=== PATIENT | female | born 1935 | race Caucasian/White ===

== ENCOUNTER 2024-05-08 12:10 | Inpatient (IN) | payer MEDICAID, OTHER, SELFPAY ==
[2024-05-08] VITALS (14 sets, daily range): BP systolic 128–196; BP diastolic 59–93; PULSE 65–90; RESP 13–21; TEMP 36.6–36.9; O2SAT 93–97; BMI 31.3
--- NOTE | ~2024-05-08 | CT_ITS ---
CLINICAL HISTORY: left leg weakness, numbness CT angiography head and neck with contrast. 3D Postprocessing. Comparison: None Findings: CTA head: No large vessel intracranial occlusion. No dissection or aneurysm. 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 Intradural vertebral arteries are patent. Anterior and posterior circulation appears widely patent. No abnormal postcontrast enhancement. CTA neck: There is a normal branching pattern of the aortic arch. The right common, internal and external carotid arteries are widely patent, with mild atherosclerotic disease of the bifurcation. The left common, internal and external carotid arteries are patent, with mild atherosclerotic disease of the bifurcation. The vertebral arteries are patent. Lung apices demonstrate mild chronic change. Calcified granuloma noted in the right. Moderate diffuse degenerative change within the cervical spine. No thyroid lesion. Impression: There is no intracranial large vessel occlusion detected. No significant stenosis of the neck vasculature. Incidental findings as detailed. This document has been electronically signed by: Bud Murray MD on 05/08/2024 12:54:31
--- NOTE | ~2024-05-08 | MR_ITS ---
CLINICAL HISTORY: stroke with left hemiparesis extremities post TPa MR Brain with and without gadolinium Comparison: CT/SR - CT HEAD FOR STROKE - 05/08/24 12:15 EST Findings: No restricted diffusion. No intracranial mass or hemorrhage. No midline shift. No hydrocephalus. Vascular flow voids are intact. There is involutional change, compatible with age. There are moderate white matter changes.. The orbits are normal. The sinuses and mastoid air cells are clear. No focal bone lesion. IMPRESSION: No acute abnormality of the brain. This document has been electronically signed by: Cathryn Freeman MD on 05/09/2024 13:04:17
--- NOTE | ~2024-05-08 | CT_ITS ---
CLINICAL HISTORY: left leg weakness CT head without contrast Comparison: None Findings: No intra-axial mass, midline shift, hydrocephalus, or acute hemorrhage. Mild volume loss and scattered low-density in the periventricular regions. The visualized paranasal sinuses and mastoid air cells are normal. The orbits are unremarkable. No skull fracture. IMPRESSION: 1. No acute intracranial findings. This document has been electronically signed by: Bud Murray MD on 05/08/2024 12:30:51
--- NOTE | 2024-05-08 12:12 | ECG_ITS ---
Test Reason : STROKE ALERT Blood Pressure : */* mmHG Vent. Rate : 80 BPM Atrial Rate : 80 BPM P-R Int : 188 ms QRS Dur : 82 ms QT Int : 368 ms P-R-T Axes : -2 -22 12 degrees QTcB Int : 424 ms Normal sinus rhythm Anterolateral infarct , age undetermined Abnormal ECG No previous ECGs available Referred By: Erica Valenzuela Electronically Signed By: ADRI THOMSON
--- NOTE | 2024-05-08 12:19 | ED_ITS ---
HPI - Neuro Symptoms/Deficit General Chief Complaint: Stroke Stated Complaint: leg weakness Time Seen by Provider: 05/08/24 12:11 Source: patient and family Mode of arrival: ambulatory Limitations: no limitations History of Present Illness ED Provider: MAYUR HPI Narrative: 88 yo female with PMH of HTN, DM, not on blood thinners 3 weeks ago had a TIA like event where she couldn't speak and it resolved. She has not had any head trauma etc or falls. Today just after 10am she noted significant numbness in left leg and it wouldn't move. She also had weakness in L arm. She has never had anything like this before. She has no headache. BP up on arrival. She has no hx of stroke or bleeding. Sent right to CT scan on arrival Onset (ago): hour(s) (just after 10am today) Last Observed Normal: 10:00 Timing confirmed by: family member Location: left arm and left leg History of same: No Severity: moderate Quality: weak and numb Relieving factors: rest Exacerbating factors: other (she cannot move leg) Context: sudden onset On Anticoagulants: No Associated symptoms: denies other symptoms Treatments Prior to Arrival: none Related Data Allergies Allergy/AdvReac Type Severity Reaction Status Date / Time No Known Allergies Allergy Verified 05/08/24 12:45 Review of Systems 2 Review of Systems: Constitutional : No Fever, No Chills, No Fatigue ENT/Mouth : No sore throat, No Rhinorrhea Eyes: No Eye Pain, No Swelling, No Redness Cardiovascular : No Chest Pain, No SOB, No Dyspnea on Exertion Respiratory : No Cough, No Sputum Gastrointestinal : No Nausea, No Vomiting, No Diarrhea, No abdominal Pain Genitourinary : No Dysuria, No Urinary Frequency, No Hematuria, Musculoskeletal : No joint pain, No Myalgias, No Joint Swelling Skin : No Skin Lesions, No rash Neuro : pos Weakness, pos Numbness, No Dizziness, no Headache Psych : No Anxiety/Panic, No Depression Heme/Lymph: No Bruising, No Bleeding,No Lymphadenopathy All other systems reviewed and are negative [facility] Past Medical History Medical History (Updated 05/08/24 @ 12:59 by Erica Valenzuela DO) Diabetes HTN (hypertension) Social History Social History (Updated 05/08/24 @ 12:28 by Erica Valenzuela DO) Patient Tobacco Use Status: Never used Tobacco Advance Directives: Yes Advance Directives Information Provided: Yes Advance Directives on File: No Do you have a plan to hurt others: No Plan Physical Exam 2 Vital Signs: Vital Signs: Last Vital Signs Temp 97.8 F 05/08/24 12:25 Pulse 78 05/08/24 12:45 Resp 14 05/08/24 12:45 BP 150/68 H 05/08/24 12:45 Pulse Ox 97 05/08/24 12:45 O2 Del Method Room Air 05/08/24 12:45 BMI result Body Mass Index 31.3 Appearance: Alert. Oriented X3. No acute distress. Eyes: Pupils equal, round and reactive to light. Normal visual kumar ENT: Pharynx normal. Neck: Normal inspection. Neck supple. CVS: Normal heart rate and rhythm. Pulses normal. Respiratory: No respiratory distress. Breath sounds normal. Abdomen: Soft and nontender. Skin: Skin warm and dry. Normal skin color. Extremities: No lower extremity edema. Neuro: Oriented X 3. CN2-12 intact, L arm slight drift, L leg some effort against gravity, numbness in lower leg as well Course Course Course Narrative: initial BP 196 systolic repeat 189 systolic IV labetalol ordered call to neurology 1223pm - pending call back from [facility] Reevaluation(s) Reevaluation #1: okay to give TNK at this time BP down on two checks 170s then 160s still with symptoms on weakness/numbness left leg cannot raise it off bed INR normal no CT ICH TNK without contraindications after talking to daughter repeat frequent checks of BP Reevaluation #2: L arm improved, she is able to now lift leg off bed which is improvement Medications Administered Discontinued Medications Generic Name Dose Route Start Last Admin Trade Name Freq PRN Reason Stop Dose Admin Labetalol HCl 10 mg 05/08/24 12:24 05/08/24 12:30 Labetalol Hcl 100 Mg/20 Ml Vial IVPUSH 05/08/24 12:25 10 mg ONCE ONE Administration Tenecteplase 19 mg 05/08/24 12:27 05/08/24 12:39 Tenecteplase 50 Mg/10 Ml Kit IVPUSH 05/08/24 12:28 19 mg ONCE ONE Administration Medical Decision Making Medical Decision Making MDM Narrative: 88 yo female with PMH of HTN, DM not on thinners here with c/o noticing significant numbness, weakness of the left leg and arm that started a little after 10am. She has noticeable LLE weakness, numbness, and left arm weakness at this time put into STROKE protocol - CT head/CTA, she is a candidate for TNK at this time. Will call neurology - repeat BP ordered it is elevated may need labetalol. Differential Diagnosis Differential Diagnoses: The differential diagnosis associated with the presentation includes stroke protocol workup Admission/Observation Consideration of admission/observation: Escalation of care including admission/observation considered admit for stroke work up neuro checks post TNK Consult Healthcare Provider Management of the patient was discussed with: Safety Equipment Testing Specialist (neurology) ICU aware - Dr. Dillon to admit Lab Data MDM Lab Attestation statement: I reviewed the patient's lab results. 05/08/24 12:23 05/08/24 12:23 Labs: Lab Results 05/08/24 05/08/24 05/08/24 Range/Units 12:17 12:19 12:23 WBC 7.1 (4.8-10.8) X10*3/uL RBC 5.12 (4.20-5.50) X10*6/uL Hgb 14.0 (12.0-16.0) g/dl Hct 43.6 (37.0-47.0) % MCV 85.2 (80.0-98.0) fL MCH 27.3 (27.0-33.0) pg MCHC 32.1 (31.0-35.0) g/dl RDW 14.4 (11.0-16.0) % Plt Count 161 (160-400) X10*3/uL MPV 9.7 (9.4-12.3) fL Immature Gran % (Auto) 0.4 (0.0-0.4) % Neut % (Auto) 67.1 (45-73) % Lymph % (Auto) 23.9 (20-40) % [place] % (Auto) 7.2 (2-11) % Eos % (Auto) 1.0 (0-4) % Baso % (Auto) 0.4 (0-2) % Lymph # (Auto) 1.7 (1.2-4.9) X10*3/uL [place] # (Auto) 0.5 (0.1-1.2) X10*3/uL Eos # (Auto) 0.1 (0.0-0.4) X10*3/uL Baso # (Auto) 0.0 (0.0-0.2) X10*3/uL Abs Immat Gran (auto) 0.03 (0.00-0.03) X10*3/uL Absolute Neuts (auto) 4.8 (2.0-8.3) x10*3/uL Absolute Nucleated RBC 0.000 (0.0-0.012) X10*3/uL Nucleated RBC % (auto) 0.0 (0.0-0.2) /100WBC PT 11.1 (10.9-12.4) SEC Whole Blood PT 12.2 (11.1-13.5) sec INR 1.0 (0.9-1.1) Whole Blood INR 1.0 (0.9-1.1) POC Glucose 217 H (60-115) mg/dL Estimat Average Glucose 160 mg/dL Hemoglobin A1c % 7.2 H (<6.0) % Hold Green Top See Note Independent Interpretation I performed an independent interpretation of an: EKG and CT Scan (no LVO, no ICH) Interpretation: Rate: 80 Rhythm: NSR [place]: left Normal P waves. Normal INES. Normal QRS complex. ST T wave : inverted t wave III, no ISSA qTC: 424 prior studies: no prior has poor R wave progression, nothing acute The study has been interpreted contemporaneously by me. . Radiology Impression Discussion of test interpretation with radiology: I have reviewed the radiologist's reading. Independent Historian Clinical information obtained from an independent historian. History obtained from or confirmed by: Other (daughter) NIH Stroke Scale Internal: Initial- Upon Arrival Level of Consciousness: Alert Level of Consciousness Questions: Answers both questions correctly Level of Consciousness Commands: Performs both tasks correctly Best Gaze: Normal Visual: No visual loss Facial Palsy: Normal Motor Arm (Right): No drift Motor Arm (Left): Drift Motor Leg (Right): No drift Motor Leg (Left): Some effort against gravity Limb Ataxia: Absent Sensory: Normal Best Language: No aphasia Dysarthia: Normal Extinction and Inattention: No abnormality Score: 3 Critical Care Time Critical Care Time Critical Care Time: Yes Total Critical Care Time: 45 Attestation: stroke protocol, IV labetalol, TNK for stroke, repeat assessments I attest to this time spent taking care of the patient Discharge Plan Discharge Clinical Impression: Cerebrovascular accident Patient Disposition: Admitted As Inpatient Print Language: Polish
[2024-05-08 12:27] LABS: Prothrombin Time Whole Bld POC 12.2 sec (11.1-13.5)
[2024-05-08 12:28] LABS: Glucose, Whole Blood 217 mg/dL (60-115)
[2024-05-08 12:29] LABS: MANUAL DIFF FLAG NO
[2024-05-08] MEDS: Labetalol HCL 100 MG/20 ML VIAL 10 MG IVPUSH (12:30)
--- NOTE | 2024-05-08 12:34 | PC.NURSE ---
pt returned from CT at this time. pt remains hypertensive. medication administered per provider order. effectiveness pending. otherwise vss and up to date. nsr on the cafeteria monitor. MD bedside.
[2024-05-08 12:39] LABS: Basophils Percent Auto 0.4 % (0-2); Eosinophils Absolute Auto 0.1 X10*3/uL (0.0-0.4); Hematocrit 43.6 % (37.0-47.0); Imm Gran Abs Auto 0.03 X10*3/uL (0.00-0.03); Imm Gran Pct Auto 0.4 % (0.0-0.4); Lymphocytes Absolute Auto 1.7 X10*3/uL (1.2-4.9); Lymphocytes Percent Auto 23.9 % (20-40); Mean Corpuscular HGB Conc 32.1 g/dl (31.0-35.0); Mean Corpuscular Hemoglobin 27.3 pg (27.0-33.0); Mean Corpuscular Volume 85.2 fL (80.0-98.0); Mean Platelet Volume 9.7 fL (9.4-12.3); Monocytes Absolute Auto 0.5 X10*3/uL (0.1-1.2); Monocytes Percent Auto 7.2 % (2-11); Neutrophils Absolute Auto 4.8 x10*3/uL (2.0-8.3); Neutrophils Percent Auto 67.1 % (45-73); Platelet Count 161 X10*3/uL (160-400); Red Blood Count 5.12 X10*6/uL (4.20-5.50); Red Cell Distribution Width 14.4 % (11.0-16.0); White Blood Count 7.1 X10*3/uL (4.8-10.8)
[2024-05-08] MEDS: Tenecteplase 50 MG/10 ML KIT 19 MG IVPUSH (12:39)
--- NOTE | 2024-05-08 12:39 | PC.NURSE ---
TNK administered per provider order.
[2024-05-08 12:49] LABS: Estimated Average Glucose 160 mg/dL; Hemoglobin A1c % 7.2 % (<6.0); Total Hemoglobin (HGBA1C) 3629.8159 umol/L
[2024-05-08 12:50] LABS: Prothrombin Time 11.1 SEC (10.9-12.4)
[2024-05-08 12:57] LABS: Troponin-I High Sensitivity 2.7 ng/L (<3.5-17.0)
[2024-05-08 12:59] LABS: Alanine Aminotransferase 64 U/L (0-31); Albumin Level 4.1 g/dL (3.5-5.0); Alkaline Phosphatase 79 U/L (39-117); Anion Gap 15 (12-20); Aspartate Amino Transferase 53 U/L (5-31); Bilirubin Direct 0.2 mg/dL (0.0-0.5); Bilirubin Total 0.8 mg/dL (0.0-1.0); Blood Urea Nitrogen 16 mg/dL (9-16); Calcium 9.6 mg/dL (8.4-10.2); Carbon Dioxide 25 mmol/L (22-29); Chloride 103 mmol/L (96-108); Cholesterol 161 mg/dL (<200); Creatinine Clr Calc Pharmacy 58.1; Estimated Glomerular Filt Rate > 60; Glucose Random 223 mg/dL (60-115); HDL Cholesterol 41 mg/dL (>40); LDL Cholesterol Calculated 81 mg/dL (<100); Lipase 18 U/L (8-78); Magnesium 1.8 mg/dL (1.6-2.6); Sodium 139 mmol/L (135-145); Total Protein 7.6 g/dL (6.5-8.0); Triglycerides 195 mg/dL (<150)
--- NOTE | 2024-05-08 12:59 | PC.NURSE ---
pt passed nursing swallow evaluation without difficulty. vss and up to date. nsr on the real estate loan officer. sx improving s/p medication administration. LLE weakness improved at this time. no facial droop noted. pt speaking in full/clear sentences w/o difficulty. no slur in speech noted. no difficulty w/ word finding. no pronator drift noted. pt remains on RA w/o difficulty. no sob/wob noted. respirations remain even/unlabored. family remains bedside. plan of care ongoing. call taylor placed within reach.
[2024-05-08 13:05] LABS: B Type Natriuretic Peptide 44 pg/mL (<100)
[2024-05-08 13:13] LABS: TSH reflex Free T4 1.48 uIU/mL (0.32-4.0)
[2024-05-08 13:35] LABS: Influenza A PCR NEGATIVE (Negative); Influenza B PCR NEGATIVE (Negative); Resp Syncy Virus RNA Qual PCR NEGATIVE (Negative); SARS COV2 PCR INHOUSE NEGATIVE (Negative)
--- NOTE | 2024-05-08 15:33 | PM.CCHP ---
History of Present Illness Date of Service: 05/08/24 Chief Complaint: Weakness in the left lower extremity Pretty 8-year-old lady with past medical history of hypertension, diabetes mellitus, peripheral neuropathy was brought into the emergency room as she developed sudden onset weakness in the left upper and lower extremity, more so in the left lower extremity. It was sudden, nonprogressive, associated with numbness started around 10:00. In the ED she underwent CTA of head and neck which did not show any acute bleeding, so she was treated on a stroke protocol and TNK was given. Apparently 3 weeks ago she developed sudden onset off aphasia that improved over few minutes or an hour. Patient is not on antiplatelet at baseline. Review of Systems Constitutional: Constitutional: Denies body ache(s), Denies chills and Denies daytime sleepiness Eyes: Eyes: Denies blurry vision, Denies exophthalmos and Denies change in vision ENT: Denies Normal hearing present, Denies bleeding gums, Denies dysphagia, Denies vertigo and Denies dizziness Cardiovascular: Cardiovascular: Denies Abdominal Distension, Denies chest pain with activity, Denies Epigastric Pain and Denies syncope Respiratory: Respiratory: Denies change in phlegm color, Denies chest congestion and Denies cough Gastrointestinal: Gastrointestinal: Denies abdominal pain, Denies melena, Denies change in bowel habits and Denies dysphagia Genitourinary: Genitourinary: Denies abnormal menses, Denies abnormal vaginal bleeding and Denies difficulty conceiving Musculoskeletal: Musculoskeletal: Denies abnormal gait, Denies back pain, Denies myalgias and Denies atrophy Neurologic: Denies Normal hearing present, Denies Neuro-related abnormal movements, Denies Abnormal speech present, Denies abnormal gait, Denies behavioral changes, Denies vertigo, Denies dizziness, Denies syncope, Reports focal weakness and Denies memory loss Psychiatric: Psychiatric: Denies abnormal sleep pattern, Denies anxiety, Denies behavioral changes and Denies memory loss [facility] Past Medical History Medical History (Updated 05/08/24 @ 15:43 by Raz Dillon MD) Diabetes HTN (hypertension) Social History Social History (Updated 05/08/24 @ 12:28 by Erica Valenzuela DO) Patient Tobacco Use Status: Never used Tobacco Advance Directives: Yes Advance Directives Information Provided: Yes Advance Directives on File: No Do you have a plan to hurt others: No Plan Meds Allergies Allergy/AdvReac Type Severity Reaction Status Date / Time No Known Allergies Allergy Verified 05/08/24 12:45 Active Medications: Current Medications Lactated Ringer's (Lr) 1,000 mls @ 100 mls/hr IVCONT .Q10H CRISTAL Pantoprazole Sodium 40 mg/ (Sodium Chloride) 110 mls @ 400 mls/hr IV DAILY@0630 CRISTAL Physical Exam Vital Signs: Vital Signs: Last Vital Signs Temp 98.2 F 05/08/24 12:59 Pulse 77 05/08/24 13:23 Resp 18 05/08/24 13:23 BP 137/74 05/08/24 13:23 Pulse Ox 94 05/08/24 13:23 O2 Del Method Room Air 05/08/24 13:23 BMI result Body Mass Index 31.3 General: Very pleasant, elderly lady, comfortable and lying in the bed Nutritional Appearance: well nourished and overweight Eyes: appearance normal, both eyes and all related structures; Alignment and Position: alignment normal and position normal Neck: No lymphadenopathy, no thyromegaly Resp: bilateral air entry equal, no added sounds present Cardio: Regular rate, regular rhythm; Heart sounds: S1 normal heart sound present and S2 normal heart sound present GI: soft, nontender, no guarding, no hepatosplenomegaly : bladder normal to inspection, bladder normal to palpation, no renal angle tenderness Skin: no rashes or lesions noted and elasticity normal Neuro: The weakness in the left upper and lower extremities has completely improved, patient has some altered sensations in the left lower extremity. Neuro: Cranial nerves: No Normal hearing present Speech: No Abnormal speech present Results Labs 05/08/24 12:23 05/08/24 12:23 Labs: Laboratory Results - last 24 hr 05/08/24 05/08/24 05/08/24 12:17 12:19 12:23 MCV 85.2 MCH 27.3 MCHC 32.1 RDW 14.4 Plt Count 161 MPV 9.7 Immature Gran % (Auto) 0.4 Neut % (Auto) 67.1 Lymph % (Auto) 23.9 [place] % (Auto) 7.2 Eos % (Auto) 1.0 Baso % (Auto) 0.4 Lymph # (Auto) 1.7 [place] # (Auto) 0.5 Eos # (Auto) 0.1 Baso # (Auto) 0.0 Abs Immat Gran (auto) 0.03 Absolute Neuts (auto) 4.8 Absolute Nucleated RBC 0.000 Nucleated RBC % (auto) 0.0 PT 11.1 Whole Blood PT 12.2 INR 1.0 Whole Blood INR 1.0 Anion Gap 15 Estim Creat Clear Calc 58.1 Estimated GFR > 60 POC Glucose 217 H Random Glucose 223 H Estimat Average Glucose 160 Hemoglobin A1c % 7.2 H Calcium 9.6 Magnesium 1.8 Total Bilirubin 0.8 Direct Bilirubin 0.2 AST 53 H ALT 64 H Alkaline Phosphatase 79 B-Natriuretic Peptide 44 Total Protein 7.6 Albumin 4.1 Triglycerides 195 H Cholesterol 161 LDL Cholesterol, Calc 81 HDL Cholesterol 41 Lipase 18 TSH 1.48 Hold Green Top See Note Influenza Type A (PCR) Influenza Type B (PCR) RSV RNA Qual (PCR) SARS-CoV-2 RNA (RT-PCR) 05/08/24 12:52 MCV MCH MCHC RDW Plt Count MPV Immature Gran % (Auto) Neut % (Auto) Lymph % (Auto) [place] % (Auto) Eos % (Auto) Baso % (Auto) Lymph # (Auto) [place] # (Auto) Eos # (Auto) Baso # (Auto) Abs Immat Gran (auto) Absolute Neuts (auto) Absolute Nucleated RBC Nucleated RBC % (auto) PT Whole Blood PT INR Whole Blood INR Anion Gap Estim Creat Clear Calc Estimated GFR POC Glucose Random Glucose Estimat Average Glucose Hemoglobin A1c % Calcium Magnesium Total Bilirubin Direct Bilirubin AST ALT Alkaline Phosphatase B-Natriuretic Peptide Total Protein Albumin Triglycerides Cholesterol LDL Cholesterol, Calc HDL Cholesterol Lipase TSH Hold Green Top Influenza Type A (PCR) NEGATIVE Influenza Type B (PCR) NEGATIVE RSV RNA Qual (PCR) NEGATIVE SARS-CoV-2 RNA (RT-PCR) NEGATIVE Assessment and Plan (1) Cerebrovascular accident: Qualifiers: CVA mechanism: unspecified Qualified Code(s): I63.9 - Cerebral infarction, unspecified Status: Acute Plan Acute ischemic stroke/TIA: Patient had an episode of TIA versus acute ischemic stroke at 10:00 this morning. CTA negative for any intracranial bleed or thrombosis of neck vessels.TNK was given this morning. Close neurological status monitoring Q 1 hours in the ICU We will start her on statin, received TNK so we will hold off on antiplatelet therapy for now LDL 82, will get A1c 24 hour imaging tomorrow in the morning. Hypertension: Target blood pressures less than 180 systolics We will do as needed IV labetalol pushes Diabetes mellitus: We will start the patient on sliding scale insulin Prophylaxis: SCD, pantoprazole
[2024-05-08 16:12] LABS: Phosphorus 3.3 mg/dL (2.7-4.5)
[2024-05-08] MEDS: Lactated Ringers 1,000 ML 100 ML IVCONT ×2 (16:46→19:12)
--- NOTE | 2024-05-08 17:30 | PC.NURSE ---
report given to JANETH Manuel in the ICU.
--- NOTE | 2024-05-08 18:14 | PHA.MEDREC ---
Addendum entered by Ange Jama RPh 05/08/24 18:33: reviewed by [facility]. Original Note: Pharmacy Consult ? Medication Reconciliation Pharmacy has completed the medication reconciliation. Spoke with patients daughter at bedside. Patient recently moved here. They are also taking Gliclazide 80 mg bidac last taken this morning, this is not available in the [place]. Metformin and simvastatin were taken last night. Patient was taking nifedipine but ran out ~1 month ago. She recently found a new PCP that send new prescriptions to the pharmacy but meds have not been started or picked up yet (per [facility]): Gabapentin 300 mg @ bedtime Amlodipine 5 mg daily Atorvastatin 10 mg daily Metformin 500 mg ER bid.
[2024-05-08 20:28] LABS: Glucose, Whole Blood 88 mg/dL (60-115)
[2024-05-08] MEDS: Atorvastatin Calcium 80 MG TABLET PO (21:29)
[2024-05-08] MEDS: Melatonin 3 MG TABLET 6 MG PO (23:55)
[2024-05-09] VITALS (18 sets, daily range): BP systolic 118–159; BP diastolic 52–75; PULSE 58–97; RESP 10–21; TEMP 36.4–37.1; O2SAT 90–97; BMI 31.0
[2024-05-09 04:36] LABS: MANUAL DIFF FLAG NO
[2024-05-09 04:38] LABS: Basophils Percent Auto 0.1 % (0-2); Eosinophils Absolute Auto 0.1 X10*3/uL (0.0-0.4); Hematocrit 40.2 % (37.0-47.0); Imm Gran Abs Auto 0.03 X10*3/uL (0.00-0.03); Imm Gran Pct Auto 0.4 % (0.0-0.4); Lymphocytes Absolute Auto 2.4 X10*3/uL (1.2-4.9); Lymphocytes Percent Auto 30.1 % (20-40); Mean Corpuscular HGB Conc 32.3 g/dl (31.0-35.0); Mean Corpuscular Hemoglobin 27.3 pg (27.0-33.0); Mean Corpuscular Volume 84.3 fL (80.0-98.0); Monocytes Absolute Auto 0.7 X10*3/uL (0.1-1.2); Monocytes Percent Auto 8.8 % (2-11); Neutrophils Absolute Auto 4.7 x10*3/uL (2.0-8.3); Neutrophils Percent Auto 59.6 % (45-73); Platelet Count 148 X10*3/uL (160-400); Red Blood Count 4.77 X10*6/uL (4.20-5.50); Red Cell Distribution Width 14.6 % (11.0-16.0)
[2024-05-09 04:58] LABS: Alanine Aminotransferase 46 U/L (0-31); Albumin Level 3.5 g/dL (3.5-5.0); Alkaline Phosphatase 70 U/L (39-117); Anion Gap 12 (12-20); Aspartate Amino Transferase 37 U/L (5-31); Blood Urea Nitrogen 12 mg/dL (9-16); Calcium 9.4 mg/dL (8.4-10.2); Carbon Dioxide 28 mmol/L (22-29); Chloride 106 mmol/L (96-108); Creatinine Clr Calc Pharmacy 60.9; Estimated Glomerular Filt Rate > 60; Glucose Random 110 mg/dL (60-115); Magnesium 1.9 mg/dL (1.6-2.6); Potassium 4.2 mmol/L (3.3-5.1); Sodium 142 mmol/L (135-145); Total Protein 6.6 g/dL (6.5-8.0)
[2024-05-09] MEDS: Lactated Ringers 1,000 ML 100 ML IVCONT (05:08)
[2024-05-09] MEDS: Pantoprazole Sodium 40 MG in 0.9 % Sodium Chloride 100 ML 400 MG IV (05:08)
[2024-05-09 08:02] LABS: Glucose, Whole Blood 111 mg/dL (60-115)
--- NOTE | 2024-05-09 09:28 | PM.CCPN ---
Subjective Subjective Date of Service: 05/09/24 Critical Care Time (minutes): 0 Physical Exam Vital Signs: Vital Signs: Last Vital Signs Temp 97.6 F 05/09/24 08:00 Pulse 61 05/09/24 08:00 Resp 21 H 05/09/24 08:00 BP 133/58 L 05/09/24 08:00 Pulse Ox 92 05/09/24 08:00 O2 Del Method Room Air 05/09/24 08:00 BMI result Body Mass Index 31.0 Const: General: cooperative, healthy appearing, comfortable, no acute distress, well developed, alert, awake and Physically active Orientation/consciousness: patient oriented x3 HEENT: Head: Yes normal to inspection, Yes normocephalic and Yes atraumatic Eyes: General: appearance normal, both eyes and all related structures Neck: Neck: Yes normal visual inspection, Yes full ROM, Yes no meningeal signs, Yes trachea midline and Yes supple Chest: Chest palpation & inspection: normal inspection of the chest Resp: Other: no appreciable rales, rhonchi, wheezing Effort & Inspection: normal respiratory effort Cardio: Rate: regular rate Rhythm: regular rhythm GI: Inspection: Yes normal to inspection, No Abdominal wall edema and No distended Palpation (GI): Soft to palpation, not firm, nontender, no guarding and not rigid Skin: General skin exam: no rashes or lesions noted Neuro: Other: appreciable 5/5 strength bilateral upper and lower extremities; though subjective weakness and numbness L LE compared to R LE, though improved from presentation General: patient oriented x3, tone normal, moves all extremities and no meningeal signs Extrem: General: Yes normal to inspection, Yes full ROM, Yes capillary refill normal and Yes no clubbing, cyanosis or edema Psych: Appearance: grossly normal Objective Data Labs 05/09/24 04:06 05/09/24 04:06 Labs: Laboratory Results - last 24 hr 05/08/24 05/08/24 05/08/24 12:17 12:19 12:23 WBC 7.1 RBC 5.12 Hgb 14.0 Hct 43.6 MCV 85.2 MCH 27.3 MCHC 32.1 RDW 14.4 Plt Count 161 MPV 9.7 Immature Gran % (Auto) 0.4 Neut % (Auto) 67.1 Lymph % (Auto) 23.9 Grayson % (Auto) 7.2 Eos % (Auto) 1.0 Baso % (Auto) 0.4 Lymph # (Auto) 1.7 Grayson # (Auto) 0.5 Eos # (Auto) 0.1 Baso # (Auto) 0.0 Abs Immat Gran (auto) 0.03 Absolute Neuts (auto) 4.8 Absolute Nucleated RBC 0.000 Nucleated RBC % (auto) 0.0 PT 11.1 Whole Blood PT 12.2 INR 1.0 Whole Blood INR 1.0 Sodium 139 Potassium 4.0 Chloride 103 Carbon Dioxide 25 Anion Gap 15 BUN 16 Creatinine 0.67 Estim Creat Clear Calc 58.1 Estimated GFR > 60 POC Glucose 217 H Random Glucose 223 H Estimat Average Glucose 160 Hemoglobin A1c % 7.2 H Calcium 9.6 Phosphorus 3.3 Magnesium 1.8 Total Bilirubin 0.8 Direct Bilirubin 0.2 AST 53 H ALT 64 H Alkaline Phosphatase 79 Troponin I High Sens 2.7 B-Natriuretic Peptide 44 Total Protein 7.6 Albumin 4.1 Triglycerides 195 H Cholesterol 161 LDL Cholesterol, Calc 81 HDL Cholesterol 41 Lipase 18 TSH 1.48 Hold Green Top See Note Influenza Type A (PCR) Influenza Type B (PCR) RSV RNA Qual (PCR) SARS-CoV-2 RNA (RT-PCR) 05/08/24 05/08/24 05/09/24 12:52 20:22 04:06 WBC 8.0 RBC 4.77 Hgb 13.0 Hct 40.2 MCV 84.3 MCH 27.3 MCHC 32.3 RDW 14.6 Plt Count 148 L MPV 10.0 Immature Gran % (Auto) 0.4 Neut % (Auto) 59.6 Lymph % (Auto) 30.1 Grayson % (Auto) 8.8 Eos % (Auto) 1.0 Baso % (Auto) 0.1 Lymph # (Auto) 2.4 Grayson # (Auto) 0.7 Eos # (Auto) 0.1 Baso # (Auto) 0.0 Abs Immat Gran (auto) 0.03 Absolute Neuts (auto) 4.7 Absolute Nucleated RBC 0.000 Nucleated RBC % (auto) 0.0 PT Whole Blood PT INR Whole Blood INR Sodium 142 Potassium 4.2 Chloride 106 Carbon Dioxide 28 Anion Gap 12 BUN 12 Creatinine 0.64 Estim Creat Clear Calc 60.9 Estimated GFR > 60 POC Glucose 88 Random Glucose 110 Estimat Average Glucose Hemoglobin A1c % Calcium 9.4 Phosphorus Magnesium 1.9 Total Bilirubin 1.0 Direct Bilirubin AST 37 H ALT 46 H Alkaline Phosphatase 70 Troponin I High Sens B-Natriuretic Peptide Total Protein 6.6 Albumin 3.5 Triglycerides Cholesterol LDL Cholesterol, Calc HDL Cholesterol Lipase TSH Hold Green Top Influenza Type A (PCR) NEGATIVE Influenza Type B (PCR) NEGATIVE RSV RNA Qual (PCR) NEGATIVE SARS-CoV-2 RNA (RT-PCR) NEGATIVE 05/09/24 07:32 WBC RBC Hgb Hct MCV MCH MCHC RDW Plt Count MPV Immature Gran % (Auto) Neut % (Auto) Lymph % (Auto) Grayson % (Auto) Eos % (Auto) Baso % (Auto) Lymph # (Auto) Grayson # (Auto) Eos # (Auto) Baso # (Auto) Abs Immat Gran (auto) Absolute Neuts (auto) Absolute Nucleated RBC Nucleated RBC % (auto) PT Whole Blood PT INR Whole Blood INR Sodium Potassium Chloride Carbon Dioxide Anion Gap BUN Creatinine Estim Creat Clear Calc Estimated GFR POC Glucose 111 Random Glucose Estimat Average Glucose Hemoglobin A1c % Calcium Phosphorus Magnesium Total Bilirubin Direct Bilirubin AST ALT Alkaline Phosphatase Troponin I High Sens B-Natriuretic Peptide Total Protein Albumin Triglycerides Cholesterol LDL Cholesterol, Calc HDL Cholesterol Lipase TSH Hold Green Top Influenza Type A (PCR) Influenza Type B (PCR) RSV RNA Qual (PCR) SARS-CoV-2 RNA (RT-PCR) Progress Note: A&P Assessment and plan (1) Cerebrovascular accident: Status: Acute (2) HTN (hypertension): Status: Acute (3) Diabetes: Status: Acute Plan Patient is a 88-year-old F w/ hypertension, diabetes mellitus, c/b peripheral neuropathy developed L UE and LE weakness, numbness 10:00 on 05/08, presented to emergency department as stroke code, given TNK, admitted ICU for post-TNK care N: likely TIA, s/p TNK protocol CV: no acute issues; hypertension R: no acute issues GI: diabetic diet : no acute issues H: no acute issues; to avoid chemical DVT prophylaxis in setting of TNK ID: no acute issues; to monitor for stigmata of infection E: diabetes mellitus, insulin sliding scale P: no acute issues Quality Stroke Does the patient have a stroke diagnosis?: No VTE Prior VTE?: No VTE Risk Level:: Medical - moderate - high VTE Device Contraindication: N/A - Device Ordered VTE Drug Contraindication: Treatment Not Tolerated
--- NOTE | 2024-05-09 10:01 | P.CNNE_ITS ---
History of Present Illness Data of Consult Service Date: 05/09/24 Primary Care Provider: Monse Medina MD HPI Reason for consult: Stroke 88 years old woman with history of diabetes and hypertension was brought to hospital with new onset of left-sided weakness. It happened suddenly and she came with in time and was evaluated for acute stroke. She was given TNK for tentative diagnosis of ischemic infarct. She was admitted in ICU for blood pressure management. She did well and now she was back to baseline. No complications occurred. There was no recent cardiac symptom. No seizure-like episode. Review of Systems 2 Review of Systems: No recent chest pain shortness of breath or cold or flu-like illness PMFSH Past Medical History Medical History Diabetes HTN (hypertension) Social History Social History (Updated 05/08/24 @ 12:28 by Erica Valenzuela DO) Household Members: Spouse and Significant Other Housing: House Do you presently have visiting nurse or other home services: No Patient Tobacco Use Status: Never used Tobacco Use of substances other than those prescribed or required for medical reasons: No Currently Displaying Signs/Symptoms of Drug Intoxication Withdrawal: No Any prior treatment program specific to substance use: No Have you been hit, kicked, punched, or otherwise hurt by someone within the past year? If so, by whom?: No Do you feel safe in your current relationship?: Yes Is there a partner from a previous relationship who is making you feel unsafe now?: No Are you made to feel afraid or neglected: No Advance Directives: Yes Advance Directives Information Provided: Yes Advance Directives on File: No Advance Directives Date on File: 05/08/24 Do you have a plan to hurt others: No Plan Recently lost weight without trying: Unsure How much weight loss: Not applicable Eating poorly because of decreased appetite: Yes Nutrition screen score: 3 Nutrition Risks: No Nutritional Risk Patient : No : No Poor oral hygiene: No Meds Allergies Allergy/AdvReac Type Severity Reaction Status Date / Time No Known Allergies Allergy Verified 05/08/24 12:45 Active Medications: Current Medications Atorvastatin Calcium (Atorvastatin Calcium 80 Mg Tablet) 80 mg PO BEDTIME CRISTAL Last Admin: 05/08/24 21:29 Dose: 80 mg Dextrose (Dextrose 50 % 25 Gm/50 Ml Syringe) 25 gm IVPUSH Q15M PRN; Protocol PRN Reason: per Hypoglycemia Standing Ord. Glucose (Glucose Gel 15 Gm Gel..Gram.) 15 gm PO Q15M PRN; Protocol PRN Reason: per Hypoglycemia Standing Ord. Pantoprazole Sodium 40 mg/ (Sodium Chloride) 110 mls @ 400 mls/hr IV DAILY@0630 [facility] Last Infusion: 05/09/24 05:30 Dose: Infused Insulin Human Lispro (Insulin Lispro 100 Unit/Ml 3 Ml Vial) 0 unit SUBCUT QIDACHS [facility]; Protocol Stop: 05/09/24 15:33 Last Admin: 05/09/24 07:42 Dose: Not Given Niacin (Niacin Er 250 Mg Tablet.Er) 250 mg PO BEDTIME [facility] Last Admin: 05/08/24 21:29 Dose: 250 mg Home Medications ?Medication ?Instructions ?Recorded ?Confirmed ?Last Taken ?Type gabapentin 300 mg capsule 300 mg PO BID 05/08/24 05/08/24 Unknown History metformin 500 mg tablet 500 mg PO BID 05/08/24 05/08/24 05/07/24 History simvastatin 20 mg tablet 20 mg PO BEDTIME 05/08/24 05/08/24 05/07/24 History Physical Exam 2 Vital Signs: Vital Signs: Last Vital Signs Temp 97.6 F 05/09/24 08:00 Pulse 61 05/09/24 08:00 Resp 21 H 05/09/24 08:00 BP 133/58 L 05/09/24 08:00 Pulse Ox 92 05/09/24 08:00 O2 Del Method Room Air 05/09/24 08:00 BMI result Body Mass Index 31.0 Neuro: Other: She is alert and awake with normal spontaneity of speech fluency comprehension and affect. Face is symmetrical. Visual kumar are full. There is no pronator drift. Wckqwe-it-dfsk testing is normal. Deep tendon reflexes are absent with flexor plantars. Speech is normal. Results Labs 05/09/24 04:06 05/09/24 04:06 Labs: Short CBC 05/08/24 05/09/24 Range/Units 12:23 04:06 WBC 7.1 8.0 (4.8-10.8) X10*3/uL Hgb 14.0 13.0 (12.0-16.0) g/dl Hct 43.6 40.2 (37.0-47.0) % Plt Count 161 148 L (160-400) X10*3/uL BMP 05/08/24 05/09/24 12:23 04:06 Sodium 139 142 Potassium 4.0 4.2 Chloride 103 106 Carbon Dioxide 25 28 BUN 16 12 Creatinine 0.67 0.64 Calcium 9.6 9.4 Liver Function 05/08/24 05/09/24 Range/Units 12:23 04:06 Total Bilirubin 0.8 1.0 (0.0-1.0) mg/dL Direct Bilirubin 0.2 (0.0-0.5) mg/dL AST 53 H 37 H (5-31) U/L ALT 64 H 46 H (0-31) U/L Alkaline Phosphatase 79 70 (39-117) U/L Albumin 4.1 3.5 (3.5-5.0) g/dL noncontrast head CT revealed [id number] diffuse cerebral atrophy. CTA did not reveal any acute lesion. EKG revealed sinus rhythm. Assessment and Plan (1) Cerebrovascular accident: Qualifiers: CVA mechanism: unspecified Qualified Code(s): I63.9 - Cerebral infarction, unspecified Status: Acute Acute left hemiparesis treated with TNK for suspected ischemic infarction. Now she was doing well. My recommendation is to obtain MRI without contrast to make a definitive diagnosis. Otherwise continue blood pressure management, diabetes control, statin and anti-platelet agent for now Procedures Date of Service Date of Service: 05/09/24
[2024-05-09 12:04] LABS: Glucose, Whole Blood 149 mg/dL (60-115)
[2024-05-09] MEDS: gadobutroL 7.5 ML VIAL IVPUSH (12:41)
[2024-05-09 16:51] LABS: Glucose, Whole Blood 174 mg/dL (60-115)
[2024-05-09] MEDS: Gabapentin 300 MG CAPSULE PO (20:13)
[2024-05-09] MEDS: Atorvastatin Calcium 80 MG TABLET PO (20:14)
[2024-05-09] MEDS: Aspirin Enteric Coated 81 MG TABLET.DR PO (20:14)
[2024-05-09 20:50] LABS: Glucose, Whole Blood 145 mg/dL (60-115)
[2024-05-10] VITALS: BP 133/63; PULSE 64; RESP 16; TEMP 36.6; O2SAT 94
[2024-05-10 04:00] VITALS: BP 110/55; PULSE 65; RESP 16; TEMP 36.5; O2SAT 94
[2024-05-10 05:39] VITALS: BMI 32.1
--- NOTE | 2024-05-10 07:00 | CA_ITS ---
Transthoracic Echocardiogram Patient (Last, First, Middle): Maryellen Acosta, Gender: Female Date of : 1935 Age: 88 Procedure Date: 05/10/2024 Procedure Type: Transthoracic Echocardiogram Location: [facility] [place] Height: 157.48 cm Weight: 76.66 kg BSA: 1.78 m2 Heart Rate: bpm BP: 142 / 57 mmHg Front Desk Manager: TO Referring MD: Loc MARINO Symptoms: stroke post TPA Study Quality: Fair/contrast ECG Rhythm: Sinus Conclusions: - The left ventricular systolic function is normal. The calculated ejection fraction is 61% by biplane method. - No obvious valvular pathology seen on this study. Findings Procedure Information Contrast agent, definity, is being given per protocol without apparent complications. Left Ventricle Normal left ventricular cavity size. There is normal left ventricular wall thickness. The left ventricular systolic function is normal. The calculated ejection fraction is 61% by biplane method. There is no evidence of regional wall motion abnormalities. Evidence suggests grade I (mild) diastolic dysfunction. There is mild septal and mild basal asymmetric hypertrophy. Right Ventricle Normal right ventricular cavity size and systolic function. Atria Both atria are normal in size. Aortic Valve There is a normal trileaflet aortic valve. There is no aortic valve stenosis. There is no aortic valve regurgitation. Mitral Valve There is mild mitral annular calcification. There is no mitral valve regurgitation. There is no mitral valve stenosis. Pulmonic Valve The pulmonic valve is likely normal. Tricuspid Valve There is trace tricuspid valve regurgitation. There is no evidence of pulmonary hypertension. Great Vessels The asc aorta is normal in size. Venous The inferior vena cava is mildly dilated and collapses greater than 50% with inspiration. Pericardium/Pleural There is no evidence of pericardial effusion. Prior Study Comparison No prior study available for comparison. Recommendations, Care & Conclusions No obvious valvular pathology seen on this study. Measurements 2D Linear Measurements IVSd: 1.02 0.6-0.9/0.6-1.0 cm LVIDd: 4.37 3.9-5.3/4.2-5.9 cm LVIDd Index: 2.46 2.4-3.2/2.2-3.1 cm/m2 LVIDs: 3.15 2.0-3.6 cm LVPWd: 0.89 0.7-1.1 cm LA Diam: 3.70 2.7-3.8/3.0-4.0 cm LAIDs Index: 2.08 1.5-2.3 cm/m2 LV Mass: 171.03 67-162/88-224 g LV Mass Index: 96.09 43-95/49-115 g/m2 LVOT Diam: 2.00 3.0+(-)1.3 cm 2D Systolic Function EF 4C: 64.60 >55% EF 2C: 54.50 >55% EF BiP: 60.90 >55% Mitral Valve MV VTI: 0.33 MV Pk Eugene: 1.06 MV Mn Eugene: 0.64 MV Pk Grad: 4.00 MV Mn Grad: 2.00 MV Pk E: 0.67 MV PK A: 0.91 MV Decel Time: 254.00 E/A: 0.70 E'Lateral: 5.44 E'Medial: 3.92 E/E' Med: 17.00 E/E' Lat: 12.30 PHT: 74.00 MVA PHT: 2.97 MVA Continuity: 2.45 Decel Schoolcraft: 2.63 Aortic Valve AoV Pk Eugene: 1.45 AoV Mn Eugene: 0.93 AoV VTI: 0.33 AoV Pk Grad: 8.00 Aov Mn Grad: 4.00 PERNELL Cont.VTI: 2.49 LVOT LVOT Pk Eugene: 0.99 LVOT Mn Eugene: 0.67 LVOT VTI: 0.26 LVOT Pk Grad: 4.00 LVOT Mn Grad: 2.00 LVOT Diam: 2.00 LVOT Area: 3.14 Diastolic Function MV Pk E: 0.67 MV Pk A: 0.91 E/A: 0.70 E'Medial: 3.92 E/E' Med: 17.00 E' Laterial: 5.44 E/E' Lat: 12.30 Right Ventricle TAPSE (mm): 23.00 TVS' Eugene: 10.90 Tricuspid Valve TR Pk Eugene: 1.90 TR Pk Grad: 14.00 RA Press: 8.00 RVSP: 22.00 Great Vessels Aorta Sinus of Valsalva: 4.09 2.0-3.[address] [place]: 2.91 1.7-3.4 cm Ao Asc: 3.40 2.1-3.4 cm Updated in Other Vendor System with Status of Final Tk De La Rosa MD electronically signed on 05/10/2024 2:10:43 PM with status of Final
[2024-05-10 07:28] LABS: Glucose, Whole Blood 138 mg/dL (60-115)
--- NOTE | 2024-05-10 07:42 | PM.DS ---
DS: Providers Provider Date of Service: 05/10/24 Date of admission: 05/08/24 15:30 Date of discharge: 05/10/24 Primary care physician: Monse Medina MD DS: Diagnosis Discharge Diagnosis (1) Cerebrovascular accident: Status: Acute DS: Summary Hospital Course Hospital Course: History of presenting illness. Date of Service: 05/08/24 Chief Complaint: Weakness in the left lower extremity Pretty 8-year-old lady with past medical history of hypertension, diabetes mellitus, peripheral neuropathy was brought into the emergency room as she developed sudden onset weakness in the left upper and lower extremity, more so in the left lower extremity. It was sudden, nonprogressive, associated with numbness started around 10:00. In the ED she underwent CTA of head and neck which did not show any acute bleeding, so she was treated on a stroke protocol and TNK was given. Apparently 3 weeks ago she developed sudden onset off aphasia that improved over few minutes or an hour. Patient is not on antiplatelet at baseline. Hospital course: 88-year-old female patient with past medical history of hypertension, diabetes mellitus, hyperlipidemia, peripheral neuropathy admitted to ICU after receiving TNK for sudden onset of left-sided weakness for possible ischemic infarction, post TNK patient was monitored closely, noted to have no new neurological deficit, subsequently transitioned to intermediate care unit. Acute left-sided hemiparesis status post treatment with TNK for possible acute ischemic infarction, imaging studies including head CT showed no acute intracranial findings, head and neck CTA showed no intracranial large vessel occlusion, no significant stenosis of neck vasculature, MRI brain unremarkable, LDL 81, total cholesterol 161 and triglyceride 195, patient started on aspirin, placed on Lipitor 40 mg at bedtime and niacin 250 mg at bedtime, blood pressure is stable, recommend to resume home dose of metformin, patient neurological examination showed facial symmetry, normal fluency of speech and normal strength both upper and lower extremity, no pronator drift ,patient seen by Physical therapy they recommended home services, that will be arranged by family, since patient is hemodynamically stable she is being discharged home. Echo showed EF 61%, no evidence of regional wall motion abnormality, grade 1 mild diastolic dysfunction, normal trileaflet aortic valve. Diabetes mellitus continue metformin Hyperlipidemia discontinue Zocor started on Lipitor 40 mg daily check lipid profile in 3-4 months. Hypertension previously was on antihypertensive medications currently blood pressure is stable recommend close outpatient blood pressure monitoring. Neuropathy continue gabapentin. Time Attestation Discharge Coordination Time (in mins): 40 Quality: Safe Use of Opioids Does Pt have an Active Cancer Diagnosis on the Problem List?: No Quality: Stroke Does the patient have a stroke diagnosis?: No Physical Exam Vital Signs: Vital Signs: Last Vital Signs Temp 97.7 F 05/10/24 04:00 Pulse 65 05/10/24 04:00 Resp 16 05/10/24 04:00 BP 110/55 L 05/10/24 04:00 Pulse Ox 94 05/10/24 04:00 O2 Del Method Room Air 05/10/24 04:00 BMI result Body Mass Index 32.1 Const: Other: General resting comfortably in no acute distress. Anicteric sclera Neck supple no JVD. CVS regular rate rhythm, Respiratory lungs clear to auscultation, no respiratory distress, no wheeze, no rhonchi. Gastrointestinal abdomen soft, non tender, bowel sounds audible Extremities no edema.left leg bigger than rt (chronic as per patient) Neuro non focal, moving all 4 extremity, face symmetrical, speech clear. Skin no rash Psych appropriate affect DS: Data Data Completed and Pending Labs on day of discharge: Laboratory Results - last 24 hr 05/09/24 05/09/24 05/09/24 07:32 11:55 16:45 POC Glucose 111 149 H 174 H 05/09/24 05/10/24 20:19 07:19 POC Glucose 145 H 138 H Discharge Plan Discharge Anticipated Discharge Date/Time: 05/10/24 10:28 Patient Disposition: Home, Self-Care Discharge Diagnosis: Acute left hemiparesis Referrals: Monse Medina MD [Primary Care Provider] - 1 Week Discharge Medications: New aspirin 81 mg Tablet,Delayed Release (Dr/Ec) 81 mg PO DAILY Qty: 90 0RF niacin 250 mg Tablet Extended Release 250 mg PO BEDTIME Qty: 90 0RF atorvastatin 40 mg Tablet 40 mg PO BEDTIME Qty: 90 0RF Continued metformin 500 mg Tablet 500 mg PO BID gabapentin 300 mg Capsule 300 mg PO BID Discontinued simvastatin 20 mg Tablet 20 mg PO BEDTIME Discharge Orders: Discharge Order (Routine); Ordered 05/10/24 Ordered By: Cindy Sesay Diet: Diabetic diet Activity on Discharge: As tolerated Stand Alone Forms: Patient Portal Discharge page Print Language: Swedish Care Plan Goals: Acute left hemiparesis Take aspirin 1 tablet daily Lipitor 40 mg once daily Niacin 250 mg at bedtime DC if unable to tolerate due to side effects Continue all home medications Repeat lipid profile in 3-4 months Health Concerns: Diabetes mellitus Hyperlipidemia Hypertension monitor BP as outpatient Plan of Treatment: Follow-up with primary care physician call for appointment in 2-4 weeks Assessment: As above
[2024-05-10 08:00] VITALS: BP 132/62; PULSE 65; RESP 17; TEMP 36.9; O2SAT 93
[2024-05-10 08:25] LABS: Cholesterol 129 mg/dL (<200); HDL Cholesterol 39 mg/dL (>40); LDL Cholesterol Calculated 68 mg/dL (<100); Triglycerides 114 mg/dL (<150)
[2024-05-10] MEDS: Aspirin Enteric Coated 81 MG TABLET.DR PO (08:42)
[2024-05-10] MEDS: Gabapentin 300 MG CAPSULE PO (08:42)
--- NOTE | 2024-05-10 10:27 | MHC.CM.PN ---
Pt has been self-care, lives at home with her daughter. Education provided on HCP, a new one has been completed, now on file. PT evaluated pt, and recommend STR, this was discussed with the pt and her daughter, they would prefer the pt return home with home PT services. Pts daughter in agreement with a referral to be placed to [facility]. Per NA, pts home is out of their service area, and also state that pts insurance does not cover any home care services. Pts insurance will not cover STR either. PT will have to return home self-care with family support. PCP: Dr. Monse Medina
--- NOTE | 2024-05-10 10:42 | MHC.STROKE ---
Met with patient in room 467. Pt awake, alert and oriented x 4. Pt was getting ready to ambulate in the hallway so I walked with her. Pt using walker, gait steady. Moving all extremities, speech clear, conversing appropriately. Stroke Education reviewed, pamphlet provided. We discussed TNK administration. We also discussed risk factors including medical history, medications, diet, exercise, social habits (denies smoking/alcohol use). Pt engaged in conversation. All questions answered. Will continue to assist as needed.
[2024-05-10 11:52] LABS: Glucose, Whole Blood 192 mg/dL (60-115)
[2024-05-10] MEDS: Insulin Lispro 100 UNIT/ML 3 ML VIAL SUBCUT (11:57)
[2024-05-10 11:58] VITALS: BP 117/64; PULSE 75; RESP 18; TEMP 37.2; O2SAT 96
[2024-05-10 12:14] VITALS: BP 117/64; PULSE 75; O2SAT 96
--- NOTE | 2024-05-10 14:29 | MHC.CM.PN ---
Pt is medically cleared for discharge home self-care, with family support, pts daughter will transport her home today.
== END 2024-05-10 15:56 | disposition home or self-care (01) | DRG 45 ==
LOC: HO.ED 13:56 → HO.EDOVER 15:44 → HO.ICU 16:48 → HO.IMC 05-09 14:52
PROVIDERS: Admitting Provider Internal Medicine Critical Care Medicine; Emergency Provider Emergency Medicine; PCP Family Medicine; Visit Provider Hospitalist
DX: I63.9 Cerebral infarction, unspecified (principal); E11.42 Type 2 diabetes mellitus with diabetic polyneuropathy; E11.9 Type 2 diabetes mellitus without complications; G83.34 Monoplegia, unspecified affecting left nondominant side; R29.703 NIHSS score 3; Z20.822 Contact with and (suspected) exposure to COVID-19; Z79.84 Long term (current) use of oral hypoglycemic drugs; Z79.899 Other long term (current) drug therapy
CPT/HCPCS: 0241U; 36415; 70450; 70496; 70498; 70553; 80048; 80053; 80061; 80076; 82947; 83036; 83690; 83735; 83880; 84100; 84443; 84484; 85025; 85610; 93005; 93306; 97161; 97166; 97530; 97535; 99285; A9585; J1920; J2470; J3101; J7120; Q9957

== ENCOUNTER → 2024-05-08 12:12 | Outpatient (BNV) | payer MEDICAID, SELFPAY | PROVIDERS: Emergency Provider Emergency Medicine; PCP Family Medicine; Visit Provider Radiology Vascular & Interventional Radiology | DX: R53.1 Weakness (principal); R20.0 Anesthesia of skin | CPT/HCPCS: 70450; 70496; 70498 ==

== ENCOUNTER → 2024-05-08 12:12 | Outpatient (BNV) | payer SELFPAY | PROVIDERS: Admitting Provider Internal Medicine Critical Care Medicine; Emergency Provider Emergency Medicine; PCP Family Medicine; Visit Provider Internal Medicine | DX: R94.31 Abnormal electrocardiogram [ECG] [EKG] (principal); I63.9 Cerebral infarction, unspecified | CPT/HCPCS: 93010 ==

== ENCOUNTER → 2024-05-08 12:51 | Outpatient (BNV) | payer MEDICAID, SELFPAY | PROVIDERS: Emergency Provider Emergency Medicine; PCP Family Medicine; Visit Provider Internal Medicine Critical Care Medicine | DX: I63.9 Cerebral infarction, unspecified (principal); E11.9 Type 2 diabetes mellitus without complications; I10 Essential (primary) hypertension | CPT/HCPCS: 99232 ==

== ENCOUNTER 2024-05-08 15:30 | Outpatient (BNV) | payer SELFPAY | END 2024-05-10 07:00 | PROVIDERS: Admitting Provider Internal Medicine Critical Care Medicine; Emergency Provider Emergency Medicine; PCP Family Medicine; Visit Provider Internal Medicine | DX: I63.9 Cerebral infarction, unspecified (principal) | CPT/HCPCS: 93306 ==

== ENCOUNTER 2024-05-08 15:30 | Outpatient (BNV) | payer MEDICAID, SELFPAY | END 2024-05-09 13:00 | PROVIDERS: Admitting Provider Internal Medicine Critical Care Medicine; Emergency Provider Emergency Medicine; PCP Family Medicine; Visit Provider Radiology Diagnostic Radiology | DX: I69.354 Hemiplegia and hemiparesis following cerebral infarction affecting left non-dominant side (principal) | CPT/HCPCS: 70553 ==

== ENCOUNTER → 2024-05-08 15:30 | Outpatient (BNV) | payer SELFPAY | PROVIDERS: Admitting Provider Internal Medicine Critical Care Medicine; Emergency Provider Emergency Medicine; PCP Family Medicine; Visit Provider Psychiatry & Neurology Neurology | DX: I63.9 Cerebral infarction, unspecified (principal) | CPT/HCPCS: 99222 ==

== ENCOUNTER → 2024-05-08 15:30 | Outpatient (BNV) | payer MEDICAID, SELFPAY | PROVIDERS: Admitting Provider Internal Medicine Critical Care Medicine; Emergency Provider Emergency Medicine; PCP Family Medicine; Visit Provider Hospitalist | DX: I63.9 Cerebral infarction, unspecified (principal) | CPT/HCPCS: 99239 ==

== ENCOUNTER 2024-06-06 11:35 | Outpatient (REF) | payer SELFPAY ==
[2024-06-06 13:11] LABS: MANUAL DIFF FLAG NO
[2024-06-06 13:15] LABS: Basophils Percent Auto 0.2 % (0-2); Eosinophils Absolute Auto 0.1 X10*3/uL (0.0-0.4); Hematocrit 43.1 % (37.0-47.0); Hemoglobin 13.4 g/dl (12.0-16.0); Imm Gran Abs Auto 0.03 X10*3/uL (0.00-0.03); Imm Gran Pct Auto 0.4 % (0.0-0.4); Lymphocytes Absolute Auto 2.3 X10*3/uL (1.2-4.9); Lymphocytes Percent Auto 28.5 % (20-40); Mean Corpuscular HGB Conc 31.1 g/dl (31.0-35.0); Mean Corpuscular Hemoglobin 26.8 pg (27.0-33.0); Mean Corpuscular Volume 86.2 fL (80.0-98.0); Mean Platelet Volume 11.4 fL (9.4-12.3); Monocytes Absolute Auto 0.6 X10*3/uL (0.1-1.2); Monocytes Percent Auto 7.9 % (2-11); Platelet Count 149 X10*3/uL (160-400); Red Cell Distribution Width 14.4 % (11.0-16.0); White Blood Count 8.1 X10*3/uL (4.8-10.8)
--- OUTSIDE RECORDS SUMMARY | 2024-06-06 13:45 | XMS_ITS | Encounter Summary ---
Author Organization [employer] Address [address] [place] [address] Care Team Providers Care Hat Trimmer Name Role Phone Monse Medina MD Primary Care Provider [phone] Encounter Details Date Type Department Care Team (Latest Contact Info) Description 06/06/2024 Travel Social History Tobacco Use Types Packs/Day Years Used Date Smoking Tobacco: Never Passive Smoke Exposure: Never Smokeless Tobacco: Never Alcohol Use Standard Drinks/Week Comments Never 0 (1 standard drink = 0.6 oz pur e alcohol) Depression Answer Date Recorded Patient Health Questionnaire-9 Score 1 04/28/2024 Patient Health Questionnaire-9 Score 1 04/28/2024 Last PHQ-9: Questionnaire Data Not on file 0 04/28/2024 Housing Stability Answer Date Recorded What is your housing situation today? I have rosa valente 04/28/[address] you li ve. Do you have problems with any of the following? None of the above 04/28/2024 Food Insecurity Answer Date Recorded Within the past 12 months, y ou worried that your food would run out before you got money to buy more: Never True 04/28/2024 Within the past 12 months,th e food you bought just didn't last and you didn't have enough money to get more: Never True 08/2024 Transportation Answer Date Recorded In the past 12 months, has l ack of transportation kept you from medical appts, meetings, work or from getting things needed for daily living? No 04/28/2024 Utilities Answer Date Recorded In the past 12 months, has t he electric, gas, oil or water company threatened to shut off services in your home? No 04/28/2024 Depression Answer Date Recorded Patient Health Questionnaire-2 Score 1 04/28/2024 Internet Access Answer Date Recorded Internet Access Q1 Yes 04/28/2024 Internet Access Q2 Not on file 04/28/2024 Comments Unknown Sex and Gender Information Value Date Recorded Sex Assigned at Female 04/27/2024 8:33 AM EST Legal Sex Female 10:40 AM EST Gender Identity Female 04/27/2024 8:33 AM EST Sexual Orientation Don't know 04/27/2024 8: 33 AM EST documented as of this encounter Plan of Treatment Not on file documented as of this encounter Visit Diagnoses Not on filedocumented in this encounter Additional Health Concerns Assessment Noted Time PHQ-9 Depression Total Score: 1 04/28/19 9:28 AM EST documented as of this encounter Care Teams Hat Trimmer Relationship Specialty Start Date End Date Monse Medina MD [address] [place] [id number] PCP - General Family Medicine 04/28/24 documented as of this encounter
--- OUTSIDE RECORDS SUMMARY | 2024-06-06 13:45 | XMS_ITS | Encounter Summary ---
Author Organization [employer] Address [address] [facility] [address] [place] [address] Care Team Providers Care Ripsaw Matcher Name Role Phone Monse Medina MD Primary Care Provider [phone] Encounter Details Date Type Department Care Team (Late st Contact Info) Description 05/02/2024 Orders Only [facility] [address] [place] [address] Monse Medina MD [address] [place] [address] Social History Tobacco Use Types Packs/Day Years [...] on file documented as of this encounter Procedures Procedure Name Priority Date/Time Associated Diagnosis Comments MR BRAIN W AND WO CONTRAST Routine 05/09/2024 1:04 PM EST CTA HEAD STROKE W AND WO CONTRAST Routine 05/08/2024 12:54 PM EST SARS COV2/INFLUENZA A/B AND RSV RNA QL NAAT Routine 05/08/2024 12:[address] HEAD STROKE WO CONTRAST Routine 05/08/2024 12:30 PM EST HOLD GREEN GEL Routine 05/08/2024 12:23 PM EST HOLD GREEN GEL Routine 05/08/2024 12:23 PM EST HIGH SENSITIVITY TROPONIN I Routine 05/08/2024 12:23 PM EST TSH W/REFLEX TO FT4 Routine 05/08/2024 1 2:23 PM EST CBC WITH AUTO DIFFERENTIAL Routine 05/08/2024 12:23 PM EST PROTHROMBIN TIME-INR Routine 05/08/2024 12:23 PM EST B TYPE NATRIURETIC PEPTIDE (BNP) Routine 05/08/2024 12:23 PM EST MAGNESIUM Routine 05/08/2024 12:23 PM EST LIPASE Routine 05/08/2024 12:23 PM EST HEMOGLOBIN A1C Routine 05/08/2024 12:23 PM EST HEPATIC FUNCTION PANEL Routine 05/08/2024 12:23 PM EST LIPID PANEL, STANDARD Routine 05/08/2024 12:23 PM EST BASIC METABOLIC PANEL Routine 05/08/2024 12:23 PM EST PROTHROMBIN TIME WHOLE BLD POC Routine 05/08/2024 12:19 PM EST ~PT, ~INR - ANTI COAG CLINIC Routine 05/08/2024 12:19 PM EST GLUCOSE, WHOLE BLOOD Routine 05/08/2024 12:17 PM EST documented in this encounter Results * Mr Brain w/ and w/o Contrast (05/09/2024 1:04 PM EST) Anatomical Region Laterality Modality Brain Magnetic Resonan ce 05/09/2024 1:04 PM EST Narrative 05/09/2024 1:05 PM EST ? [facility] ?[address] ?[place] [address] ? Magnetic Resonance Report ? Signed ? Patient: Rambissoon,Maryellen ?MR#: [id number] ?? 1351 ? : 1935 ?Acct:[id number] ? Age/Sex: 88 / F ?ADM Date: 02/16/25 ? Loc: HO.ICU ?254-1 ? Attending Joel Sesay MD ? Ordering Physician: Loc Elder ?? Date of Service: 05/09/24 ?? Procedure(s): MR head/brain wo/w con ?? Accession Number(s): [id number] ? cc: Loc Edler; Monse Medina MD ? 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 MR Brain with and without gadolinium ? Comparison: CT/SR - CT HEAD FOR STROKE - 05/08/24 12:15 EST ? Findings: ?? No restricted diffusion. ?? No intracranial mass or hemorrhage. ?? No midline shift. No hydrocephalus. ?? Vascular flow voids are intact. ?? There is involutional change, compatible with age. There are moderate ?? white matter changes.. ? The orbits are normal. ?? The sinuses and mastoid air cells are clear. ?? No focal bone lesion. ? IMPRESSION: ?? No acute abnormality of the brain. ? This document has been electronically signed by: Cathryn Freeman MD on ?? 05/09/2024 13:04:17 ? Dictated By: ?Cathryn Freeman MD ? Signed By: ?<Electronically signed by Cathryn Freeman MD in OV> ? 05/09/24 1305 ? DD/ 1304 ? TD/TT: 05/09/24 1304 ? Cloud Developer: ? 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 No intracranial mass or hemorrhage. No midline shift. No hydrocephalus. Vascular flow voids are intact. There is involutional change, compatible with age. There are moderate white matter changes.. The orbits are normal. The sinuses and mastoid air cells are clear. No focal bone lesion. IMPRESSION: No acute abnormality of the brain. This document has been electronically signed by: Cathryn Freeman MD on 05/09/2024 13:04:17 Dictated By: Cathryn Freeman MD Signed By: <Electronically signed by Cathryn Freeman MD in OV> 05/09/24 1305 DD/ 1304 TD/TT: 05/09/24 1304 Cloud Developer: us [facility] External Provider IMG MRI PROCEDURES Final Result * CTA Head Stroke w/ and w/o Contrast (05/08/2024 12:54 PM EST) Anatomical Region Laterality Modality Computed Tomogra phy 05/08/2024 12:5 4 PM EST Narrative 05/08/2024 12:55 PM EST ? [facility] ?[address] ?[place] [address] ? CT Scan Report ? Signed ? Patient: Maryellen Acosta ?MR#: [id number] ?? 1351 ? : 1935 ?Acct:[id number] ? Age/Sex: 88 / F ?ADM Date: 05/08/24 ? Loc: HO.ED ? Attending Dr: ? Ordering Physician: Erica Valenzuela DO ?? Date of Service: 05/08/24 ?? Procedure(s): CT angio head neck STROKE ?? Accession Number(s): [id number] ? cc: Erica Valenzuela DO; Monse Medina MD ? Report Number: ?? [id number]: Total DLP = ??647.00 mGy-cm ? CLINICAL HISTORY: left leg weakness, numbness ? CT angiography head and neck with contrast. 3D Postprocessing. ? Comparison: None ? Findings: ? CTA head: ? No large vessel intracranial occlusion. ?? No dissection or aneurysm. ?? 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 internal carotid arteries. ?? Intradural vertebral arteries are patent. ?? Anterior and posterior circulation appears widely patent. ?? No abnormal postcontrast enhancement. ? CTA neck: ? There is a normal branching pattern of the aortic arch. ?? The right common, internal and external carotid arteries are widely ?? patent, with mild atherosclerotic disease of the bifurcation. ?? The left common, internal and external carotid arteries are patent, with ?? mild atherosclerotic disease of the bifurcation. ?? The vertebral arteries are patent. ?? Lung apices demonstrate mild chronic change. Calcified granuloma noted in ?? the right. ?? Moderate diffuse degenerative change within the cervical spine. ?? No thyroid lesion. ? Impression: ? There is no intracranial large vessel occlusion detected. ?? No significant stenosis of the neck vasculature. ?? Incidental findings as detailed. ? This document has been electronically signed by: Bud Murray MD on ?? 05/08/2024 12:54:31 ? Dictated By: ?Bud Murray MD ? Signed By: ?<Electronically signed by Bud Murray MD in OV> ? 05/08/24 1255 ? DD/ 1254 ? TD/TT: 05/08/24 1254 ? Cloud Developer: ? Procedure Note Donotuseinterpreter, Image - 05/08/[address] [place] [address] [address] Scan Report Signed Patient: Carlin Acosta#: [id number] 1351 : 8Acct:[id number] Age/Sex: 88 / FADM Date: 05/08/24 Loc: HO.ED Attending Dr: Ordering Physician: Erica Valenzuela DO Date of Service: 05/08/24 Procedure(s): CT angio head neck STROKE Accession Number(s): [id number] cc: Erica Valenzuela DO; Monse Medina MD Report Number: [id number]: Total DLP = 647.00 mGy-cm CLINICAL HISTORY: left leg weakness, numbness CT angiography head and neck with contrast. 3D Postprocessing. Comparison: None Findings: CTA head: No large vessel intracranial occlusion. No dissection or aneurysm. 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 Intradural vertebral arteries are patent. Anterior and posterior circulation appears widely patent. No abnormal postcontrast enhancement. CTA neck: There is a normal branching pattern of the aortic arch. The right common, internal and external carotid arteries are widely patent, with mild atherosclerotic disease of the bifurcation. The left common, internal and external carotid arteries are patent, with mild atherosclerotic disease of the bifurcation. The vertebral arteries are patent. Lung apices demonstrate mild chronic change. Calcified granuloma noted in the right. Moderate diffuse degenerative change within the cervical spine. No thyroid lesion. Impression: There is no intracranial large vessel occlusion detected. No significant stenosis of the neck vasculature. Incidental findings as detailed. This document has been electronically signed by: Bud Murray MD on 05/08/2024 12:54:31 Dictated By: Bud Murray MD Signed By: <Electronically signed by Bud Murray MD in OV> 05/08/24 1255 DD/ 1254 TD/TT: 05/08/24 1254 Cloud Developer: [facility] External Provider IMG CT PROCEDURES Final Result * SARS-CoV-2 RNA, Influenza A/B, and RSV RNA, Ql NAAT (05/08/2024 12:52 PM EST) Influenza A PCR NEGATIVE Negative [facility] Influenza B PCR NEGATIVE Negative [facility] Resp Syncy Virus RNA Qual PCR NEGATIVE Negative [facility] SARS COV2 PCR NEGATIVE Negative [facility] Comment:All test results mus t be correlated with clinical findings.Negative results do not preclude SARS-CoV2, influenza Avirus, influenza B virus and/or RSV infectionand should not be used as the sole basis for treatment orother patient management decisions. Negative results must becombined with clinical observations, patient history, andepidemiological information.This test has not been evaluated for monitoring treatment ofinfection.This test has been authorized by the FDA under an EmergencyUse Authorization (EUA) for use by authorized laboratories.Testing performed on the [employer] GeneXpert utilizingreal-time RT-PCR.All SARS CoV2 and positive influenza A/B results arereported to [facility]. 05/08/2024 12:5 2 PM EST 05/08/2024 12:56 PM EST Generic External Data Provider LAB MICROBIOLOGY - GENERAL ORDERABLES Final Result [facility] [address] [place] [phone] * CT Head Stroke w/o Contrast (05/08/2024 12:30 PM EST) Anatomical Region Laterality Modality Computed Tomogra phy 05/08/2024 12:3 0 PM EST Narrative 05/08/2024 12:34 PM EST ? [facility] ?[address] ?[place] [address] ? CT Scan Report ? Signed with Addenda ? Patient: Rambissoon,Maryellen ?MR#: [id number] ?? 1351 ? : 1935 ?Acct:[id number] ? Age/Sex: 88 / F ?ADM Date: 05/08/24 ? Loc: HO.ED ? Attending Dr: ? Ordering Physician: Erica Valenzuela DO ?? Date of Service: 05/08/24 ?? Procedure(s): CT head for STROKE ?? Accession Number(s): [id number] ? cc: Erica Valenzuela DO; Monse Medina MD ? Report Number: ?? [id number]: Total DLP = ??667.00 mGy-cm ?ADDENDUM ?? This document has been electronically signed by: Bud Murray MD on ?? 05/08/2024 12:30:51 ? ADDENDUM: ?? This report was discussed with Bianca Maldonado MD on May 08, 2024 12:35:00 EST. ? This document has been electronically signed by: Candice Martinez on 05/08/2024 ?? 12:36:06 ? Addendum Dictated By: ?Bud Murray MD ? Addendum Signed By: ? <Electronically signed by Bud Murray MD in OV> ? 05/08/24 1236 ?? Addendum Cosigned By: ? DD/ ? TD/TT: 05/08/24 ? CLINICAL HISTORY: left leg weakness ? CT head without contrast ? Comparison: None ? Findings: ?? No intra-axial mass, midline shift, hydrocephalus, or acute hemorrhage. ?? Mild volume loss and scattered low-density in the periventricular regions. ?? The visualized paranasal sinuses and mastoid air cells are normal. ?? The orbits are unremarkable. ?? No skull fracture. ? IMPRESSION: ?? 1. No acute intracranial findings. ? This document has been electronically signed by: Bud Murray MD on ?? 05/08/2024 12:30:51 ? Dictated By: ?Bud Murray MD ? Signed By: ?<Electronically signed by Bud Murray MD in OV> ? 05/08/24 1233 ? DD/ 1230 ? TD/TT: 05/08/24 1230 ? Cloud Developer: ? Procedure Note Donotuseinterpreter, Image - 05/08/[address] [address] [address] Scan Report Signed with Addgabe Patient: Carlin Acosta#: [id number] 1351 : 8Acct:[id number] Age/Sex: 88 / FADM Date: 05/08/24 Loc: HO.ED Attending Dr: Ordering Physician: Erica Valenzuela DO Date of Service: 05/08/24 Procedure(s): CT head for STROKE Accession Number(s): [id number] cc: Erica Valenzuela DO; Monse Medina MD Report Number: [id number]: Total DLP = 667.00 mGy-cm ADDENDUM This document has been electronically signed by: Bud Murray MD on 05/08/2024 12:30:51 ADDENDUM: This report was discussed with Bianca Maldonado MD on May 08, 2024 12:35:00 EST. This document has been electronically signed by: Candice Martinez on 05/08/2024 12:36:06 Addendum Dictated By: Bud Murray MD Addendum Signed By: <Electronically signed by MD Melyssa in OV> 05/08/241235 Addendum Cosigned By: DD/ TD/TT: 05/08/24 CLINICAL HISTORY: left leg weakness CT head without contrast Comparison: None Findings: No intra-axial mass, midline shift, hydrocephalus, or acute hemorrhage. Mild volume loss and scattered low-density in the periventricular regions. The visualized paranasal sinuses and mastoid air cells are normal. The orbits are unremarkable. No skull fracture. IMPRESSION: 1. No acute intracranial findings. This document has been electronically signed by: Bud Murray MD on 05/08/2024 12:30:51 Dictated By: Bud Murray MD Signed By: <Electronically signed by Bud Murray MD in OV> 05/08/243 DD/ 29 TD/TT: 05/08/241229 Cloud Developer: us [facility] External Provider IMG CT PROCEDURES Edited Result - Final * Hold Green Gel (05/08/2024 12:23 PM EST) Hold Green Gel See Note [facility] Comment:Specimen held untest ed for 24 hours; Call to requestChemistry testing. 05/08/2024 12:2 3 PM EST 05/08/2024 12:28 PM EST Generic External Data Provider HISTORICAL/NON OR DERABLE LABS Final Result Performing Organization Address [facility]/ZIP Co de Phone Number [facility] [address] [place] [phone] * TSH with Reflex to Free T4 (05/08/2024 12:23 PM EST) TSH reflex Free T4 1.48 0.32 - 4.0 uIU/mL [facility] 05/08/2024 12:2 3 PM EST 05/08/2024 12:28 PM EST Generic External Data Provider LAB BLOOD ORDERAB LES Final Result Performing Organization Address [facility] Co de Phone Number [facility] [address] [place] [phone] * B Type Natriuretic Peptide (BNP) (05/08/2024 12:23 PM EST) B Type Natriuretic Peptide 44 <100 pg/mL [facility] Comment:For those patients w ho are being treated with Natrecor(nesiritide, recombinant BNP), BNP testing should beperformed at least two hours post treatment in order toensure that only endogenous levels of BNP are detected. 05/08/2024 12:2 3 PM EST 05/08/2024 12:28 PM EST Generic External Data Provider LAB BLOOD ORDERAB LES Final Result Performing Organization Address City/[facility]/ZIP Co de Phone Number [facility] [address] [place] [phone] * Lipase (05/08/2024 12:23 PM EST) Lipase 18 8 - 78 U/L [facility] 05/08/2024 12:2 3 PM EST 05/08/2024 12:28 PM EST us Generic External Data Provider LAB BLOOD ORDERAB LES Final Result Performing Organization Address [facility] de Phone Number [facility] [address] [place] [phone] [phone] * (ABNORMAL) Lipid Panel, Standard (05/08/2024 12:23 PM EST) Triglycerides 195(H) <150 mg/dL [facility] Comment:Desirable Triglyceri de: less than 150 mg/dLBorderline High Triglyceride 150-199 mg/dLHigh Triglyceride: 200-499 mg/dLVery High Triglyceride: greater than or equal to 5OO mg/dL Cholesterol 161 <200 mg/dL [facility] Comment:Desirable Cholestero l: less than 200 mg/dLBorderline High Cholesterol: 200-239 mg/dLHigh Cholesterol: greater than 239 mg/dL LDL Cholesterol Calculated 81 <100 mg/dL [facility] Comment:Desirable LDL: less than 100 mg/dLNear Optimal/Above Optimal LDL: 110- 129 mg/dLBorderline High LDL: 130-159 mg/dLHigh LDL: 160-189 mg/dLVery High LDL: greater than or equal to 190 mg/dL HDL Cholesterol 41 >40 mg/dL [facility] Comment:Desirable HDL: great er than 40 mg/dL Note: This HDL assay may give artificially low results in patients with liver disease. 05/08/2024 12:2 3 PM EST 05/08/2024 12:28 PM EST us Generic External Data Provider LAB BLOOD ORDERAB LES Final Result Performing Organization Address City/[facility]/ZIP Co de Phone Number [facility] [address] [place] [phone] * Magnesium (05/08/2024 12:23 PM EST) Magnesium 1.8 1.6 - 2.6 mg/dL [facility] 05/08/2024 12:2 3 PM EST 05/08/2024 12:28 PM EST us Generic External Data Provider LAB BLOOD ORDERAB LES Final Result [facility] [address] [place] [phone] * (ABNORMAL) Basic Metabolic Panel (05/08/2024 12:23 PM EST) Sodium 139 135 - 145 mmol/L [facility] Potassium 4.0 3.3 - 5.1 mmol/L [facility] Chloride 103 96 - 108 mmol/L [facility] Carbon Dioxide 25 22 - 29 mmol/L [facility] Anion Gap 15 12 - 20 [facility] Urea Nitrogen (BUN) 16 9 - 16 mg/dL [facility] Creatinine, Serum 0.67 0.5 - 1.4 mg/dL [facility] Creatinine Clr Calc Pharmacy 58.1 [facility] Comment:Provided height and weight: 157.48 cm,77.6 kg.eGFR (calculated from the MDRD study equation) and eCrCl(calculated from the Cockcroft-Gault equation) are based ondifferent parameters and may not yield comparable results.If eCrCl result is absurd, please check patient'sheight/weight. Estimated Glomerular Filt Rate >60 [facility] Comment:Chronic Kidney Disea se: Estimated GFR < 60 mL/min/[id number] Kidney Disease: Estimated GFR < 15 mL/min/1.73m2 Glucose 223(H) 60 - 115 mg/dL [facility] Calcium 9.6 8.4 - 10.2 mg/dL [facility] 05/08/2024 12:2 3 PM EST 05/08/2024 12:28 PM EST Generic External Data Provider LAB BLOOD ORDERAB LES Final Result Performing Organization Address [facility] Co de Phone Number [facility] [address] [place] [phone] * (ABNORMAL) Hepatic Function Panel (05/08/2024 12:23 PM EST) Bilirubin, Total 0.8 0.0 - 1.0 mg/dL [facility] Bilirubin, Direct 0.2 0.0 - 0.5 mg/dL [facility] Aspartate Amino Transferase 53(H) 5 - 31 U/L [facility] Alanine Aminotransferase 64(H) 0 - 31 U/L [facility] Total Protein 7.6 6.5 - 8.0 g/dL [facility] Albumin Level 4.1 3.5 - 5.0 g/dL [facility] Alkaline Phosphatase 79 39 - 117 U/L [facility] 05/08/2024 12:2 3 PM EST 05/08/2024 12:28 PM EST Generic External Data Provider LAB BLOOD ORDERAB LES Final Result Performing Organization Address [facility] Co de Phone Number [facility] [address] [place] [phone] * High Sensitivity Troponin I (05/08/2024 12:23 PM EST) TROPONIN I HIGH SENSITIVITY 2.7 <3.5 - 17.0 ng/L [facility] Comment:The Magdaleno high sens itivity Troponin-I results should beused in conjunction with other diagnostic information suchas ECG, clinical observations and information, and patientsymptoms to aid in the diagnosis of DC. 05/08/2024 12:2 3 PM EST 05/08/2024 12:28 PM EST Generic External Data Provider LAB BLOOD ORDERAB LES Final Result Performing Organization Address [facility] Co de Phone Number [facility] [address] [place] [phone] * Prothrombin Time-INR (05/08/2024 12:23 PM EST) Prothrombin Time 11.1 10.9 - 12.4 SEC [facility] INTERNATIONAL NORM RATIO 1.0 0.9 - 1.1 [facility] Comment:INTERNATIONAL NORMAL IZED RATIO (INR) REFERENCE RANGES Reference RangeFor patients not on anticoagulant therapy: 0.9 - 1.1INR ranges for oral anticoagulanttherapy:For prevention and treatment of venous thrombosis and pulmonary embolism: 2.0 - 3.0For acute myocardial infarction with aspirin therapy: 2.0 - 3.0For acute myocardial infarction without aspirin therapy: 3.0 - 4.0For patients with mechanical prosthetic heart valves: 2.5 - 3.5 05/08/2024 12:2 3 PM EST 05/08/2024 12:28 PM EST Zhou Heiya External Data Provider LAB BLOOD ORDERAB LES Final Result Performing Organization Address [facility] de Phone Number [facility] [address] [place] [phone] * (ABNORMAL) Hemoglobin A1c (05/08/2024 12:23 PM EST) Hemoglobin A1c 7.2(H) <6.0 % [facility] Comment:Hemoglobin A1C Refer ence Range Adults: 4.8 - 6.0 % Non diabetic: < 6.0 % Goal: < 7.0 %Additional Action Suggested: > 8.0 %Note: Hemoglobin A1c results are invalid for patients with abnormal amounts of HbF. Blood transfusions may impact the HbA1c concentration in the patient sample. Estimated Average Glucose 160 mg/dL [facility] Comment:eAG = Estimated ave rage glucose which is %A1C expressed asaverage glucose, using the formula of the [id number] Glucose study (ADAG), Diabetes Care, Vol.31,#8,2007 05/08/2024 12:2 3 PM EST 05/08/2024 12:28 PM EST us Generic External Data Provider LAB BLOOD ORDERAB LES Final Result [facility] [address] [place] [phone] * CBC auto differential (05/08/2024 12:23 PM EST) White Blood Count 7.1 4.8 - 10.8 X10*3/uL [facility] Red Blood Count 5.12 4.20 - 5.50 X10*6/uL [facility] Hemoglobin 14.0 12.0 - 16.0 g/dl [facility] Hematocrit 43.6 37.0 - 47.0 % [facility] Mean Corpuscular Volume 85.2 80.0 - 98.0 fL [facility] Mean Corpuscular Hemoglobin 27.3 27.0 - 33.0 pg [facility] Mean Corpuscular HGB Conc 32.1 31.0 - 35.0 g/dl [facility] Red Cell Distribution Width 14.4 11.0 - 16.0 % [facility] Platelet Count 161 160 - 400 X10*3/uL [facility] Mean Platelet Volume 9.7 9.4 - 12.3 fL [facility] Neutrophils Percent Auto 67.1 45 - 73 % [facility] Imm Gran Pct Auto 0.4 0.0 - 0.4 % [facility] Lymphocytes Percent Auto 23.9 20 - 40 % [facility] Monocytes Percent Auto 7.2 2 - 11 % [facility] Eosinophils Percent Auto 1.0 0 - 4 % [facility] Basophils Percent Auto 0.4 0 - 2 % [facility] NRBC Pct Auto 0.0 0.0 - 0.2 /100WBC [facility] Neutrophils Absolute Auto 4.8 2.0 - 8.3 x10*3/uL [facility] Imm Gran Abs Auto 0.03 0.00 - 0.03 X10*3/uL [facility] Lymphocytes Absolute Auto 1.7 1.2 - 4.9 X10*3/uL [facility] Monocytes Absolute Auto 0.5 0.1 - 1.2 X10*3/uL [facility] Eosinophils Absolute Auto 0.1 0.0 - 0.4 X10*3/uL [facility] Basophils Absolute Auto 0.0 0.0 - 0.2 X10*3/uL [facility] NRBC Abs Auto 0.000 0.0 - 0.012 X10*3/uL [facility] 05/08/2024 12:2 3 PM EST 05/08/2024 12:28 PM EST Generic External Data Provider LAB BLOOD ORDERAB LES Final Result Performing Organization Address City/[facility]/ZIP Co de Phone Number [facility] [address] [place] [phone] * Hold Green Gel (05/08/2024 12:23 PM EST) Hold Green Gel See Note [facility] Comment:Specimen held untest ed for 24 hours; Call to requestChemistry testing. 05/08/2024 12:2 3 PM EST 05/08/2024 12:28 PM EST us Generic External Data Provider HISTORICAL/NON OR DERABLE LABS Final Result Performing Organization Address City/[facility]/ZIP Co de Phone Number [facility] [address] [place] [phone] * PROTHROMBIN TIME WHOLE BLD POC (05/08/2024 12:19 PM EST) Protime 12.2 11.1 - 13.5 sec [facility] 05/08/2024 12:1 9 PM EST 05/08/2024 12:27 PM EST us Generic External Data Provider LAB BLOOD ORDERAB LES Final Result Performing Organization Address [facility]/ZIP Co de Phone Number [facility] [address] [place] [phone] * ~PT, ~INR - ANTI COAG CLINIC (05/08/2024 12:19 PM EST) Prothrombin Time INR 1.0 0.9 - 1.1 [facility] Comment:METER #: [id number] TERNATIONAL NORMALIZED RATIO (INR) REFERENCE RANGES Reference RangeFor patients not on anticoagulant therapy: 0.9 - 1.1INR ranges for oral anticoagulanttherapy:For prevention and treatment of venous thrombosis and pulmonary embolism: 2.0 - 3.0For acute myocardial infarction with aspirin therapy: 2.0 - 3.0For acute myocardial infarction without aspirin therapy: 3.0 - 4.0For patients with mechanical prosthetic heart valves: 2.5 - 3.5 05/08/2024 12:1 9 PM EST 05/08/2024 12:27 PM EST us Generic External Data Provider LAB BLOOD ORDERAB LES Final Result Performing Organization Address [facility] Co de Phone Number [facility] [address] [place] [phone] * (ABNORMAL) Glucose, Whole Blood (05/08/2024 12:17 PM EST) Glucose, Whole Blood 217(H) 60 - 115 mg/dL [facility] Comment:METER #: [id number] 05/08/2024 12:1 7 PM EST 05/08/2024 12:28 PM EST Generic External Data Provider LAB BLOOD ORDERAB LES Final Result Performing Organization Address [facility] Co de Phone Number [facility] [address] [place] [phone] documented in this encounter Visit Diagnoses Not on filedocumented in this encounter Additional Health Concerns Assessment Noted Time PHQ-9 Depression Total Score: 1 04/28/19 25 9:28 AM EST documented as of this encounter Care Teams Ripsaw Matcher Relationship Specialty Start Date End Date Monse Medina MD [address] [place] [address] PCP - General Family Medicine 04/28/24 documented as of this encounter
--- OUTSIDE RECORDS SUMMARY | 2024-06-06 13:45 | XMS_ITS | Encounter Summary ---
Author Organization [employer] Address [address] [facility] [address] [place] [address] Care Team Providers Care Medical Staff Services Manager Name Role Phone Monse Medina MD Primary Care Provider [phone] Encounter Details Date Type Department Care Team (Latest Contact Info) Description 06/06/2024 10:00 AM EDT Office Visit [facility] [address] [place], [place] [phone] Monse Medina MD [address] [place], [place] [phone] Dizziness (Primary Dx); Hypertension, unspecified type; Dyslipidemia; History of DVT (deep vein thrombosis); Transaminitis; Diabetic polyneuropathy associated with type 2 diabetes mellitus ([facility]/HCC); Type 2 diabetes mellitus without complication, 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 ([facility]); Chest discomfort Social History Tobacco Use Types Packs/Day Years [...] AM EST documented as of this encounter Last Filed Vital Signs Vital Sign Reading Time Taken Comments Blood Pressure 172/71 06/06/2024 12:01 PM EDT Pulse 77 06/06/2024 10:24 AM EDT Temperature 36.2 ??C (97.1 ??F) 06/06/2024 10:24 AM E DT Respiratory Rate 17 06/06/2024 10:24 AM EDT Oxygen Saturation 95% 06/06/2024 10:24 AM EDT Inhaled Oxygen Concentration - - Weight 80.3 kg (177 lb) 06/06/2024 10:24 AM EDT Height - - Body Mass Index 32.37 04/28/2024 9:26 AM EST documented in this encounter Miscellaneous Notes * Assessment & Plan Note - Duran Orantes - 06/06/2024 12:08 PM EDTAssociated Problem(s): Transaminitis -Pt is currently taking atorvastatin and niacin -Will check lab today * Assessment & Plan Note - Duran Orantes - 06/06/2024 12:06 PM EDTAssociated Problem(s): Diabetes mellitus, type 2 (CMS/HCC) - Dx 2018 - A1C 7.2% on 05/08/24 - Questionable medication adherence - Current medications: metformin ER 500 mg twice daily - Previously on glipizide, which was discontinued due to risk of hypoglycemia - Continue working on lifestyle modifications - Continue monitoring BG - Eye care: Will refer - Foot exam: 04/28/24. Diminished sensation of her feet - Lipid profile: 05/08/2024 - Microalbumin test: * Assessment & Plan Note - Duran Orantes - 06/06/2024 11:58 AM EDTAssociated Problem(s): Diabetic neuropathy associated with type 2 diabetes mellitus ([facility]) - continue gabapentin; discussed about judicious use * Assessment & Plan Note - Duran Orantes - 06/06/2024 10:30 AM EDTAssociated Problem(s): History of DVT (deep vein thrombosis) - suggestive of unprovoked DVT - patient states she took a medication for few months - no hypercoagulable work-up - will consult with resource agent if patient needs hypercoagulable work-up (likely unnecessary sincepatient has not had recurrence) * Assessment & Plan Note - Duran Orantes - 06/06/2024 10:30 AM EDTAssociated Problem(s): Dyslipidemia - Last lipid profile 05/08/24 - Currently on atorvastatin 40 mg at bedtime - Prescribed niacin from the hospital - Will consider discontinuing niacin since her sugar is elevated and her triglycerides was only mildly elevated * Assessment & Plan Note - Duran Orantes - 06/06/2024 10:30 AM EDTAssociated Problem(s): Hypertension -Goal BP < 150/90 per JNC-8 and < 130/80 per ACC/AHA guideline (Treatment threshold >=140/90) -BP not at goal, white-coat hypertension and/or questionable medication adherence -Continue working on lifestyle modifications -Continue amlodipine 2.5 mg daily -Recommended self-monitoring BP. -Pt was advised to increase amlodipine to 5 mg daily if home BP is above 130 persistently * Assessment & Plan Note - Duran Orantes - 06/06/2024 10:30 AM EDTAssociated Problem(s): Dizziness - hospitalized in 04/2024 for dizziness, most likely TIA - normal carotid ultrasound - no CVA on MRI documented in this encounter Plan of Treatment Scheduled Orders Name Type Priority Associated Diagnoses Orde r Schedule Lipid Panel with Reflex to Direct LDL Lab Routine Dyslipidemia Expected: 06/06/2024 (Approximate), Expires: 06/06/2025 Hepatic Function Panel Lab Routine Transaminitis Expected: 06/06/2024 (Approximate), Expires: 06/06/2025 Basic Metabolic Panel Lab Routine Transaminitis Expected: 06/06/2024 (Approximate), Expires: 06/06/2025 documented as of this encounter Procedures Procedure Name Priority Date/Time Associated Diagnosis Comments ECG 12-LEAD Routine 06/06/2024 12:27 PM EDT Chest discomfort documented in this encounter Results * ECG 12 lead (06/06/2024 12:27 PM EDT) Narrative Monse Medina MD - 06/06/2024 12:27 PM EDT Rate 88; sinus; CT slightly prolonged, 208 ms; QRS narrow, QTc 428 ms, horizontal axis, no acute ischemic ST-T changes, no hypertrophy, IACD. ?? 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
--- OUTSIDE RECORDS SUMMARY | 2024-06-06 13:45 | XMS_ITS | Clinical Summary ---
Author Organization [employer] Address [address] [place] [address] Care Team Providers [employer] Name Role Phone Monse Medina MD Primary Care Provider [phone] Allergies No known active allergies Medications metFORMIN XR (Glucophage-XR ) 500 MG 24 hr tablet Take 2 tablets (1,000 mg) by mouth with breakfast and with evening meal. Do not crush, chew, or split. 360 tablet 3 05/10/19 25 Active amLODIPine (Norvasc) 2.5 MG tablet Take 1 tablet (2.5 mg) by mouth Once per day. 90 tablet 3 05/10/19 25 026 Active FREESTYLE LITE test strip Check blood glucose once daily and as needed 100 each 05/10/19 25 Active Alcohol Swabs (Alcohol Prep) pads Check blood sugar once daily and as needed 100 each 05/10/19 25 Active Blood Glucose Monitoring Suppl (FreeStyle Lite) w/Device kit 1 Device Once per day. 1 kit 3 05/10/19 25 Active FreeStyle lancets 1 each by Other route Once per day. Check blood glucose 100 each 05/10/19 25 Active gabapentin (Neurontin) 300 MG capsule Take 1 capsule (300 mg) by mouth 2 times daily. 60 capsule 05/10/19 25 026 Active aspirin 81 MG EC tablet Take 81 mg by mouth Once per day. Active niacin 250 MG ER capsule Take 250 mg by mouth at bedtime. Do not crush, chew, or split. Active atorvastatin (Lipitor) 40 MG tablet Take 40 mg by mouth Once per day. Active gabapentin (Neurontin) 300 MG capsule Take 1 capsule (300 mg) by mouth at bedtime. 30 capsule 1 04/28/19 025 Discontinued(Re order (will not trigger notification to Pharmacy)) amLODIPine (Norvasc) 5 MG tablet Take 1 tablet (5 mg) by mouth Once per day. 30 tablet 05/02/19 025 Discontinued(Re order (will not trigger notification to Pharmacy)) atorvastatin (Lipitor) 10 MG tablet Take 1 tablet (10 mg) by mouth Once per day. 30 tablet 05/02/19 025 Discontinued(Me d list cleanup (will not trigger notification to Pharmacy)) metFORMIN XR (Glucophage-XR ) 500 MG 24 hr tablet Take 2 tablets (1,000 mg) by mouth with breakfast and with evening meal. Do not crush, chew, or split. 360 tablet 3 05/02/19 025 Discontinued(Re order (will not trigger notification to Pharmacy)) Alcohol Swabs (Alcohol Prep) pads Check blood sugar once daily and as needed 100 each 05/02/19 025 Discontinued(Re order (will not trigger notification to Pharmacy)) FreeStyle lancets 1 each by Other route Once per day. Check blood glucose 100 each 05/02/19 025 Discontinued(Re order (will not trigger notification to Pharmacy)) Blood Glucose Monitoring Suppl (FreeStyle Lite) w/Device kit 1 Device Once per day. 1 kit 3 05/02/19 025 Discontinued(Re order (will not trigger notification to Pharmacy)) FREESTYLE LITE test strip Check blood glucose once daily and as needed 100 each 05/02/19 025 Discontinued(Re order (will not trigger notification to Pharmacy)) Active Problems Problem Noted Date Diagnosed Date Transaminitis 06/06/2024 Assessment & Plan (06/06/2024 12:08 PM EDT): -Pt is currently taking atorvastatin and niacin -Will check lab today History of DVT (deep vein thrombosis) 04/29/2024 Assessment & Plan (06/06/2024 10:30 AM EDT): - suggestive of unprovoked DVT - patient states she took a medication for few months - no hypercoagulable work-up - will consult with regulatory lead if patient needs hypercoagulable work-up (likely unnecessary since patient has not had recurrence) Assessment & Plan (04/29/2024 5:08 PM EST): - suggestive of unprovoked DVT - patient states she took a medication for few months - no hypercoagulable work-up - will consult with regulatory lead if patient needs hypercoagulable work-up (likely unnecessary since patient has not had recurrence) Dizziness 04/29/2024 Assessment & Plan (06/06/2024 12:01 PM EDT): - hospitalized in 04/2024 for dizziness, most likely TIA - normal carotid ultrasound - no CVA on MRI Assessment & Plan (04/29/2024 5:33 PM EST): - concerning episode, question of TIA - evaluate with carotid US - evaluate with MRI 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 04/29/2024 Assessment & Plan (06/06/2024 11:59 AM EDT): - continue gabapentin; discussed about judicious use Assessment & Plan (04/29/2024 5:46 PM EST): - trial of gabapentin; discussed about judicious use Diabetes mellitus, type 2 04/28/2024 Assessment & Plan (06/06/2024 12:06 PM EDT): - Dx 2018 - A1C 7.2% on [...] - Lipid profile: 05/08/2024 - Microalbumin test: Assessment & Plan (04/29/2024 5:25 PM EST): - Dx 2018 - A1C 7.6% on 04/28/24 - Questionable medication adherence - Current medications: metformin (dosage unknown) - Continue working on lifestyle modifications - Continue monitoring BG - Eye care: Will refer - Foot exam: 04/28/24. Diminished sensation of her feet - Lipid profile: - Microalbumin test: Hypertension 04/28/2024 Assessment & Plan (06/06/2024 12:03 PM EDT): -Goal BP < 150/90 per JNC-8 and < 130/80 per ACC/AHA guideline (Treatment threshold >=140/90) -BP not at goal, white-coat hypertension and/or questionable medication adherence -Continue working on lifestyle modifications -Continue amlodipine 2.5 mg daily -Recommended self-monitoring BP. -Pt was advised to increase amlodipine to 5 mg daily if home BP is above 130 persistently Assessment & Plan (04/29/2024 5:22 PM EST): -Goal BP < 150/90 per JNC-8 and < 130/80 per ACC/AHA guideline (Treatment threshold >=140/90) -BP not at goal, white-coat hypertension and/or questionable medication adherence -Continue working on lifestyle modifications -Recommended self-monitoring BP. -Asked her to inform us of her currently prescribed medication. If she is not on MARK inhibitor, then we can start with ARB. Will review her lab before making an antihypertensive choice. Or we can start with amlodipine or nifedipine. Dyslipidemia 04/28/2024 Assessment & Plan (06/06/2024 12:08 PM EDT): - Last lipid profile 05/08/24 - Currently on atorvastatin 40 mg at bedtime - Prescribed niacin from the hospital - Will consider discontinuing niacin since her sugar is elevated and her triglycerides was only mildly elevated Assessment & Plan (04/29/2024 5:27 PM EST): - uncertain whether she is taking a medication for cholesterol - she will call us to inform what medications she is currently taking - consider statin therapy History of bladder stone Encounters Date Type Department Care Team Description 06/06/2024 10:00 AM EDT Office Visit [facility] [address] [place] [phone] Monse Medina MD Dizziness (Primary Dx); Hypertension, unspecified type; Dyslipidemia; History of DVT (deep vein thrombosis); Transaminitis; Diabetic polyneuropathy associated with type 2 diabetes mellitus ([facility]); Type 2 diabetes mellitus without complication, unspecified whether skilled nursing insulin use ([facility]); Chest discomfort 06/06/2024 Travel 05/31/[address] [place] [address] Monse Medina MD CHART PREP 05/10/2024 Orders Only [address] [place] [address] Monse Medina MD 05/02/[address] [place] [address] Monse Medina MD 05/02/2024 Orders Only [address] [place] [address] Monse Medina MD 04/28/2024 9:00 AM EST Office Visit [address] [address] Monse Medina MD Routine general medical examination at a health care facility (Primary Dx); Type 2 diabetes mellitus without complication, unspecified whether filler leaf cutter long insulin use ([facility]); Hypertension, unspecified type; Dyslipidemia; Dizziness; Dietary counseling; Exercise counseling; Class 1 obesity due to excess calories with serious comorbidity and body mass index (BMI) of 32.0 to 32.9 in adult; History of bladder stone; History of DVT (deep vein thrombosis); Diabetic polyneuropathy associated with type 2 diabetes mellitus ([facility]) 04/28/2024 Travel 04/26/[address] [address] Haily Cain MA chart prep 04/14/2024 Patient Outreach [address] [address] Monse Medina MD Pre-visit Planning (Pre-visit planning - LVM ) 03/21/[address] [address] Nilson Martinez MD New patient appt. from Last 3 Months Immunizations Name Administration Dates Next Due Influenza, High Dose Seasonal, Preservative Free 12/24/2023 Pneumococcal Conjugate PCV 20 02/01/2024 Tdap 02/01/2024 Varicella 02/11/2024 Family History Medical History Relation Name Comments Endometrial cancer Daughter 1 Sivtri Down syndrome Daughter 2 Breana Relation Name Status Comments Daughter 1 Sivtri Alive Daughter 2 Breana Alive Social History Tobacco Use Types Packs/Day Years Used Date Smoking Tobacco: Never Passive Smoke Exposure: Never Smokeless Tobacco: Never Tobacco Cessation:Counseling Given: Not Answered Alcohol Use Standard Drinks/Week Comments Never 0 [...] Don't know 04/27/2024 8: 33 AM EST Last Filed Vital Signs Vital Sign Reading Time Taken Comments Blood Pressure 172/71 06/06/2024 12:01 PM EDT Pulse 77 06/06/2024 10:24 AM EDT Temperature 36.2 ??C (97.1 ??F) 06/06/2024 10:24 AM E DT Respiratory Rate 17 06/06/2024 10:24 AM EDT Oxygen Saturation 95% 06/06/2024 10:24 AM EDT Inhaled Oxygen Concentration - - Weight 80.3 kg (177 lb) 06/06/2024 10:24 AM EDT Height 157.5 cm (5' 2 ) 04/28/2024 9:26 AM EST Body Mass Index 32.37 04/28/2024 9:26 AM EST Plan of Treatment Health Maintenance Due Date Last Done Comments Eye Exam 07/13/1945 Diabetes: Urine Protein Screening 1956 RSV Patients and Patients Aged 60 years or older (1 - 1-dose 75+ series) 2012 Zoster Vaccines (1 of 2) 04/07/2024 Diabetes: Hemoglobin A1C 08/05/2024 05/08/2024, 02/0 08/2024 Alcohol/Substance Use Screening 04/28/2025 04/28/2024 Depression Screening 04/28/2025 04/28/2024, 04/28/19 25 Diabetes: Foot Exam 04/28/2025 04/28/2024, 04/28/2024, 04/28/2024, Additional history exists SDOH Screening 04/28/2025 04/28/2024 Lipid Panel 05/08/2025 05/08/2024 Tobacco Screening 06/06/2025 06/06/2024 DTaP/Tdap/Td Vaccines (2 - Td or Tdap) 01/31/2034 02/01/2024 Influenza Vaccine Completed 12/24/2023 COVID-19 Vaccine Completed 02/01/2024 Pneumococcal Vaccine: 50+ Years Completed 02/01/2024 HIB Vaccines Aged Out No longer eligi ble based on patient's age to complete this topic HPV Vaccines Aged Out No longer eligi ble based on patient's age to complete this topic Hepatitis A Vaccines Aged Out No long er eligible based on patient's age to complete this topic Hepatitis B Vaccines Aged Out No long er eligible based on patient's age to complete this topic IPV Vaccines Aged Out No longer eligi ble based on patient's age to complete this topic Meningococcal Vaccine Aged Out No juan diego jazmín eligible based on patient's age to complete this topic RSV under 20 months Aged Out No longe r eligible based on patient's age to complete this topic Rotavirus Vaccines Aged Out No longer eligible based on patient's age to complete this topic Procedures Procedure Name Priority Date/Time Associated Diagnosis Comments ECG 12-LEAD Routine 06/06/2024 12:27 PM EDT Chest discomfort CBC WITH AUTO DIFFERENTIAL Routine 06/06/2024 11:36 AM EDT Type 2 diabetes mellitus without complication, unspecified whether filler leaf cutter long insulin use ([facility]) MR BRAIN W AND WO CONTRAST Routine 05/09/2024 1:04 PM EST CTA HEAD STROKE W AND WO CONTRAST Routine 05/08/2024 12:54 PM EST SARS COV2/INFLUENZA A/B AND RSV RNA QL NAAT Routine 05/08/2024 12:[address] HEAD STROKE WO CONTRAST Routine 05/08/2024 12:30 PM EST HOLD GREEN GEL Routine 05/08/2024 12:23 PM EST HOLD GREEN GEL Routine 05/08/2024 12:23 PM EST TSH W/REFLEX TO FT4 Routine 05/08/2024 1 2:23 PM EST B TYPE NATRIURETIC PEPTIDE (BNP) Routine 05/08/2024 12:23 PM EST LIPASE Routine 05/08/2024 12:23 PM EST LIPID PANEL, STANDARD Routine 05/08/2024 12:23 PM EST MAGNESIUM Routine 05/08/2024 12:23 PM EST BASIC METABOLIC PANEL Routine 05/08/2024 12:23 PM EST HEPATIC FUNCTION PANEL Routine 05/08/2024 12:23 PM EST HIGH SENSITIVITY TROPONIN I Routine 05/08/2024 12:23 PM EST PROTHROMBIN TIME-INR Routine 05/08/2024 12:23 PM EST HEMOGLOBIN A1C Routine 05/08/2024 12:23 PM EST CBC WITH AUTO DIFFERENTIAL Routine 05/08/2024 12:23 PM EST PROTHROMBIN TIME WHOLE BLD POC Routine 05/08/2024 12:19 PM EST ~PT, ~INR - ANTI COAG CLINIC Routine 05/08/2024 12:19 PM EST GLUCOSE, WHOLE BLOOD Routine 05/08/2024 12:17 PM EST POCT GLYCATED HEMOGLOBIN, TOTAL Routine 04/28/2024 9:32 AM EST Type 2 diabetes mellitus without complication, unspecified whether filler leaf cutter long insulin use (CMS/HCC) POCT GLUCOSE Routine 04/28/2024 9:31 AM EST Type 2 diabetes mellitus without complication, unspecified whether skilled nursing insulin use (CMS/HCC) from Last 3 Months Results * ECG 12 lead (06/06/2024 12:27 PM EDT) Monse Hernandez MD - 06/06/2024 12:27 PM EDT Rate 88; sinus; ID slightly prolonged, 208 ms; QRS narrow, QTc 428 ms, horizontal axis, no acute ischemic ST-T changes, no hypertrophy, IACD. ?? Monse Medina MD ECG ORDERABLES Final Result * (ABNORMAL) CBC auto differential (06/06/2024 11:36 AM EDT) Only the most recent of2 resultswithin the time period is included. White Blood Count 8.1 4.8 - 10.8 X10*3/uL [facility] Red Blood Count 5.00 4.20 - 5.50 X10*6/uL [facility] Hemoglobin 13.4 12.0 - 16.0 g/dl [facility] Hematocrit 43.1 37.0 - 47.0 % [facility] Mean Corpuscular Volume 86.2 80.0 - 98.0 fL [facility] Mean Corpuscular Hemoglobin 26.8(L) 27.0 - 33.0 pg [facility] Mean Corpuscular HGB Conc 31.1 31.0 - 35.0 g/dl [facility] Red Cell Distribution Width 14.4 11.0 - 16.0 % [facility] Platelet Count 149(L) 160 - 400 X10*3/uL [facility] Mean Platelet Volume 11.4 9.4 - 12.3 fL [facility] Neutrophils Percent Auto 62.0 45 - 73 % [facility] Imm Gran Pct Auto 0.4 0.0 - 0.4 % [facility] Lymphocytes Percent Auto 28.5 20 - 40 % [facility] Monocytes Percent Auto 7.9 2 - 11 % [facility] Eosinophils Percent Auto 1.0 0 - 4 % [facility] Basophils Percent Auto 0.2 0 - 2 % [facility] NRBC Pct Auto 0.0 0.0 - 0.2 /100WBC [facility] Neutrophils Absolute Auto 5.0 2.0 - 8.3 x10*3/uL [facility] Imm Gran Abs Auto 0.03 0.00 - 0.03 X10*3/uL [facility] Lymphocytes Absolute Auto 2.3 1.2 - 4.9 X10*3/uL [facility] Monocytes Absolute Auto 0.6 0.1 - 1.2 X10*3/uL [facility] Eosinophils Absolute Auto 0.1 0.0 - 0.4 X10*3/uL [facility] Basophils Absolute Auto 0.0 0.0 - 0.2 X10*3/uL [facility] NRBC Abs Auto 0.000 0.0 - 0.012 X10*3/uL [facility] Blood Venous blood specimen / Unknown 06/06/2024 11:36 AM EDT 06/06/2024 1:07 PM EDT us Monse Medina MD LAB BLOOD ORDERABLES Final Resul t [facility] [address] [place] [address] [phone] * Mr Brain w/ and w/o Contrast (05/09/2024 1:04 PM EST) Anatomical Region Laterality Modality Brain Magnetic Resonan ce 05/09/2024 1:04 PM EST Narrative 05/09/2024 1:05 PM EST ? [facility] ?[address] ?[place] [address] ? Magnetic Resonance Report ? Signed ? Patient: Maryellen Acosta ?MR#: [id number] ?? 1351 ? : 1935 ?Acct:[id number] ? Age/Sex: 88 / F ?ADM Date: 05/08/24 ? Loc: HO.ICU ?254-1 ? Attending Dr: Cindy Sesay MD ? Ordering Physician: Loc Elder ?? Date of Service: 05/09/24 ?? Procedure(s): MR head/brain wo/w con ?? Accession Number(s): [id number] ? cc: Loc Elder; Monse Medina MD ? CLINICAL HISTORY: stroke [...] DD/ 1304 ? TD/TT: 05/09/24 1304 ? Lathe Winder: ? Procedure Note Donotuseinterpreter, Image - 05/09/2024 [place] [address] Magnetic Resonance Report Signed Patient: Carlin Acosta#: [id number] 1351 : 8Acct:[id number] Age/Sex: 88 / FADM Date: 05/08/24 Loc: .ICU 254-[address]: Cindy Sseay MD Ordering Physician: Loc Elder Date of Service: 05/09/24 Procedure(s): MR head/brain wo/w con Accession Number(s): [id number] cc: Loc Elder; Monse Medina MD CLINICAL [...] 05/09/24 1305 DD/ 1304 TD/TT: 05/09/24 1304 Lathe Winder: [facility] External Provider IMG MRI PROCEDURES Final Result * CTA Head Stroke w/ and w/o Contrast (05/08/2024 12:54 PM EST) Anatomical Region Laterality Modality Computed Tomogra phy 05/08/2024 12:5 4 PM EST Narrative 05/08/2024 12:55 PM EST ? [facility] ?[address] ?[place], [place] [address] ? CT Scan Report ? Signed ? Patient: Dave,Maryellen ?MR#: [id number] ?? 1351 ? : 1935 ?Acct:[id number] ? Age/Sex: 88 / F ?ADM Date: 05/08/24 ? Loc: HO.ED ? Attending Dr: ? Ordering Physician: Erica Valenzuela DO ?? Date of Service: 05/08/24 ?? Procedure(s): CT angio head neck STROKE ?? Accession Number(s): [id number] ? cc: Erica Valenzuela DO; Monse Medina MD ? Report Number: ?? [id number]: Total DLP = ??647.00 mGy-cm ? CLINICAL [...] MD ? Signed By: ?<Electronically signed by uBd Murray MD in OV> ? 05/08/245 ? DD/ ? TD/TT: 05/08/244 ? Lathe Winder: ? Procedure Note Donoterrolter, Image - 05/08/[address] [address] [address] Scan Report Signed Patient: Maryellen AcostaMR#: [id number] 1351 : 8Acct:[id number] Age/Sex: 88 / FADM Date: 05/08/24 Loc: HO.ED Attending Dr: Ordering Physician: Erica Valenzuela DO Date of Service: 05/08/24 Procedure(s): CT angio head neck STROKE Accession Number(s): [id number] cc: Erica Valenzuela DO; Monse Medina MD Report Number: [id number]: Total DLP = 647.00 mGy-cm CLINICAL HISTORY: [...] 05/08/24 1255 DD/ 1254 TD/TT: 05/08/24 1254 Lathe Winder: us [facility] External Provider IMG CT PROCEDURES Final Result * SARS-CoV-2 RNA, Influenza A/B, and RSV RNA, Ql NAAT (05/08/2024 12:52 PM EST) Influenza A PCR NEGATIVE Negative [facility] Influenza B PCR NEGATIVE Negative [facility] Resp Syncy Virus RNA Qual PCR NEGATIVE Negative [facility] SARS COV2 PCR NEGATIVE Negative [facility] Comment:All test results mus t [...] use by authorized laboratories.Testing performed on the [employer] GeneXpert utilizingreal-time RT-PCR.All SARS CoV2 and positive influenza A/B results arereported to [facility]. 05/08/2024 12:5 2 PM EST 05/08/2024 12:56 PM EST Generic External Data Provider LAB MICROBIOLOGY - GENERAL ORDERABLES Final Result [facility] [address] [place] [phone] * CT Head Stroke w/o Contrast (05/08/2024 12:30 PM EST) Anatomical Region Laterality Modality Computed Tomogra phy 05/08/2024 12:3 0 PM EST Narrative 05/08/2024 12:34 PM EST ? [facility] ?[address] ?[place] [address] ? CT Scan Report ? Signed with Addenda ? Patient: Rambissoon,Maryellen ?MR#: [id number] ?? 1351 ? : 1935 ?Acct:[id number] ? Age/Sex: 88 / F ?ADM Date: /16/25 ? Loc: HO.ED ? Attending Dr: ? Ordering Physician: Erica Valenzuela DO ?? Date of Service: 05/08/24 ?? Procedure(s): CT head for STROKE ?? Accession Number(s): [id number] ? cc: Erica Valenzuela DO; Monse Medina MD ? Report Number: ?? [id number]: Total DLP = ??667.00 mGy-cm ?ADDENDUM ?? [...] by Bud Murray MD in OV> ? 05/08/246 ?? Addendum Cosigned By: ? DD/ ? [...] DD/ 1230 ? TD/TT: 05/08/24 1230 ? Lathe Winder: ? Procedure Note Jaguar Márquez - 05/08/[address] [address] [address] Scan Report Signed with Karel Patient: Maryellen AcostaMR#: [id number] 1351 : 8Acct:[id number] Age/Sex: 88 / FADM Date: 05/08/24 Loc: HO.ED Attending Dr: Ordering Physician: Erica Valenzuela DO Date of Service: 05/08/24 Procedure(s): CT head for STROKE Accession Number(s): [id number] cc: Erica Valenzuela DO; Monse Medina MD Report Number: [id number]: Total DLP = 667.00 mGy-cm ADDENDUM This document has been electronically signed by: Bud Murray MD on 05/08/2024 12:30:51 ADDENDUM: This report was discussed with Bianca Maldonado MD on May 08, 2024 12:35:00 EST. This document has been electronically signed by: Candice Martinez on 05/08/2024 12:36:06 Addendum Dictated By: Bud Murray MD Addendum Signed By: <Electronically signed by MD Melyssa in OV> 05/08/24 1236 Addendum Cosigned By: DD/ TD/TT: 05/08/24 CLINICAL [...] by Bud Murray MD in OV> 05/08/24 1233 DD/ TD/TT: 05/08/240 Lathe Winder: us [facility] External Provider IMG CT PROCEDURES Edited Result - Final * Hold Green Gel (05/08/2024 12:23 PM EST) Only the most recent of2 resultswithin the time period is included. Hold Green Gel See Note [facility] Comment:Specimen held untest ed for 24 hours; Call to requestChemistry testing. 05/08/2024 12:2 3 PM EST 05/08/2024 12:28 PM EST Generic External Data Provider HISTORICAL/NON OR DERABLE LABS Final Result Performing Organization Address [facility] de Phone Number [facility] [address] [place] [phone] * High Sensitivity Troponin I (05/08/2024 12:23 PM EST) Pathologist [facility] TROPONIN I HIGH SENSITIVITY 2.7 <3.5 - 17.0 ng/L [facility] Comment:The Magdaleno high sens itivity Troponin-I results should beused in conjunction with other diagnostic information suchas ECG, clinical observations and information, and patientsymptoms to aid in the diagnosis of AL. 05/08/2024 12:2 3 PM EST 05/08/2024 12:28 PM EST Generic External Data Provider LAB BLOOD ORDERAB LES Final Result Performing Organization Address [facility] de Phone Number [facility] [address] [place] [phone] * TSH with Reflex to Free T4 (05/08/2024 12:23 PM EST) [facility] TSH reflex Free T4 1.48 0.32 - 4.0 uIU/mL [facility] 05/08/2024 12:2 3 PM EST 05/08/2024 12:28 PM EST Generic External Data Provider LAB BLOOD ORDERAB LES Final Result Performing Organization Address [facility] Co de Phone Number [facility] [address] [place] [phone] * Prothrombin Time-INR (05/08/2024 12:23 PM EST) [facility] Prothrombin Time 11.1 10.9 - 12.4 SEC [facility] INTERNATIONAL NORM RATIO 1.0 0.9 - 1.1 [facility] Comment:INTERNATIONAL NORMAL IZED RATIO (INR) REFERENCE [...] ORDERAB LES Final Result Performing Organization Address [facility] de Phone Number [facility] [address] [place] [phone] * B Type Natriuretic Peptide (BNP) (05/08/2024 12:23 PM EST) B Type Natriuretic Peptide 44 <100 pg/mL [facility] Comment:For those patients w ho are being treated with Natrecor(nesiritide, recombinant BNP), BNP testing should beperformed at least two hours post treatment in order toensure that only endogenous levels of BNP are detected. 05/08/2024 12:2 3 PM EST 05/08/2024 12:28 PM EST Generic External Data Provider LAB BLOOD ORDERAB LES Final Result Performing Organization Address [facility] Co de Phone Number [facility] [address] [place] [phone] * Magnesium (05/08/2024 12:23 PM EST) Magnesium 1.8 1.6 - 2.6 mg/dL [facility] 05/08/2024 12:2 3 PM EST 05/08/2024 12:28 PM EST Generic External Data Provider LAB BLOOD ORDERAB LES Final Result Performing Organization Address [facility] Co de Phone Number [facility] [address] [place] [phone] * Lipase (05/08/2024 12:23 PM EST) Lipase 18 8 - 78 U/L [facility] 05/08/2024 12:2 3 PM EST 05/08/2024 12:28 PM EST Generic External Data Provider LAB BLOOD ORDERAB LES Final Result [facility] [address] [place] [phone] * (ABNORMAL) Hemoglobin A1c (05/08/2024 12:23 PM EST) Hemoglobin A1c 7.2(H) <6.0 % [facility] Comment:Hemoglobin A1C Refer ence Range Adults: 4.8 - 6.0 % Non diabetic: < 6.0 % Goal: < 7.0 %Additional Action Suggested: > 8.0 %Note: Hemoglobin A1c results are invalid for patients with abnormal amounts of HbF. Blood transfusions may impact the HbA1c concentration in the patient sample. Estimated Average Glucose 160 mg/dL [facility] Comment:eAG = Estimated ave rage glucose which is %A1C expressed asaverage glucose, using the formula of the N7O-BurvwanWxfvsgz Glucose study (ADAG), Diabetes Care, Vol.31,#8,2007 05/08/2024 12:2 3 PM EST 05/08/2024 12:28 PM EST [employer] External Data Provider LAB BLOOD ORDERAB LES Final Result Performing Organization Address City/[facility]/ZIP Co de Phone Number [facility] [address] [place] [phone] * (ABNORMAL) Hepatic Function Panel (05/08/2024 12:23 PM EST) Bilirubin, Total 0.8 0.0 - 1.0 mg/dL [facility] Bilirubin, Direct 0.2 0.0 - 0.5 mg/dL [facility] Aspartate Amino Transferase 53(H) 5 - 31 U/L [facility] Alanine Aminotransferase 64(H) 0 - 31 U/L [facility] Total Protein 7.6 6.5 - 8.0 g/dL [facility] Albumin Level 4.1 3.5 - 5.0 g/dL [facility] Alkaline Phosphatase 79 39 - 117 U/L [facility] 05/08/2024 12:2 3 PM EST 05/08/2024 12:28 PM EST us Generic External Data Provider LAB BLOOD ORDERAB LES Final Result [facility] [address] [place] [phone] * (ABNORMAL) Lipid Panel, Standard (05/08/2024 12:23 PM EST) Triglycerides 195(H) <150 mg/dL [facility] Comment:Desirable Triglyceri de: less than 150 mg/dLBorderline High Triglyceride 150-199 mg/dLHigh Triglyceride: 200-499 mg/dLVery High Triglyceride: greater than or equal to 5OO mg/dL Cholesterol 161 <200 mg/dL [facility] Comment:Desirable Cholestero l: less than 200 mg/dLBorderline High Cholesterol: 200-239 mg/dLHigh Cholesterol: greater than 239 mg/dL LDL Cholesterol Calculated 81 <100 mg/dL [facility] Comment:Desirable LDL: less than 100 mg/dLNear Optimal/Above Optimal LDL: 110- 129 mg/dLBorderline High LDL: 130-159 mg/dLHigh LDL: 160-189 mg/dLVery High LDL: greater than or equal to 190 mg/dL HDL Cholesterol 41 >40 mg/dL [facility] Comment:Desirable HDL: great er than 40 mg/dL Note: This HDL assay may give artificially low results in patients with liver disease. 05/08/2024 12:2 3 PM EST 05/08/2024 12:28 PM EST us Generic External Data Provider LAB BLOOD ORDERAB LES Final Result Performing Organization Address City/[facility]/ZIP Co de Phone Number [facility] [address] [place] [address] [phone] * (ABNORMAL) Basic Metabolic Panel (05/08/2024 12:23 PM EST) Sodium 139 135 - 145 mmol/L [facility] Potassium 4.0 3.3 - 5.1 mmol/L [facility] Chloride 103 96 - 108 mmol/L [facility] Carbon Dioxide 25 22 - 29 mmol/L [facility] Anion Gap 15 12 - 20 [facility] Urea Nitrogen (BUN) 16 9 - 16 mg/dL [facility] Creatinine, Serum 0.67 0.5 - 1.4 mg/dL [facility] Creatinine Clr Calc Pharmacy 58.1 [facility] Comment:Provided height and weight: 157.48 cm,77.6 kg.eGFR (calculated from the MDRD study equation) and eCrCl(calculated from the Cockcroft-Gault equation) are based ondifferent parameters and may not yield comparable results.If eCrCl result is absurd, please check patient'sheight/weight. Estimated Glomerular Filt Rate >60 [facility] Comment:Chronic Kidney Disea se: Estimated GFR < 60 mL/min/[id number] Kidney Disease: Estimated GFR < 15 mL/min/1.73m2 Glucose 223(H) 60 - 115 mg/dL [facility] Calcium 9.6 8.4 - 10.2 mg/dL [facility] 05/08/2024 12:2 3 PM EST 05/08/2024 12:28 PM EST us Generic External Data Provider LAB BLOOD ORDERAB LES Final Result Performing Organization Address [facility]/ZIP Co de Phone Number [facility] [address] [place] [phone] PROTHROMBIN TIME WHOLE BLD POC (05/08/2024 12:19 PM EST) Pathologist [facility] Protime 12.2 11.1 - 13.5 sec [facility] 05/08/2024 12:1 9 PM EST 05/08/2024 12:27 PM EST Generic External Data Provider LAB BLOOD ORDERAB LES Final Result Performing Organization Address [facility] de Phone Number [facility] [address] [place] [phone] * ~PT, ~INR - ANTI COAG CLINIC (05/08/2024 12:19 PM EST) [facility] Prothrombin Time INR 1.0 0.9 - 1.1 [facility] Comment:METER #: [id number] TERNATIONAL NORMALIZED RATIO (INR) REFERENCE RANGES Reference [...] 9 PM EST 05/08/2024 12:27 PM EST Generic External Data Provider LAB BLOOD ORDERAB LES Final Result Performing Organization Address [facility] Co de Phone Number [facility] [address] [place] [phone] * (ABNORMAL) Glucose, Whole Blood (05/08/2024 12:17 PM EST) Pathologist [facility] Glucose, Whole Blood 217(H) 60 - 115 mg/dL [facility] Comment:METER #: [id number] 05/08/2024 12:1 7 PM EST 05/08/2024 12:28 PM EST Generic External Data Provider LAB BLOOD ORDERAB LES Final Result [facility] [address] [place] [phone] * (ABNORMAL) POCT HGB A1C (04/28/2024 9:32 AM EST) Hemoglobin A1C 7.6(A) 4.0 - 6.0 % QC Media Lot # [id number] Lot# Expiration Date Blood 04/28/2024 9:32 AM EST Monse Medina MD POINT OF CARE TEST ENTER/EDIT OR DERABLES Final Result * POCT Glucose (04/28/2024 9:31 AM EST) Glucose Blood, POC 171 60 - 200 mg/dL Comment:Fasting QC Media Lot # [id number] Lot# Expiration Date Blood Capillary blood specimen / Unknown 04/28/2024 9:31 AM EST Monse Medina MD POINT OF CARE TEST ENTER/EDIT OR DERABLES Final Result from Last 3 Months Insurance [employer] HS FULL Care Teams Recyclable Materials Distributor Relationship Specialty Start Date End Date Monse Medina MD [address] [place] [phone] PCP - General Family Medicine 04/28/24
--- OUTSIDE RECORDS SUMMARY | 2024-06-06 13:45 | XMS_ITS | Encounter Summary ---
Author Organization [employer] Address [address] [facility] [address] [place] [address] Care Team Providers Care Inspector Outside [employer] Distribution Name Role Phone Monse Medina MD Primary Care Provider Reason for Visit * Reason Onset Date Comments CHART PREP 05/31/2024 Encounter Details Date Type Department Care Team (Late st Contact Info) Description 05/31/2024 Telephone [facility] [address] [place] [phone] Monse Medina MD [address] [place], [place] [phone] CHART PREP Social History Tobacco Use Types Packs/Day Years [...] AM EST documented as of this encounter Miscellaneous Notes * Telephone Encounter - Naida Hernández [place] - 05/31/2024 10:25 AM EDT Chart Prep Labs: not done from 04/28/24 Images: done pt cancelled carotid US. Vaccines due: yes rsv,covid, zoster. Referrals: none Screenings: eye exam Overdue care gaps: Glucose, disability. Echo and Neuro consult printed from [facility]. documented in this encounter Plan of Treatment Not on file documented as of this encounter Visit Diagnoses Not on filedocumented in this encounter Additional Health Concerns Assessment Noted Time PHQ-9 Depression Total Score: 1 04/28/19 25 9:28 AM EST documented as of this encounter Care Teams Inspector Outside [employer] Distribution Relationship Specialty Start Date End Date Monse Medina MD [address] [place] [address] PCP - General Family Medicine 04/28/24 documented as of this encounter
--- OUTSIDE RECORDS SUMMARY | 2024-06-06 13:45 | XMS_ITS | Encounter Summary ---
Author Organization [employer] Address [address] [facility] [address] [place] [address] Care Team Providers Care Electronics Research Engineer Name Role Phone Monse Medina MD Primary Care Provider [phone] Encounter Details Date Type Department Care Team (Late st Contact Info) Description 05/10/2024 Orders Only [facility] [address] [place] [address] Monse Medina MD [address] [place] [address] Social History Tobacco Use Types [...] documented as of this encounter Care Teams Electronics Research Engineer Relationship Specialty Start Date End Date Monse Medina MD [address] [place] [phone] PCP - General Family Medicine 04/28/24 documented as of this encounter
[2024-06-06 14:05] LABS: Alanine Aminotransferase 20 U/L (0-31); Albumin Level 4.1 g/dL (3.5-5.0); Alkaline Phosphatase 75 U/L (39-117); Anion Gap 13 (12-20); Aspartate Amino Transferase 31 U/L (5-31); Bilirubin Direct 0.2 mg/dL (0.0-0.5); Bilirubin Total 0.5 mg/dL (0.0-1.0); Blood Urea Nitrogen 18 mg/dL (9-16); Calcium 9.4 mg/dL (8.4-10.2); Carbon Dioxide 26 mmol/L (22-29); Chloride 108 mmol/L (96-108); Cholesterol 110 mg/dL (<200); Estimated Glomerular Filt Rate > 60; Glucose Random 149 mg/dL (60-115); HDL Cholesterol 45 mg/dL (>40); LDL Cholesterol Calculated 47 mg/dL (<100); Potassium 4.6 mmol/L (3.3-5.1); Sodium 142 mmol/L (135-145); Total Protein 7.7 g/dL (6.5-8.0); Triglycerides 90 mg/dL (<150)
[2024-06-06 14:07] LABS: TSH reflex Free T4 1.48 uIU/mL (0.32-4.0)
[2024-06-06 14:20] LABS: Folate 10.8 ng/mL (> or = 4.0); Vitamin B12 679 pg/mL (200-900)
[2024-06-06 14:25] LABS: Creatinine Urine 63.85 mg/dL; Microalbum/Creatinine Ratio Ur 18.7 ug/mg cr (<30)
[2024-06-06 15:11] LABS: Reflex LDLD? No
== END 2024-06-06 11:36 | disposition home or self-care (01) ==
LOC: HO.HHCL 11:35
PROVIDERS: Visit Provider Family Medicine
DX: E11.9 Type 2 diabetes mellitus without complications (principal); R74.01 Elevation of levels of liver transaminase levels; I10 Essential (primary) hypertension; E78.5 Hyperlipidemia, unspecified
CPT/HCPCS: 36415; 80053; 80061; 82043; 82248; 82570; 82607; 82746; 84443; 85025

== ENCOUNTER 2024-12-20 10:15 | Inpatient (IN) | payer MEDICAID, OTHER, SELFPAY ==
[2024-12-20] VITALS (10 sets, daily range): BP systolic 104–129; BP diastolic 53–70; PULSE 77–109; RESP 16–20; TEMP 36.8–37.7; O2SAT 86–97; BMI 31.8; BMI 33.3; BMI 32.3
--- NOTE | ~2024-12-20 | CT_ITS ---
EXAMINATION: CT ABDOMEN AND PELVIS WITHOUT CONTRAST CLINICAL INFORMATION: Diffuse abdominal pain, nausea and bilious vomiting. COMPARISON: No prior. Abdomen ultrasound dated earlier same day. TECHNIQUE: Multidetector volumetric imaging was performed from the superior aspect of the liver through the pubic symphysis. Sagittal and coronal reformatted images were obtained on the technologist's workstation. This CT examination was performed using dose optimization techniques as appropriate, variously including the following: *Automated exposure control *Adjustment of mA and/or kV according to patient size (this includes techniques or standardized protocols for targeted exams where dose is matched to indication/reason for exam; i.e. extremities or head) *Use of iterative reconstruction technique FINDINGS: LUNG BASES: Lung bases are clear. There is minimal dependent atelectasis and mild subpleural scarring present. There is mild bronchiectasis of the lower lobe airways. No effusions. Heart size is top normal. Trace pericardial effusion. Moderate coronary calcifications present. There is a small to moderate-sized type I hiatus hernia. LIVER, GALLBLADDER, AND BILIARY TREE: The unenhanced liver is normal in size, shape, and attenuation. No focal hepatic lesion or biliary ductal dilatation is present. The gallbladder is unremarkable with no evidence of radiopaque gallstones, gallbladder wall thickening, or obvious pericholecystic inflammatory changes. PANCREAS: Normal. SPLEEN: Normal. ADRENAL GLANDS: Normal. KIDNEYS AND URETERS: The RIGHT kidney demonstrates right upper pole scarring with dystrophic calcifications . There is a 3 mm nonobstructing calculus in the upper pole. There are tiny subcentimeter cysts. There is no suspicious lesion. There is no hydronephrosis or hydroureter. The LEFT kidney demonstrates several small parapelvic cysts. There is no hydronephrosis, calculus, or mass. There is no hydroureter. BLADDER: Decompressed but normal in appearance. GASTROINTESTINAL TRACT: There is abnormal dilatation of several loops of proximal to mid small bowel, with associated mild mesenteric congestion and trace interloop ascites. Findings are consistent with small bowel obstruction. Transition point appears to be in the left anterior pelvis (series 3, images 55-60). No definite kinking of the small bowel is noted to suggest adhesions although this is not excluded. Evaluation further is limited without the benefit of IV contrast. The mid and distal small bowel are completely decompressed. The colon demonstrates scattered diverticula, but is normal in course and caliber without wall thickening or inflammation. The rectum is normal in appearance. A normal appendix is visualized. PERITONEUM: There is trace ascites in the pelvis and small bowel mesentery. There is no free intraperitoneal air. ABDOMINAL WALL: No significant hernia is appreciated. LYMPH NODES: There is no abnormal lymphadenopathy. VASCULAR: Moderate atheromatous calcification of the aorta and iliac arteries, without aneurysm present. PELVIC VISCERA: Senescent uterus. No adnexal masses. OSSEOUS STRUCTURES: No suspicious lytic or blastic bone lesions. Moderate degenerative changes throughout the spine. Mild to moderate degenerative changes of both hip joints and both SI joints. Minimal compression deformities of T11 and T12. CT/CT abdomen pelvis wo IV con IMPRESSION: 1. High-grade mechanical proximal small bowel obstruction, with transition point in the left anterior pelvis has discussed above. Etiology is not entirely clear on this noncontrast examination. Trace interloop and pelvic ascites. 2. Numerous additional ancillary findings as discussed in the body of the report. Electronically signed by: Sunny Lopes MD 12/20/2024 01:01 PM EDT
--- NOTE | ~2024-12-20 | XR_ITS ---
EXAMINATION: XR CHEST CLINICAL INFORMATION: NG placement COMPARISON: December 20, 2024 at 10:54 AM. TECHNIQUE: Frontal view of the chest was obtained. FINDINGS: NG tube ends below the left hemidiaphragm in the left upper quadrant abdomen. Pulmonary reticular pattern and patchy linear opacities both lungs. Cardiomediastinal silhouette size is prominent, unchanged. No gross pneumothorax. Multilevel spondylosis no fully evaluated due to patient's body habitus. XR/XR chest 1V IMPRESSION: NG tube in the stomach region. Worsening pulmonary edema versus acute pneumonitis among other etiologies. Electronically signed by: Mervin Varma MD 12/20/2024 03:42 PM EDT
--- NOTE | ~2024-12-20 | US_ITS ---
EXAMINATION: US ABDOMEN LIMITED CLINICAL INFORMATION: Right upper quadrant abdominal pain, nausea and vomiting. COMPARISON: None available. TECHNIQUE: Real-time imaging of the right upper quadrant abdominal viscera. FINDINGS: As per technologist note, limited exam due to gas and patient body habitus. PANCREAS: Visualized portions are unremarkable. LIVER: The liver is normal in size. The liver contour is normal. Parenchymal echogenicity is normal. No focal hepatic lesion. There is no intrahepatic biliary duct dilatation seen. GALLBLADDER: The gallbladder is physiologically distended without evidence of stones, sludge, polyps, wall thickening or pericholecystic fluid. There was a positive sonographic King's sign. COMMON BILE DUCT: Normal in caliber measuring 0.6 cm in diameter. RIGHT KIDNEY: No hydronephrosis. No renal calculi or focal suspicious parenchymal lesions. The kidney measures 11.7 cm in maximum dimension. There are 2 small lower pole cysts, the larger measuring 1.1 x 0.8 x 0.9 cm. FREE FLUID: None. US/US abdomen limited IMPRESSION: 1. Limited exam as detailed. 2. Normal sonographic appearance of the gallbladder without wall thickening, gallstones, or other abnormality, however there was a positive sonographic King's sign. 3. Normal liver and bile ducts. 4. There are 2 small cysts in the right kidney. Right kidney otherwise normal. Electronically signed by: Sunny Lopes MD 12/20/2024 12:19 PM EDT
--- NOTE | ~2024-12-20 | XR_ITS ---
EXAMINATION: XR ABDOMEN 1 VIEW (KUB) HISTORY: f/up film COMPARISON: Comparison is made with the prior examination dated 12/21/2024. FINDINGS: Two supine views of the abdomen are submitted. Oral contrast material is seen throughout the colon. There is no bowel dilatation. No abnormal calcifications are identified. There are no abnormal soft tissue masses. The bones are intact. XR/XR KUB IMPRESSION: Oral contrast throughout the colon. Electronically signed by: Juan Daniel Osuna MD 12/21/2024 02:00 PM EDT
--- NOTE | ~2024-12-20 | XR_ITS ---
EXAMINATION: XR CHEST CLINICAL INFORMATION: hypoxia, vomiting, ?aspiration COMPARISON: None available. TECHNIQUE: Frontal view of the chest was obtained. FINDINGS: The cardiac size is borderline enlarged. The aorta is tortuous. There is vascular crowding, otherwise the lungs are clear. There is a 5 mm nodular density in the right lateral apex. Its density is similar to the rib and therefore likely calcified. XR/XR chest 1V IMPRESSION: Borderline cardiac enlargement. There is a probable calcified granuloma in the right lateral apex. Electronically signed by: Tj Rodriguez MD 12/20/2024 11:06 AM EDT RP
--- NOTE | ~2024-12-20 | US_ITS ---
CLINICAL HISTORY: leg pain pos PE - eval for DVT Bilateral lower extremity venous duplex ultrasound. Color and spectral waveform analysis. Comparison: None provided Findings: Deep veins are compressible with flow and augmentation. No popliteal cyst. No significant adenopathy. Impression: No evidence for DVT This document has been electronically signed by: Santana Dodge MD on 12/21/2024 19:29:44
--- NOTE | ~2024-12-20 | CT_ITS ---
EXAMINATION: CT ANGIOGRAM CHEST CLINICAL INFORMATION: Elevated d-dimer, hypoxia COMPARISON: None available. TECHNIQUE: Multiple axial images were obtained through the chest after the administration of 50 mL of Omnipaque 350 intravenous contrast. Extensive vascular post-processing including two-dimensional and three-dimensional reformatted images were created and reviewed on an independent workstation. This CT examination was performed using dose optimization techniques as appropriate, variously including the following: *Automated exposure control *Adjustment of mA and/or kV according to patient size (this includes techniques or standardized protocols for targeted exams where dose is matched to indication/reason for exam; i.e. extremities or head) *Use of iterative reconstruction technique FINDINGS: QUALITY OF STUDY/CONTRAST BOLUS: Adequate PULMONARY ARTERIES: Short linear low density is present in the vessels in the posterior left lower lobe (axial CT #7 image 66/126) that could represent small embolus. No other areas are concerning for filling defects. THORACIC AORTA: Thoracic aorta is tortuous with multifocal atherosclerotic calcifications. LUNGS AND PLEURA: There is a 6 mm calcified granuloma in the right upper lobe There is a 5 mm soft tissue pulmonary nodule in the right lower lobe (axial CT #6 image 76/126). There is mild to moderate cylindrical bronchiectasis in the right Irregular linear opacity in the anterior right upper lobe is consistent with scarring. 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 There is mild bibasilar atelectasis. MEDIASTINUM: Unremarkable CORONARY ARTERY CALCIFICATION: Present CHEST WALL/AXILLA: No axillary or internal mammary lymphadenopathy. UPPER ABDOMEN: There is a 1 cm focal calcification in the cortex the posterior mid right kidney adjacent to a simple renal cyst. There is a second 5 mm collimation that could represent a stone or calcification in the renal papilla. BONES: Extensive anterior osteophytes are present in the thoracic spine. There is disc space narrowing. There are multiple concave vertebral endplates consistent with compression fractures involving both upper and lower thoracic spine. CT/CT angio chest PE protocol IMPRESSION: Short linear low density in the pulmonary arteries leading to the left lower lobe could represent a small pulmonary embolus. There is a 6 mm calcified granuloma in the right upper lobe. Additionally there is a 5 mm solid pulmonary nodule in the right lower lobe. No further follow-up is indicated per Fleischner Society recommendations, unless the patient falls into a high risk category, in which case a 12 month follow-up CT chest without contrast is optional. High risk patients includes those with a history of smoking, first-degree relative with lung cancer, or exposure to uranium, radon, or asbestos. Bronchiectasis is noted in the bilateral lower lobes. Extensive degenerative changes in the thoracic spine and multiple age-indeterminate mild compression fractures. Chronic focal calcification is noted in the posterior right renal cortex. Fleischner guidelines were followed. Electronically signed by: Tj Rodriguez MD 12/20/2024 02:34 PM EDT
--- NOTE | ~2024-12-20 | FL_ITS ---
EXAMINATION: FL SMALL BOWEL SERIES CLINICAL INFORMATION: SBO COMPARISON: None available. TECHNIQUE: Following a black leather trimmer image of the abdomen, 50/50 diluted 400 mL of Gastrografin contrast was administered orally, and interval abdominal radiographs were performed to assess for contrast progression through the small bowel. However patient complained of significant abdominal pain and patient was aspirated by the floor nurse. The exam was then discontinued. FINDINGS: Caterpillar Mechanic image of the abdomen demonstrates scattered stool in the right colon. No organomegaly. No radiopaque calculi.. Images obtained immediately after administration of dilute Gastrografin through the NG tube there is opacification nondistended stomach and proximal jejunal loops. Subsequently patient complained of abdominal pain and the entire contrast was aspirated through the NG tube by the floor nurse. The exam was terminated at this point. FLUOROSCOPY TIME: None DOSE AREA PRODUCT: 1 uGy-m2 (microgray-meter squared) FL/FL small bowel follow through IMPRESSION: Incomplete small bowel series as patient complained of significant bowel pain after administration of 400 mL of dilute Gastrografin. The entire Gastrografin was aspirated through the enteric tube. Hence the exam was discontinued. Electronically signed by: Eliud Metzger MD 12/21/2024 12:45 PM EDT
--- NOTE | 2024-12-20 10:17 | ED.ABDPAIN ---
HPI - Abdominal Pain General Chief Complaint: Abdominal Pain Stated Complaint: Abd pain, vomiting Time Seen by Provider: 12/20/24 10:34 Source: patient and family Mode of arrival: ambulatory Limitations: no limitations History of Present Illness ED Provider: DR. Juarez HPI narrative: 89-year-old female PMH significant for HTN, DM, peripheral neuropathy. Patient presented with her daughter for evaluation of diffuse abdominal pain, diarrhea, and persistent vomiting since yesterday. Last bowel movement was nonbloody watery diarrhea 2 days ago, passing no flatus for 2 days, never had intra-abdominal surgery in the past, pain is associated with persistent vomiting since last night prescribed as yellow bile vomitus. No sick contacts, no recent overseas travel, no recent use of antibiotic. Patient has no cough, no fever, found to be hypoxic 91% on room air patient was placed on nasal cannula from triage and moved to bed 6 for further evaluation and examination Related Data Home Medications ?Medication ?Instructions ?Recorded ?Confirmed gabapentin 300 mg capsule 300 mg PO BID 05/08/24 05/08/24 metformin 500 mg tablet 500 mg PO BID 05/08/24 05/08/24 Previous Rx's ?Medication ?Instructions ?Recorded aspirin 81 mg tablet,delayed 81 mg PO DAILY #90 tabs 05/10/24 release atorvastatin 40 mg tablet 40 mg PO BEDTIME #90 tabs 05/10/24 niacin 250 mg tablet,extended 250 mg PO BEDTIME #90 tabs 05/10/24 release Allergies Allergy/AdvReac Type Severity Reaction Status Date / Time No Known Allergies Allergy Verified 12/20/24 10:22 Review of Systems Review of Systems all other systems are reviewed and are negative Constitutional: Reports as per HPI and Reports no additional constitutional complaints Eyes: Reports as per HPI and Reports no additional eye complaints Reports system reviewed and no additional complaints, except as documented Cardiovascular: Reports as per HPI and Reports no additional cardiovascular complaints Respiratory: Reports as per HPI and Reports no additional respiratory complaints Gastrointestinal: Reports as per HPI and Reports no additional gastrointestinal complaints Genitourinary: Reports no additional female genitourinary complaints Musculoskeletal: Reports no additional musculoskeletal complaints Skin/Breast: Reports system reviewed and no additional complaints, except as docu Psychiatric: Reports no additional psychiatric complaints Endocrine: Reports no additional endocrine complaints Hematologic/Lymphatic: Reports no additional hematologic/lymphatic complaints Allergic/Immunologic: Reports no additional allergic/immunologic complaints Reports system reviewed and no additional complaints, except as documented and Reports Abnormal speech present [facility] Past Medical History Medical History Diabetes HTN (hypertension) Social History Social History Household Members: Spouse and Significant Other Housing: House Do you presently have visiting nurse or other home services: No Patient Tobacco Use Status: Never used Tobacco Smoked in Last 30 Days: No Use of substances other than those prescribed or required for medical reasons: No Advance Directives: Yes Advance Directives on File: Yes Advance Directives Date on File: 05/08/24 service: No Physical Exam ED Vital Signs: Vital Signs - 24 hr 12/20/24 10:17 12/20/24 10:28 12/20/24 11:16 Temperature 99.9 F 98.2 F Pulse Rate 109 H 107 H Respiratory Rate 16 20 Blood Pressure 125/61 127/67 Pulse Oximetry 86 L 92 94 Oxygen Delivery Method Room Air Nasal Cannula Nasal Cannula Oxygen Flow Rate 2 1 12/20/24 11:30 12/20/24 11:31 12/20/24 12:07 Temperature Pulse Rate Respiratory Rate Blood Pressure Pulse Oximetry 89 L 96 93 Oxygen Delivery Method Nasal Cannula Nasal Cannula Oxymask Oxygen Flow Rate 1 2 2 12/20/24 12:50 Temperature Pulse Rate 99 Respiratory Rate 18 Blood Pressure 129/66 Pulse Oximetry 96 Oxygen Delivery Method Oxymask Oxygen Flow Rate 2 BMI result Body Mass Index 31.8 Vital signs have been reviewed and appear to be correct. Blood pressure elevated. Heart rate normal. Respiratory rate normal. Temperature normal. Oxygen saturation normal. Appearance: Alert. Oriented X3. No acute distress. Head: Normal external exam. Normocephalic. Atraumatic. No Escobar signs noted. No raccoon eyes noted Eyes: PERRLA. EOMI. Conjunctiva and sclera normal. Eyelids normal. ENT: TM's Normal. Pharynx normal. Uvula midline. Moist mucous membranes. No trismus noted. No drooling noted. No muffled voice noted. Neck: Normal inspection. Neck supple. FROM. No adenopathy. Thyroid Normal. No meningeal signs. No neck mass noted. CVS: Normal heart rate and rhythm. Heart sound normal. No murmurs noted. Pulses normal throughout. Respiratory: No respiratory distress. Painless inspiration. Breath sounds normal. No wheezes/rales/rhonchi noted. Chest nontender. No accessory muscle usage noted or decreased air movement noted. Abdomen: Soft, mild upper abdominal tenderness, no rebound tenderness, no guarding, + tendon King signs. increase bowel sounds, hyperdynamic, No distention noted. No organomegaly noted. No visible injury noted. Back: No CVA tenderness. Full range of motion noted. Skin: Skin warm and dry. Normal skin color. Normal skin turgor. No rashes/lesions/lacerations noted. Extremities: No lower extremity edema. Extremities exhibit normal range of motion. Extremities nontender. Neuro: Oriented X 3. Cranial nerve exam: II-XII are grossly intact No motor deficit. No sensory deficit. Reflexes normal. Course Course Course Narrative: This is an RME: Additional HPI, ROS, PE not included below will be deferred to primary provider. 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 Reporting diarrhea x 2 weeks. Took Immodium on thursday and thursday. Yesterday, abdominal pain worsened. Pt with rales in the left low base, hypoxic at 86% placed on supplemental O2 Plan: Labs, ekg, UA Reevaluation(s) Reevaluation #1: 89-year-old female came in for evaluation of abdominal pain with nausea and vomiting, absence of bowel movement x2 days. CT abdomen pelvis is consistent with small-bowel obstruction with transition point, no obvious internal hernia on CT, no history of previous intra-abdominal surgery or adhesions, NG tube for gastric decompression. Patient found to be incidentally hypoxic was elevated D-dimer CTA of the chest is equivocal for possible acute pulmonary embolism. after discussion risks and benefits with the family and the patient will start anticoagulation on heparin. Will admit the patient to a surgical service with medical consultation. Time: 14:38 Medical Decision Making Differential Diagnosis Differential Diagnoses: The differential diagnosis associated with the presentation includes ( Gastroenteritis, gastritis, small-bowel obstruction, colitis, diverticulitis, acute appendicitis, pancreatitis, electrolyte derangement, severe anemia, pulmonary embolism, pneumonia.) Admission/Observation Consideration of admission/observation: Escalation of care including admission/observation considered Consult Healthcare Provider Management of the patient was discussed with: Sales Floor Manager ( Dr. Acosta.) Lab Data MDM Lab Attestation statement: I reviewed the patient's lab results. 12/20/24 10:52 12/20/24 10:52 Labs: Lab Results 12/20/24 12/20/24 12/20/24 Range/Units 10:52 10:52 11:22 WBC 10.3 (4.8-10.8) X10*3/uL RBC 5.53 H (4.20-5.50) X10*6/uL Hgb 15.1 (12.0-16.0) g/dl Hct 46.4 (37.0-47.0) % MCV 83.9 (80.0-98.0) fL MCH 27.3 (27.0-33.0) pg MCHC 32.5 (31.0-35.0) g/dl RDW 14.6 (11.0-16.0) % Plt Count 191 D (160-400) X10*3/uL MPV 9.6 (9.4-12.3) fL Immature Gran % (Auto) 0.3 (0.0-0.4) % Neut % (Auto) 85.4 H (45-73) % Lymph % (Auto) 4.4 L (20-40) % Boone % (Auto) 8.3 (2-11) % Eos % (Auto) 1.2 (0-4) % Baso % (Auto) 0.4 (0-2) % Lymph # (Auto) 0.5 L (1.2-4.9) X10*3/uL Boone # (Auto) 0.9 (0.1-1.2) X10*3/uL Eos # (Auto) 0.1 (0.0-0.4) X10*3/uL Baso # (Auto) 0.0 (0.0-0.2) X10*3/uL Abs Immat Gran (auto) 0.03 (0.00-0.03) X10*3/uL Absolute Neuts (auto) 8.8 H (2.0-8.3) x10*3/uL Absolute Nucleated RBC 0.000 (0.0-0.012) X10*3/uL Nucleated RBC % (auto) 0.0 (0.0-0.2) /100WBC D-Dimer High Sensitivty NG/ML VBG pH 7.42 (7.32-7.43) VBG pCO2 48 mmHg VBG pO2 72 mmHg VBG HCO3 32 H (22-26) mmol/L VBG O2 Saturation 95.0 % VBG Base Excess 6.3 mmol/L Sodium 140 (135-145) mmol/L Potassium 4.0 (3.3-5.1) mmol/L Chloride 98 (96-108) mmol/L Carbon Dioxide 32 H (22-29) mmol/L Anion Gap 14 (12-20) BUN 19 H (9-16) mg/dL Creatinine 0.69 (0.5-1.4) mg/dL Estim Creat Clear Calc 55.8 Estimated GFR > 60 Random Glucose 282 H (60-115) mg/dL Lactic Acid 1.9 (0.5-2.0) mmol/L Calcium 10.4 H D (8.4-10.2) mg/dL Magnesium 1.9 (1.6-2.6) mg/dL Total Bilirubin 1.0 (0.0-1.0) mg/dL Direct Bilirubin 0.3 (0.0-0.5) mg/dL AST 26 (5-31) U/L ALT 27 (0-31) U/L Alkaline Phosphatase 68 (39-117) U/L Troponin I High Sens 4.5 D (<3.5-17.0) ng/L NT-Pro-B Natriuret Pep 158.5 Cancelled (<300) pg/mL Total Protein 7.2 (6.5-8.0) g/dL Albumin 4.3 (3.5-5.0) g/dL COVID-19 (JOSE) Negative (Negative) COVID-19 Clin Com See Note Influenza Type A (HAYDEE) Negative (Negative) Influenza Type B (HAYDEE) Negative (Negative) Influenza A & B Note See Note 12/20/24 Range/Units 12:01 WBC (4.8-10.8) X10*3/uL RBC (4.20-5.50) X10*6/uL Hgb (12.0-16.0) g/dl Hct (37.0-47.0) % MCV (80.0-98.0) fL MCH (27.0-33.0) pg MCHC (31.0-35.0) g/dl RDW (11.0-16.0) % Plt Count (160-400) X10*3/uL MPV (9.4-12.3) fL Immature Gran % (Auto) (0.0-0.4) % Neut % (Auto) (45-73) % Lymph % (Auto) (20-40) % Boone % (Auto) (2-11) % Eos % (Auto) (0-4) % Baso % (Auto) (0-2) % Lymph # (Auto) (1.2-4.9) X10*3/uL Boone # (Auto) (0.1-1.2) X10*3/uL Eos # (Auto) (0.0-0.4) X10*3/uL Baso # (Auto) (0.0-0.2) X10*3/uL Abs Immat Gran (auto) (0.00-0.03) X10*3/uL Absolute Neuts (auto) (2.0-8.3) x10*3/uL Absolute Nucleated RBC (0.0-0.012) X10*3/uL Nucleated RBC % (auto) (0.0-0.2) /100WBC D-Dimer High Sensitivty 529 NG/ML VBG pH (7.32-7.43) VBG pCO2 mmHg VBG pO2 mmHg VBG HCO3 (22-26) mmol/L VBG O2 Saturation % VBG Base Excess mmol/L Sodium (135-145) mmol/L Potassium (3.3-5.1) mmol/L Chloride (96-108) mmol/L Carbon Dioxide (22-29) mmol/L Anion Gap (12-20) BUN (9-16) mg/dL Creatinine (0.5-1.4) mg/dL Estim Creat Clear Calc Estimated GFR Random Glucose (60-115) mg/dL Lactic Acid (0.5-2.0) mmol/L Calcium (8.4-10.2) mg/dL Magnesium (1.6-2.6) mg/dL Total Bilirubin (0.0-1.0) mg/dL Direct Bilirubin (0.0-0.5) mg/dL AST (5-31) U/L ALT (0-31) U/L Alkaline Phosphatase (39-117) U/L Troponin I High Sens (<3.5-17.0) ng/L NT-Pro-B Natriuret Pep (<300) pg/mL Total Protein (6.5-8.0) g/dL Albumin (3.5-5.0) g/dL COVID-19 (JOSE) (Negative) COVID-19 Clin Com Influenza Type A (HAYDEE) (Negative) Influenza Type B (HAYDEE) (Negative) Influenza A & B Note Independent Interpretation I performed an independent interpretation of an: Plain X-Ray ( Chest:Borderline cardiac enlargement. There is a probable calcified granuloma in the right lateral apex.), Ultrasound ( Abdominal:1. Limited exam as detailed. 2. Normal sonographic appearance of the gallbladder without wall thickening, gallstones, or other abnormality, however there was a positive sonographic King's sign. 3. Normal liver and bile ducts. 4. There are 2 small cysts in the right kidney. Right kidn) and CT Scan ( abdomen pelvis: Chest:Short linear low density in the pulmonary arteries leading to the left lower lobe could represent a small pulmonary embolus. There is a 6 mm calcified granuloma in the right upper lobe. Additionally there is a 5 mm solid pulmonary nodule in the right lower lobe. No furthe) Radiology Impression Discussion of test interpretation with radiology: I have reviewed the radiologist's reading. Medications Administered Discontinued Medications Generic Name Dose Route Start Last Admin Trade Name Freq PRN Reason Stop Dose Admin Al Hydroxide/Mg Hydroxide 30 ml 12/20/24 12:47 12/20/24 13:02 Magnesium Hydrox/Alum Hydrox 30 Ml Oral.Susp PO 12/20/24 12:48 30 ml ONCE ONE Administration Sodium Chloride 1,000 mls @ 500 mls/hr 12/20/24 12:47 12/20/24 14:02 Ns IV 12/20/24 14:46 Infused .Q2H ONE Infusion Iohexol 100 ml 12/20/24 13:56 12/20/24 14:00 Iohexol 350 Mg/Ml 100 Ml Infus..Btl IV 12/20/24 13:57 65 ml ONCE ONE Administration Ondansetron HCl 4 mg 12/20/24 12:47 12/20/24 13:02 Ondansetron Hcl 4 Mg/2 Ml Vial IVPUSH 12/20/24 12:48 4 mg ONCE ONE Administration Pantoprazole Sodium 40 mg 12/20/24 12:47 12/20/24 13:02 Pantoprazole Sodium 40 Mg/10 Ml Vial IVPUSH 12/20/24 12:48 40 mg ONCE ONE Administration Discharge Plan Discharge Clinical Impression: Small bowel obstruction, Pulmonary embolism Patient Disposition: Admitted As Inpatient Print Language: Unable To Collect
--- NOTE | 2024-12-20 10:19 | ECG_ITS ---
Test Reason : ABD PAIN Blood Pressure : */* mmHG Vent. Rate : 107 BPM Atrial Rate : 107 BPM P-R Int : 202 ms QRS Dur : 72 ms QT Int : 326 ms P-R-T Axes : 14 -7 7 degrees QTcB Int : 435 ms Sinus tachycardia Inferior infarct , age undetermined Anterolateral infarct (cited on or before 08-May-2024) Abnormal ECG When compared with ECG of 08-May-2024 12:32, Inferior infarct is now Present Nonspecific T wave abnormality now evident in Anterior leads Referred By: Laura Lambert Electronically Signed By: ADRI THOMSON
--- NOTE | 2024-12-20 10:58 | PC.NURSE ---
89 F presents to ED with abdominal pain x 3 days, n/v since yesterday. Pt sts pain across entire abdomen. Pt also noted to desat on RA, placed on 2L and now 4L NC, RR even and unlabored, denies feeling SOB, satting around 92 on 4L NC. A+OX4, calm, cooperative. Pt ambulates with a cane at baseline. Pt sts pain is currently a 3/10. Daughter at bedside, sts pt may have aspirated during vomitting. XR at bedside now.
[2024-12-20 11:01] LABS: MANUAL DIFF FLAG NO
[2024-12-20 11:11] LABS: Hematocrit 46.4 % (37.0-47.0); Hemoglobin 15.1 g/dl (12.0-16.0); Imm Gran Abs Auto 0.03 X10*3/uL (0.00-0.03); Imm Gran Pct Auto 0.3 % (0.0-0.4); Lymphocytes Absolute Auto 0.5 X10*3/uL (1.2-4.9); Mean Corpuscular HGB Conc 32.5 g/dl (31.0-35.0); Mean Corpuscular Hemoglobin 27.3 pg (27.0-33.0); Mean Corpuscular Volume 83.9 fL (80.0-98.0); NRBC Abs Auto 0.000 X10*3/uL (0.0-0.012); NRBC Pct Auto 0.0 /100WBC (0.0-0.2); Platelet Count 191 X10*3/uL (160-400); Red Blood Count 5.53 X10*6/uL (4.20-5.50); White Blood Count 10.3 X10*3/uL (4.8-10.8)
[2024-12-20 11:20] LABS: COVID-19 Test Negative (Negative); IDNOW Serial# 152EDE1D; IDNOW Serial# 16C4AD1C; Influenza B2 Negative (Negative)
[2024-12-20 11:25] LABS: VBG HCO3 32 mmol/L (22-26); VBG O2 % Saturation 95.0 %
[2024-12-20 11:25] LABS: Venous Blood Gas Refer to POC result
[2024-12-20 11:26] LABS: Alanine Aminotransferase 27 U/L (0-31); Albumin Level 4.3 g/dL (3.5-5.0); Alkaline Phosphatase 68 U/L (39-117); Anion Gap 14 (12-20); Aspartate Amino Transferase 26 U/L (5-31); Blood Urea Nitrogen 19 mg/dL (9-16); Calcium 10.4 mg/dL (8.4-10.2); Carbon Dioxide 32 mmol/L (22-29); Chloride 98 mmol/L (96-108); Creatinine Clr Calc Pharmacy 55.8; Estimated Glomerular Filt Rate > 60; Magnesium 1.9 mg/dL (1.6-2.6); Potassium 4.0 mmol/L (3.3-5.1); Sodium 140 mmol/L (135-145); Total Protein 7.2 g/dL (6.5-8.0)
[2024-12-20 11:42] LABS: Troponin-I High Sensitivity 4.5 ng/L (<3.5-17.0)
[2024-12-20 12:18] LABS: D Dimer High Sensitivity 529 NG/ML
[2024-12-20 12:34] LABS: NT Pro B Type Natriuretic Pept 158.5 pg/mL (<300)
--- OUTSIDE RECORDS SUMMARY | 2024-12-20 12:43 | XMS_ITS | Encounter Summary ---
Author Organization [employer] Address [address] [facility] [address] [place] [address] Care Team Providers Care Glove Wrapper Name Role Phone Monse Medina MD Primary Care Provider [phone] Encounter Details Date Type Department Care Team ([facility] st Contact Info) Description 05/10/2024 Orders Only [facility] [address] [place], [place] [phone] Monse Medina MD [address] [place], [place] [phone] Social History Tobacco Use Types Packs/Day Years [...] documented as of this encounter Care Teams Glove Wrapper Relationship Specialty Start Date End Date Monse Medina MD [address] [place] [phone] PCP - General Family Medicine 04/28/24 documented as of this encounter
--- OUTSIDE RECORDS SUMMARY | 2024-12-20 12:43 | XMS_ITS | Encounter Summary ---
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 Name Role Phone Monse Medina MD Primary Care Provider Encounter Details Date Type Department Care Team ([facility] st Contact Info) Description 05/02/2024 Orders Only [facility] [address] [place], [place] [phone] Monse Medina MD [address] [place], [place] [phone] Social History Tobacco Use Types Packs/Day Years [...] PM EST Narrative 05/09/2024 1:05 PM EST [place] [address] Magnetic Resonance Report Signed Patient: Maryellen Acosta MR#: [id number] 1351 : 1935 Acct:[id number] Age/Sex: 88 / F ADM Date: 05/08/24 Loc: .ICU 254-[address]: Cindy Sesay MD Ordering Physician: Loc Elder Date of Service: 05/09/24 Procedure(s): MR head/brain wo/w con Accession Number(s): [id number] cc: Loc Elder; Monse Medina MD CLINICAL [...] 05/09/24 1305 DD/ 1304 TD/TT: 05/09/24 1304 Gate Tender: Procedure Note Donotuseinterpreter, Image - 05/09/2024 [place] [address] Magnetic Resonance Report Signed Patient: Carlin Acosta#: [id number] 1351 : 8Acct:[id number] Age/Sex: 88 / FADM Date: 05/08/24 Loc: .ICU 254-[address]: Cindy Sesay MD Ordering Physician: Loc Elder Date of Service: 05/09/24 Procedure(s): MR head/brain wo/w con Accession Number(s): [id number] cc: Loc Elder; Monse Medina MD CLINICAL [...] 05/09/24 1305 DD/ 1304 TD/TT: 05/09/24 1304 Gate Tender: [facility] External Provider IMG MRI PROCEDURES Final Result * CTA Head Stroke w/ and w/o Contrast (05/08/2024 12:54 PM EST) Anatomical Region Laterality Modality Computed Tomogra phy 05/08/2024 12:5 4 PM EST Narrative 05/08/2024 12:55 PM EST [place] [address] CT Scan Report Signed Patient: Maryellen Acosta MR#: [id number] : 1935 Acct:[id number] Age/Sex: 88 / F ADM Date: 05/08/24 Loc: HO.ED Attending Dr: Ordering Physician: Erica Valenzuela DO Date of Service: 05/08/24 Procedure(s): CT angio head neck STROKE Accession Number(s): [id number] cc: Erica Valenzuela DO; Monse Medina MD Report Number: [id number]: Total DLP = 647.00 mGy-cm CLINICAL HISTORY: [...] 05/08/24 1255 DD/ 1254 TD/TT: 05/08/24 1254 Gate Tender: Procedure Note Donotuseinterpreter, Image - 05/08/[address] [place] [address] [address] Scan Report Signed Patient: Carlin Acosta#: [id number] 1351 : 8Acct:[id number] Age/Sex: 88 / FADM Date: 05/08/24 Loc: .ED Attending Dr: Ordering Physician: Erica Valenzuela DO Date of Service: 05/08/24 Procedure(s): CT angio head neck STROKE Accession Number(s): [id number] cc: Erica Valenzuela DO; Monse Medina MD Report Number: [id number]: Total DLP = 647.00 mGy-cm CLINICAL HISTORY: [...] 05/08/24 1255 DD/ 1254 TD/TT: 05/08/24 1254 Gate Tender: [facility] External Provider IMG CT PROCEDURES Final Result * SARS-CoV-2 RNA, Influenza A/B, and RSV RNA, Ql NAAT (05/08/2024 12:52 PM EST) Influenza A PCR NEGATIVE Negative [facility] Influenza B PCR NEGATIVE Negative [facility] Resp Syncy Virus RNA Qual PCR NEGATIVE Negative [facility] SARS COV2 PCR NEGATIVE Negative [facility] Comment:All test results mus t [...] use by authorized laboratories.Testing performed on the Remotium GeneXpert utilizingreal-time RT-PCR.All SARS CoV2 and positive influenza A/B results arereported to [facility]. 05/08/2024 12:5 2 PM EST 05/08/2024 12:56 PM EST Generic External Data Provider LAB MICROBIOLOGY - GENERAL ORDERABLES Final Result [facility] [address] [place] [phone] * CT Head Stroke w/o Contrast (05/08/2024 12:30 PM EST) Anatomical Region Laterality Modality Computed Tomogra phy 05/08/2024 12:3 0 PM EST Narrative 05/08/2024 12:34 PM EST [address] [address] [address] Scan Report Signed with Karel Patient: Maryellen Acosta MR#: [id number] : 1935 Acct:[id number] Age/Sex: 88 / F ADM Date: 05/08/24 Loc: HO.ED Attending Dr: Ordering Physician: Erica Valenzuela DO Date of Service: 05/08/24 Procedure(s): CT head for STROKE Accession Number(s): [id number] cc: Erica Valenzuela DO; Monse Medina MD Report Number: [id number]: Total DLP = 667.00 mGy-cm ADDENDUM This document has been electronically signed by: Bud Murray MD on 05/08/2024 12:30:51 ADDENDUM: This report was discussed with Bianca Maldonado MD on May 08, 2024 12:35:00 EST. This document has been electronically signed by: Candice Martinez on 05/08/2024 12:36:06 Addendum Dictated By: Bud Murray MD Addendum Signed By: <Electronically signed by Bud Murray MD in [place]> 05/08/241235 Addendum Cosigned By: DD/ [...] signed by Bud Murray MD in OV> 05/08/241232 DD/ 29 TD/TT: 05/08/241229 Gate Tender: Procedure Note Donotuseinterpreter, Image - 05/08/[address] [address] [address] Scan Report Signed with Addenda Patient: Maryellen AcostaMR#: [id number] : 8Acct:[id number] Age/Sex: 88 / FADM Date: 05/08/24 Loc: HO.ED Attending Dr: Ordering Physician: Erica Valenzuela DO Date of Service: 05/08/24 Procedure(s): CT head for STROKE Accession Number(s): [id number] cc: Erica Valenzuela DO; Monse Medina MD Report Number: [id number]: Total DLP = 667.00 mGy-cm ADDENDUM This [...] signed by Bud Murray MD in OV> 05/08/241232 DD/ 29 TD/TT: 05/08/241229 Gate Tender: [facility] External Provider IMG CT PROCEDURES Edited Result - Final * Hold Green Gel (05/08/2024 12:23 PM EST) Hold Green Gel See Note [facility] Comment:Specimen held untest ed for 24 hours; Call to requestChemistry testing. 05/08/2024 12:2 3 PM EST 05/08/2024 12:28 PM EST us Generic External Data Provider HISTORICAL/NON OR DERABLE LABS Final Result Performing Organization Address [facility]/ZIP Co de Phone Number [facility] [address] [place] [phone] * TSH with Reflex to Free T4 (05/08/2024 12:23 PM EST) Pathologist [facility] TSH reflex Free T4 1.48 0.32 - 4.0 uIU/mL [facility] 05/08/2024 12:2 3 PM EST 05/08/2024 12:28 PM EST Generic External Data Provider LAB BLOOD ORDERAB LES Final Result Performing Organization Address [facility] Co de Phone Number [facility] [address] [place] [phone] * B Type Natriuretic Peptide (BNP) (05/08/2024 12:23 PM EST) Pathologist [facility] B Type Natriuretic Peptide 44 <100 pg/mL [facility] Comment:For those patients w ho are being treated with Natrecor(nesiritide, recombinant BNP), BNP testing should beperformed at least two hours post treatment in order toensure that only endogenous levels of BNP are detected. 05/08/2024 12:2 3 PM EST 05/08/2024 12:28 PM EST us Generic External Data Provider LAB BLOOD ORDERAB LES Final Result Performing Organization Address [facility] Co de Phone Number [facility] [address] [place] [phone] * Lipase (05/08/2024 12:23 PM EST) Lipase 18 8 - 78 U/L [facility] 05/08/2024 12:2 3 PM EST 05/08/2024 12:28 PM EST Generic External Data Provider LAB BLOOD ORDERAB LES Final Result Performing Organization Address [facility]/ZIP Co de Phone Number [facility] [address] [place] [phone] * (ABNORMAL) Lipid Panel, Standard (05/08/2024 12:23 PM EST) Triglycerides 195(H) <150 mg/dL [facility] Comment:Desirable Triglyceri de: less than 150 mg/dLBorderline High Triglyceride 150-199 mg/dLHigh Triglyceride: 200-499 mg/dLVery High Triglyceride: greater than or equal to 5OO mg/dL Cholesterol 161 <200 mg/dL [facility] Comment:Desirable Cholestero l: less than 200 mg/dLBorderline High Cholesterol: 200-239 mg/dLHigh Cholesterol: greater than 239 mg/dL LDL Cholesterol Calculated 81 <100 mg/dL [facility] Comment:Desirable LDL: less than 100 mg/dLNear Optimal/Above Optimal LDL: 110- 129 mg/dLBorderline High LDL: 130-159 mg/dLHigh LDL: 160-189 mg/dLVery High LDL: greater than or equal to 190 mg/dL HDL Cholesterol 41 >40 mg/dL [facility] Comment:Desirable HDL: great er than 40 mg/dL Note: This HDL assay may give artificially low results in patients with liver disease. 05/08/2024 12:2 3 PM EST 05/08/2024 12:28 PM EST us Generic External Data Provider LAB BLOOD ORDERAB LES Final Result Performing Organization Address [facility]/ZIP Co de Phone Number [facility] [address] [place] [phone] * Magnesium (05/08/2024 12:23 PM EST) Magnesium 1.8 1.6 - 2.6 mg/dL [facility] 05/08/2024 12:2 3 PM EST 05/08/2024 12:28 PM EST us Generic External Data Provider LAB BLOOD ORDERAB LES Final Result [facility] [address] [place] [phone] * (ABNORMAL) Basic Metabolic Panel (05/08/2024 12:23 PM EST) Sodium 139 135 - 145 mmol/L [facility] Potassium 4.0 3.3 - 5.1 mmol/L [facility] Chloride 103 96 - 108 mmol/L [facility] Carbon Dioxide 25 22 - 29 mmol/L [facility] Anion Gap 15 12 - 20 [facility] Urea Nitrogen (BUN) 16 9 - 16 mg/dL [facility] Creatinine, Serum 0.67 0.5 - 1.4 mg/dL [facility] Creatinine Clr Calc Pharmacy 58.1 [facility] Comment:Provided height and weight: 157.48 cm,77.6 kg.eGFR (calculated from the MDRD study equation) and eCrCl(calculated from the Cockcroft-Gault equation) are based ondifferent parameters and may not yield comparable results.If eCrCl result is absurd, please check patient'sheight/weight. Estimated Glomerular Filt Rate >60 [facility] Comment:Chronic Kidney Disea se: Estimated GFR < 60 mL/min/1.46o7Bvynyg Kidney Disease: Estimated GFR < 15 mL/min/1.73m2 Glucose 223(H) 60 - 115 mg/dL [facility] Calcium 9.6 8.4 - 10.2 mg/dL [facility] 05/08/2024 12:2 3 PM EST 05/08/2024 12:28 PM EST us Generic External Data Provider LAB BLOOD ORDERAB LES Final Result Performing Organization Address [facility]/ZIP Co de Phone Number [facility] [address] [place] [phone] * (ABNORMAL) Hepatic Function Panel (05/08/2024 12:23 PM EST) Bilirubin, Total 0.8 0.0 - 1.0 mg/dL [facility] Bilirubin, Direct 0.2 0.0 - 0.5 mg/dL [facility] Aspartate Amino Transferase 53(H) 5 - 31 U/L [facility] Alanine Aminotransferase 64(H) 0 - 31 U/L [facility] Total Protein 7.6 6.5 - 8.0 g/dL [facility] Albumin Level 4.1 3.5 - 5.0 g/dL [facility] Alkaline Phosphatase 79 39 - 117 U/L [facility] 05/08/2024 12:2 3 PM EST 05/08/2024 12:28 PM EST us Generic External Data Provider LAB BLOOD ORDERAB LES Final Result Performing Organization Address [facility] Co de Phone Number [facility] [address] [place] [phone] * High Sensitivity Troponin I (05/08/2024 12:23 PM EST) Pathologist [facility] TROPONIN I HIGH SENSITIVITY 2.7 <3.5 - 17.0 ng/L [facility] Comment:The Magdaleno high sens itivity Troponin-I results should beused in conjunction with other diagnostic information suchas ECG, clinical observations and information, and patientsymptoms to aid in the diagnosis of [place]. 05/08/2024 12:2 3 PM EST 05/08/2024 12:28 PM EST us Generic External Data Provider LAB BLOOD ORDERAB LES Final Result Performing Organization Address City/[facility]/ZIP Co de Phone Number [facility] [address] [place] [phone] * Prothrombin Time-INR (05/08/2024 12:23 PM EST) Prothrombin Time 11.1 10.9 - 12.4 SEC [facility] INTERNATIONAL NORM RATIO 1.0 0.9 - 1.1 [facility] Comment:INTERNATIONAL NORMAL IZED RATIO (INR) [...] Provider LAB BLOOD ORDERAB LES Final Result [facility] [address] [place] [phone] * (ABNORMAL) Hemoglobin A1c (05/08/2024 12:23 PM EST) Hemoglobin A1c 7.2(H) <6.0 % [facility] Comment:Hemoglobin A1C Refer ence Range Adults: 4.8 - 6.0 % Non diabetic: < 6.0 % Goal: < 7.0 %Additional Action Suggested: > 8.0 %Note: Hemoglobin A1c results are invalid for patients with abnormal amounts of HbF. Blood transfusions may impact the HbA1c concentration in the patient sample. Estimated Average Glucose 160 mg/dL [facility] Comment:eAG = Estimated ave rage glucose which is %A1C expressed asaverage glucose, using the formula of the U4A-UxzyslcQhclgfo Glucose study (ADAG), Diabetes Care, Vol.31,#8,2007 05/08/2024 12:2 3 PM EST 05/08/2024 12:28 PM EST us Generic External Data Provider LAB BLOOD ORDERAB LES Final Result [facility] [address] [place] [phone] * CBC auto differential (05/08/2024 12:23 PM EST) White Blood Count 7.1 4.8 - 10.8 X10*3/uL [facility] Red Blood Count 5.12 4.20 - 5.50 X10*6/uL [facility] Hemoglobin 14.0 12.0 - 16.0 g/dl [facility] Hematocrit 43.6 37.0 - 47.0 % [facility] Mean Corpuscular Volume 85.2 80.0 - 98.0 fL [facility] Mean Corpuscular Hemoglobin 27.3 27.0 - 33.0 pg [facility] Mean Corpuscular HGB Conc 32.1 31.0 - 35.0 g/dl [facility] Red Cell Distribution Width 14.4 11.0 - 16.0 % [facility] Platelet Count 161 160 - 400 X10*3/uL [facility] Mean Platelet Volume 9.7 9.4 - 12.3 fL [facility] Neutrophils Percent Auto 67.1 45 - 73 % [facility] Imm Gran Pct Auto 0.4 0.0 - 0.4 % [facility] Lymphocytes Percent Auto 23.9 20 - 40 % [facility] Monocytes Percent Auto 7.2 2 - 11 % [facility] Eosinophils Percent Auto 1.0 0 - 4 % [facility] Basophils Percent Auto 0.4 0 - 2 % [facility] NRBC Pct Auto 0.0 0.0 - 0.2 /100WBC [facility] Neutrophils Absolute Auto 4.8 2.0 - 8.3 x10*3/uL [facility] Imm Gran Abs Auto 0.03 0.00 - 0.03 X10*3/uL [facility] Lymphocytes Absolute Auto 1.7 1.2 - 4.9 X10*3/uL [facility] Monocytes Absolute Auto 0.5 0.1 - 1.2 X10*3/uL [facility] Eosinophils Absolute Auto 0.1 0.0 - 0.4 X10*3/uL [facility] Basophils Absolute Auto 0.0 0.0 - 0.2 X10*3/uL [facility] NRBC Abs Auto 0.000 0.0 - 0.012 X10*3/uL [facility] 05/08/2024 12:2 3 PM EST 05/08/2024 12:28 PM EST Generic External Data Provider LAB BLOOD ORDERAB LES Final Result Performing Organization Address [facility] de Phone Number [facility] [address] [place] [phone] * Hold Green Gel (05/08/2024 12:23 PM EST) Hold Green Gel See Note [facility] Comment:Specimen held untest ed for 24 hours; Call to requestChemistry testing. 05/08/2024 12:2 3 PM EST 05/08/2024 12:28 PM EST Generic External Data Provider HISTORICAL/NON OR DERABLE LABS Final Result Performing Organization Address [facility] Co de Phone Number [facility] [address] [place] [phone] * PROTHROMBIN TIME WHOLE BLD POC (05/08/2024 12:19 PM EST) Protime 12.2 11.1 - 13.5 sec [facility] 05/08/2024 12:1 9 PM EST 05/08/2024 12:27 PM EST Generic External Data Provider LAB BLOOD ORDERAB LES Final Result Performing Organization Address [facility] Co de Phone Number [facility] [address] [place] [phone] * ~PT, ~INR - ANTI COAG CLINIC (05/08/2024 12:19 PM EST) Prothrombin Time INR 1.0 0.9 - 1.1 [facility] Comment:METER #: [id number] TERNATIONAL NORMALIZED RATIO (INR) REFERENCE RANGES Reference [...] ORDERAB LES Final Result Performing Organization Address City/[facility]/ZIP Co de Phone Number [facility] [address] [place] [phone] * (ABNORMAL) Glucose, Whole Blood (05/08/2024 12:17 PM EST) Glucose, Whole Blood 217(H) 60 - 115 mg/dL [facility] Comment:METER #: [id number] 05/08/2024 12:1 7 PM EST 05/08/2024 12:28 PM EST us Generic External Data Provider LAB BLOOD ORDERAB LES Final Result Performing Organization Address City/[facility]/ZIP Co de Phone Number [facility] [address] [place] [phone] documented in this encounter Visit Diagnoses Not on filedocumented in this encounter Additional Health Concerns Assessment Noted Time PHQ-9 Depression Total Score: 1 04/28/19 25 9:28 AM EST documented as of this encounter Care Teams Drive [employer] Post Repairer Relationship Specialty Start Date End Date Monse Medina MD [address] [place] [phone] PCP - General Family Medicine 04/28/24 documented as of this encounter
--- OUTSIDE RECORDS SUMMARY | 2024-12-20 12:43 | XMS_ITS | Clinical Summary ---
Author Organization [employer] Address [address] [place] [address] Care Team Providers Care Synthetic Cloth Binding Cutter Name Role Phone Monse Medina MD Primary Care Provider [phone] Allergies No known active allergies Medications metFORMIN [...] blood glucose 100 each 05/10/19 25 Active aspirin 81 MG EC tablet Take 81 mg by mouth Once per day. Active atorvastatin (Lipitor) 40 MG tablet TAKE ONE TABLET BY MOUTH AT BEDTIME 90 tablet 3 08/06/19 25 Active glipiZIDE (Glucotrol) 5 MG tablet Take 1 tablet with dinner. Do not take if eating a smaller meal. Check blood sugar if you feel weak. 90 tablet 3 08/23/19 25 Active diclofenac (Voltaren) 50 MG EC tablet Take 1 tablet by mouth up to twice a day as needed for pain. Do not crush, chew, or split. 30 tablet 1 10/20 25 Active omeprazole (PriLOSEC) [address] capsule Take 1 tablet by mouth once a day as needed when taking pain medication 90 capsule 09/30/19 25 Active acetaminophen (Tylenol Extra Strength) 500 MG tablet Take one or two tablets by mouth every 8 hours as needed for pain or fever. Maximum 6 tablets per day. 90 tablet 09/30/19 25 Active gabapentin (Neurontin) 300 MG capsule Take 2 capsules by mouth in the morning and 3 capsules at night 150 capsule 12/02/19 25 Active gabapentin (Neurontin) 300 MG capsule Take 1 capsule (300 mg) by mouth 2 times daily. 60 capsule 05/10/19 025 Discontinued(Re order (will not trigger notification to Pharmacy)) Active Problems Problem Noted Date Diagnosed Date Transaminitis 06/06/2024 Assessment & Plan (06/06/2024 12:08 PM EDT): -Pt is currently taking atorvastatin and niacin -Will check lab today History of TIA (transient ischemic attack) 06/06 Assessment & Plan (06/06/2024 4:20 PM EDT): - on 05/08/24, left UE and LE weakness and numbness - received tenecteplase in ED, admitted to [facility] [place] further evaluation and management - Head CT / Head and neck CTA / brain MRI were negative for CVA during the hospitalization - transthoracic echocardiogram on 05/10/24. Normal LV systolic function with EF 61%. No wall motion abnormality. Grade I (mild) diastolic dysfunction. Mild septal and mild basal asymmetric hypertrophy. - continue ASA - continue atorvastatin - optimize BP management Left leg weakness 06/06/2024 Assessment & Plan (06/06/2024 4:19 PM EDT): - patient had left leg weakness and numbness prior to TIA / CVA - currently treating as neuropathy - she received PT after TIA - continue physical activity as tolerated Insomnia 06/06/2024 Assessment & Plan (06/06/2024 4:22 PM EDT): - patient has tried melatonin which was ineffective - continue behavioral modification / sleep hygiene - currently using acetaminophen PM; discussed about judicious use History of DVT (deep vein thrombosis) 04/29/2024 Assessment & Plan (06/06/2024 10:30 AM EDT): - suggestive of unprovoked DVT - patient states she took a medication for few months - no hypercoagulable work-up - will consult with maintenance millwright if patient needs hypercoagulable work-up (likely unnecessary since patient has not had recurrence) Assessment & Plan (04/29/2024 5:08 PM EST): - suggestive of unprovoked DVT - patient states she took a medication for few months - no hypercoagulable work-up - will consult with maintenance millwright if patient needs hypercoagulable work-up (likely unnecessary [...] test: Hypertension 04/28/2024 Assessment & Plan (06/06/2024 4:47 PM EDT): -Goal BP < 150/90 per JNC-8 and < 130/80 per ACC/AHA guideline (Treatment threshold >=140/90) -BP not at goal, ?white-coat hypertension -Continue working on lifestyle modifications -Continue amlodipine 2.5 mg daily -Recommended self-monitoring BP. 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) 09/29/2024 Orders Only [facility] [address] [facility] [place] [address] Monse Medina MD from Last 3 Months Immunizations Immunization Administration Dates Next Due Influenza, High Dose [...] 77 06/06/2024 10:24 AM EDT Temperature 36.2 C (97.1 F) 06/06/2024 10:24 AM EDT Respiratory Rate 17 06/06/2024 10:24 AM EDT Oxygen Saturation 95% 06/06/2024 10:24 AM EDT Inhaled Oxygen Concentration - - Weight 80.3 kg (177 lb) 06/06/2024 10:24 AM EDT Height 157.5 cm (5' 2 ) 04/28/2024 9:26 AM EST Body Mass Index 32.37 04/28/2024 9:26 AM EST Plan of Treatment Health Maintenance Due Date Last Done Comments Eye Exam 07/13/1945 RSV Patients and Patients Aged 60 years or older (1 - 1-dose 75+ series) 2012 Zoster Vaccines (1 of 2) 04/07/2024 Diabetes: Hemoglobin A1C 08/05/2024 05/08/2024, 02/0 08/2024 COVID-19 Vaccine ( season) 2024 02/01/2024 Influenza Vaccine (#1) 2024 12/24/2023 Alcohol/Substance Use Screening 04/28/2025 04/28/2024 Depression Screening 04/28/2025 04/28/2024, 02/06/20 25 Diabetes: Foot Exam 04/28/2025 04/28/2024, 04/28/2024, 04/28/2024, Additional history exists SDOH Screening 04/28/2025 04/28/2024 Diabetes: Urine Protein Screening 06/06/2025 06/06/2024 Lipid Panel 06/06/2025 06/06/2024, 05/08/2024 Tobacco Screening 06/06/2025 06/06/2024 DTaP/Tdap/Td Vaccines (2 - Td or Tdap) 01/31/2034 02/01/2024 Pneumococcal Vaccine: 50+ Years Completed 02/01/2024 [...] patient's age to complete this topic Meningococcal B Vaccine Aged Out No l onger eligible based on patient's age to complete [...] Procedure Name Priority Date/Time Associated Diagnosis Comments D DIMER HIGH SENSITIVITY Routine 12/20/2024 12:01 PM EDT US ABDOMEN LIMITED Routine 12/20/2024 11 :29 AM EDT VENOUS BLOOD GAS Routine 12/20/2024 11:2 2 AM EDT XR CHEST 1 VIEW Routine 12/20/2024 10:54 AM EDT NT-PROBNP Routine 12/20/2024 10:52 AM EDT HIGH SENSITIVITY TROPONIN I Routine 12/20/2024 10:52 AM EDT LACTIC ACID Routine 12/20/2024 10:52 AM EDT MAGNESIUM Routine 12/20/2024 10:52 AM EDT BASIC METABOLIC PANEL Routine 12/20/2024 10:52 AM EDT HEPATIC FUNCTION PANEL Routine 12/20/2024 10:52 AM EDT COVID-19 ID NOW (LEON) Routine 12/20/2024 10:52 AM EDT CBC WITH AUTO DIFFERENTIAL Routine 12/20/2024 10:52 AM EDT INFLUENZA A B2 ID NOW (LEON) Routine 12/20/2024 10:52 AM EDT ALBUMIN, RANDOM URINE W/CREATININE Routine 06/06/2024 11:36 AM EDT Type 2 diabetes mellitus without complication, unspecified whether [facility] use ([facility]) LIPID PANEL WITH REFLEX TO DIRECT LDL Routine 06/06/2024 11:36 AM EDT Dyslipidemia HEMOGLOBIN A1C Routine 05/08/2024 12:23 PM EST from Last 3 Months or Most Recently Relevant to Health Maintenance Results * D Dimer High Sensitivity (12/20/2024 12:01 PM EDT) Pathologist [facility] D Dimer High Sensitivity 529 NG/ML [facility] Comment:D-DIMER HS REFERENCE RANGENote: Our assay reports D-Dimer Units (D- DU).The cut-off value for venous thromboembolic (VTE) disease is230 ng/mL. This value has a very high negative predictivevalue when the patient has a low to moderate clinicalprobability of VTE.The upper limit of normal is 243 ng/mL. 12/20/2024 12:0 1 PM EDT 12/20/2024 12:05 PM EDT us Generic External Data Provider LAB BLOOD ORDERAB LES Final Result [facility] [address] [place] [phone] * US Abdomen Limited (12/20/2024 11:29 AM EDT) Anatomical Region Laterality Modality Abdomen Ultrasound 12/20/2024 11:2 9 AM EDT Narrative 12/20/2024 12:22 PM EDT [address] [address] Ultrasound Report Signed Patient: Maryellen Acosta MR#: [id number] 1351 : 1935 Acct:[id number] Age/Sex: 89 / F ADM Date: 12/20/24 Loc: HO.ED Attending Dr: Ordering Physician: Eusebio Juarez MD Date of Service: 12/20/24 Procedure(s): US abdomen limited Accession Number(s): [id number] cc: Eusebio Juarez MD; Monse Medina MD Reason for Exam: right upper quadrant abdominal pain EXAMINATION: US ABDOMEN LIMITED CLINICAL INFORMATION: Right upper quadrant abdominal pain, nausea and vomiting. COMPARISON: None available. TECHNIQUE: Real-time imaging of the right upper quadrant abdominal viscera. FINDINGS: As per technologist note, limited exam due to gas and patient body habitus. PANCREAS: Visualized portions are unremarkable. LIVER: The liver is normal in size. The liver contour is normal. Parenchymal echogenicity is normal. No focal hepatic lesion. There is no intrahepatic biliary duct dilatation seen. GALLBLADDER: The gallbladder is physiologically distended without evidence of stones, sludge, polyps, wall thickening or pericholecystic fluid. There was a positive sonographic King's sign. COMMON BILE DUCT: Normal in caliber measuring 0.6 cm in diameter. RIGHT KIDNEY: No hydronephrosis. No renal calculi or focal suspicious parenchymal lesions. The kidney measures 11.7 cm in maximum dimension. There are 2 small lower pole cysts, the larger measuring 1.1 x 0.8 x 0.9 cm. FREE FLUID: None. US/US abdomen limited IMPRESSION: 1. Limited exam as detailed. 2. Normal sonographic appearance of the gallbladder without wall thickening, gallstones, or other abnormality, however there was a positive sonographic King's sign. 3. Normal liver and bile ducts. 4. There are 2 small cysts in the right kidney. Right kidney otherwise normal. Electronically signed by: Sunny Lopes MD 12/20/2024 12:19 PM EDT RP Dictated By: Sunny Lopes MD Signed By: <Electronically signed by Sunny Lopes MD in OV> 12/20/24 1219 DD/ 1129 TD/TT: 12/20/24 1153 [address] Cutter: Procedure Note Donotuseinterpreter, Image - 12/20/2024 [place] [address] Ultrasound Report Signed Patient: Carlin Acosta#: [id number] 1351 : 8Acct:[id number] Age/Sex: 89 / FADM Date: 12/20/24 Loc: HO.ED Attending Dr: Ordering Physician: Eusebio Juarez MD Date of Service: 12/20/24 Procedure(s): US abdomen limited Accession Number(s): [id number] cc: Eusebio Juarez MD; Monse Medina MD Reason for Exam: right upper quadrant abdominal pain EXAMINATION: US ABDOMEN LIMITED CLINICAL INFORMATION: Right upper quadrant abdominal pain, nausea and vomiting. COMPARISON: None available. TECHNIQUE: Real-time imaging of the right upper quadrant abdominal viscera. FINDINGS: As per technologist note, limited exam due to gas and patient body habitus. PANCREAS: Visualized portions are unremarkable. LIVER: The liver is normal in size. The liver contour is normal. Parenchymal echogenicity is normal. No focal hepatic lesion. There is no intrahepatic biliary duct dilatation seen. GALLBLADDER: The gallbladder is physiologically distended without evidence of stones, sludge, polyps, wall thickening or pericholecystic fluid. There was a positive sonographic King's sign. COMMON BILE DUCT: Normal in caliber measuring 0.6 cm in diameter. RIGHT KIDNEY: No hydronephrosis. No renal calculi or focal suspicious parenchymal lesions. The kidney measures 11.7 cm in maximum dimension. There are 2 small lower pole cysts, the larger measuring 1.1 x 0.8 x 0.9 cm. FREE FLUID: None. US/US abdomen limited IMPRESSION: 1. Limited exam as detailed. 2. Normal sonographic appearance of the gallbladder without wall thickening, gallstones, or other abnormality, however there was a positive sonographic King's sign. 3. Normal liver and bile ducts. 4. There are 2 small cysts in the right kidney. Right kidney otherwise normal. Electronically signed by: Sunny Lopes MD 12/20/2024 12:19 PM EDT RP Dictated By: Sunny Lopes MD Signed By: <Electronically signed by Sunny Lopes MD in OV> 12/20/24 1219 DD/ 1129 TD/TT: 12/20/24 1153 Cordwood Cutter: us [facility] External Provider IMG US PROCEDURES Edited Result - Final * (ABNORMAL) VENOUS BLOOD GAS (12/20/2024 11:22 AM EDT) VBG pH 7.42 7.32 - 7.43 [facility] Comment:METER #: [id number] additional_comment: CbAlbanom VBG PCO2 48 mmHg [facility] Comment:METER #: [id number] additional_comment: [employer]ban[employer] VBG PO2 72 mmHg [facility] Comment:METER #: [id number] additional_comment: CbAlbanom VBG Base Excess 6.3 mmol/L [facility] Comment:METER #: [id number] additional_comment: Cb[employer]banom VBG HCO3 32(H) 22 - 26 mmol/L [facility] Comment:METER #: [id number] additional_comment: CbAlbanom O2 Sat, Hebert 95.0 % [facility] Comment:METER #: [id number] additional_comment: CbAlbanom 12/20/2024 11:2 2 AM EDT 12/20/2024 11:25 AM EDT us Generic External Data Provider LAB BLOOD ORDERAB LES Final Result [facility] [address] [place] [phone] * XR Chest 1 View (12/20/2024 10:54 AM EDT) Anatomical Region Laterality Modality Chest Radiographic Che ging 12/20/2024 10:5 4 AM EDT Narrative 12/20/2024 11:09 AM EDT [address] [address] XRay Report Signed Patient: Maryellen Acosta MR#: [id number] 1351 : 1935 Acct:[id number] Age/Sex: 89 / F ADM Date: 12/20/24 Loc: .ED Attending Dr: Ordering Physician: Laura Lambert Date of Service: 12/20/24 Procedure(s): XR chest 1V Accession Number(s): [id number] cc: Monse Medina MD; Laura Lambert Reason for Exam: hypoxia, vomiting, ?aspiration EXAMINATION: XR CHEST CLINICAL INFORMATION: hypoxia, vomiting, ?aspiration COMPARISON: None available. TECHNIQUE: Frontal view of the chest was obtained. FINDINGS: The cardiac size is borderline enlarged. The aorta is tortuous. There is vascular crowding, otherwise the lungs are clear. There is a 5 mm nodular density in the right lateral apex. Its density is similar to the rib and therefore likely calcified. XR/XR chest 1V IMPRESSION: Borderline cardiac enlargement. There is a probable calcified granuloma in the right lateral apex. Electronically signed by: Tj Rodriguez MD 12/20/2024 11:06 AM EDT Dictated By: Tj Rodriguez MD Signed By: <Electronically signed by Tj Rodriguez MD in OV> 12/20/24 1106 DD/ 1054 TD/TT: 12/20/24 [address] Cutter: Procedure Note Donotuseinterpreter, Image - 12/20/[address] [address] XRay Report Signed Patient: Maryellen AcostaMR#: [id number] 1351 : 8Acct:[id number] Age/Sex: 89 / FADM Date: 12/20/24 Loc: HO.ED Attending Dr: Ordering Physician: Laura Lambert Date of Service: 12/20/24 Procedure(s): XR chest 1V Accession Number(s): [id number] cc: Monse Medina MD; Laura Lambert Reason for Exam: hypoxia, vomiting, ?aspiration EXAMINATION: XR CHEST CLINICAL INFORMATION: hypoxia, vomiting, ?aspiration COMPARISON: None available. TECHNIQUE: Frontal view of the chest was obtained. FINDINGS: The cardiac size is borderline enlarged. The aorta is tortuous. There is vascular crowding, otherwise the lungs are clear. There is a 5 mm nodular density in the right lateral apex. Its density is similar to the rib and therefore likely calcified. XR/XR chest 1V IMPRESSION: Borderline cardiac enlargement. There is a probable calcified granuloma in the right lateral apex. Electronically signed by: Tj Rodriguez MD 12/20/2024 11:06 AM EDT Dictated By: Tj Rodriguez MD Signed By: <Electronically signed by Tj Rodriguez MD in OV> 12/20/24 1106 DD/ 1054 TD/TT: 12/20/24 [address] Cutter: [facility] External Provider IMG XR PROCEDURES Edited Result - Final * Influenza A B2 ID NOW (Leon) (12/20/2024 10:52 AM EDT) IDNOW SERIAL# [id number] [facility] Influenza A Negative Negative [facility] Influenza B2 Negative Negative [facility] Influenza A B2 Note See Note [facility] Comment:The Leon ID NOW In fluenza A B2 test is used for thequalitative detection of influenza A and B from patientswith signs and symptoms of respiratory infection.Negative results do not preclude influenza virus infectionand should not be used as the sole basis for diagnosis,treatment or other patient management decisions.There is a risk of false negative results due to thepresence of variants in the viral targets of the assay, lowlevels of virus in the specimen and co- infection withRespiratory Syncytial Virus. 12/20/2024 10:5 2 AM EDT 12/20/2024 11:01 AM EDT us Generic External Data Provider LAB MICROBIOLOGY - GENERAL ORDERABLES Final Result [facility] [address] [place] [phone] * COVID-19 ID NOW ([employer]) (12/20/2024 10:52 AM EDT) IDNOW SERIAL# [id number] [facility] COVID-19 TEST Negative Negative [facility] COVID-19 NOTE See Note [facility] Comment: Results are for the identification of SARS-CoV2 RNA. TheSARS-CoV2 RNA is generally detectable in respiratory samplesduring the acute phase of infection. Positive results areindicative of the presence of SARS-CoV-2 RNA; clinicalcorrelation with patient history and other diagnosticinformation is necessary to determine patient infectionstatus. Positive results do not rule out bacterial infectionor co- infection with other viruses.Testing facilities within the [facility] and [facility] are required to report all positive results tothe appropriate public health authorities.Negative results should be treated as presumptive and, ifinconsistent with clinical signs and symptoms or necessaryfor patient management, should be tested with differentauthorized or cleared molecular tests. Negative results donot preclude SARS-CoV2 RNA infection and should not be usedas the sole basis for patient management decisions. Negativeresults should be considered in the context of a patient'srecent exposures, history and the presence of clinical signsand symptoms consistent with COVID-19.This test has been authorized by the FDA under an EmergencyUse Authorization (EUA) for use by authorized laboratories.Testing performed on the scenios ID NOW utilizing NAAT. 12/20/2024 10:5 2 AM EDT 12/20/2024 11:01 AM EDT Generic External Data Provider LAB MOLECULAR CAYETANO GNOSTICS ORDERABLES Final Result Performing Organization Address [facility] Co de Phone Number [facility] [address] [place] [phone] * High Sensitivity Troponin I (12/20/2024 10:52 AM EDT) Pathologist [facility] TROPONIN I HIGH SENSITIVITY 4.5 <3.5 - 17.0 ng/L [facility] Comment:The Leon high sens itivity Troponin-I results should beused in conjunction with other diagnostic information suchas ECG, clinical observations and information, and patientsymptoms to aid in the diagnosis of OK. 12/20/2024 10:5 2 AM EDT 12/20/2024 11:00 AM EDT Generic External Data Provider LAB BLOOD ORDERAB LES Final Result Performing Organization Address [facility] de Phone Number [facility] [address] [place] [phone] * NT-proBNP (12/20/2024 10:52 AM EDT) [facility] NT-proBNP 158.5 <300 pg/mL [facility] Comment:Reference Range:Age Group (years) NT-proBNP (pg/ml) InterpretationAll <300 Negative: HF unlikelyFor patients presenting to the ED with clinical suspicion ofnew onset or worsening HF, see below:18 to <50 >299.9 to <450.0 Grayzone: [id number] to 75 >299.9 to <900.0 other causes of>75 >299.9 to <1800.0 NT-proBNP [id number] to <50 >449.9 Positive: HF [id number] >899.9>75 >1799.9Note: Elevated NT-proBNP levels should be interpreted inthe context of other clinical information. 12/20/2024 10:5 2 AM EDT 12/20/2024 11:00 AM EDT us Generic External Data Provider LAB BLOOD ORDERAB LES Final Result [facility] [address] [place] [phone] * (ABNORMAL) CBC auto differential (12/20/2024 10:52 AM EDT) White Blood Count 10.3 4.8 - 10.8 X10*3/uL [facility] Red Blood Count 5.53(H) 4.20 - 5.50 X10*6/uL [facility] Hemoglobin 15.1 12.0 - 16.0 g/dl [facility] Hematocrit 46.4 37.0 - 47.0 % [facility] Mean Corpuscular Volume 83.9 80.0 - 98.0 fL [facility] Mean Corpuscular Hemoglobin 27.3 27.0 - 33.0 pg [facility] Mean Corpuscular HGB Conc 32.5 31.0 - 35.0 g/dl [facility] Red Cell Distribution Width 14.6 11.0 - 16.0 % [facility] Platelet Count 191 160 - 400 X10*3/uL [facility] Mean Platelet Volume 9.6 9.4 - 12.3 fL [facility] Neutrophils Percent Auto 85.4(H) 45 - 73 % [facility] Imm Gran Pct Auto 0.3 0.0 - 0.4 % [facility] Lymphocytes Percent Auto 4.4(L) 20 - 40 % [facility] Monocytes Percent Auto 8.3 2 - 11 % [facility] Eosinophils Percent Auto 1.2 0 - 4 % [facility] Basophils Percent Auto 0.4 0 - 2 % [facility] NRBC Pct Auto 0.0 0.0 - 0.2 /100WBC [facility] Neutrophils Absolute Auto 8.8(H) 2.0 - 8.3 x10*3/uL [facility] Imm Gran Abs Auto 0.03 0.00 - 0.03 X10*3/uL [facility] Lymphocytes Absolute Auto 0.5(L) 1.2 - 4.9 X10*3/uL [facility] Monocytes Absolute Auto 0.9 0.1 - 1.2 X10*3/uL [facility] Eosinophils Absolute Auto 0.1 0.0 - 0.4 X10*3/uL [facility] Basophils Absolute Auto 0.0 0.0 - 0.2 X10*3/uL [facility] NRBC Abs Auto 0.000 0.0 - 0.012 X10*3/uL [facility] 12/20/2024 10:5 2 AM EDT 12/20/2024 11:00 AM EDT us Generic External Data Provider LAB BLOOD ORDERAB LES Final Result Performing Organization Address [facility]/ZIP Co de Phone Number [facility] [address] [place] [phone] * Magnesium (12/20/2024 10:52 AM EDT) Magnesium 1.9 1.6 - 2.6 mg/dL [facility] 12/20/2024 10:5 2 AM EDT 12/20/2024 11:00 AM EDT us Generic External Data Provider LAB BLOOD ORDERAB LES Final Result Performing Organization Address [facility] Co de Phone Number [facility] [address] [place] [phone] * Lactic Acid (12/20/2024 10:52 AM EDT) Lactic Acid 1.9 0.5 - 2.0 mmol/L [facility] 12/20/2024 10:5 2 AM EDT 12/20/2024 10:59 AM EDT us Generic External Data Provider LAB BLOOD ORDERAB LES Final Result Performing Organization Address [facility] Co de Phone Number [facility] [address] [place] [phone] * Hepatic Function Panel (12/20/2024 10:52 AM EDT) Pathologist [facility] Bilirubin, Total 1.0 0.0 - 1.0 mg/dL [facility] Bilirubin, Direct 0.3 0.0 - 0.5 mg/dL [facility] Aspartate Amino Transferase 26 5 - 31 U/L [facility] Alanine Aminotransferase 27 0 - 31 U/L [facility] Total Protein 7.2 6.5 - 8.0 g/dL [facility] Albumin Level 4.3 3.5 - 5.0 g/dL [facility] Alkaline Phosphatase 68 39 - 117 U/L [facility] 12/20/2024 10:5 2 AM EDT 12/20/2024 11:00 AM EDT Generic External Data Provider LAB BLOOD ORDERAB LES Final Result Performing Organization Address [facility] de Phone Number [facility] [address] [place] [phone] * (ABNORMAL) Basic Metabolic Panel (12/20/2024 10:52 AM EDT) [facility] Sodium 140 135 - 145 mmol/L [facility] Potassium 4.0 3.3 - 5.1 mmol/L [facility] Chloride 98 96 - 108 mmol/L [facility] Carbon Dioxide 32(H) 22 - 29 mmol/L [facility] Anion Gap 14 12 - 20 [facility] Urea Nitrogen (BUN) 19(H) 9 - 16 mg/dL [facility] Creatinine, Serum 0.69 0.5 - 1.4 mg/dL [facility] Creatinine Clr Calc Pharmacy 55.8 [facility] LABS Comment:Provided height and weight: 157.48 cm,78.925 kg.eGFR (calculated from the MDRD study equation) and eCrCl(calculated from the Cockcroft-Gault equation) are based ondifferent parameters and may not yield comparable results.If eCrCl result is absurd, please check patient'sheight/weight. Estimated Glomerular Filt Rate >60 [facility] Comment:Chronic Kidney Disea se: Estimated GFR < 60 mL/min/1.05q5Oeunjh Kidney Disease: Estimated GFR < 15 mL/min/1.73m2 Glucose 282(H) 60 - 115 mg/dL [facility] Calcium 10.4(H) 8.4 - 10.2 mg/dL [facility] 12/20/2024 10:5 2 AM EDT 12/20/2024 11:00 AM EDT us Generic External Data Provider LAB BLOOD ORDERAB LES Final Result [facility] [address] [place] [phone] * Lipid Panel with Reflex to Direct LDL (06/06/2024 11:36 AM EDT) Triglycerides 90 <150 mg/dL [facility] Comment:Desirable Triglyceri de: less than 150 mg/dLBorderline High Triglyceride 150-199 mg/dLHigh Triglyceride: 200-499 mg/dLVery High Triglyceride: greater than or equal to 5OO mg/dL Cholesterol 110 <200 mg/dL [facility] Comment:Desirable Cholestero l: less than 200 mg/dLBorderline High Cholesterol: 200-239 mg/dLHigh Cholesterol: greater than 239 mg/dL LDL Cholesterol Calculated 47 <100 mg/dL [facility] Comment:Desirable LDL: less than 100 mg/dLNear Optimal/Above Optimal LDL: 110- 129 mg/dLBorderline High LDL: 130-159 mg/dLHigh LDL: 160-189 mg/dLVery High LDL: greater than or equal to 190 mg/dL HDL Cholesterol 45 >40 mg/dL [facility] Comment:Desirable HDL: great er than 40 mg/dL Note: This HDL assay may give artificially low results in patients with liver disease. Blood 06/06/2024 11:3 6 AM EDT 06/06/2024 1:07 PM EDT us Monse Medina MD LAB BLOOD ORDERABLES Final Resul t Performing Organization Address [facility] de Phone Number [facility] [address] [place] [phone] * Albumin, Random Urine W/Creatinine (06/06/2024 11:36 AM EDT) Creatinine, Urine 63.85 mg/dL [facility] Microalbumin Urine 12.0 mg/L [facility] Microalbum Creatinine Ratio Ur 18.7 <30 ug/mg cr [facility] Comment:Albumin/Creatinine R atio Reference Ranges: Normal: < 30 ug/mg creatinine Microalbuminuria: 30 - 300 ug/mg creatinineClinical Albuminuria: > 300 ug/mg creatinine Urine 06/06/2024 11:3 6 AM EDT 06/06/2024 1:06 PM EDT us Monse Medina MD LAB URINE ORDERABLES Final Resul t Performing Organization Address [facility] de Phone Number [facility] [address] [place] [phone] * (ABNORMAL) Hemoglobin A1c (05/08/2024 12:23 PM EST) Hemoglobin A1c 7.2(H) <6.0 % [facility] Comment:Hemoglobin A1C Refer ence Range Adults: 4.8 - 6.0 % Non diabetic: < 6.0 % Goal: < 7.0 %Additional Action Suggested: > 8.0 %Note: Hemoglobin A1c results are invalid for patients with abnormal amounts of HbF. Blood transfusions may impact the HbA1c concentration in the patient sample. Estimated Average Glucose 160 mg/dL [facility] Comment:eAG = Estimated ave rage glucose which is %A1C expressed asaverage glucose, using the formula of the G9T-QmyxwngSfbqnuj Glucose study (ADAG), Diabetes Care, Vol.31,#8,Aug. 2007 05/08/2024 12:2 3 PM EST 05/08/2024 12:28 PM EST us Generic External Data Provider LAB BLOOD ORDERAB LES Final Result [facility] [address] [place] [phone] from Last 3 Months or Most Recently Relevant to Health Maintenance Insurance [employer] HSN FULL Care Teams Synthetic Cloth Binding Cutter Relationship Specialty Start Date End Date Monse Medina MD [address] [place] [phone] PCP - General Family Medicine 04/28/24
--- OUTSIDE RECORDS SUMMARY | 2024-12-20 12:43 | XMS_ITS | Encounter Summary ---
Author Organization [employer] Address [address] [facility] [address] [place] [address] Care Team Providers Care Buffer Inflated Pad Name Role Phone Monse Medina MD Primary Care Provider [phone] Reason for Referral * Consultation (Routine) - Closed Specialty Diagnoses / Procedures Referred By Contmadison t Referred To Contact Pain Medicine Diagnoses Spinal stenosis of lumbar region with neurogenic claudication Monse Medina MD [address] [place] [address] Phone: tel: fax: [facility] [address] [facility] [address] [place] [address] Phone: tel: fax: Referral ID Status Reason Start Date Expiration Date V isits Requested Visits Authorized [id number] Closed Specialty Services Required 11/08/2024 11/08/2025 1 1 Encounter Details Date Type Department Care Team (Late st Contact Info) Description 11/08/2024 Orders Only [facility] [address] [place] [address] [phone] Monse Medina MD [address] [place], [place] [phone] Spinal stenosis of lumbar region with neurogenic claudication (Primary Dx) Social History Tobacco Use Types Packs/Day Years [...] as of this encounter Plan of Treatment Scheduled Referrals Name Type Priority Associated Diagnoses Orde r Schedule Referral to Pain Medicine Outpatient Referral Routine Spinal stenosis of lumbar region with neurogenic claudication Expected: 11/08/2024 (Approximate), Expires: 11/08/2025 documented as of this encounter Visit Diagnoses Diagnosis Spinal stenosis of lumbar region with neurogenic claudication- Primary documented in this encounter Additional Health Concerns Assessment Noted Time PHQ-9 Depression Total Score: 1 04/28/19 25 9:28 AM EST documented as of this encounter Care Teams Buffer Inflated Pad Relationship Specialty Start Date End Date Monse Medina MD [address] [place] [phone] PCP - General Family Medicine 04/28/24 documented as of this encounter
--- OUTSIDE RECORDS SUMMARY | 2024-12-20 12:43 | XMS_ITS | Encounter Summary ---
Author Organization [employer] Address [address] [facility] 7[address] [place] [address] Care Team Providers Care Manager Community Development Name Role Phone Monse Medina MD Primary Care Provider [phone] Encounter Details Date Type Department Care Team (Late st Contact Info) Description 12/20/2024 Orders Only [facility] External Provider, [facility] Social History Tobacco Use Types Packs/Day Years [...] 1 VIEW Routine 12/20/2024 10:54 AM EDT INFLUENZA A B2 ID NOW ([facility]) Routine 12/20/2024 10:52 AM EDT COVID-19 ID NOW ([facility]) Routine 12/20/2024 10:52 AM EDT HIGH SENSITIVITY TROPONIN I Routine 12/20/2024 10:52 AM EDT NT-PROBNP Routine 12/20/2024 10:52 AM EDT CBC WITH AUTO DIFFERENTIAL Routine 12/20/2024 10:52 AM EDT MAGNESIUM Routine 12/20/2024 10:52 AM EDT LACTIC ACID Routine 12/20/2024 10:52 AM EDT HEPATIC FUNCTION PANEL Routine 12/20/2024 10:52 AM EDT BASIC METABOLIC PANEL Routine 12/20/2024 10:52 AM EDT documented in this encounter Results * D Dimer High Sensitivity (12/20/2024 12:01 PM EDT) D Dimer High Sensitivity 529 NG/ML [facility] Comment:D-DIMER HS REFERENCE RANGENote: Our [...] ORDERAB LES Final Result Performing Organization Address City/State/[facility] Co de Phone Number [facility] [address] [place] [phone] * US Abdomen Limited (12/20/2024 11:29 AM EDT) Anatomical Region Laterality Modality Abdomen Ultrasound 12/20/2024 11:2 9 AM EDT Narrative 12/20/2024 12:22 PM EDT [address] [address] Ultrasound Report Signed Patient: Maryellen Acosta MR#: [id number] : 1935 Acct:[id number] Age/Sex: 89 / F ADM Date: 12/20/24 Loc: .ED Attending Dr: Ordering Physician: Eusebio Juarez MD Date of Service: 12/20/24 Procedure(s): US abdomen limited Accession Number(s): [id number] cc: Eusebio Juarez MD; Monse Medina MD [...] 12/20/24 1219 DD/ 1129 TD/TT: 12/20/24 1153 Trauma Surgeon: Procedure Note Donotuseinterpreter, Image - 12/20/[address] [address] Ultrasound Report Signed Patient: Carlin Acosta#: [id number] : 8Acct:[id number] Age/Sex: 89 / FADM Date: 12/20/24 Loc: HO.ED Attending Dr: Ordering Physician: Eusebio Juarez MD Date of Service: 12/20/24 Procedure(s): US abdomen limited Accession Number(s): [id number] cc: Eusebio Juarez MD; Monse Medina MD [...] Sunny Lopes MD 12/20/2024 12:19 PM EDT Dictated By: Sunny Lopes MD Signed By: <Electronically signed by Sunny Lopes MD in OV> 12/20/24 1219 DD/ 1129 TD/TT: 12/20/24 1153 Trauma Surgeon: us [facility] External Provider IMG US PROCEDURES Edited Result - Final * (ABNORMAL) VENOUS BLOOD GAS (12/20/2024 11:22 AM EDT) VBG pH 7.42 7.32 - 7.43 [facility] Comment:METER #: [id number] additional_comment: CbAlbanom VBG PCO2 48 mmHg [facility] Comment:METER #: [id number] additional_comment: [employer] VBG PO2 72 mmHg [facility] Comment:METER #: [id number] additional_comment: [employer]ban[employer] VBG Base Excess 6.3 mmol/L [facility] Comment:METER #: [id number] additional_comment: [employer] VBG HCO3 32(H) 22 - 26 mmol/L [facility] Comment:METER #: [id number] additional_comment: [employer]banom O2 Sat, Hebert 95.0 % [facility] Comment:METER #: [id number] additional_comment: CbAlbanom 12/20/2024 11:2 2 AM EDT 12/20/2024 11:25 AM EDT us Generic External Data Provider LAB BLOOD ORDERAB LES Final Result Performing Organization Address City/State/[facility] Co de Phone Number [facility] [address] [place] [phone] * XR Chest 1 View (12/20/2024 10:54 AM EDT) Anatomical Region Laterality Modality Chest Radiographic Che ging 12/20/2024 10:5 4 AM EDT Narrative 12/20/2024 11:09 AM EDT [address] [address] XRay Report Signed Patient: Maryellen Acosta MR#: [id number] : 1935 Acct:[id number] Age/Sex: 89 / F ADM Date: 12/20/24 Loc: .ED Attending Dr: Ordering Physician: Laura Lambert Date of Service: 12/20/24 Procedure(s): XR chest 1V Accession Number(s): [id number] cc: Monse Medina MD; Laura Lambert Reason [...] Tj Rodriguez MD 12/20/2024 11:06 AM EDT RP Dictated By: Tj Rodriguez MD Signed By: <Electronically signed by Tj Rodriguez MD in OV> 12/20/24 1106 DD/ 1054 TD/TT: 12/20/24 1100 Trauma Surgeon: Procedure Note Donotuseinterpreter, Image - 12/20/[address] [address] XRay Report Signed Patient: Carlin Acosta#: [id number] : 8Acct:[id number] Age/Sex: 89 / FADM Date: 12/20/24 Loc: .ED Attending Dr: Ordering Physician: Laura Lambert Date of Service: 12/20/24 Procedure(s): XR chest 1V Accession Number(s): [id number] cc: Monse Medina MD; Laura Lambert Reason [...] Tj Rodriguez MD 12/20/2024 11:06 AM EDT RP Dictated By: Tj Rodriguez MD Signed By: <Electronically signed by Tj Rodriguez MD in OV> 12/20/24 1106 DD/ 1054 TD/TT: 12/20/24 1100 Trauma Surgeon: [facility] External Provider IMG XR PROCEDURES Edited Result - Final * NT-proBNP (12/20/2024 10:52 AM EDT) NT-proBNP 158.5 <300 pg/mL [facility] Comment:Reference Range:Age Group (years) NT-proBNP (pg/ml) InterpretationAll <300 Negative: HF unlikelyFor patients presenting to the ED with clinical suspicion ofnew onset or worsening HF, see below:18 to <50 >299.9 to <450.0 Grayzone: [id number] to 75 >299.9 to <900.0 other causes of>75 >299.9 to <1800.0 NT-proBNP [id number] to <50 >449.9 Positive: HF -61 >899.9>75 >1799.9Note: Elevated NT-proBNP levels should be interpreted inthe context of other clinical information. 12/20/2024 10:5 2 AM EDT 12/20/2024 11:00 AM EDT Generic External Data Provider LAB BLOOD ORDERAB LES Final Result [facility] [address] [place] [phone] * High Sensitivity Troponin I (12/20/2024 10:52 AM EDT) TROPONIN I HIGH SENSITIVITY 4.5 <3.5 - 17.0 ng/L [facility] Comment:The Leon high sens itivity Troponin-I results should beused in conjunction with other diagnostic information suchas ECG, clinical observations and information, and patientsymptoms to aid in the diagnosis of WI. 12/20/2024 10:5 2 AM EDT 12/20/2024 11:00 AM EDT Generic External Data Provider LAB BLOOD ORDERAB LES Final Result Performing Organization Address [facility]/ZIP Co de Phone Number [facility] [address] [place] [phone] * Lactic Acid (12/20/2024 10:52 AM EDT) [facility] Lactic Acid 1.9 0.5 - 2.0 mmol/L [facility] 12/20/2024 10:5 2 AM EDT 12/20/2024 10:59 AM EDT Generic External Data Provider LAB BLOOD ORDERAB LES Final Result Performing Organization Address [facility] Co de Phone Number [facility] [address] [place] [phone] * Magnesium (12/20/2024 10:52 AM EDT) [facility] Magnesium 1.9 1.6 - 2.6 mg/dL [facility] 12/20/2024 10:5 2 AM EDT 12/20/2024 11:00 AM EDT Generic External Data Provider LAB BLOOD ORDERAB LES Final Result Performing Organization Address [facility] Co de Phone Number [facility] [address] [place] [phone] * (ABNORMAL) Basic Metabolic Panel (12/20/2024 10:52 AM EDT) [facility] Sodium 140 135 - 145 mmol/L [facility] Potassium 4.0 3.3 - 5.1 mmol/L [facility] Chloride 98 96 - 108 mmol/L [facility] Carbon Dioxide 32(H) 22 - 29 mmol/L [facility] Anion Gap 14 12 - 20 [facility] Urea Nitrogen (BUN) 19(H) 9 - 16 mg/dL [facility] Creatinine, Serum 0.69 0.5 - 1.4 mg/dL [facility] Creatinine Clr Calc Pharmacy 55.8 [facility] Comment:Provided height and weight: 157.48 cm,78.925 kg.eGFR (calculated from the MDRD study equation) and eCrCl(calculated from the Cockcroft-Gault equation) are based ondifferent parameters and may not yield comparable results.If eCrCl result is absurd, please check patient'sheight/weight. Estimated Glomerular Filt Rate >60 [facility] Comment:Chronic Kidney Disea se: Estimated GFR < 60 mL/min/1.38r6Ffsgvv Kidney Disease: Estimated GFR < 15 mL/min/1.73m2 Glucose 282(H) 60 - 115 mg/dL [facility] Calcium 10.4(H) 8.4 - 10.2 mg/dL [facility] 12/20/2024 10:5 2 AM EDT 12/20/2024 11:00 AM EDT us Generic External Data Provider LAB BLOOD ORDERAB LES Final Result [facility] [address] [place] [phone] * Hepatic Function Panel (12/20/2024 10:52 AM EDT) Bilirubin, Total 1.0 0.0 - 1.0 mg/dL [facility] Bilirubin, Direct 0.3 0.0 - 0.5 mg/dL [facility] Aspartate Amino Transferase 26 5 - 31 U/L [facility] Alanine Aminotransferase 27 0 - 31 U/L [facility] Total Protein 7.2 6.5 - 8.0 g/dL [facility] Albumin Level 4.3 3.5 - 5.0 g/dL [facility] Alkaline Phosphatase 68 39 - 117 U/L [facility] 12/20/2024 10:5 2 AM EDT 12/20/2024 11:00 AM EDT us Generic External Data Provider LAB BLOOD ORDERAB LES Final Result Performing Organization Address City/[facility]/ZIP Co de Phone Number [facility] [address] [place] [phone] * COVID-19 ID NOW ([facility]) (12/20/2024 10:52 AM EDT) IDNOW SERIAL# [id number] [facility] COVID-19 TEST Negative Negative [facility] COVID-19 NOTE See Note [facility] Comment: Results are for the identification of SARS-CoV2 RNA. TheSARS-CoV2 RNA is generally detectable in respiratory samplesduring the acute phase of infection. Positive results areindicative of the presence of SARS-CoV-2 RNA; clinicalcorrelation with patient history and other diagnosticinformation is necessary to determine patient infectionstatus. Positive results do not rule out bacterial infectionor co- infection with other viruses.Testing facilities within the [facility] and itsterritories are required to report all positive results [...] use by authorized laboratories.Testing performed on the Leon ID NOW utilizing NAAT. 12/20/2024 10:5 2 AM EDT 12/20/2024 11:01 AM EDT us Generic External Data Provider LAB MOLECULAR CAYETANO GNOSTICS ORDERABLES Final Result Performing Organization Address City/[facility]/ZIP Co de Phone Number [facility] [address] [place] [address] [phone] * Influenza A B2 ID NOW (Leon) (12/20/2024 10:52 AM EDT) Pathologist [facility] IDNOW SERIAL# [id number] [facility] Influenza A Negative Negative [facility] Influenza B2 Negative Negative [facility] Influenza A B2 Note See Note [facility] Comment:The Leon ID NOW In [...] LAB MICROBIOLOGY - GENERAL ORDERABLES Final Result Performing Organization Address City/State/[facility] Co de Phone Number [facility] [address] [place] [phone] * (ABNORMAL) CBC auto differential (12/20/2024 10:52 AM EDT) Pathologist [facility] White Blood Count 10.3 4.8 - 10.8 X10*3/uL [facility] Red Blood Count 5.53(H) 4.20 - 5.50 X10*6/uL [facility] Hemoglobin 15.1 12.0 - 16.0 g/dl [facility] Hematocrit 46.4 37.0 - 47.0 % [facility] Mean Corpuscular Volume 83.9 80.0 - 98.0 fL [facility] Mean Corpuscular Hemoglobin 27.3 27.0 - 33.0 pg [facility] Mean Corpuscular HGB Conc 32.5 31.0 - 35.0 g/dl [facility] Red Cell Distribution Width 14.6 11.0 - 16.0 % [facility] Platelet Count 191 160 - 400 X10*3/uL [facility] Mean Platelet Volume 9.6 9.4 - 12.3 fL [facility] Neutrophils Percent Auto 85.4(H) 45 - 73 % [facility] Imm Gran Pct Auto 0.3 0.0 - 0.4 % [facility] Lymphocytes Percent Auto 4.4(L) 20 - 40 % [facility] Monocytes Percent Auto 8.3 2 - 11 % [facility] Eosinophils Percent Auto 1.2 0 - 4 % [facility] Basophils Percent Auto 0.4 0 - 2 % [facility] NRBC Pct Auto 0.0 0.0 - 0.2 /100WBC [facility] Neutrophils Absolute Auto 8.8(H) 2.0 - 8.3 x10*3/uL [facility] Imm Gran Abs Auto 0.03 0.00 - 0.03 X10*3/uL [facility] Lymphocytes Absolute Auto 0.5(L) 1.2 - 4.9 X10*3/uL [facility] Monocytes Absolute Auto 0.9 0.1 - 1.2 X10*3/uL [facility] Eosinophils Absolute Auto 0.1 0.0 - 0.4 X10*3/uL [facility] Basophils Absolute Auto 0.0 0.0 - 0.2 X10*3/uL [facility] NRBC Abs Auto 0.000 0.0 - 0.012 X10*3/uL [facility] 12/20/2024 10:5 2 AM EDT 12/20/2024 11:00 AM EDT us Generic External Data Provider LAB BLOOD ORDERAB LES Final Result [facility] [address] [place] [phone] documented in this encounter Visit Diagnoses Not on filedocumented in this encounter Additional Health Concerns Assessment Noted Time PHQ-9 Depression Total Score: 1 04/28/19 25 9:28 AM EST documented as of this encounter Care Teams Manager Community Development Relationship Specialty Start Date End Date Monse Medina MD [address] [place] [phone] PCP - General Family Medicine 04/28/24 documented as of this encounter
--- OUTSIDE RECORDS SUMMARY | 2024-12-20 12:43 | XMS_ITS | Encounter Summary ---
Author Organization [employer] Address [address] [facility] [address]t [place] [address] Care Team Providers Care Med Specialist Name Role Phone Monse Medina MD Primary Care Provider [phone] Encounter Details Date Type Department Care Team ([facility] st Contact Info) Description 09/29/2024 Orders Only [facility] [address] [place], [place] [phone] Monse Medina MD [address] [place], [place] [phone] Social History Tobacco Use Types Packs/Day Years [...] documented as of this encounter Care Teams Med Specialist Relationship Specialty Start Date End Date Monse Medina MD [address] [place] [phone] PCP - General Family Medicine 04/28/24 documented as of this encounter
--- OUTSIDE RECORDS SUMMARY | 2024-12-20 12:43 | XMS_ITS | Encounter Summary ---
Author Organization [employer] Address [address] [facility] [address]t [place] [address] Care Team Providers Care Acid Tank Cleaner Name Role Phone Monse Medina MD Primary Care Provider [phone] Encounter Details Date Type Department Care Team ([facility] st Contact Info) Description 12/01/2024 Telephone [facility] [address] [place], [place] [phone] Monse Medina MD [address] [place], [place] [phone] Social History Tobacco Use Types Packs/Day Years [...] documented as of this encounter Care Teams Acid Tank Cleaner Relationship Specialty Start Date End Date Monse Medina MD [address] [place] [phone] PCP - General Family Medicine 04/28/24 documented as of this encounter
[2024-12-20] MEDS: Magnesium Hydrox/Alum Hydrox 30 ML ORAL.SUSP PO (13:02)
[2024-12-20] MEDS: iohexoL 350 MG/ML 100 ML INFUS..BTL IV (14:00)
--- NOTE | 2024-12-20 15:05 | HO.PM.IMCN ---
History of Present Illness Data of Consult Service Date: 12/20/24 Primary Care Provider: Monse Medina MD HPI 89 year old women admitted by general surgery with nausea and vomiting, found to have small bowel obstruction. She also had some diarrhea a few days ago but has not had a bowel movement since Thursday. She was also noted to be hypoxia on admission and CTA showed pulmonary embolus. NGT was placed and patient started on IV heparin drip. She has a history of DM and HTN. Vital signs are stable and labs are within acceptable limits. Review of Systems Review of Systems: Denies any recent fever chills or decrease in appetite respiratory denies any shortness of breath or cough cardiovascular denied chest pain gastrointestinal See HPI genitourinary denies any dysuria frequency or hematuria musculoskeletal denies any joint pain or swelling neuropsych denies any weakness or seizures all other systems reviewed are negative [facility] Medical History Diabetes HTN (hypertension) Social History Household Members: Family Housing: House Do you presently have visiting nurse or other home services: No Patient Tobacco Use Status: Never used Tobacco Advance Directives Date on File: 05/08/24 service: No Meds Allergies Allergy/AdvReac Type Severity Reaction Status Date / Time No Known Allergies Allergy Verified 12/20/24 10:22 Active Medications: Current Medications Heparin Sodium (Porcine) (Heparin Sodium,Porcine 5,000 Unit/Ml Vial) 3,200 unit 40 unit/kg (3200 unit) IVPUSH PROTOCOL BOLUS PRN; Protocol PRN Reason: 40 unit/kg - Heparin Protocol Heparin Sodium (Porcine) (Heparin Sodium,Porcine 5,000 Unit/Ml Vial) 6,300 unit 80 unit/kg (6300 unit) IVPUSH PROTOCOL BOLUS PRN; Protocol PRN Reason: 80 unit/kg - Heparin Protocol Heparin Sodium/Sodium Chloride (Heparin Sodium,Porcine/1/2ns) 25,000 unit in 250 mls @ 0 mls/hr IVCONT .Q0M CRISTAL; Protocol Home Medications ?Medication ?Instructions ?Recorded ?Confirmed ?Last Taken ?Type metformin 500 mg tablet 500 mg PO BID 05/08/24 12/20/24 12/19/24 History amlodipine 2.5 mg tablet 2.5 mg PO DAILY 12/20/24 12/20/24 12/19/24 History atorvastatin 10 mg tablet 10 mg PO BEDTIME 12/20/24 12/20/24 12/19/24 History gabapentin 300 mg capsule 300 mg PO BEDTIME 12/20/24 12/20/24 12/19/24 History gabapentin 300 mg capsule 300 mg PO DAILY PRN Pain 12/20/24 12/20/24 Unknown History glipizide 5 mg tablet 5 mg PO DAILY 12/20/24 12/20/24 12/19/24 History omeprazole 20 mg capsule,delayed 20 mg PO DAILY PRN Acid Reflux 12/20/24 12/20/24 Unknown History release Physical Exam Vital Signs and Narrative: Vital Signs: Last Vital Signs Temp 98.2 F 12/20/24 10:28 Pulse 99 12/20/24 12:50 Resp 18 12/20/24 12:50 BP 129/66 12/20/24 12:50 Pulse Ox 96 12/20/24 12:50 O2 Del Method Oxymask 12/20/24 12:50 O2 Flow Rate 2 12/20/24 12:50 BMI result Body Mass Index 31.8 Appearing in no acute distress head is normocephalic atraumatic eyes pupils are PERRLA sclera is anicteric mouth throat mucous membranes are intact and moist neck is supple no lymphadenopathy, no JVD noted lung sounds dry rales heart regular rate rhythm, clear S1, S2 Hypoactive BS, NGT in place, non distended neuro patient is alert x3, no focal deficits Results Labs 12/21/24 06:39 12/22/24 03:48 Labs: Laboratory Results - last 24 hr 12/20/24 12/20/24 12/20/24 10:52 10:52 11:22 MCV 83.9 MCH 27.3 MCHC 32.5 RDW 14.6 Plt Count 191 D MPV 9.6 Immature Gran % (Auto) 0.3 Neut % (Auto) 85.4 H Lymph % (Auto) 4.4 L [place] % (Auto) 8.3 Eos % (Auto) 1.2 Baso % (Auto) 0.4 Lymph # (Auto) 0.5 L [place] # (Auto) 0.9 Eos # (Auto) 0.1 Baso # (Auto) 0.0 Abs Immat Gran (auto) 0.03 Absolute Neuts (auto) 8.8 H Absolute Nucleated RBC 0.000 Nucleated RBC % (auto) 0.0 D-Dimer High Sensitivty VBG pH 7.42 VBG pCO2 48 VBG pO2 72 VBG HCO3 32 H VBG O2 Saturation 95.0 VBG Base Excess 6.3 Anion Gap 14 Estim Creat Clear Calc 55.8 Estimated GFR > 60 Random Glucose 282 H Lactic Acid 1.9 Calcium 10.4 H D Magnesium 1.9 Total Bilirubin 1.0 Direct Bilirubin 0.3 AST 26 ALT 27 Alkaline Phosphatase 68 Troponin I High Sens 4.5 D NT-Pro-B Natriuret Pep 158.5 Cancelled Total Protein 7.2 Albumin 4.3 COVID-19 (JOSE) Negative COVID-19 Clin Com See Note Influenza Type A (HAYDEE) Negative Influenza Type B (HAYDEE) Negative Influenza A & B Note See Note 12/20/24 12:01 MCV MCH MCHC RDW Plt Count MPV Immature Gran % (Auto) Neut % (Auto) Lymph % (Auto) [place] % (Auto) Eos % (Auto) Baso % (Auto) Lymph # (Auto) [place] # (Auto) Eos # (Auto) Baso # (Auto) Abs Immat Gran (auto) Absolute Neuts (auto) Absolute Nucleated RBC Nucleated RBC % (auto) D-Dimer High Sensitivty 529 VBG pH VBG pCO2 VBG pO2 VBG HCO3 VBG O2 Saturation VBG Base Excess Anion Gap Estim Creat Clear Calc Estimated GFR Random Glucose Lactic Acid Calcium Magnesium Total Bilirubin Direct Bilirubin AST ALT Alkaline Phosphatase Troponin I High Sens NT-Pro-B Natriuret Pep Total Protein Albumin COVID-19 (JOSE) COVID-19 Clin Com Influenza Type A (HAYDEE) Influenza Type B (HAYDEE) Influenza A & B Note Imaging Radiologist's Impressions: Impressions Chest X-Ray 12/20/24 10:54 IMPRESSION: Borderline cardiac enlargement. There is a probable calcified granuloma in the right lateral apex. Electronically signed by: Tj Rodriguez MD 12/20/2024 11:06 AM EDT Abdomen Ultrasound 12/20/24 11:29 IMPRESSION: 1. Limited exam as detailed. 2. Normal sonographic appearance of the gallbladder without wall thickening, gallstones, or other abnormality, however there was a positive sonographic King's sign. 3. Normal liver and bile ducts. 4. There are 2 small cysts in the right kidney. Right kidney otherwise normal. Electronically signed by: Sunny Lopes MD 12/20/2024 12:19 PM EDT RP Abdomen/Pelvis CT 12/20/24 12:25 IMPRESSION: 1. High-grade mechanical proximal small bowel obstruction, with transition point in the left anterior pelvis has discussed above. Etiology is not entirely clear on this noncontrast examination. Trace interloop and pelvic ascites. 2. Numerous additional ancillary findings as discussed in the body of the report. Electronically signed by: Sunny Lopes MD 12/20/2024 01:01 PM EDT RP Chest CTA 12/20/24 13:45 IMPRESSION: Short linear low density in the pulmonary arteries leading to the left lower lobe could represent a small pulmonary embolus. There is a 6 mm calcified granuloma in the right upper lobe. Additionally there is a 5 mm solid pulmonary nodule in the right lower lobe. No further follow-up is indicated per Fleischner Society recommendations, unless the patient falls into a high risk category, in which case a 12 month follow-up CT chest without contrast is optional. High risk patients includes those with a history of smoking, first-degree relative with lung cancer, or exposure to uranium, radon, or asbestos. Bronchiectasis is noted in the bilateral lower lobes. Extensive degenerative changes in the thoracic spine and multiple age-indeterminate mild compression fractures. Chronic focal calcification is noted in the posterior right renal cortex. Fleischner guidelines were followed. Electronically signed by: Tj Rodriguez MD 12/20/2024 02:34 PM EDT RP Assessment and Plan (1) Pulmonary embolism: Status: Acute Plan 89 year old women admitted by general surgery due to small bowel obstruction and Pulmonary embolism Small bowel obstruction NGT Management as per surgical team Acute hypoxic respiratory failure secondary to Pulmonary embolism Discussed with pulmonology to confirm Started on IV heparin drip Also appears to have atelectasis with a history of bronchiectasis but no obvious consolidation Oxygen to keep oxygen saturation greater than 89%, OxyMask on now Diabetes mellitus type 2 Sliding scale, ADA diet Hold metformin Peripheral neuropathy Hold gabapentin for now Hypertension Stable blood pressure DVT prophylaxis with IV heparin drip Full code
[2024-12-20] MEDS: Lidocaine HCl 4 % MPF w/MADgic 5 ML AMPUL 1 APPL TOPICAL (15:18)
--- NOTE | 2024-12-20 15:18 | PC.NURSE ---
ng tube placed, audible via stethoscope, CXR ordered. gastric contents noted in ng tube.
--- NOTE | 2024-12-20 15:31 | PM.HPGS ---
History of Present Illness History of Present Illness Date of Service: 12/22/24 Chief complaint: small bowel obstruction Narrative: Maryellen Acosta is a 89 year old female history of PE, unprovoked, as well stroke, diabetes, here in the ER because of pain and vomiting. She apparently had been unwell for about a week now with some vague abdominal discomfort and diarrhea. She had self-medicated with a Lomotil. She started to have multiple episodes of vomiting overnight and some abdominal pain. She was therefore brought to the emergency room by her daughter She had an unprovoked PE about 6 years ago. She was placed on anticoagulation of the time. She also had a stroke months ago and was admitted here in this hospital. She is currently just on aspirin. According to the daughter, she has been having diarrhea. Review of Systems Constitutional: Constitutional: Denies body ache(s) and Denies fever(s) Cardiovascular: Cardiovascular: Reports dyspnea Comments: Some low O2 sats, no coughing Respiratory: Respiratory: Reports dyspnea Gastrointestinal: Gastrointestinal: Reports abdominal pain and Reports vomiting Genitourinary: Genitourinary: Denies difficulty voiding PMFSH Past Medical History Medical History Diabetes HTN (hypertension) Social History Social History Household Members: Family Housing: House Do you presently have visiting nurse or other home services: No Patient Tobacco Use Status: Never used Tobacco Smoked in Last 30 Days: No Use of substances other than those prescribed or required for medical reasons: No Currently Displaying Signs/Symptoms of Drug Intoxication Withdrawal: No Have you been hit, kicked, punched, or otherwise hurt by someone within the past year? If so, by whom?: No Is there a partner from a previous relationship who is making you feel unsafe now?: No Are you made to feel afraid or neglected: No Advance Directives: Yes Advance Directives on File: Yes Advance Directives Date on File: 05/08/24 Do you have a plan to hurt others: No Plan Recently lost weight without trying: Unsure Patient : No service: No Meds Allergies Allergy/AdvReac Type Severity Reaction Status Date / Time No Known Allergies Allergy Verified 12/20/24 10:22 Active Medications: Current Medications Dextrose (Dextrose 50 % 25 Gm/50 Ml Syringe) 25 gm IVPUSH Q15M PRN; Protocol PRN Reason: per Hypoglycemia Standing Ord. Glucose (Glucose Gel 15 Gm Gel..Gram.) 15 gm PO Q15M PRN; Protocol PRN Reason: per Hypoglycemia Standing Ord. Heparin Sodium (Porcine) (Heparin Sodium,Porcine 5,000 Unit/Ml Vial) 3,200 unit 40 unit/kg (3200 unit) IVPUSH PROTOCOL BOLUS PRN; Protocol PRN Reason: 40 unit/kg - Heparin Protocol Heparin Sodium (Porcine) (Heparin Sodium,Porcine 5,000 Unit/Ml Vial) 6,300 unit 80 unit/kg (6300 unit) IVPUSH PROTOCOL BOLUS PRN; Protocol PRN Reason: 80 unit/kg - Heparin Protocol Heparin Sodium/Sodium Chloride (Heparin Sodium,Porcine/1/2ns) 25,000 unit in 250 mls @ 0 mls/hr IVCONT .Q0M CRISTAL; Protocol Insulin Human Lispro (Insulin Lispro 100 Unit/Ml 3 Ml Vial) 0 unit SUBCUT QIDACHS CRISTAL; Protocol Home Medications ?Medication ?Instructions ?Recorded ?Confirmed ?Last Taken ?Type metformin 500 mg tablet 500 mg PO BID 05/08/24 12/20/24 12/19/24 History amlodipine 2.5 mg tablet 2.5 mg PO DAILY 12/20/24 12/20/24 12/19/24 History atorvastatin 10 mg tablet 10 mg PO BEDTIME 12/20/24 12/20/24 12/19/24 History gabapentin 300 mg capsule 300 mg PO BEDTIME 12/20/24 12/20/24 12/19/24 History gabapentin 300 mg capsule 300 mg PO DAILY PRN Pain 12/20/24 12/20/24 Unknown History glipizide 5 mg tablet 5 mg PO DAILY 12/20/24 12/20/24 12/19/24 History omeprazole 20 mg capsule,delayed 20 mg PO DAILY PRN Acid Reflux 12/20/24 12/20/24 Unknown History release Physical Exam Vital Signs: Vital Signs: Last Vital Signs Temp 98.2 F 12/20/24 10:28 Pulse 99 12/20/24 12:50 Resp 18 12/20/24 12:50 BP 129/66 12/20/24 12:50 Pulse Ox 96 12/20/24 12:50 O2 Del Method Oxymask 12/20/24 12:50 O2 Flow Rate 2 12/20/24 12:50 BMI result Body Mass Index 31.8 Const: Other: Appears mildly short of breath, on O2 by face mask Resp: Other: Some shortness of breath Cardio: Rate: regular rate GI: Palpation (GI): Soft to palpation, not firm, Tenderness to palpation present (GI) (Mild tenderness in the right side) and no guarding Results Results Labs: Short CBC 12/20/24 Range/Units 10:52 WBC 10.3 (4.8-10.8) X10*3/uL Hgb 15.1 (12.0-16.0) g/dl Hct 46.4 (37.0-47.0) % Plt Count 191 D (160-400) X10*3/uL BMP 12/20/24 10:52 Sodium 140 Potassium 4.0 Chloride 98 Carbon Dioxide 32 H BUN 19 H Creatinine 0.69 Calcium 10.4 H D Liver Function 12/20/24 Range/Units 10:52 Total Bilirubin 1.0 (0.0-1.0) mg/dL Direct Bilirubin 0.3 (0.0-0.5) mg/dL AST 26 (5-31) U/L ALT 27 (0-31) U/L Alkaline Phosphatase 68 (39-117) U/L Albumin 4.3 (3.5-5.0) g/dL Abdomen CT scan report/results: report reviewed and image reviewed CT scan - pelvis: report reviewed and image reviewed Additional studies: CT/CT abdomen pelvis wo IV con IMPRESSION: 1. High-grade mechanical proximal small bowel obstruction, with transition point in the left anterior pelvis has discussed above. Etiology is not entirely clear on this noncontrast examination. Trace interloop and pelvic ascites. 2. Numerous additional ancillary findings as discussed in the body of the report. Electronically signed by: Sunny Lopes MD 12/20/2024 01:01 PM EDT Assessment and Plan (1) Small bowel obstruction: Status: Acute Plan 89 year female with a history of CVA and PE in the past, we had diarrhea for a week along with multiple episodes of vomiting overnight. I have reviewed her CAT scan and this does show dilated small bowel loops with decompressed small bowel loops distally. She does have good amounts of air in the colon. There is a loop of small bowel that appears to have fecalization consistent with with no bowel obstruction. She has had no previous abdominal surgeries so etiology we will be unknown. However, she does have a benign exam. We will keep the NG tube in place. Hopefully she opens up. We may consider doing a small bowel follow-through as well with Gastrografin. She does have significant medical issues on top of her advanced age so the daughter is hesitant for her to undergo any surgical intervention at this time We have consulted the hospitalist service in view of her multiple medical issues. Her CT angiogram shows linear density in the vessels towards the left lower lobe so this may represent a PE as well. She has had marginal O2 sats in the ER and is mildly short of breath. Pulmonology is therefore consulted. Quality Stroke Does the patient have a stroke diagnosis?: No VTE Prior VTE?: No VTE Risk Level:: Medical - moderate - high VTE Device Contraindication: N/A - Device Ordered VTE Drug Contraindication: N/A - Med Ordered Procedures Date of Service Date of Service: 12/22/24
[2024-12-20 15:57] LABS: Hematocrit 44.1 % (37.0-47.0); Hemoglobin 14.6 g/dl (12.0-16.0); Mean Corpuscular HGB Conc 33.1 g/dl (31.0-35.0); Mean Corpuscular Hemoglobin 27.7 pg (27.0-33.0); Mean Corpuscular Volume 83.7 fL (80.0-98.0); NRBC Abs Auto 0.000 X10*3/uL (0.0-0.012); NRBC Pct Auto 0.0 /100WBC (0.0-0.2); Platelet Count 171 X10*3/uL (160-400); Red Blood Count 5.27 X10*6/uL (4.20-5.50); White Blood Count 8.6 X10*3/uL (4.8-10.8)
[2024-12-20] MEDS: Lactated Ringers 1,000 ML 100 ML IVCONT (16:04)
[2024-12-20 17:07] LABS: INTERNATIONAL NORM RATIO 1.0 (0.9-1.1); Prothrombin Time 11.2 SEC (10.9-12.4)
--- NOTE | 2024-12-20 17:09 | PC.NURSE ---
Waiting on PTT to be run to start heparin drip
[2024-12-20 17:10] LABS: Partial Thromboplastin Time 25.4 SEC (26.7-34.1)
[2024-12-20] MEDS: Heparin Sodium,Porcine/1/2NS 25,000 UNIT/250 ML IV.SOLN 11.58 UNIT IVCONT (17:31)
--- NOTE | 2024-12-20 17:36 | PC.NURSE ---
Heparin drip started, PTT to be drawn at 2331
--- NOTE | 2024-12-20 18:20 | PHA.MEDREC ---
Addendum entered by Daniel Randle [facility] 12/20/24 18:39: med rec reviewed. Pt takes extra dose of gabapentin if needed for pain Original Note: Pharmacy Consult ? Medication Reconciliation Pharmacy has completed the medication reconciliation. Spoke to patient daughter over the phone to confirm med list. Daughter was able to name all of patient medications. All of patient medications match claims. Patient fill Amlodipine 2.5 mg and Glipazide 5 mg from [facility] in [place]. Called and confirmed all of patient medication with [facility] pharmacy. Patient last had her medications Thursday morning.
[2024-12-20 19:26] LABS: Glucose, Whole Blood 203 mg/dL (60-115)
[2024-12-20 19:53] LABS: Appearance Urine Clear; Glucose Urine UA Negative (Negative); PH 6.0 (5.0-9.0); Specific Gravity - Urine >= 1.030 (1.005-1.025); UMIC TRIGGER UACC YES
[2024-12-20 19:59] LABS: UACC Culture Trigger YES
--- NOTE | 2024-12-20 21:05 | PC.NURSE ---
500cc output of NGT. brownish/green.
[2024-12-20 21:23] LABS: Glucose, Whole Blood 200 mg/dL (60-115)
[2024-12-20] MEDS: 0.9 % Sodium Chloride Flush 3 ML SYRINGE IVFLUSH (21:47)
[2024-12-20 23:56] LABS: PTT Heparin Drip 90.7 SEC (53-77.9)
[2024-12-21] VITALS (7 sets, daily range): BP systolic 117–144; BP diastolic 58–85; PULSE 59–95; RESP 17–18; TEMP 36.4–37.1; O2SAT 93–96
[2024-12-21] MEDS: Lactated Ringers 1,000 ML 100 ML IVCONT ×3 (01:27→21:33)
[2024-12-21 07:09] LABS: MANUAL DIFF FLAG NO
[2024-12-21 07:14] LABS: Hematocrit 42.7 % (37.0-47.0); Hemoglobin 13.4 g/dl (12.0-16.0); Imm Gran Abs Auto 0.02 X10*3/uL (0.00-0.03); Imm Gran Pct Auto 0.3 % (0.0-0.4); Lymphocytes Absolute Auto 0.9 X10*3/uL (1.2-4.9); Mean Corpuscular HGB Conc 31.4 g/dl (31.0-35.0); Mean Corpuscular Hemoglobin 27.1 pg (27.0-33.0); Mean Corpuscular Volume 86.3 fL (80.0-98.0); NRBC Abs Auto 0.020 X10*3/uL (0.0-0.012); NRBC Pct Auto 0.3 /100WBC (0.0-0.2); Platelet Count 161 X10*3/uL (160-400); Red Blood Count 4.95 X10*6/uL (4.20-5.50); White Blood Count 5.7 X10*3/uL (4.8-10.8)
[2024-12-21 07:17] LABS: INTERNATIONAL NORM RATIO 1.1 (0.9-1.1); Prothrombin Time 12.2 SEC (10.9-12.4)
[2024-12-21 07:20] LABS: PTT Heparin Drip 55.1 SEC (53-77.9)
[2024-12-21 07:22] LABS: Glucose, Whole Blood 185 mg/dL (60-115)
[2024-12-21 07:33] LABS: Anion Gap 13 (12-20); Blood Urea Nitrogen 15 mg/dL (9-16); Calcium 9.0 mg/dL (8.4-10.2); Carbon Dioxide 31 mmol/L (22-29); Chloride 100 mmol/L (96-108); Creatinine Clr Calc Pharmacy 62.6; Estimated Glomerular Filt Rate > 60; Potassium 3.7 mmol/L (3.3-5.1); Sodium 140 mmol/L (135-145)
--- NOTE | 2024-12-21 07:55 | PM.PNGS ---
Subjective Subjective Date of Service: 12/21/24 Interval history: Denies abdominal pain Denies flatus States that she feels a little better On heparin drip for PE Requiring O2 supplement by face mask Physical Exam Vital Signs: Vital Signs: Last Vital Signs Temp 97.7 F 12/21/24 07:22 Pulse 84 12/21/24 07:22 Resp 17 12/21/24 07:22 BP 138/72 12/21/24 07:22 Pulse Ox 96 12/21/24 07:22 O2 Del Method Oxymask 12/21/24 07:22 O2 Flow Rate 4 12/21/24 07:22 BMI result Body Mass Index 32.3 Const: Other: Mildly short of breath, more alert compared to yesterday Resp: Effort & Inspection: normal respiratory effort Cardio: Rate: regular rate GI: Inspection: Yes distended Palpation (GI): Soft to palpation, not firm, nontender and no guarding Objective Data Active Medications Acetaminophen (Acetaminophen 325 Mg Tablet) 650 mg PO Q6H PRN PRN Reason: Pain, Mild 1-3,fever,headache Benzocaine (Throat Lozenge, Medicated Lozenge) 1 lozenge MUCOUS MEM Q2H PRN PRN Reason: Sore throat Dextrose (Dextrose 50 % 25 Gm/50 Ml Syringe) 25 gm IVPUSH Q15M PRN; Protocol PRN Reason: per Hypoglycemia Standing Ord. Glucose (Glucose Gel 15 Gm Gel..Gram.) 15 gm PO Q15M PRN; Protocol PRN Reason: per Hypoglycemia Standing Ord. Heparin Sodium (Porcine) (Heparin Sodium,Porcine 5,000 Unit/Ml Vial) 3,300 unit 40 unit/kg (3300 unit) IVPUSH PROTOCOL BOLUS PRN; Protocol PRN Reason: 40 unit/kg - Heparin Protocol Heparin Sodium (Porcine) (Heparin Sodium,Porcine 5,000 Unit/Ml Vial) 6,600 unit 80 unit/kg (6600 unit) IVPUSH PROTOCOL BOLUS PRN; Protocol PRN Reason: 80 unit/kg - Heparin Protocol Lactated Ringer's (Lr) 1,000 mls @ 100 mls/hr IVCONT .Q10H CRISTAL Last Admin: 12/21/24 01:27 Dose: 100 mls/hr Documented By: DENITA Heparin Sodium/Sodium Chloride (Heparin Sodium,Porcine/1/2ns) 25,000 unit in 250 mls @ 0 mls/hr IVCONT .Q0M [facility]; Protocol Last Titration: 12/21/24 00:05 Dose: 12 units/kg/hr, 9.92 mls/hr Documented By: DENITA Co-signed By: ONUR Influenza Virus Vaccine (Flu Vacc [id number](6mo Up)/Pf 0.5 Ml Syringe) 0.5 ml IM .ONCE ONE Stop: 12/22/24 09:01 Insulin Human Lispro (Insulin Lispro 100 Unit/Ml 3 Ml Vial) 0 unit SUBCUT QIDACHS [facility]; Protocol Last Admin: 12/20/24 21:42 Dose: 2 unit Documented By: DENITA Melatonin (Melatonin 3 Mg Tablet) 6 mg PO BEDTIME PRN PRN Reason: Insomnia Morphine Sulfate (Morphine Sulfate 4 Mg/Ml Cartridge) 1 mg IVPUSH Q3H PRN; Protocol PRN Reason: Pain, Severe (Pain Scale 7-10) Last Admin: 12/20/24 23:00 Dose: 1 mg Documented By: DENITA Ondansetron HCl (Ondansetron Hcl 4 Mg/2 Ml Vial) 4 mg IVPUSH Q8H PRN PRN Reason: Nausea and Vomiting Sodium Chloride (0.9 % Sodium Chloride Flush 3 Ml Syringe) 3 [facility] Last Admin: 12/20/24 21:47 Dose: 3 ml Documented By: DENITA Labs 12/21/24 06:39 12/21/24 06:39 Labs: Laboratory Results - last 24 hr 12/20/24 12/20/24 12/20/24 10:52 10:52 11:22 MCV 83.9 MCH 27.3 MCHC 32.5 RDW 14.6 Plt Count 191 D MPV 9.6 Immature Gran % (Auto) 0.3 Neut % (Auto) 85.4 H Lymph % (Auto) 4.4 L [place] % (Auto) 8.3 Eos % (Auto) 1.2 Baso % (Auto) 0.4 Lymph # (Auto) 0.5 L [place] # (Auto) 0.9 Eos # (Auto) 0.1 Baso # (Auto) 0.0 Abs Immat Gran (auto) 0.03 Absolute Neuts (auto) 8.8 H Absolute Nucleated RBC 0.000 Nucleated RBC % (auto) 0.0 PT INR APTT aPTT Heparin Protocol D-Dimer High Sensitivty VBG pH 7.42 VBG pCO2 48 VBG pO2 72 VBG HCO3 32 H VBG O2 Saturation 95.0 VBG Base Excess 6.3 Anion Gap 14 Estim Creat Clear Calc 55.8 Estimated GFR > 60 POC Glucose Random Glucose 282 H Lactic Acid 1.9 Calcium 10.4 H D Magnesium 1.9 Total Bilirubin 1.0 Direct Bilirubin 0.3 AST 26 ALT 27 Alkaline Phosphatase 68 Troponin I High Sens 4.5 D NT-Pro-B Natriuret Pep 158.5 Cancelled Total Protein 7.2 Albumin 4.3 Urine Color Urine Appearance Urine pH Ur Specific [place] Urine Protein Urine Glucose (UA) Urine Ketones Urine Blood Urine Nitrite Ur Leukocyte Esterase Urine RBC Urine WBC Ur Squamous Epith Cells Urine Bacteria Hyaline Casts COVID-19 (JOSE) Negative COVID-19 Clin Com See Note Influenza Type A (HAYDEE) Negative Influenza Type B (HAYDEE) Negative Influenza A & B Note See Note 12/20/24 12/20/24 12/20/24 12:01 15:50 15:51 MCV 83.7 MCH 27.7 MCHC 33.1 RDW 14.6 Plt Count 171 MPV 9.4 Immature Gran % (Auto) Neut % (Auto) Lymph % (Auto) [place] % (Auto) Eos % (Auto) Baso % (Auto) Lymph # (Auto) [place] # (Auto) Eos # (Auto) Baso # (Auto) Abs Immat Gran (auto) Absolute Neuts (auto) Absolute Nucleated RBC 0.000 Nucleated RBC % (auto) 0.0 PT 11.2 Cancelled INR 1.0 Cancelled APTT 25.4 L aPTT Heparin Protocol Cancelled Cancelled D-Dimer High Sensitivty 529 VBG pH VBG pCO2 VBG pO2 VBG HCO3 VBG O2 Saturation VBG Base Excess Anion Gap Estim Creat Clear Calc Estimated GFR POC Glucose Random Glucose Lactic Acid Calcium Magnesium Total Bilirubin Direct Bilirubin AST ALT Alkaline Phosphatase Troponin I High Sens NT-Pro-B Natriuret Pep Total Protein Albumin Urine Color Urine Appearance Urine pH Ur Specific [place] Urine Protein Urine Glucose (UA) Urine Ketones Urine Blood Urine Nitrite Ur Leukocyte Esterase Urine RBC Urine WBC Ur Squamous Epith Cells Urine Bacteria Hyaline Casts COVID-19 (JOSE) COVID-19 Clin Com Influenza Type A (HAYDEE) Influenza Type B (HAYDEE) Influenza A & B Note 12/20/24 12/20/24 12/20/24 19:17 19:46 21:17 MCV MCH MCHC RDW Plt Count MPV Immature Gran % (Auto) Neut % (Auto) Lymph % (Auto) [place] % (Auto) Eos % (Auto) Baso % (Auto) Lymph # (Auto) [place] # (Auto) Eos # (Auto) Baso # (Auto) Abs Immat Gran (auto) Absolute Neuts (auto) Absolute Nucleated RBC Nucleated RBC % (auto) PT INR APTT aPTT Heparin Protocol D-Dimer High Sensitivty VBG pH VBG pCO2 VBG pO2 VBG HCO3 VBG O2 Saturation VBG Base Excess Anion Gap Estim Creat Clear Calc Estimated GFR POC Glucose 203 H 200 H Random Glucose Lactic Acid Calcium Magnesium Total Bilirubin Direct Bilirubin AST ALT Alkaline Phosphatase Troponin I High Sens NT-Pro-B Natriuret Pep Total Protein Albumin Urine Color Yellow Urine Appearance Clear Urine pH 6.0 Ur Specific [place] >= 1.030 H Urine Protein Trace Urine Glucose (UA) Negative Urine Ketones Trace Urine Blood Negative Urine Nitrite Negative Ur Leukocyte Esterase Small (1+) H Urine RBC 0-2 Urine WBC 11-20 H Ur Squamous Epith Cells 6-10 Urine Bacteria Trace Hyaline Casts 0-2 COVID-19 (JOSE) COVID-19 Clin Com Influenza Type A (HAYDEE) Influenza Type B (HAYDEE) Influenza A & B Note 12/20/24 12/21/24 12/21/24 23:34 06:39 07:19 MCV 86.3 MCH 27.1 MCHC 31.4 RDW 15.1 Plt Count 161 MPV 10.1 Immature Gran % (Auto) 0.3 Neut % (Auto) 67.6 Lymph % (Auto) 15.7 L [place] % (Auto) 15.2 H Eos % (Auto) 0.5 Baso % (Auto) 0.7 Lymph # (Auto) 0.9 L [place] # (Auto) 0.9 Eos # (Auto) 0.0 Baso # (Auto) 0.0 Abs Immat Gran (auto) 0.02 Absolute Neuts (auto) 3.9 Absolute Nucleated RBC 0.020 H Nucleated RBC % (auto) 0.3 H PT 12.2 INR 1.1 APTT aPTT Heparin Protocol 90.7 H 55.1 D D-Dimer High Sensitivty VBG pH VBG pCO2 VBG pO2 VBG HCO3 VBG O2 Saturation VBG Base Excess Anion Gap 13 Estim Creat Clear Calc 62.6 Estimated GFR > 60 POC Glucose 185 H Random Glucose 196 H Lactic Acid Calcium 9.0 D Magnesium Total Bilirubin Direct Bilirubin AST ALT Alkaline Phosphatase Troponin I High Sens NT-Pro-B Natriuret Pep Total Protein Albumin Urine Color Urine Appearance Urine pH Ur Specific [place] Urine Protein Urine Glucose (UA) Urine Ketones Urine Blood Urine Nitrite Ur Leukocyte Esterase Urine RBC Urine WBC Ur Squamous Epith Cells Urine Bacteria Hyaline Casts COVID-19 (JOSE) COVID-19 Clin Com Influenza Type A (HAYDEE) Influenza Type B (HAYDEE) Influenza A & B Note Procedures Date of Service Date of Service: 12/21/24 Progress Note: A&P Assessment and plan (1) Small bowel obstruction: Status: Acute Assessment and Plan: No significant NG tube output overnight Abdomen is soft and benign Denies flatus We will check small bowel series with Gastrografin On heparin drip for PE Hospitalist following Hemodynamically stable Still requiring O2 by mask Monitor NG tube output Time Spent With Patient Time: Total time managing care of this patient today ____ minutes. Quality Stroke Does the patient have a stroke diagnosis?: No VTE Prior VTE?: Yes VTE Risk Level:: Medical - moderate - high VTE Device Contraindication: N/A - Device Ordered VTE Drug Contraindication: N/A - Med Ordered
[2024-12-21] MEDS: 0.9 % Sodium Chloride Flush 3 ML SYRINGE IVFLUSH ×2 (08:59→21:36)
--- NOTE | 2024-12-21 09:04 | PM.EVENT ---
Event Note Date of Service: 12/21/24 Event Note: Was first given contrast around 745/8am. Apparently received second dose 30 min ago and vomited multiple times. Patient assessed, looks uncomfortable and c/o bloating and abdominal pain. NGT therefore hooked back up to suction with improvement in symptoms. Nurse at bedside giving zofran. Will cont to monitor. Time Spent With Patient Time: Total time managing care of this patient today ____ minutes.
[2024-12-21 11:30] LABS: Glucose, Whole Blood 170 mg/dL (60-115)
--- NOTE | 2024-12-21 12:00 | CA_ITS ---
Transthoracic Echocardiogram Patient (Last, First, Middle): Maryellen Acosta, Gender: F Date of : 1935 Age: 89 Procedure Date: 12/21/2024 Procedure Type: Transthoracic Echocardiogram Location: [facility] [place] Height: 157.48 cm Weight: 79.83 kg BSA: 1.81 m2 Heart Rate: 85 bpm BP: 130 / 85 mmHg De Icer Installer: Referring MD: Jerrica Oropeza MD Symptoms: [place]rest emboli Study Quality: Adequate ECG Rhythm: Sinus Conclusions: - The left ventricular systolic function is hyperdynamic. The visually estimated ejection fraction is >70%. - No obvious valvular pathology seen on this study. Findings Left Ventricle Normal left ventricular cavity size. There is mildly increased left ventricular wall thickness. The left ventricular systolic function is hyperdynamic. The visually estimated ejection fraction is >70%. There is no evidence of regional wall motion abnormalities. Evidence suggests grade I (mild) diastolic dysfunction. Right Ventricle Normal right ventricular cavity size and systolic function. Atria Both atria are normal in size. Aortic Valve There is a normal trileaflet aortic valve. There is no aortic valve stenosis. There is trace (trivial) aortic valve regurgitation. Mitral Valve The mitral valve appears normal. There is no mitral valve regurgitation. There is no mitral valve stenosis. Pulmonic Valve There is trace pulmonic valve regurgitation. Tricuspid Valve There is trace tricuspid valve regurgitation. There is no evidence of pulmonary hypertension. Great Vessels The asc aorta is normal in size. Small plaque is seen in the sino tubular ridge. Venous The inferior vena cava is normal in size and collapses greater than 50% with inspiration. Pericardium/Pleural There is no evidence of pericardial effusion. Prior Study Comparison No significant change compared to prior study dated: 05/10/2024. Recommendations, Care & Conclusions No obvious valvular pathology seen on this study. Measurements 2D Linear Measurements IVSd: 1.29 0.6-0.9/0.6-1.0 cm LVIDd: 3.96 3.9-5.3/4.2-5.9 cm LVIDd Index: 2.19 2.4-3.2/2.2-3.1 cm/m2 LVIDs: 2.56 2.0-3.6 cm LVPWd: 1.35 0.7-1.1 cm Ao Root: 3.90 2.1-3.5 cm LA Diam: 3.90 2.7-3.8/3.0-4.0 cm LAIDs Index: 2.15 1.5-2.3 cm/m2 LV Mass: 234.41 67-162/88-224 g LV Mass Index: 129.51 43-95/49-115 g/m2 LVOT Diam: 2.00 3.0+(-)1.3 cm 2D Systolic Function EF 4C: 74.40 >55% EF 2C: 73.10 >55% EF BiP: 73.90 >55% Mitral Valve MV Pk E: 0.54 MV PK A: 0.96 MV Decel Time: 172.00 E/A: 0.60 E'Lateral: 7.83 E'Medial: 3.15 E/E' Med: 17.30 E/E' Lat: 6.90 PHT: 50.00 MVA PHT: 4.40 Decel Butts: 3.17 Aortic Valve AoV Pk Eugene: 1.58 AoV Mn Eugene: 1.13 AoV VTI: 0.34 AoV Pk Grad: 10.00 Aov Mn Grad: 6.00 PERNELL Cont.VTI: 2.50 LVOT LVOT Pk Eugene: 1.08 LVOT Mn Eugene: 0.72 LVOT VTI: 0.27 LVOT Pk Grad: 5.00 LVOT Mn Grad: 2.00 LVOT Diam: 2.00 LVOT Area: 3.14 Diastolic Function MV Pk E: 0.54 MV Pk A: 0.96 E/A: 0.60 E'Medial: 3.15 E/E' Med: 17.30 E' Laterial: 7.83 E/E' Lat: 6.90 Right Ventricle TAPSE (mm): 23.50 TVS' Eugene: 10.30 Tricuspid Valve TR Pk Eugene: 1.76 TR Pk Grad: 12.00 RA Press: 3.00 Great Vessels Aorta Ao Root-2D: 3.90 2.0-3.7 cm Ao Asc: 3.30 2.1-3.4 cm Pulmonary Valve PV Pk Eugene: 1.17 Peak PV Grad: 5.00 Updated in Other Vendor System with Status of Final Tk De La Rosa MD electronically signed on 12/21/2024 3:32:08 PM with status of Final
--- NOTE | 2024-12-21 13:18 | P.CDIM_ITS ---
PROVIDER RESPONSE TEXT: To clarify, the appropriate diagnosis supported by the clinical indicators: Partial SBO QUERY TEXT: PHYSICIAN'S DOCUMENTATION REQUEST Date of Query: 12/21/2024 01:07 PM EDT Patient Name: Maryellen Acosta Admit Date: 12/20/2024 Dear Lincoln Cohen MD, A review of the medical record indicates additional documentation may be needed. Please review below and update the documentation accordingly. Clinical Indicators: admit with abdominal pain, vomiting, diarrhea CT abdomen/pelvis: high grade mechanical proximal small bowel obstruction DX: SBO NGT Based on the above, could you clarify the appropriate diagnosis, if significant, that supports the above abnormalities and additional evaluation, monitoring, and/or treatment rendered: Partial SBO Complete SBO Other (explain) Clinically unable to determine (explain) Thank you, Naye Colon RN Use of terms such as suspected, likely, concern for, or probable (associated with a specific diagnosis that is being evaluated, monitored, or treated as if it exists) are acceptable and can be coded in the inpatient setting, when documented at the time of discharge. Please use your independent medical judgment in providing your response. THIS QUERY IS PART OF THE PERMANENT MEDICAL RECORD
[2024-12-21 13:50] LABS: PTT Heparin Drip 39.9 SEC (53-77.9)
--- NOTE | 2024-12-21 15:44 | PM.EVENT ---
Event Note Date of Service: 12/21/24 Event Note: Seen on afternoon rounds She says that she feels better She denies any abdominal pain She has been passing flatus and liquid stools after ingestion of oral contrast Abdomen remained soft and benign I have reviewed her follow up KUB and this shows that the contrast has progressed all the way to the colon. There was no evidence of any small bowel dilatation I will consider removing her NG tube -- I would discuss this with her daughter Appears comfortable overall remains on heparin drip for the PE. Time Spent With Patient Time: Total time managing care of this patient today ____ minutes.
[2024-12-21 16:12] LABS: Glucose, Whole Blood 157 mg/dL (60-115)
--- NOTE | 2024-12-21 16:23 | MHC.CM.PN ---
THIS CM MET WITH PT AND HER DAUGHTER/HCP PRESENT AT BEDSIDE. PT LIVES AT HOME WITH HER DAUGHTER, AND USES A CANE. DCP: RETURN HOME WITH FAMILY SUPPORT, MAY NEED NEW VNA SERVICES IF RECOMMENDED, PTS DAUGHTER TO TRANSPORT HER HOME AT DISCHARGE. HCP ON FILE AND VERIFIED. FINANCIAL COUNSELOR REFERRAL SENT REGARDING INSURANCE COVERAGE FOR HOSPITALIZATION. PCP: DR. EDI MOREIRA
[2024-12-21] MEDS: Heparin Sodium,Porcine/1/2NS 25,000 UNIT/250 ML IV.SOLN 11.58 UNIT IVCONT (17:14)
--- NOTE | 2024-12-21 17:35 | P.PNIM_ITS ---
Subjective Subjective Date of Service: 12/21/24 Interval History: pulm emboli,sbo Review of Systems still draining ngt, vomited also this morning has some abd disconfort sob seems improving Review of Systems: Yes all other systems are reviewed and are negative Physical Exam 2 Exam: Exam: Appearance: Alert.? Oriented X3.? not in distress.? cvs: rrr, [id number]. res: clear to auscultation ,no rhonchii or wheezing abd: mild distended,minimum abd discomfort, bs present. ext pulses present , no cyanosis. neuro: axo3 , nonfocal. Vital Signs: Vital Signs: Last Vital Signs Temp 98.5 F 12/21/24 15:44 Pulse 87 12/21/24 15:44 Resp 18 12/21/24 15:44 BP 144/79 H 12/21/24 15:44 Pulse Ox 96 12/21/24 15:44 O2 Del Method Oxymask 12/21/24 15:44 O2 Flow Rate 3 12/21/24 15:44 BMI result Body Mass Index 32.3 Objective Data Active Medications Acetaminophen (Acetaminophen 325 Mg Tablet) 650 mg PO Q6H PRN PRN Reason: Pain, Mild 1-3,fever,headache Benzocaine (Throat Lozenge, Medicated Lozenge) 1 lozenge MUCOUS MEM Q2H PRN PRN Reason: Sore throat Dextrose (Dextrose 50 % 25 Gm/50 Ml Syringe) 25 gm IVPUSH Q15M PRN; Protocol PRN Reason: per Hypoglycemia Standing Ord. Glucose (Glucose Gel 15 Gm Gel..Gram.) 15 gm PO Q15M PRN; Protocol PRN Reason: per Hypoglycemia Standing Ord. Heparin Sodium (Porcine) (Heparin Sodium,Porcine 5,000 Unit/Ml Vial) 3,300 unit 40 unit/kg (3300 unit) IVPUSH PROTOCOL BOLUS PRN; Protocol PRN Reason: 40 unit/kg - Heparin Protocol Last Admin: 12/21/24 13:56 Dose: 3,300 unit Documented By: ABEL Heparin Sodium (Porcine) (Heparin Sodium,Porcine 5,000 Unit/Ml Vial) 6,600 unit 80 unit/kg (6600 unit) IVPUSH PROTOCOL BOLUS PRN; Protocol PRN Reason: 80 unit/kg - Heparin Protocol Lactated Ringer's (Lr) 1,000 mls @ 100 mls/hr IVCONT .Q10H [facility] Last Admin: 12/21/24 10:48 Dose: 100 mls/hr Documented By: ABEL Heparin Sodium/Sodium Chloride (Heparin Sodium,Porcine/1/2ns) 25,000 unit in 250 mls @ 0 mls/hr IVCONT .Q0M [facility]; Protocol Last Admin: 12/21/24 17:14 Dose: 14 units/kg/hr, 11.58 mls/hr Documented By: ABEL Co-signed By: LUIS Influenza Virus Vaccine (Flu Vacc [id number](6mo Up)/Pf 0.5 Ml Syringe) 0.5 ml IM .ONCE ONE Stop: 12/22/24 09:01 Insulin Human Lispro (Insulin Lispro 100 Unit/Ml 3 Ml Vial) 0 unit SUBCUT QIDACHS [facility]; Protocol Last Admin: 12/21/24 16:26 Dose: Not Given Documented By: ABEL Non-Admin Reason: NPO Melatonin (Melatonin 3 Mg Tablet) 6 mg PO BEDTIME PRN PRN Reason: Insomnia Morphine Sulfate (Morphine Sulfate 4 Mg/Ml Cartridge) 1 mg IVPUSH Q3H PRN; Protocol PRN Reason: Pain, Severe (Pain Scale 7-10) Last Admin: 12/21/24 09:19 Dose: 1 mg Documented By: ABEL Ondansetron HCl (Ondansetron Hcl 4 Mg/2 Ml Vial) 4 mg IVPUSH Q8H PRN PRN Reason: Nausea and Vomiting Last Admin: 12/21/24 08:59 Dose: 4 mg Documented By: ABEL Sodium Chloride (0.9 % Sodium Chloride Flush 3 Ml Syringe) 3 ml IVFLUSH [facility] Last Admin: 12/21/24 16:25 Dose: Not Given Documented By: ABEL Non-Admin Reason: IV Running Labs 12/21/24 06:39 12/21/24 06:39 Labs: Laboratory Results - last 24 hr 12/20/24 12/20/24 12/20/24 19:17 19:46 21:17 MCV MCH MCHC RDW Plt Count MPV Immature Gran % (Auto) Neut % (Auto) Lymph % (Auto) [place] % (Auto) Eos % (Auto) Baso % (Auto) Lymph # (Auto) [place] # (Auto) Eos # (Auto) Baso # (Auto) Abs Immat Gran (auto) Absolute Neuts (auto) Absolute Nucleated RBC Nucleated RBC % (auto) PT INR aPTT Heparin Protocol Anion Gap Estim Creat Clear Calc Estimated GFR POC Glucose 203 H 200 H Random Glucose Calcium Urine Color Yellow Urine Appearance Clear Urine pH 6.0 Ur Specific [place] >= 1.030 H Urine Protein Trace Urine Glucose (UA) Negative Urine Ketones Trace Urine Blood Negative Urine Nitrite Negative Ur Leukocyte Esterase Small (1+) H Urine RBC 0-2 Urine WBC 11-20 H Ur Squamous Epith Cells 6-10 Urine Bacteria Trace Hyaline Casts 0-2 12/20/24 12/21/24 12/21/24 23:34 06:39 07:19 MCV 86.3 MCH 27.1 MCHC 31.4 RDW 15.1 Plt Count 161 MPV 10.1 Immature Gran % (Auto) 0.3 Neut % (Auto) 67.6 Lymph % (Auto) 15.7 L [place] % (Auto) 15.2 H Eos % (Auto) 0.5 Baso % (Auto) 0.7 Lymph # (Auto) 0.9 L [place] # (Auto) 0.9 Eos # (Auto) 0.0 Baso # (Auto) 0.0 Abs Immat Gran (auto) 0.02 Absolute Neuts (auto) 3.9 Absolute Nucleated RBC 0.020 H Nucleated RBC % (auto) 0.3 H PT 12.2 INR 1.1 aPTT Heparin Protocol 90.7 H 55.1 D Anion Gap 13 Estim Creat Clear Calc 62.6 Estimated GFR > 60 POC Glucose 185 H Random Glucose 196 H Calcium 9.0 D Urine Color Urine Appearance Urine pH Ur Specific [place] Urine Protein Urine Glucose (UA) Urine Ketones Urine Blood Urine Nitrite Ur Leukocyte Esterase Urine RBC Urine WBC Ur Squamous Epith Cells Urine Bacteria Hyaline Casts 12/21/24 12/21/24 12/21/24 11:24 13:31 16:09 MCV MCH MCHC RDW Plt Count MPV Immature Gran % (Auto) Neut % (Auto) Lymph % (Auto) [place] % (Auto) Eos % (Auto) Baso % (Auto) Lymph # (Auto) [place] # (Auto) Eos # (Auto) Baso # (Auto) Abs Immat Gran (auto) Absolute Neuts (auto) Absolute Nucleated RBC Nucleated RBC % (auto) PT INR aPTT Heparin Protocol 39.9 L D Anion Gap Estim Creat Clear Calc Estimated GFR POC Glucose 170 H 157 H Random Glucose Calcium Urine Color Urine Appearance Urine pH Ur Specific [place] Urine Protein Urine Glucose (UA) Urine Ketones Urine Blood Urine Nitrite Ur Leukocyte Esterase Urine RBC Urine WBC Ur Squamous Epith Cells Urine Bacteria Hyaline Casts Microbiology Microbiology Results: Microbiology 12/20/24 11:15 Blood Culture - Preliminary Blood - Venous No growth after 24 hours. 12/20/24 10:52 Blood Culture - Preliminary Blood - Venous No growth after 24 hours. 12/20/24 Unknown Urine Culture - Preliminary Urine clean catch - Clean Catch Midstream Culture too young to evaluate. Assessment and Plan (1) Pulmonary embolism: Status: Acute (2) Small bowel obstruction: Status: Acute Plan 89 year old women admitted by general surgery due to small bowel obstruction and Pulmonary embolism Small bowel obstruction NGT output as well as vomiting this morning This afternoon seems somewhat better KUB and this shows that the contrast has progressed all the way to the colon. There was no evidence of any small bowel dilatation Management as per surgical team -NGT removed, okay to use ice chips, hopefully will be unclear liquid by tomorrow Acute hypoxic respiratory failure secondary to Pulmonary embolism Discussed with pulmonology to confirm Started on IV heparin drip Venous duplex lower extremities, echo added. Also appears to have atelectasis with a history of bronchiectasis but no obvious consolidation Oxygen to keep oxygen saturation greater than 89%, OxyMask on now Diabetes mellitus type 2 Sliding scale, ADA diet Hold metformin Peripheral neuropathy Hold gabapentin for now Hypertension Stable blood pressure DVT prophylaxis with IV heparin drip Ongoing need of stay: SBO-need hydration, bowel rest, monitor for any surgical intervention, also acute hypoxemic respiratory failure due to pulmonary embolism need for bowel workup and IV heparin drip, PT PTT monitoring closely. Quality Stroke Does the patient have a stroke diagnosis?: No VTE Prior VTE?: Yes VTE Risk Level:: Medical - moderate - high VTE Device Contraindication: N/A - Device Ordered VTE Drug Contraindication: N/A - Med Ordered
[2024-12-21 19:58] LABS: PTT Heparin Drip 105.2 SEC (53-77.9)
[2024-12-21 20:20] LABS: Glucose, Whole Blood 168 mg/dL (60-115)
[2024-12-22] VITALS (7 sets, daily range): BP systolic 102–145; BP diastolic 56–81; PULSE 58–72; RESP 18; TEMP 36.4–36.7; O2SAT 91–99
[2024-12-22 04:07] LABS: Anion Gap 11 (12-20); Blood Urea Nitrogen 15 mg/dL (9-16); Calcium 8.1 mg/dL (8.4-10.2); Carbon Dioxide 31 mmol/L (22-29); Chloride 104 mmol/L (96-108); Creatinine Clr Calc Pharmacy 64.7; Estimated Glomerular Filt Rate > 60; PTT Heparin Drip 51.3 SEC (53-77.9); Potassium 3.4 mmol/L (3.3-5.1); Sodium 143 mmol/L (135-145)
[2024-12-22 07:30] LABS: Glucose, Whole Blood 111 mg/dL (60-115)
--- NOTE | 2024-12-22 07:52 | P.PNGS_ITS ---
Subjective Subjective Date of Service: 12/22/24 <Antonietta Mata PA-C - Last Filed: 12/22/24 07:56> 12/22/24 <Lincoln Cohen MD - Last Filed: 12/22/24 08:10> Interval history: NGT removed yesterday. Denies further nausea or vomiting. Denies abdominal pain. Overall feels better. Had another BM this morning. Asking for tea. < Antonietta Mata PA-C - Last Filed: 12/22/24 07:56> Physical Exam 2 Vital Signs: Vital Signs: Last Vital Signs Temp 98.1 F 12/22/24 07:24 Pulse 62 12/22/24 07:24 Resp 18 12/22/24 07:24 BP 114/56 L 12/22/24 07:24 Pulse Ox 98 12/22/24 07:24 O2 Del Method Nasal Cannula 12/22/24 07:24 O2 Flow Rate 1 12/22/24 07:24 BMI result Body Mass Index 32.3 <Antonietta Mata PA-C - Last Filed: 12/22/24 07:56> Const: General: comfortable, no acute distress and alert <Antonietta Mata PA-C - Last Filed: 12/22/24 07:56> Orientation/consciousness: patient oriented x3 <ARSALAN Reddy Last Filed: 12/22/24 07:56> Resp: Effort & Inspection: normal respiratory effort, able to speak in complete sentences and not tachypneic <Antonietta Mata PA-C - Last Filed: 12/22/24 07:56> GI: Inspection: Yes distended (mild) <Antonietta Mata PA-C - Last Filed: 12/22/24 07:56> Palpation (GI): Soft to palpation, nontender, no guarding and not rigid < ARSALAN Reddy Last Filed: 12/22/24 07:56> Percussion: Yes normal to percussion <ARSALAN Reddy Last Filed: 12/22/24 07:56> Skin: General skin exam: no rashes or lesions noted <ARSALAN Reddy Last Filed: 12/22/24 07:56> Neuro: General: patient oriented x3 and moves all extremities <Antonietta Mata PA-C - Last Filed: 12/22/24 07:56> Objective Data Active Medications Acetaminophen (Acetaminophen 325 Mg Tablet) 650 mg PO Q6H PRN PRN Reason: Pain, Mild 1-3,fever,headache Benzocaine (Throat Lozenge, Medicated Lozenge) 1 lozenge MUCOUS MEM Q2H PRN PRN Reason: Sore throat Dextrose (Dextrose 50 % 25 Gm/50 Ml Syringe) 25 gm IVPUSH Q15M PRN; Protocol PRN Reason: per Hypoglycemia Standing Ord. Glucose (Glucose Gel 15 Gm Gel..Gram.) 15 gm PO Q15M PRN; Protocol PRN Reason: per Hypoglycemia Standing Ord. Heparin Sodium (Porcine) (Heparin Sodium,Porcine 5,000 Unit/Ml Vial) 3,300 unit 40 unit/kg (3300 unit) IVPUSH PROTOCOL BOLUS PRN; Protocol PRN Reason: 40 unit/kg - Heparin Protocol Last Admin: 12/22/24 04:17 Dose: 3,300 unit Documented By: JUVENTINO Heparin Sodium (Porcine) (Heparin Sodium,Porcine 5,000 Unit/Ml Vial) 6,600 unit 80 unit/kg (6600 unit) IVPUSH PROTOCOL BOLUS PRN; Protocol PRN Reason: 80 unit/kg - Heparin Protocol Lactated Ringer's (Lr) 1,000 mls @ 100 mls/hr IVCONT .Q10H [facility] Last Infusion: 12/22/24 07:34 Dose: Infused Documented By: LUIS Heparin Sodium/Sodium Chloride (Heparin Sodium,Porcine/1/2ns) 25,000 unit in 250 mls @ 0 mls/hr IVCONT .Q0M [facility]; Protocol Last Titration: 12/22/24 04:18 Dose: 13 units/kg/hr, 10.75 mls/hr Documented By: JUVENTINO Co-signed By: HOWARD Influenza Virus Vaccine (Flu Vacc [id number](6mo Up)/Pf 0.5 Ml Syringe) 0.5 ml IM .ONCE ONE Stop: 12/22/24 09:01 Insulin Human Lispro (Insulin Lispro 100 Unit/Ml 3 Ml Vial) 0 unit SUBCUT QIDACHS [facility]; Protocol Last Admin: 12/22/24 07:35 Dose: Not Given Documented By: LUIS Non-Admin Reason: No Insulin Coverage Melatonin (Melatonin 3 Mg Tablet) 6 mg PO BEDTIME PRN PRN Reason: Insomnia Morphine Sulfate (Morphine Sulfate 4 Mg/Ml Cartridge) 1 mg IVPUSH Q3H PRN; Protocol PRN Reason: Pain, Severe (Pain Scale 7-10) Last Admin: 12/21/24 09:19 Dose: 1 mg Documented By: ABEL Ondansetron HCl (Ondansetron Hcl 4 Mg/2 Ml Vial) 4 mg IVPUSH Q8H PRN PRN Reason: Nausea and Vomiting Last Admin: 12/21/24 08:59 Dose: 4 mg Documented By: ABEL Sodium Chloride (0.9 % Sodium Chloride Flush 3 Ml Syringe) 3 ml IVFLUSH [facility] Last Admin: 12/21/24 21:36 Dose: 3 ml Documented By: JUVENTINO <Antonietta Mata PA-C - Last Filed: 12/22/24 07:56> Labs CBC & Chem 7: 12/21/24 06:39 12/22/24 03:48 <Antonietta Mata PA-C - Last Filed: 12/22/24 07:56> Labs: Laboratory Results - last 24 hr 12/21/24 12/21/24 12/21/24 11:24 13:31 16:09 aPTT Heparin Protocol 39.9 L D Anion Gap Estim Creat Clear Calc Estimated GFR POC Glucose 170 H 157 H Random Glucose Calcium 12/21/24 12/21/24 12/22/24 19:37 20:17 03:48 aPTT Heparin Protocol 105.2 H D 51.3 L D Anion Gap 11 L Estim Creat Clear Calc 64.7 Estimated GFR > 60 POC Glucose 168 H Random Glucose 127 H Calcium 8.1 L D 12/22/24 07:25 aPTT Heparin Protocol Anion Gap Estim Creat Clear Calc Estimated GFR POC Glucose 111 Random Glucose Calcium <Antonietta Mata PA-C - Last Filed: 12/22/24 07:56> Microbiology Microbiology Results: Microbiology 12/20/24 11:15 Blood Culture - Preliminary Blood - Venous No growth after 24 hours. 12/20/24 10:52 Blood Culture - Preliminary Blood - Venous No growth after 24 hours. 12/20/24 Unknown Urine Culture - Preliminary Urine clean catch - Clean Catch Midstream Culture too young to evaluate. <Antonietta Mata PA-C - Last Filed: 12/22/24 07:56> Procedures Date of Service Date of Service: 12/22/24 <Antonietta Mata PA-C - Last Filed: 12/22/24 07:56> 12/22/24 <Lincoln Cohen MD - Last Filed: 12/22/24 08:10> Progress Note: A&P Assessment and plan (1) Small bowel obstruction: Status: Acute <Antonietta Mata PA-C - Last Filed: 12/22/24 07:56> Assessment and Plan: Continues to feel well this morning Has BMs and flatus Abdomen is soft and benign No nausea or vomiting after NG tube was removed yesterday Okay to have clear liquids Less O2 requirements now Doing much better overall On heparin drip If she does well with clear liquids, okay to start oral anticoagulation Seen and examined independently <Lincoln Cohen MD - Last Filed: 12/22/24 08:10> (2) Pulmonary embolism: Status: Acute <Antonietta Mata PA-C - Last Filed: 12/22/24 07:56> Assessment and Plan: F/u KUB yesterday shows contrast in colon. She has had multiple BMs and NGT removed yesterday. She continues with good GI function, no further vomiting or abdominal pain. VSS. Decreased supplemental oxygen, no respiratory distress. Abd exam benign and soft, nontender. Will advance to clear liquids today. Once tolerating, can begin oral anticoagulation per hospitalist service. Patient comfortable with plan. <Antonietta Mata PA-C - Last Filed: 12/22/24 07:56> Time Spent With Patient Time: Total time managing care of this patient today ____ minutes. <Antonietta Mata PA-C - Last Filed: 12/22/24 07:56> Quality Stroke Does the patient have a stroke diagnosis?: No <ARSALAN Reddy Last Filed: 12/22/24 07:56> VTE Prior VTE?: Yes <Antonietta Mata PA-C - Last Filed: 12/22/24 07:56> VTE Risk Level:: Medical - moderate - high <ARSALAN Reddy Last Filed: 12/22/24 07:56> VTE Device Contraindication: N/A - Device Ordered <ARSALAN Reddy Last Filed: 12/22/24 07:56> VTE Drug Contraindication: N/A - Med Ordered <ARSALAN Reddy Last Filed: 12/22/24 07:56>
[2024-12-22] MEDS: Lactated Ringers 1,000 ML 100 ML IVCONT (08:29)
[2024-12-22] MEDS: 0.9 % Sodium Chloride Flush 3 ML SYRINGE IVFLUSH ×2 (08:38→20:31)
[2024-12-22 10:39] LABS: PTT Heparin Drip 112.4 SEC (53-77.9)
[2024-12-22 11:38] LABS: Glucose, Whole Blood 181 mg/dL (60-115)
[2024-12-22 12:14] LABS: PTT Heparin Drip 71.2 SEC (53-77.9)
[2024-12-22] MEDS: Flu Vacc TS2025-26(6mo up)/PF 0.5 ML SYRINGE IM (12:58)
[2024-12-22 16:25] LABS: Glucose, Whole Blood 145 mg/dL (60-115)
--- NOTE | 2024-12-22 18:24 | HO.PM.IMPN ---
Subjective Subjective Date of Service: 12/22/24 Interval History: pulmonary emboli, SBO Review of Systems Patient denies any shortness of breath, abdominal pain improving, tolerating clear liquids. Review of Systems: Yes all other systems are reviewed and are negative Physical Exam Exam: Exam: Appearance: Alert.? Oriented X3.? not in distress.? cvs: rrr, [id number]. res: clear to auscultation ,no rhonchii or wheezing abd: mild distended,minimum abd discomfort, bs present. ext pulses present , no cyanosis. neuro: axo3 , nonfocal. Vital Signs: Vital Signs: Last Vital Signs Temp 97.8 F 12/22/24 16:00 Pulse 63 12/22/24 16:00 Resp 18 12/22/24 16:00 BP 109/59 L 12/22/24 16:00 Pulse Ox 91 L 12/22/24 16:00 O2 Del Method Room Air 12/22/24 16:00 O2 Flow Rate 2 12/22/24 11:23 BMI result Body Mass Index 32.3 Objective Data Active Medications Acetaminophen (Acetaminophen 325 Mg Tablet) 650 mg PO Q6H PRN PRN Reason: Pain, Mild 1-3,fever,headache Apixaban (Apixaban 5 Mg Tablet) 10 mg PO BID [facility] Stop: 12/28/24 21:01 Last Admin: 12/22/24 13:59 Dose: 10 mg Documented By: LUIS Benzocaine (Throat Lozenge, Medicated Lozenge) 1 lozenge MUCOUS MEM Q2H PRN PRN Reason: Sore throat Dextrose (Dextrose 50 % 25 Gm/50 Ml Syringe) 25 gm IVPUSH Q15M PRN; Protocol PRN Reason: per Hypoglycemia Standing Ord. Glucose (Glucose Gel 15 Gm Gel..Gram.) 15 gm PO Q15M PRN; Protocol PRN Reason: per Hypoglycemia Standing Ord. Insulin Human Lispro (Insulin Lispro 100 Unit/Ml 3 Ml Vial) 0 unit SUBCUT QIDACHS [facility]; Protocol Last Admin: 12/22/24 16:31 Dose: Not Given Documented By: LUIS Non-Admin Reason: No Insulin Coverage Melatonin (Melatonin 3 Mg Tablet) 6 mg PO BEDTIME PRN PRN Reason: Insomnia Morphine Sulfate (Morphine Sulfate 4 Mg/Ml Cartridge) 1 mg IVPUSH Q3H PRN; Protocol PRN Reason: Pain, Severe (Pain Scale 7-10) Last Admin: 12/21/24 09:19 Dose: 1 mg Documented By: ABEL Ondansetron HCl (Ondansetron Hcl 4 Mg/2 Ml Vial) 4 mg IVPUSH Q8H PRN PRN Reason: Nausea and Vomiting Last Admin: 12/21/24 08:59 Dose: 4 mg Documented By: ABEL Sodium Chloride (0.9 % Sodium Chloride Flush 3 Ml Syringe) [facility] Last Admin: 12/22/24 16:41 Dose: Not Given Documented By: LUIS Non-Admin Reason: Previously Administered Labs 12/21/24 06:39 12/22/24 03:48 Labs: Laboratory Results - last 24 hr 12/21/24 12/21/24 12/22/24 19:37 20:17 03:48 aPTT Heparin Protocol 105.2 H D 51.3 L D Anion Gap 11 L Estim Creat Clear Calc 64.7 Estimated GFR > 60 POC Glucose 168 H Random Glucose 127 H Calcium 8.1 L D 12/22/24 12/22/24 12/22/24 07:25 10:08 11:25 aPTT Heparin Protocol 112.4 H* D Anion Gap Estim Creat Clear Calc Estimated GFR POC Glucose 111 181 H Random Glucose Calcium 12/22/24 12/22/24 11:39 16:21 aPTT Heparin Protocol 71.2 D Anion Gap Estim Creat Clear Calc Estimated GFR POC Glucose 145 H Random Glucose Calcium Microbiology Microbiology Results: Microbiology 12/20/24 11:15 Blood Culture - Preliminary Blood - Venous No growth after 48 hours. 12/20/24 10:52 Blood Culture - Preliminary Blood - Venous No growth after 48 hours. 12/20/24 Unknown Urine Culture - Final Urine clean catch - Clean Catch Midstream Assessment and Plan (1) Pulmonary embolism: Status: Acute (2) Small bowel obstruction: Status: Acute Plan 89 year old women admitted by general surgery due to small bowel obstruction and Pulmonary embolism Small bowel obstruction KUB and this shows that the contrast has progressed all the way to the colon. There was no evidence of any small bowel dilatation Management as per surgical team -NGT removed, seems improving abdominal pain and nausea ureña, added clear liquid diet Acute hypoxic respiratory failure secondary to Pulmonary embolism Discussed with pulmonology to confirm Switched to p.o. Eliquis Venous duplex lower extremities, echo added. Also appears to have atelectasis with a history of bronchiectasis but no obvious consolidation Oxygen to keep oxygen saturation greater than 89%, OxyMask on now Diabetes mellitus type 2 Sliding scale, ADA diet Hold metformin Peripheral neuropathy Hold gabapentin for now Hypertension Stable blood pressure DVT prophylaxis with IV heparin drip Quality Stroke Does the patient have a stroke diagnosis?: No VTE Prior VTE?: No VTE Risk Level:: Medical - moderate - high VTE Device Contraindication: N/A - Device Ordered VTE Drug Contraindication: N/A - Med Ordered
[2024-12-22 19:49] LABS: PTT Heparin Drip 28.8 SEC (53-77.9)
[2024-12-22 20:51] LABS: Glucose, Whole Blood 192 mg/dL (60-115)
[2024-12-23 03:23] VITALS: BP 178/80; PULSE 68; RESP 18; TEMP 36.6; O2SAT 96
[2024-12-23 07:30] VITALS: BP 128/60; PULSE 63; RESP 14; TEMP 36.6; O2SAT 93
[2024-12-23 07:36] LABS: Glucose, Whole Blood 163 mg/dL (60-115)
--- NOTE | 2024-12-23 07:54 | PM.PNGS ---
Subjective Subjective Date of Service: 12/26/24 Interval history: Feels well this morning Has BMs Denies abdominal pain Says she did not sleep well last night - she says that this happens to her periodically even at home Physical Exam Vital Signs: Vital Signs: Last Vital Signs Temp 97.8 F 12/23/24 07:30 Pulse 63 12/23/24 07:30 Resp 14 12/23/24 07:30 BP 128/60 12/23/24 07:30 Pulse Ox 93 12/23/24 07:30 O2 Del Method Room Air 12/23/24 07:30 O2 Flow Rate 2 12/22/24 11:23 BMI result Body Mass Index 32.3 Const: Other: Sitting on recliner General: comfortable and no acute distress Resp: Effort & Inspection: normal respiratory effort Cardio: Rate: regular rate GI: Palpation (GI): Soft to palpation, not firm and nontender Objective Data Active Medications Acetaminophen (Acetaminophen 325 Mg Tablet) 650 mg PO Q6H PRN PRN Reason: Pain, Mild 1-3,fever,headache Last Admin: 12/23/24 05:55 Dose: 650 mg Documented By: JUVENTINO Apixaban (Apixaban 5 Mg Tablet) 10 mg PO BID [facility] Stop: 12/28/24 21:01 Last Admin: 12/22/24 20:30 Dose: 10 mg Documented By: JUVENTINO Benzocaine (Throat Lozenge, Medicated Lozenge) 1 lozenge MUCOUS MEM Q2H PRN PRN Reason: Sore throat Dextrose (Dextrose 50 % 25 Gm/50 Ml Syringe) 25 gm IVPUSH Q15M PRN; Protocol PRN Reason: per Hypoglycemia Standing Ord. Glucose (Glucose Gel 15 Gm Gel..Gram.) 15 gm PO Q15M PRN; Protocol PRN Reason: per Hypoglycemia Standing Ord. Insulin Human Lispro (Insulin Lispro 100 Unit/Ml 3 Ml Vial) 0 unit SUBCUT QIDACHS [facility]; Protocol Last Admin: 12/22/24 21:13 Dose: 2 unit Documented By: JUVENTINO Melatonin (Melatonin 3 Mg Tablet) 6 mg PO BEDTIME PRN PRN Reason: Insomnia Morphine Sulfate (Morphine Sulfate 4 Mg/Ml Cartridge) 1 mg IVPUSH Q3H PRN; Protocol PRN Reason: Pain, Severe (Pain Scale 7-10) Last Admin: 12/21/24 09:19 Dose: 1 mg Documented By: ABEL Ondansetron HCl (Ondansetron Hcl 4 Mg/2 Ml Vial) 4 mg IVPUSH Q8H PRN PRN Reason: Nausea and Vomiting Last Admin: 12/21/24 08:59 Dose: 4 mg Documented By: ABEL Sodium Chloride (0.9 % Sodium Chloride Flush 3 Ml Syringe) [facility] Last Admin: 12/22/24 20:31 Dose: 3 ml Documented By: JUVENTINO Labs 12/21/24 06:39 12/22/24 03:48 Labs: Laboratory Results - last 24 hr 12/22/24 12/22/24 12/22/24 10:08 11:25 11:39 aPTT Heparin Protocol 112.4 H* D 71.2 D POC Glucose 181 H 12/22/24 12/22/24 12/22/24 16:21 18:57 20:33 aPTT Heparin Protocol 28.8 L D POC Glucose 145 H 192 H 12/23/24 07:32 aPTT Heparin Protocol POC Glucose 163 H Microbiology Microbiology Results: Microbiology 12/20/24 11:15 Blood Culture - Preliminary Blood - Venous No growth after 48 hours. 12/20/24 10:52 Blood Culture - Preliminary Blood - Venous No growth after 48 hours. 12/20/24 Unknown Urine Culture - Final Urine clean catch - Clean Catch Midstream Procedures Date of Service Date of Service: 12/26/24 Progress Note: A&P Assessment and plan (1) Small bowel obstruction: Status: Acute Assessment and Plan: Symptoms have resolved Tolerating clear liquids Question enteritis? Abdomen is soft and benign Regular diet Possible DC home today on anticoagulation She looks well overall Time Spent With Patient Time: Total time managing care of this patient today ____ minutes. Quality Stroke Does the patient have a stroke diagnosis?: No VTE Prior VTE?: No VTE Risk Level:: Medical - moderate - high VTE Device Contraindication: N/A - Device Ordered VTE Drug Contraindication: N/A - Med Ordered
[2024-12-23] MEDS: 0.9 % Sodium Chloride Flush 3 ML SYRINGE IVFLUSH (08:01)
--- NOTE | 2024-12-23 08:17 | HO.PM.IMPN ---
Subjective Subjective Date of Service: 12/23/24 Interval History: SBO, pulmonary embolism Review of Systems Denies any abdominal pain, shortness of breath or chest pain or any nausea vomiting. Tolerating diet Review of Systems: Yes all other systems are reviewed and are negative Physical Exam Exam: Exam: Appearance: Alert.? Oriented X3.? not in distress.? No shortness of breath cvs: rrr, [id number]. res: clear to auscultation ,no rhonchii or wheezing abd: soft, nd,nt , bs present. ext pulses present , no cyanosis. neuro: axo3 , nonfocal. Vital Signs: Vital Signs: Last Vital Signs Temp 97.8 F 12/23/24 07:30 Pulse 63 12/23/24 07:30 Resp 14 12/23/24 07:30 BP 128/60 12/23/24 07:30 Pulse Ox 93 12/23/24 07:30 O2 Del Method Room Air 12/23/24 07:30 O2 Flow Rate 2 12/22/24 11:23 BMI result Body Mass Index 32.3 Objective Data Active Medications Acetaminophen (Acetaminophen 325 Mg Tablet) 650 mg PO Q6H PRN PRN Reason: Pain, Mild 1-3,fever,headache Last Admin: 12/23/24 05:55 Dose: 650 mg Documented By: JUVENTINO Apixaban (Apixaban 5 Mg Tablet) 10 mg PO BID [facility] Stop: 12/28/24 21:01 Last Admin: 12/23/24 07:59 Dose: 10 mg Documented By: MARLINE Benzocaine (Throat Lozenge, Medicated Lozenge) 1 lozenge MUCOUS MEM Q2H PRN PRN Reason: Sore throat Dextrose (Dextrose 50 % 25 Gm/50 Ml Syringe) 25 gm IVPUSH Q15M PRN; Protocol PRN Reason: per Hypoglycemia Standing Ord. Glucose (Glucose Gel 15 Gm Gel..Gram.) 15 gm PO Q15M PRN; Protocol PRN Reason: per Hypoglycemia Standing Ord. Insulin Human Lispro (Insulin Lispro 100 Unit/Ml 3 Ml Vial) 0 unit SUBCUT QIDACHS [facility]; Protocol Last Admin: 12/23/24 08:10 Dose: 2 unit Documented By: MARLINE Melatonin (Melatonin 3 Mg Tablet) 6 mg PO BEDTIME PRN PRN Reason: Insomnia Morphine Sulfate (Morphine Sulfate 4 Mg/Ml Cartridge) 1 mg IVPUSH Q3H PRN; Protocol PRN Reason: Pain, Severe (Pain Scale 7-10) Last Admin: 12/21/24 09:19 Dose: 1 mg Documented By: ABEL Ondansetron HCl (Ondansetron Hcl 4 Mg/2 Ml Vial) 4 mg IVPUSH Q8H PRN PRN Reason: Nausea and Vomiting Last Admin: 12/21/24 08:59 Dose: 4 mg Documented By: ABEL Sodium Chloride (0.9 % Sodium Chloride Flush 3 Ml Syringe) 3 ml IVFLUSH QSHIFT [facility] Last Admin: 12/23/24 08:01 Dose: 3 ml Documented By: DOBROB Labs 12/21/24 06:39 12/22/24 03:48 Labs: Laboratory Results - last 24 hr 12/22/24 12/22/24 12/22/24 10:08 11:25 11:39 aPTT Heparin Protocol 112.4 H* D 71.2 D POC Glucose 181 H 12/22/24 12/22/24 12/22/24 16:21 18:57 20:33 aPTT Heparin Protocol 28.8 L D POC Glucose 145 H 192 H 12/23/24 07:32 aPTT Heparin Protocol POC Glucose 163 H Microbiology Microbiology Results: Microbiology 12/20/24 11:15 Blood Culture - Preliminary Blood - Venous No growth after 48 hours. 12/20/24 10:52 Blood Culture - Preliminary Blood - Venous No growth after 48 hours. 12/20/24 Unknown Urine Culture - Final Urine clean catch - Clean Catch Midstream Assessment and Plan (1) Pulmonary embolism: Status: Acute (2) Small bowel obstruction: Status: Acute Plan 89 year old women admitted by general surgery due to small bowel obstruction and Pulmonary embolism Small bowel obstruction KUB and this shows that the contrast has progressed all the way to the colon. There was no evidence of any small bowel dilatation Management as per surgical team -NGT removed, seems improving abdominal pain and nausea ureña, diet advanced and tolerating. Acute hypoxic respiratory failure secondary to Pulmonary embolism Discussed with pulmonology to confirm Switched to p.o. Eliquis Venous duplex lower extremities, echo added. Also appears to have atelectasis with a history of bronchiectasis but no obvious consolidation improved off oxygen, sats in 95% Continue Eliquis 10 mg p.o. b.i.d. for 1 week and then switch to Eliquis 5 mg p.o. b.i.d., consider outpatient coagulation workup and hematology evaluation. Diabetes mellitus type 2 Sliding scale, ADA diet Continue home medication report discharge Peripheral neuropathy gabapentin Above management discussed with the patient and family in detail length as well as surgical team. Quality Stroke Does the patient have a stroke diagnosis?: No VTE Prior VTE?: No VTE Risk Level:: Medical - moderate - high VTE Device Contraindication: N/A - Device Ordered VTE Drug Contraindication: N/A - Med Ordered
[2024-12-23 11:21] VITALS: BP 122/57; PULSE 64; RESP 18; TEMP 36.2; O2SAT 95
[2024-12-23 11:35] LABS: Glucose, Whole Blood 252 mg/dL (60-115)
--- NOTE | 2024-12-23 13:54 | PM.DS ---
DS: Providers Provider Date of Service: 12/23/24 Date of admission: 12/20/24 15:39 Date of discharge: 12/23/24 Primary care physician: Monse Medina MD Attending physician on admission: Lincoln Cohen Consults: 12/20/24 15:42 Consult to Hospitalist Routine Comment: Consulting Provider: [facility] Hospitalists Reason For Exam: HTN, h/o PE/DVT, DM Attending physician on discharge: Lincoln Cohen DS: Diagnosis Discharge Diagnosis (1) Pulmonary embolism: Status: Acute DS: Summary Hospital Course Hospital Course: HPI AT ADMISSION: Maryellen Acosta is a 89 year old female history of PE, unprovoked, as well stroke, diabetes, here in the ER because of pain and vomiting. She apparently had been unwell for about a week now with some vague abdominal discomfort and diarrhea. She had self-medicated with a Lomotil. She started to have multiple episodes of vomiting overnight and some abdominal pain. She was therefore brought to the emergency room by her daughter. She had an unprovoked PE about 6 years ago. She was placed on anticoagulation of the time. She also had a stroke months ago and was admitted here in this hospital. She is currently just on aspirin. According to the daughter, she has been having diarrhea. CT scan shows dilated small bowel loops with decompressed small bowel loops distally with good amounts of air in the colon and a loop of small bowel that appears to have fecalization concerning of SBO. HOSPITAL COURSE: She was admitted to the surgical service for further treatment of the SBO. NGT was placed in the ED and continued for bowel rest, IVF. She became hypoxic and developed dyspnea in the ED. Chest CT angiogram showed linear density in the vessels towards the left lower lobe representing a PE. Hospitalist consult was consulted for medical management. Pulmonology was consulted who recommended anticoagulation and she was started on a heparin drip. Bilateral lower extremity venous duplex ultrasounds were performed which were negative for DVT. SBFT was attempted and she was given contrast via NGT and tube was clamped following however she began vomiting after and her tube was hooked back up. Repeat KUB was obtained later in the day which showed contrast in colon without dilated small bowel loops. She began to have bowel movements. Her NGT was removed. She was advanced to clear liquids and then solids as tolerated. Once she was tolerating oral intake, she was transitioned to oral eliquis for treatment of her PE. She was weaned off supplemental oxygen. She remained hemodynamically stable. Her abdominal symptoms resolved and she was tolerating a solid diet. She had no shortness of breath. She was discharged to home on 12/23/24 in stable condition. She was discharged on eliquis 10mg PO BID for a total of 1 week then eliquis 5mg PO BID. She is to follow up with her PCP upon discharge for further management. Status at Discharge Overall status at discharge: patient is progressing back to baseline Time Attestation Discharge Coordination Time (in mins): 40 Quality: Safe Use of Opioids Does Pt have an Active Cancer Diagnosis on the Problem List?: No Quality: Stroke Does the patient have a stroke diagnosis?: No Physical Exam Vital Signs: Vital Signs: Last Vital Signs Temp 97.2 F 12/23/24 11:21 Pulse 64 12/23/24 11:21 Resp 18 12/23/24 11:21 BP 122/57 L 12/23/24 11:21 Pulse Ox 95 12/23/24 11:21 O2 Del Method Room Air 12/23/24 11:21 O2 Flow Rate 2 12/22/24 11:23 BMI result Body Mass Index 32.3 Const: General: comfortable, no acute distress and alert Orientation/consciousness: patient oriented x3 Resp: Effort & Inspection: normal respiratory effort, able to speak in complete sentences, not labored and not tachypneic GI: Inspection: No distended Palpation (GI): Soft to palpation, nontender and no guarding Skin: General skin exam: no rashes or lesions noted Neuro: General: patient oriented x3 and moves all extremities DS: Data Data Completed and Pending Completed studies during hospitalization [Text1]: Procedures Introduction of Other Thrombolytic into Peripheral Vein, Percutaneous Approach (05/08/24) Discharge Plan Discharge Anticipated Discharge Date/Time: 12/23/24 13:43 Patient Disposition: Home, Self-Care Discharge Diagnosis: SBO, pulmonary embolism Referrals: Monse Medina MD [Primary Care Provider, Internal Medicine] - 1 Week Discharge Medications: New Eliquis 5 mg tablet 10 mg PO BID Qty: 90 0RF Rx Instructions: eliquis 10mg BID PO for 1 week then eliquis 5mg BID PO Continued metformin 500 mg Tablet 500 mg PO BID aspirin 81 mg Tablet,Delayed Release (Dr/Ec) 81 mg PO DAILY Qty: 90 0RF atorvastatin 10 mg tablet 10 mg PO BEDTIME gabapentin 300 mg capsule 300 mg PO BEDTIME omeprazole 20 mg capsule,delayed release(DR/EC) 20 mg PO DAILY PRN (Reason: Acid Reflux) gabapentin 300 mg capsule 300 mg PO DAILY PRN (Reason: Pain) amlodipine 2.5 mg Tablet 2.5 mg PO DAILY glipizide 5 mg Tablet 5 mg PO DAILY Discharge Orders: Discharge Order (Routine); Ordered 12/23/24 Ordered By: Antonietta Mata Diet: Advance to usual diet Activity on Discharge: As tolerated Stand Alone Forms: Patient Portal Discharge page Print Language: Syriac Activity Restrictions/Additional Instructions: Follow up with your primary care provider upon discharge. Eliquis 10mg by mouth twice a day for 1 week; then eliquis 5mg by mouth twice a day Call Your Doctor If: ? ? -Your temperature exceeds 101.5? F? ? ? -You experience excessive pain or swelling ? ? -You have an unexpected reaction to medication ? ? -You experience continued vomiting/nausea -You become short of breath, develop chest pain, difficulty breathing Care Plan Goals: Return to baseline health and resume normal activities. Health Concerns: small bowel obstruction pulmonary embolism hx of diabetes mellitus Plan of Treatment: observation and small bowel follow through, advancement of diet anticoagulation with IV heparin transitioned to oral eliquis BID Follow up with primary care provider Assessment: Improved, stable Discharge Date/Time: 12/23/24 15:00
--- NOTE | 2024-12-23 15:42 | MHC.CM.PN ---
PT IS MEDICALLY CLEARED FOR DISCHARGE HOME WITH FAMILY SUPPORT, PTS DAUGHTER WILL TRANSPORT HER HOME TODAY.
== END 2024-12-23 15:00 | disposition home or self-care (01) | DRG 247 ==
LOC: HO.ED 14:36 → HO.EDOVER 16:08 → HO.IMC 19:47
PROVIDERS: Internal Medicine; Physician Assistant Medical; Admitting Provider Surgery; Emergency Provider Emergency Medicine; PCP Family Medicine; Visit Provider Surgery
DX: K56.600 Partial intestinal obstruction, unspecified as to cause (principal); J96.01 Acute respiratory failure with hypoxia; I26.99 Other pulmonary embolism without acute cor pulmonale; E11.42 Type 2 diabetes mellitus with diabetic polyneuropathy; I10 Essential (primary) hypertension; Z20.822 Contact with and (suspected) exposure to COVID-19; Z79.82 Long term (current) use of aspirin; Z79.84 Long term (current) use of oral hypoglycemic drugs; Z79.899 Other long term (current) drug therapy
CPT/HCPCS: 36415; 71045; 71275; 74018; 74176; 74250; 76705; 80048; 80076; 81001; 82803; 82947; 83605; 83735; 83880; 84484; 85025; 85027; 85379; 85610; 85730; 87040; 87086; 87502; 87635; 90656; 93005; 93306; 93970; 97162; 97535; 99285; J1644; J2270; J2405; J2470; J7120; Q9967

== ENCOUNTER → 2024-12-20 10:19 | Outpatient (BNV) | payer SELFPAY | PROVIDERS: Admitting Provider Surgery; Emergency Provider Emergency Medicine; PCP Family Medicine; Visit Provider Internal Medicine | DX: R00.0 Tachycardia, unspecified (principal); I25.2 Old myocardial infarction | CPT/HCPCS: 93010 ==

== ENCOUNTER → 2024-12-20 10:22 | Outpatient (BNV) | payer MEDICAID, SELFPAY | PROVIDERS: Emergency Provider Emergency Medicine; PCP Family Medicine; Visit Provider Radiology Diagnostic Radiology | DX: J84.10 Pulmonary fibrosis, unspecified (principal); R91.1 Solitary pulmonary nodule; J47.9 Bronchiectasis, uncomplicated; M51.34 Other intervertebral disc degeneration, thoracic region; N28.89 Other specified disorders of kidney and ureter; K56.609 Unspecified intestinal obstruction, unspecified as to partial versus complete obstruction; N28.1 Cyst of kidney, acquired; Z46.59 Encounter for fitting and adjustment of other gastrointestinal appliance and device; R09.02 Hypoxemia | CPT/HCPCS: 71045; 71275; 74176; 76705 ==

== ENCOUNTER 2024-12-20 15:39 | Outpatient (BNV) | payer MEDICAID, SELFPAY | END 2024-12-21 07:56 | PROVIDERS: Admitting Provider Surgery; Emergency Provider Emergency Medicine; PCP Family Medicine; Visit Provider Radiology Diagnostic Radiology | DX: K56.609 Unspecified intestinal obstruction, unspecified as to partial versus complete obstruction (principal); M79.604 Pain in right leg; M79.605 Pain in left leg | CPT/HCPCS: 74018; 74250; 93970 ==

== ENCOUNTER 2024-12-20 15:39 | Outpatient (BNV) | payer MEDICAID, SELFPAY | END 2024-12-21 12:00 | PROVIDERS: Admitting Provider Surgery; Emergency Provider Emergency Medicine; PCP Family Medicine; Visit Provider Internal Medicine | DX: I51.89 Other ill-defined heart diseases (principal) | CPT/HCPCS: 93306 ==

== ENCOUNTER → 2024-12-20 15:39 | Outpatient (BNV) | payer MEDICAID, SELFPAY | PROVIDERS: Admitting Provider Surgery; Emergency Provider Emergency Medicine; PCP Family Medicine; Visit Provider Internal Medicine | DX: I26.99 Other pulmonary embolism without acute cor pulmonale (principal); K56.609 Unspecified intestinal obstruction, unspecified as to partial versus complete obstruction | CPT/HCPCS: 99222; 99231; 99232 ==

== ENCOUNTER → 2024-12-20 15:39 | Outpatient (BNV) | payer MEDICAID, SELFPAY | PROVIDERS: Admitting Provider Surgery; Emergency Provider Emergency Medicine; PCP Family Medicine; Visit Provider Physician Assistant Surgical | DX: K56.609 Unspecified intestinal obstruction, unspecified as to partial versus complete obstruction (principal); I26.99 Other pulmonary embolism without acute cor pulmonale | CPT/HCPCS: 99222; 99232; 99499 ==

== ENCOUNTER 2024-12-29 06:34 | Emergency (ER) | payer MEDICAID, OTHER, SELFPAY ==
[2024-12-29 06:47] VITALS: BP 145/68; PULSE 88; RESP 20; TEMP 36.1; O2SAT 98; BMI 32.2
--- NOTE | 2024-12-29 06:58 | ED.GENADULT ---
HPI - General Adult General Chief complaint: Epistaxis Stated complaint: Epistaxis - pt is on eliquis Time Seen by Provider: 12/29/24 06:58 History of Present Illness ED Provider: Liliam VAZQUEZ narrative: The patient is an 89-year-old woman who was recently hospitalized for a small-bowel obstruction. During that hospitalization she also had an episode of hypoxia and was found to have a possible pulmonary embolism and was anticoagulated. she was hospitalized 10 days ago, presenting to the emergency room on December 20. She had a CT pulmonary angiogram in the emergency department showing what was thought to be a pulmonary embolism. She was also given an NG tube for a small-bowel obstruction. She improved while in the hospital and did not have surgery. She was discharged from the hospital on December 23, 6 days prior to presentation. She has been on apixaban 10 mg b.i.d. since discharge. This morning the patient woke up at home with a bloody nose from her right nostril. the patient's daughter is a general surgeon and had some Gel-Foam at home that she placed in the right nostril to try to control the bleeding. Despite this the bleeding continued and the patient was brought to the emergency department. No trauma. Her last dose of apixaban was yesterday evening. Related Data Home Medications ?Medication ?Instructions ?Recorded ?Confirmed metformin 500 mg tablet 500 mg PO BID 05/08/24 12/20/24 amlodipine 2.5 mg tablet 2.5 mg PO DAILY 12/20/24 12/20/24 atorvastatin 10 mg tablet 10 mg PO BEDTIME 12/20/24 12/20/24 gabapentin 300 mg capsule 300 mg PO BEDTIME 12/20/24 12/20/24 gabapentin 300 mg capsule 300 mg PO DAILY PRN Pain 12/20/24 12/20/24 glipizide 5 mg tablet 5 mg PO DAILY 12/20/24 12/20/24 omeprazole 20 mg capsule,delayed 20 mg PO DAILY PRN Acid Reflux 12/20/24 12/20/24 release Previous Rx's ?Medication ?Instructions ?Recorded aspirin 81 mg tablet,delayed 81 mg PO DAILY #90 tabs 05/10/24 release apixaban 5 mg tablet (Eliquis) 10 mg (2 x 5 mg) PO BID #90 tabs 12/23/24 Allergies Allergy/AdvReac Type Severity Reaction Status Date / Time No Known Allergies Allergy Verified 12/29/24 06:50 Review of Systems Review of Systems: Yes all other systems are reviewed and are negative FOR[facility]LY [facility] Past Medical History Medical History Diabetes HTN (hypertension) Social History Social History Household Members: Family Housing: House Do you presently have visiting nurse or other home services: No Patient Tobacco Use Status: Never used Tobacco Advance Directives: Yes Advance Directives on File: Yes Advance Directives Date on File: 05/08/24 Do you have a plan to hurt others: No Plan service: No Physical Exam ED Vital Signs: Vital Signs - 24 hr 12/29/24 06:47 12/29/24 07:13 12/29/24 09:22 Temperature 97.0 F 0 F L Pulse Rate 88 85 65 Respiratory Rate 20 17 Blood Pressure 145/68 H 156/81 H 180/82 H Pulse Oximetry 98 95 Oxygen Delivery Method Room Air Room Air BMI result Body Mass Index 32.2 Const Other: The patient is an 89-year-old woman who was awake and alert. A nasal clamp had been applied to her nose. She does not seem to have ongoing distress. No respiratory distress. She was pleasant cooperative. Orientation/consciousness: patient oriented x3 HENMT Other: There was a lot of clot in the right nostril. there wa also blood in the mouth. Eyes Other: Pupils are round equal, conjunctivae are clear, extraocular movements intact Neck Neck: Yes normal visual inspection and Yes full ROM Resp Effort & Inspection: normal respiratory effort Auscultation: clear to auscultation bilaterally Cardio Rate: regular rate Rhythm: regular rhythm Heart sounds: S1 normal heart sound present and S2 normal heart sound present Skin Other: The skin is dry and unremarkable Neuro General: patient oriented x3, tone normal, moves all extremities, no focal motor deficits and CN's II-XI intact bilaterally Extrem Other: There is no calf swelling or tenderness. No asymmetry. No peripheral edema. Medications Administered Discontinued Medications Generic Name Dose Route Start Last Admin Trade Name Freq PRN Reason Stop Dose Admin Cocaine HCl 4 ml 12/29/24 07:00 12/29/24 07:07 Cocaine Hcl 4 % 4 Ml Solution TOPICAL 12/29/24 07:01 4 ml ONCE ONE Administration Protocol Oxymetazoline HCl 2 spray 12/29/24 07:00 12/29/24 07:07 Oxymetazoline Hcl 0.05 % Nasal 15 Ml Jayess NOSTRIL-B 12/29/24 07:01 2 spray ONCE ONE Administration Procedures Epistaxis Control Time Out Performed: Yes Nostril: Yes right Nose prepped with: Yes cocaine 4% and Yes oxymetazoline Direct inspection: Yes anterior source identified Direct inspection method: Yes nasal speculum Clots removed by: Yes blowing nose Epistaxis treatment: Yes silver nitrate cautery Results of treatment: Yes bleeding controlled Complications: Yes none Medical Decision Making Medical Decision Making MDM Narrative: The patient is a very pleasant 89-year-old who was recently hospitalized for small bowel obstruction and was also found to have a peripheral pulmonary embolism. She was anticoagulated while in the hospital from December 20 through December 23. She since leaving the hospital on December 23 she has been taking apixaban 10 mg b.i.d., last dose yesterday evening. She has a spontaneous right-sided nosebleed this morning. I had the patient blow her nose and cleared the right nostril of a lot of clot and some Gelfoam. I then administered several scope brace of oxymetazoline and reapplied the nasal clamp. Approximately 10 minutes later I placed a cotton ball soaked in 4% cocaine in the right nostril and reapplied the nasal clamp. approximately 10 minute later I examined the right nostril with a nasal speculum. The bleeding had stopped. There were 2 areas on the nasal septum in the right nostril which I thought were the sites of recent bleeding. I cauterized these sites with silver nitrate sticks. The patient was then observed. She had no recurrence of bleeding. She seemed comfortable. I spoke to the patient and her daughter, a general surgeon, about whether additional intervention was necessary, specifically whether a packing should be placed. At this point since there is no ongoing bleeding and since I felt that I cauterized the sites of bleeding I felt that it would be reasonable to forego any additional intervention at this time. With regard to the patient's anticoagulation I reviewed her recent hospitalization. The CT scan done on December 20 showed small peripheral pulmonary embolism. She had also had bilateral lower extremity ultrasounds of her legs that showed no DVTs in the legs. I explained to the patient and to her daughter that given the absence of any clot seen in the legs that it was still possible that there might be some clot burden in the pelvis but that on the whole, since she has already had over a week of anticoagulation, I felt that the patient probably does not require finishing the full week of the higher dose of apixaban. my ultimate recommendation was that the patient hold this morning's dose of apixaban and this evening's dose of apixaban and then resume apixaban tomorrow morning (provided there is no recurrence nose bleeding) at the maintenance dose of 5 mg b.i.d.. The patient will be discharged with contact information for ENT office is for follow-up. They should return to the emergency room if worse. I spoke to the family about trying to manage any minor recurrence of bleeding at home. If significant bleeding they should return to the emergency room. Lab Data 12/29/24 08:07 12/29/24 08:07 Labs: Lab Results 12/29/24 Range/Units 08:07 WBC 9.9 (4.8-10.8) X10*3/uL RBC 4.62 (4.20-5.50) X10*6/uL Hgb 12.7 (12.0-16.0) g/dl Hct 39.0 (37.0-47.0) % MCV 84.4 (80.0-98.0) fL MCH 27.5 (27.0-33.0) pg MCHC 32.6 (31.0-35.0) g/dl RDW 14.6 (11.0-16.0) % Plt Count 208 D (160-400) X10*3/uL MPV 9.7 (9.4-12.3) fL Immature Gran % (Auto) 2.2 H (0.0-0.4) % Neut % (Auto) 65.6 (45-73) % Lymph % (Auto) 23.5 (20-40) % Surry % (Auto) 7.8 (2-11) % Eos % (Auto) 0.6 (0-4) % Baso % (Auto) 0.3 (0-2) % Lymph # (Auto) 2.3 (1.2-4.9) X10*3/uL Surry # (Auto) 0.8 (0.1-1.2) X10*3/uL Eos # (Auto) 0.1 (0.0-0.4) X10*3/uL Baso # (Auto) 0.0 (0.0-0.2) X10*3/uL Abs Immat Gran (auto) 0.22 H (0.00-0.03) X10*3/uL Absolute Neuts (auto) 6.5 (2.0-8.3) x10*3/uL Absolute Nucleated RBC 0.000 (0.0-0.012) X10*3/uL Nucleated RBC % (auto) 0.0 (0.0-0.2) /100WBC PT 13.2 H (10.9-12.4) SEC INR 1.2 H (0.9-1.1) Sodium 141 (135-145) mmol/L Potassium 4.2 D (3.3-5.1) mmol/L Chloride 106 (96-108) mmol/L Carbon Dioxide 29 (22-29) mmol/L Anion Gap 10 L (12-20) BUN 13 (9-16) mg/dL Creatinine 0.56 (0.5-1.4) mg/dL Estim Creat Clear Calc 69.2 Estimated GFR > 60 Random Glucose 220 H (60-115) mg/dL Calcium 9.2 D (8.4-10.2) mg/dL Total Bilirubin 0.4 (0.0-1.0) mg/dL AST 17 (5-31) U/L ALT 24 (0-31) U/L Alkaline Phosphatase 62 (39-117) U/L Total Protein 6.7 (6.5-8.0) g/dL Albumin 3.9 (3.5-5.0) g/dL Discharge Plan Discharge Clinical Impression: Right-sided epistaxis Patient Disposition: Home, Self-Care Instructions: Nosebleed (ED) Additional Instructions: The site of bleeding has been cauterized. I hope that this is effective. I think skipping the dose of apixaban (Eliquis) this morning and this evening is reasonable because the pulmonary embolism was so small. Furthermore I think it would also be reasonable to resume the apixaban (Eliquis) tomorrow morning at the lower dose of 5 mg two times a day. If there is any bleeding at home you can try to manage this at home by having her blow out the blood clots ( have her blow her nose with tissues to clear the nostril) and then administering several squirts of oxymetazoline ([id number] Afrin). Then reapply the nasal clamp for 20 minutes. If after 20 minutes there is no additional bleeding you may stay home instead of returning to the emergency room. If this does not work at home you should return to the emergency room. Also today please try to contact an ENT office to arrange a follow up appointment for next week. You have the contact information for the [place] [facility]NT doctor also for the larger practice of [facility]. Return to the emergency room if worse. Prescriptions: No Action metformin 500 mg Tablet 500 mg PO BID aspirin 81 mg Tablet,Delayed Release (Dr/Ec) 81 mg PO DAILY Qty: 90 0RF atorvastatin 10 mg tablet 10 mg PO BEDTIME gabapentin 300 mg capsule 300 mg PO BEDTIME omeprazole 20 mg capsule,delayed release(DR/EC) 20 mg PO DAILY PRN (Reason: Acid Reflux) gabapentin 300 mg capsule 300 mg PO DAILY PRN (Reason: Pain) amlodipine 2.5 mg Tablet 2.5 mg PO DAILY glipizide 5 mg Tablet 5 mg PO DAILY Eliquis 5 mg tablet 10 mg PO BID Qty: 90 0RF Rx Instructions: eliquis 10mg BID PO for 1 week then eliquis 5mg BID PO Referrals: [facility] [Outside] Storm Martini [Physician, Ear, Nose, Throat] Interventions: ED Discharge Assessment Last Done: 12/29/24 09:22 Discharge Date/Time: 12/29/24 09:23 Print Language: Estonian
[2024-12-29] MEDS: Cocaine HCl 4 % 4 ML SOLUTION TOPICAL (07:07)
[2024-12-29] MEDS: Oxymetazoline HCl 0.05 % Nasal 15 ML SPRAY 2 SPRAY NOSTRIL-B (07:07)
[2024-12-29 07:13] VITALS: BP 156/81; PULSE 85
[2024-12-29 08:11] LABS: MANUAL DIFF FLAG NO
[2024-12-29 08:14] LABS: Hematocrit 39.0 % (37.0-47.0); Hemoglobin 12.7 g/dl (12.0-16.0); Imm Gran Abs Auto 0.22 X10*3/uL (0.00-0.03); Imm Gran Pct Auto 2.2 % (0.0-0.4); Lymphocytes Absolute Auto 2.3 X10*3/uL (1.2-4.9); Mean Corpuscular HGB Conc 32.6 g/dl (31.0-35.0); Mean Corpuscular Hemoglobin 27.5 pg (27.0-33.0); Mean Corpuscular Volume 84.4 fL (80.0-98.0); NRBC Abs Auto 0.000 X10*3/uL (0.0-0.012); NRBC Pct Auto 0.0 /100WBC (0.0-0.2); Platelet Count 208 X10*3/uL (160-400); Red Blood Count 4.62 X10*6/uL (4.20-5.50); White Blood Count 9.9 X10*3/uL (4.8-10.8)
[2024-12-29 08:20] LABS: INTERNATIONAL NORM RATIO 1.2 (0.9-1.1); Prothrombin Time 13.2 SEC (10.9-12.4)
[2024-12-29 08:27] LABS: Alanine Aminotransferase 24 U/L (0-31); Albumin Level 3.9 g/dL (3.5-5.0); Alkaline Phosphatase 62 U/L (39-117); Anion Gap 10 (12-20); Aspartate Amino Transferase 17 U/L (5-31); Blood Urea Nitrogen 13 mg/dL (9-16); Calcium 9.2 mg/dL (8.4-10.2); Carbon Dioxide 29 mmol/L (22-29); Chloride 106 mmol/L (96-108); Creatinine Clr Calc Pharmacy 69.2; Estimated Glomerular Filt Rate > 60; Potassium 4.2 mmol/L (3.3-5.1); Sodium 141 mmol/L (135-145); Total Protein 6.7 g/dL (6.5-8.0)
[2024-12-29 09:22] VITALS: BP 180/82; PULSE 65; RESP 17; TEMP -17.7; TEMP 0; O2SAT 95
== END 2024-12-29 09:23 | disposition home or self-care (01) ==
PROVIDERS: Emergency Provider Emergency Medicine; PCP Family Medicine
DX: R04.0 Epistaxis (principal); E11.9 Type 2 diabetes mellitus without complications; I10 Essential (primary) hypertension; Z79.899 Other long term (current) drug therapy; Z86.711 Personal history of pulmonary embolism
CPT/HCPCS: 36415; 80053; 85025; 85610; 99283; 99284; C9143

== ENCOUNTER 2025-02-13 14:56 | Outpatient (REF) | payer MEDICAID, OTHER, SELFPAY ==
[2025-02-13 16:23] LABS: Anion Gap 10 (12-20); Blood Urea Nitrogen 15 mg/dL (9-16); Calcium 9.9 mg/dL (8.4-10.2); Carbon Dioxide 29 mmol/L (22-29); Chloride 106 mmol/L (96-108); Cholesterol 228 mg/dL (<200); Estimated Glomerular Filt Rate > 60; HDL Cholesterol 45 mg/dL (>40); Potassium 4.3 mmol/L (3.3-5.1); Sodium 141 mmol/L (135-145); Triglycerides 392 mg/dL (<150)
[2025-02-13 18:19] LABS: Reflex LDLD? No
--- OUTSIDE RECORDS SUMMARY | 2025-02-13 19:44 | XMS_ITS | Encounter Summary ---
Author Organization [employer] Address [address] [place] [address] Care Team Providers Care Refrigeration Unit Repairer Name Role Phone Monse Medina MD Primary Care Provider [phone] Encounter Details Date Type Department Care Team ([facility] st Contact Info) Description 05/10/2024 Orders Only [facility] MEDICINE [address] [place], [place] [phone] Monse Medina MD [address] [place], [place] [phone] Social History Tobacco Use Types Packs/Day Years [...] documented as of this encounter Care Teams Refrigeration Unit Repairer Relationship Specialty Start Date End Date Monse Medina MD [address] [place] [id number] PCP - General Family Medicine 04/28/24 documented as of this encounter
--- OUTSIDE RECORDS SUMMARY | 2025-02-13 19:45 | XMS_ITS | Encounter Summary ---
Author Organization [employer] Address [address] [place] [address] Care Team Providers Care Medical Claims Assistant Name Role Phone Monse Medina MD Primary Care Provider [phone] Encounter Details Date Type Department Care Team ([facility] st Contact Info) Description 02/07/2025 Orders Only [facility] [address] [place], [place] [phone] Monse Medina MD [address] [place], [place] [phone] Single subsegmental pulmonary embolism without acute cor pulmonale (CMS/HCC) (HCC) (Primary Dx); History of DVT (deep vein thrombosis) Social History Tobacco Use Types Packs/Day Years [...] AM EST documented as of this encounter Progress Notes * Kathryn Bay RN - 02/07/2025 11:02 PM EST Placed [facility] [place] form on PCP desk for signature. * Kathryn Bay RN - 02/07/2025 11:02 PM EST Called [facility] and left FYI message regarding referral. Faxed signed referral form to [phone], confirmation received. * Dinora Beach RN - 02/07/2025 11:02 PM EST TC placed to [facility] to inquire if they received the referral for for the pt. Per [facility] the paperwork was received and the pt is scheduled for Tuesday 02/13 for a finger stick INR check. Pt was informed of this appointment documented in this encounter Plan of Treatment Not on file documented as of this encounter Goals Goal Patient Goal Type Associated Problems Recent Progress Patient-Stated? Author Help patients manage their type 2 diabetes Care Plan Help patients manage their type 2 diabetes No Sakurai, Monse, MD Weekly blood pressure task Care Plan Weekly blood pressure task Monse Daigle MD Help patients manage their type 2 diabetes Care Plan Help patients manage their type 2 diabetes Monse Daigle MD Patient has chronic kidney disease Care Plan Patient has chronic kidney disease Monse Daigle MD Help patients manage their type 2 diabetes Care Plan Help patients manage their type 2 diabetes Monse Daigle MD Patient has diabetic neuropathy Care Plan Patient has diabetic neuropathy Monse Daigle MD Weekly blood pressure task Care Plan Weekly blood pressure task Monse Daigle MD Weekly blood pressure task Care Plan Weekly blood pressure task Monse Daigle MD Patient has chronic kidney disease Care Plan Patient has chronic kidney disease Monse Daigle MD Patient has chronic kidney disease Care Plan Patient has chronic kidney disease Monse Daigle MD Patient has diabetic neuropathy Care Plan Patient has diabetic neuropathy Monse Daigle MD Patient has diabetic neuropathy Care Plan Patient has diabetic neuropathy Monse Daigle MD documented as of this encounter Visit Diagnoses Diagnosis Single subsegmental pulmonary embolism without acute cor pulmonale (CMS/HCC) (HCC)- Primary History of DVT (deep vein thrombosis) documented in this encounter Additional Health Concerns Active Problems Noted Date Diagnosed Date Help patients manage their type 2 diabetes 02/07 Weekly blood pressure task 02/07/2025 Help patients manage their type 2 diabetes 02/07 Patient has chronic kidney disease 02/07/2025 Help patients manage their type 2 diabetes 02/07 Patient has diabetic neuropathy 02/07/2025 Weekly blood pressure task 02/07/2025 Weekly blood pressure task 02/07/2025 Patient has chronic kidney disease 02/07/2025 Patient has chronic kidney disease 02/07/2025 Patient has diabetic neuropathy 02/07/2025 Patient has diabetic neuropathy 02/07/2025 Assessment Noted Time PHQ-9 Depression Total Score: 1 04/28/19 25 9:28 AM EST documented as of this encounter Care Teams Medical Claims Assistant Relationship Specialty Start Date End Date Monse Medina MD [address] [place] [id number] PCP - General Family Medicine 04/28/24 documented as of this encounter
--- OUTSIDE RECORDS SUMMARY | 2025-02-13 19:45 | XMS_ITS | Clinical Summary ---
Author Organization [employer] Address [address] [facility] [address] [place] [address] Care Team Providers Care Director Equipment Name Role Phone Monse Medina MD Primary Care Provider [phone] Allergies No known active allergies Medications FREESTYLE LITE test strip Check blood glucose once daily and as needed 100 each 05/10/19 Active Alcohol Swabs (Alcohol Prep) pads Check [...] mg by mouth Once per day. Active diclofenac (Voltaren) 50 MG EC tablet Take 1 tablet by mouth up to twice a day as needed for pain. Do not crush, chew, or split. 30 tablet 1 09/30/19 25 Active acetaminophen (Tylenol Extra Strength) 500 MG tablet Take one or two tablets by mouth every 8 hours as needed for pain or fever. Maximum 6 tablets per day. 90 tablet 1 09/30/19 25 Active apixaban (Eliquis) 5 MG tablet Take 1 tablet (5 mg) by mouth 2 times daily. 180 tablet 3 01/27/20 25 Active gabapentin (Neurontin) 300 MG capsule Take 2 capsules by mouth in the morning and 3 capsules at night 150 capsule 01/27/20 25 Active metFORMIN XR (Glucophage-XR ) 500 MG 24 hr tablet Take 2 tablets (1,000 mg) by mouth with breakfast and with evening meal. Do not crush, chew, or split. 360 tablet 3 11/06/20 25 Active glipiZIDE (Glucotrol) 5 MG tablet Take 1 tablet with dinner. Do not take if eating a smaller meal. Check blood sugar if you feel weak. 90 tablet 3 01/27/20 Active atorvastatin (Lipitor) 40 MG tablet Take 1 tablet (40 mg) by mouth at bedtime. 90 tablet 3 01/27/20 Active amLODIPine (Norvasc) 2.5 MG tablet Take 1 tablet (2.5 mg) by mouth Once per day. 90 tablet 3 01/27/20 25 026 Active omeprazole (PriLOSEC) [address] capsule Take 1 tablet by mouth once a day as needed when taking pain medication 90 capsule 3 01/27/20 Active warfarin (Coumadin) 2 MG tablet Take as directed 30 tablet 2 02/08/20 25 Active Enoxaparin Sodium 80 MG/0.8ML solution prefilled syringe Inject 0.7 mL (70 mg) as directed every 12 (twelve) hours. 7 mL 1 02/08/20 Active metFORMIN XR (Glucophage-XR ) 500 MG 24 hr tablet Take 2 tablets (1,000 mg) by mouth with breakfast and with evening meal. Do not crush, chew, or split. 360 tablet 3 05/10/19 25 025 Discontinued(Re order (will not trigger notification to Pharmacy)) amLODIPine (Norvasc) 2.5 MG tablet Take 1 tablet (2.5 mg) by mouth Once per day. 90 tablet 3 05/10/19 25 025 Discontinued(Re order (will not trigger notification to Pharmacy)) atorvastatin (Lipitor) 40 MG tablet TAKE ONE TABLET BY MOUTH AT BEDTIME 90 tablet 3 08/06/19 25 025 Discontinued(Re order (will not trigger notification to Pharmacy)) glipiZIDE (Glucotrol) 5 MG tablet Take 1 tablet with dinner. Do not take if eating a smaller meal. Check blood sugar if you feel weak. 90 tablet 3 08/23/19 25 025 Discontinued(Re order (will not trigger notification to Pharmacy)) omeprazole (PriLOSEC) [address] capsule Take 1 tablet by mouth once a day as needed when taking pain medication 90 capsule 1 07/10/ 025 Discontinued(Re order (will not trigger notification to Pharmacy)) gabapentin (Neurontin) 300 MG capsule Take 2 capsules by mouth in the morning and 3 capsules at night 150 capsule 12/02/19 025 Discontinued(Re order (will not trigger notification to Pharmacy)) apixaban (Eliquis) 5 MG tablet Take 5 mg by mouth 2 times daily. 12/24/19 025 Discontinued(Re order (will not trigger notification [...] - received tenecteplase in ED, admitted to [facility] for further evaluation and management - Head [...] no hypercoagulable work-up - will consult with automotive manufacturer if patient needs hypercoagulable work-up (likely unnecessary since patient has not had recurrence) Assessment & Plan (04/29/2024 5:08 PM EST): - suggestive of unprovoked DVT - patient states she took a medication for few months - no hypercoagulable work-up - will consult with automotive manufacturer if patient needs hypercoagulable work-up (likely unnecessary [...] Encounters Date Type Department Care Team Description 02/13/[address] [facility] [address] [place] [address] Monse Medina MD 02/07/[address] [facility] [address] [place] [address] Monse Medina MD Single subsegmental pulmonary embolism without acute cor pulmonale (CMS/HCC) (HCC) (Primary Dx); History of DVT (deep vein thrombosis) 01/26/[address] [facility] [address] [place] [address] Monse Medina MD 01/24/2025 Telephone [facility] [address] [place] [address] Monse Medina MD ER Follow-up 12/29/2024 Orders Only GENERIC EXTERNAL DATA DEPARTMENT Provider, Generic External Data 12/26/[address] [facility] [address] [place], [place] [phone] Monse Medina MD Transition Of Care (Tcm) (HDF unscheduled) 12/22/[address] [facility] [address] [place] [address] Monse Medina MD Pulmonary embolism without acute cor pulmonale, unspecified chronicity, unspecified pulmonary embolism type (CMS/HCC) (HCC) (Primary Dx); History of DVT (deep vein thrombosis); History of TIA (transient ischemic attack) 12/20/2024 Orders Only [facility] External Provider, [facility] 12/01/2024 Telephone [facility] [address] [place], [place] [phone] Monse Medina MD from Last 3 Months [...] A1C 08/05/2024 05/08/2024, 02/0 08/2024 COVID-19 Vaccine (2 - season) 2024 02/01/2024 Alcohol/Substance Use Screening 04/28/2025 04/28/2024 Depression Screening 04/28/2025 04/28/2024, 04/28/19 Diabetes: Foot Exam 04/28/2025 04/28/2024, 04/28/2024, 04/28/2024, Additional history exists SDOH Screening 04/28/2025 04/28/2024 Diabetes: Urine Protein Screening 06/06/2025 06/06/2024 Tobacco Screening 06/06/2025 06/06/2024 Lipid Panel 02/13/2026 02/13/2025, 0309/2024, 05/08/2024 DTaP/Tdap/Td Vaccines (2 - Td or Tdap) 01/31/2034 02/01/2024 Pneumococcal Vaccine: 50+ Years Completed 02/01/2024 Influenza Vaccine Completed 12/22/2024, 12/24/2023 HIB Vaccines Aged Out No longer eligi [...] on patient's age to complete this topic Goals Goal Patient Goal Type Associated Problems Recent Progress Patient-Stated? Author Help patients manage their type 2 diabetes Care Plan Help patients manage their type 2 diabetes Monse Daigle MD Weekly blood pressure task [...] Patient has diabetic neuropathy Monse Daigle MD Procedures Procedure Name Priority Date/Time Associated Diagnosis Comments LIPID PANEL WITH REFLEX TO DIRECT LDL Routine 02/13/2025 3:19 PM EST BASIC METABOLIC PANEL Routine 02/13/2025 3:19 PM EST COMPREHENSIVE METABOLIC PANEL Routine 12/29/2024 8:07 AM EDT PROTHROMBIN TIME-INR Routine 12/29/2024 8:07 AM EDT CBC WITH AUTO DIFFERENTIAL Routine 12/29/2024 8:07 AM EDT VASC US LOWER EXTREMITY VENOUS DUPLEX BILATERAL Routine 12/21/2024 7:29 PM EDT XR KUB AND UPRIGHT 2 VIEWS Routine 12/21/2024 1:32 PM EDT FL SMALL BOWEL FOLLOW THROUGH Routine 12/21/2024 7:56 AM EDT CBC Routine 12/20/2024 3:51 PM EDT XR CHEST 1 VIEW Routine 12/20/2024 3:30 PM EDT CTA CHEST PE PROTOCAL Routine 12/20/2024 1:[address] ABDOMEN PELVIS WO CONTRAST Routine 12/20/2024 12:25 PM EDT D DIMER HIGH SENSITIVITY Routine 12/20/2024 12:01 [...] 10:52 AM EDT HEPATIC FUNCTION PANEL Routine 10:52 AM EDT COVID-19 ID NOW (LEON) Routine 12/20/2024 10:52 AM EDT CBC WITH AUTO DIFFERENTIAL Routine 12/20/2024 10:52 AM EDT INFLUENZA A B2 ID NOW (LEON) Routine 12/20/2024 10:52 AM EDT ALBUMIN, RANDOM URINE W/CREATININE Routine 06/06/2024 11:36 AM EDT Type 2 diabetes mellitus without complication, unspecified whether fpc insulin use ([facility]) HEMOGLOBIN A1C Routine 05/08/2024 12:23 PM EST from Last 3 Months or Most Recently Relevant to Health Maintenance Results * (ABNORMAL) Lipid Panel with Reflex to Direct LDL (02/13/2025 3:19 PM EST) Triglycerides 392(H) <150 mg/dL [facility] Comment:Desirable Triglyceri de: less than 150 mg/dLBorderline High Triglyceride 150-199 mg/dLHigh Triglyceride: 200-499 mg/dLVery High Triglyceride: greater than or equal to 5OO mg/dL Cholesterol 228(H) <200 mg/dL [facility] Comment:Desirable Cholestero l: less than 200 mg/dLBorderline High Cholesterol: 200-239 mg/dLHigh Cholesterol: greater than 239 mg/dL LDL Cholesterol Calculated 105(H) <100 mg/dL [facility] Comment:Desirable LDL: less than 100 mg/dLNear Optimal/Above Optimal LDL: 110- 129 mg/dLBorderline High LDL: 130-159 mg/dLHigh LDL: 160-189 mg/dLVery High LDL: greater than or equal to 190 mg/dL HDL Cholesterol 45 >40 mg/dL [facility] Comment:Desirable HDL: great er than 40 mg/dL Note: This HDL assay may give artificially low results in patients with liver disease. 02/13/2025 3:19 PM EST 02/13/2025 3:19 PM EST us Monse Medina MD LAB BLOOD ORDERABLES Final Resul t [facility] [address] [place] [phone] * (ABNORMAL) Basic Metabolic Panel (02/13/2025 3:19 PM EST) Only the most recent of2 resultswithin the time period is included. Pathologist [facility] Sodium 141 135 - 145 mmol/L [facility] Potassium 4.3 3.3 - 5.1 mmol/L [facility] Chloride 106 96 - 108 mmol/L [facility] Carbon Dioxide 29 22 - 29 mmol/L [facility] Anion Gap 10(L) 12 - 20 [facility] Urea Nitrogen (BUN) 15 9 - 16 mg/dL [facility] Creatinine, Serum 0.57 0.5 - 1.4 mg/dL [facility] Estimated Glomerular Filt Rate >60 [facility] Comment:Chronic Kidney Disea se: Estimated GFR < 60 mL/min/1.57c4Gylnsp Kidney Disease: Estimated GFR < 15 mL/min/1.73m2 Glucose 156(H) 60 - 115 mg/dL [facility] Calcium 9.9 8.4 - 10.2 mg/dL [facility] 02/13/2025 3:19 PM EST 02/13/2025 3:19 PM EST us Monse Medina MD LAB BLOOD ORDERABLES Final Resul t [facility] [address] [place] [phone] * (ABNORMAL) CBC auto differential (12/29/2024 8:07 AM EDT) Only the most recent of2 resultswithin the time period is included. Pathologist [facility] White Blood Count 9.9 4.8 - 10.8 X10*3/uL [facility] Red Blood Count 4.62 4.20 - 5.50 X10*6/uL [facility] Hemoglobin 12.7 12.0 - 16.0 g/dl [facility] Hematocrit 39.0 37.0 - 47.0 % [facility] Mean Corpuscular Volume 84.4 80.0 - 98.0 fL [facility] Mean Corpuscular Hemoglobin 27.5 27.0 - 33.0 pg [facility] Mean Corpuscular HGB Conc 32.6 31.0 - 35.0 g/dl [facility] Red Cell Distribution Width 14.6 11.0 - 16.0 % [facility] Platelet Count 208 160 - 400 X10*3/uL [facility] Mean Platelet Volume 9.7 9.4 - 12.3 fL [facility] Neutrophils Percent Auto 65.6 45 - 73 % [facility] Imm Gran Pct Auto 2.2(H) 0.0 - 0.4 % [facility] Lymphocytes Percent Auto 23.5 20 - 40 % [facility] Monocytes Percent Auto 7.8 2 - 11 % [facility] Eosinophils Percent Auto 0.6 0 - 4 % [facility] Basophils Percent Auto 0.3 0 - 2 % [facility] NRBC Pct Auto 0.0 0.0 - 0.2 /100WBC [facility] Neutrophils Absolute Auto 6.5 2.0 - 8.3 x10*3/uL [facility] Imm Gran Abs Auto 0.22(H) 0.00 - 0.03 X10*3/uL [facility] Lymphocytes Absolute Auto 2.3 1.2 - 4.9 X10*3/uL [facility] Monocytes Absolute Auto 0.8 0.1 - 1.2 X10*3/uL [facility] Eosinophils Absolute Auto 0.1 0.0 - 0.4 X10*3/uL [facility] Basophils Absolute Auto 0.0 0.0 - 0.2 X10*3/uL [facility] NRBC Abs Auto 0.000 0.0 - 0.012 X10*3/uL [facility] 12/29/2024 8:07 AM EDT 12/29/2024 8:09 AM EDT us Generic External Data Provider LAB BLOOD ORDERAB LES Final Result [facility] [address] [place] [phone] [phone] * (ABNORMAL) Prothrombin Time-INR (12/29/2024 8:07 AM EDT) Prothrombin Time 13.2(H) 10.9 - 12.4 SEC [facility] INTERNATIONAL NORM RATIO 1.2(H) 0.9 - 1.1 [facility] Comment:INTERNATIONAL NORMAL IZED RATIO (INR) REFERENCE RANGES Reference RangeFor patients not on anticoagulant therapy: 0.9 - 1.1INR ranges for oral anticoagulanttherapy:For prevention and treatment of venous thrombosis and pulmonary embolism: 2.0 - 3.0For acute myocardial infarction with aspirin therapy: 2.0 - 3.0For acute myocardial infarction without aspirin therapy: 3.0 - 4.0For patients with mechanical prosthetic heart valves: 2.5 - 3.5 12/29/2024 8:07 AM EDT 12/29/2024 8:09 AM EDT us Generic External Data Provider LAB BLOOD ORDERAB LES Final Result [facility] [address] [place] [phone] * (ABNORMAL) Comprehensive Metabolic Panel (12/29/2024 8:07 AM EDT) Pathologist [facility] Sodium 141 135 - 145 mmol/L [facility] Potassium 4.2 3.3 - 5.1 mmol/L [facility] Chloride 106 96 - 108 mmol/L [facility] Carbon Dioxide 29 22 - 29 mmol/L [facility] Anion Gap 10(L) 12 - 20 [facility] Urea Nitrogen (BUN) 13 9 - 16 mg/dL [facility] Creatinine, Serum 0.56 0.5 - 1.4 mg/dL [facility] Creatinine Clr Calc Pharmacy 69.2 [facility] Comment:Provided height and weight: 157.48 cm,79.832 kg.eGFR (calculated from the MDRD study equation) and eCrCl(calculated from the Cockcroft-Gault equation) are based ondifferent parameters and may not yield comparable results.If eCrCl result is absurd, please check patient'sheight/weight. Estimated Glomerular Filt Rate >60 [facility] Comment:Chronic Kidney Disea se: Estimated GFR < 60 mL/min/1.22d9Ymvuxr Kidney Disease: Estimated GFR < 15 mL/min/1.73m2 Glucose 220(H) 60 - 115 mg/dL [facility] Calcium 9.2 8.4 - 10.2 mg/dL [facility] Bilirubin, Total 0.4 0.0 - 1.0 mg/dL [facility] Aspartate Amino Transferase 17 5 - 31 U/L [facility] Alanine Aminotransferase 24 0 - 31 U/L [facility] Total Protein 6.7 6.5 - 8.0 g/dL [facility] Albumin Level 3.9 3.5 - 5.0 g/dL [facility] Alkaline Phosphatase 62 39 - 117 U/L [facility] 12/29/2024 8:07 AM EDT 12/29/2024 8:09 AM EDT us Generic External Data Provider LAB BLOOD ORDERAB LES Final Result [facility] [address] [place] [address] [phone] * [facility] US Lower Extremity Venous Duplex Bilateral (12/21/2024 7:29 PM EDT) 12/21/2024 7:29 PM EDT Narrative [facility] - 12/21/2024 7:31 PM EDT [address] [address] Ultrasound Report Signed Patient: Maryellen Acosta MR#: [id number] 1351 : 1935 Acct:[id number] Age/Sex: 89 / F ADM Date: 12/20/24 Loc: [facility] 475-[address]: Lincoln Cohen MD Ordering Physician: Jerrica Oropeza MD Date of Service: 12/21/24 Procedure(s): US venous duplex LE BI Accession Number(s): [id number] cc: Monse Medina MD; Jerrica Oropeza MD Reason for Exam: leg pain/pos PE - eval for DVT CLINICAL HISTORY: leg pain pos PE - eval for DVT Bilateral lower extremity venous duplex ultrasound. Color and spectral waveform analysis. Comparison: None provided Findings: Deep veins are compressible with flow and augmentation. No popliteal cyst. No significant adenopathy. Impression: No evidence for DVT This document has been electronically signed by: Santana Dodge MD on 12/21/2024 19:29:44 Dictated By: Santana Dodge MD Signed By: <Electronically signed by Santana Dodge MD in OV> 12/21/241930 DD/ 28 TD/TT: 12/21/241928 Cocoa Room Operator: Procedure Note Donotuseinterpreter, Image - 12/21/2024 [place] [address] Ultrasound Report Signed Patient: Carlin Acosta#: [id number] 1351 : 8Acct:[id number] Age/Sex: 89 / FADM Date: 12/20/24 Loc: [facility] 475-[address]: Lincoln Cohen MD Ordering Physician: Jerrica Oropeza MD Date of Service: 12/21/24 Procedure(s): US venous duplex LE BI Accession Number(s): [id number] cc: Monse Medina MD; Jerrica Oropeza MD Reason for Exam: leg pain/pos PE - eval for DVT CLINICAL HISTORY: leg pain pos PE - eval for DVT Bilateral lower extremity venous duplex ultrasound. Color and spectral waveform analysis. Comparison: None provided Findings: Deep veins are compressible with flow and augmentation. No popliteal cyst. No significant adenopathy. Impression: No evidence for DVT This document has been electronically signed by: Santana Dodge MD on 12/21/2024 19:29:44 Dictated By: Santana Dodge MD Signed By: <Electronically signed by Santana Dodge MD in OV> 12/21/241930 DD/ 28 TD/TT: 12/21/24 1929 Cocoa Room Operator: us [facility] External Provider CV VASC ULAR PROCEDURES Final Result [facility] [address] [place] [phone] * XR KUB and Upright 2 Views (12/21/2024 1:32 PM EDT) Anatomical Region Laterality Modality Radiographic Che ging 12/21/2024 1:32 PM EDT Narrative 12/21/2024 2:03 PM EDT [address] [address] XRay Report Signed Patient: Maryellen Acosta MR#: [id number] 1351 : 1935 Acct:[id number] Age/Sex: 89 / F ADM Date: 12/20/24 Loc: [facility] 475-[address]: Lincoln Cohen MD Ordering Physician: Lincoln Cohen MD Date of Service: 12/21/24 Procedure(s): XR KUB Accession Number(s): [id number] cc: Lincoln Cohen MD; Monse Medina MD Reason for Exam: ffup film EXAMINATION: XR ABDOMEN 1 VIEW (KUB) HISTORY: f/up film COMPARISON: Comparison is made with the prior examination dated 12/21/2024. FINDINGS: Two supine views of the abdomen are submitted. Oral contrast material is seen throughout the colon. There is no bowel dilatation. No abnormal calcifications are identified. There are no abnormal soft tissue masses. The bones are intact. XR/XR KUB IMPRESSION: Oral contrast throughout the colon. Electronically signed by: Juan Daniel Osuna MD 12/21/2024 02:00 PM EDT Dictated By: Juan Daniel Osuna MD Signed By: <Electronically signed by Juan Daniel Osuna MD in OV> 12/21/24 1400 DD/ 1332 TD/TT: 12/21/24 1356 Cocoa Room Operator: Procedure Note Donotuseinterpreter, Image - 12/21/[address] [address] XRay Report Signed Patient: Maryellen AcostaMR#: [id number] 1351 : 1935cct:[id number] Age/Sex: 89 / FADM Date: 12/20/24 Loc: [facility] 475-[address]: Lincoln Cohen MD Ordering Physician: Lincoln Cohen MD Date of Service: 12/21/24 Procedure(s): XR KUB Accession Number(s): [id number] cc: Lincoln Cohen MD; Monse Medina MD Reason for Exam: ffup film EXAMINATION: XR ABDOMEN 1 VIEW (KUB) HISTORY: f/up film COMPARISON: Comparison is made with the prior examination dated 12/21/2024. FINDINGS: Two supine views of the abdomen are submitted. Oral contrast material is seen throughout the colon. There is no bowel dilatation. No abnormal calcifications are identified. There are no abnormal soft tissue masses. The bones are intact. XR/XR KUB IMPRESSION: Oral contrast throughout the colon. Electronically signed by: Juan Daniel Osuna MD 12/21/2024 02:00 PM EDT Dictated By: Juan Daniel Osuna MD Signed By: <Electronically signed by Juan Daniel Osuna MD in OV> 12/21/24 1400 DD/ 1332 TD/TT: 12/21/24 1356 Cocoa Room Operator: [facility] External Provider IMG XR PROCEDURES Final Result * FL SMALL BOWEL FOLLOW THROUGH (12/21/2024 7:56 AM EDT) Anatomical Region Laterality Modality Radiographic Che ging 12/21/2024 7:56 AM EDT Narrative 12/21/2024 12:48 PM EDT [address] [address] Fluoroscopy Report Signed Patient: Maryellen Acosta MR#: [id number] 1351 : 1935 Acct:[id number] Age/Sex: 89 / F ADM Date: 12/20/24 Loc: [place] [address]- Attending Dr: Lincoln Cohen MD Ordering Physician: Lincoln Cohen MD Date of Service: 12/21/24 Procedure(s): FL small bowel follow through Accession Number(s): [id number] cc: Lincoln Cohen MD; Monse Medina MD Reason for Exam: SBO EXAMINATION: FL SMALL BOWEL SERIES CLINICAL INFORMATION: SBO COMPARISON: None available. TECHNIQUE: Following a greenhouse laborer image of the abdomen, 50/50 diluted 400 mL of Gastrografin contrast was administered orally, and interval abdominal radiographs were performed to assess for contrast progression through the small bowel. However patient complained of significant abdominal pain and patient was aspirated by the floor nurse. The exam was then discontinued. FINDINGS: Clinical Informatics Strategist image of the abdomen demonstrates scattered stool in the right colon. No organomegaly. No radiopaque calculi.. Images obtained immediately after administration of dilute Gastrografin through the NG tube there is opacification nondistended stomach and proximal jejunal loops. Subsequently patient complained of abdominal pain and the entire contrast was aspirated through the NG tube by the floor nurse. The exam was terminated at this point. FLUOROSCOPY TIME: None DOSE AREA PRODUCT: 1 uGy-m2 (microgray-meter squared) FL/FL small bowel follow through IMPRESSION: Incomplete small bowel series as patient complained of significant bowel pain after administration of 400 mL of dilute Gastrografin. The entire Gastrografin was aspirated through the enteric tube. Hence the exam was discontinued. Electronically signed by: Eliud Metzger MD 12/21/2024 12:45 PM EDT Dictated By: Eliud Metzger MD Signed By: <Electronically signed by Eliud Metzger MD in OV> 12/21/24 1245 DD/ 0756 TD/TT: 12/21/24 1106 Cocoa Room Operator: [facility] Procedure Note Donotuseinterpreter, Image - 12/21/[address] [address] Fluoroscopy Report Signed Patient: Carlin Acosta#: [id number] 1351 : 8Acct:[id number] Age/Sex: 89 / FADM Date: 12/20/24 [facility] 475[facility]: Lincoln Cohen MD Ordering Physician: Lincoln Cohen MD Date of Service: 12/21/24 Procedure(s): FL small bowel follow through Accession Number(s): [id number] cc: Lincoln Cohen MD; Monse Medina MD Reason for Exam: SBO EXAMINATION: FL SMALL BOWEL SERIES CLINICAL INFORMATION: SBO COMPARISON: None available. TECHNIQUE: Following a greenhouse laborer image of the abdomen, 50/50 diluted 400 mL of Gastrografin contrast was administered orally, and interval abdominal radiographs were performed to assess for contrast progression through the small bowel. However patient complained of significant abdominal pain and patient was aspirated by the floor nurse. The exam was then discontinued. FINDINGS: Clinical Informatics Strategist image of the abdomen demonstrates scattered stool in the right colon. No organomegaly. No radiopaque calculi.. Images obtained immediately after administration of dilute Gastrografin through the NG tube there is opacification nondistended stomach and proximal jejunal loops. Subsequently patient complained of abdominal pain and the entire contrast was aspirated through the NG tube by the floor nurse. The exam was terminated at this point. FLUOROSCOPY TIME: None DOSE AREA PRODUCT: 1 uGy-m2 (microgray-meter squared) FL/FL small bowel follow through IMPRESSION: Incomplete small bowel series as patient complained of significant bowel pain after administration of 400 mL of dilute Gastrografin. The entire Gastrografin was aspirated through the enteric tube. Hence the exam was discontinued. Electronically signed by: Eliud Metzger MD 12/21/2024 12:45 PM EDT Dictated By: Eliud Metzger MD Signed By: <Electronically signed by Eliud Metzger MD in OV> 12/21/24 1245 DD/ 0756 TD/TT: 12/21/24 1106 Cocoa Room Operator: VARGHESE [facility] External Provider IMG FLU OROSCOPY PROCEDURES Final Result * CBC (12/20/2024 3:51 PM EDT) White Blood Count 8.6 4.8 - 10.8 X10*3/uL [facility] Red Blood Count 5.27 4.20 - 5.50 X10*6/uL [facility] Hemoglobin 14.6 12.0 - 16.0 g/dl [facility] Hematocrit 44.1 37.0 - 47.0 % [facility] Mean Corpuscular Volume 83.7 80.0 - 98.0 fL [facility] Mean Corpuscular Hemoglobin 27.7 27.0 - 33.0 pg [facility] Mean Corpuscular HGB Conc 33.1 31.0 - 35.0 g/dl [facility] Red Cell Distribution Width 14.6 11.0 - 16.0 % [facility] Platelet Count 171 160 - 400 X10*3/uL [facility] Mean Platelet Volume 9.4 9.4 - 12.3 fL [facility] NRBC Pct Auto 0.0 0.0 - 0.2 /100WBC [facility] NRBC Abs Auto 0.000 0.0 - 0.012 X10*3/uL [facility] 12/20/2024 3:51 PM EDT 12/20/2024 3:55 PM EDT us Generic External Data Provider LAB BLOOD ORDERAB LES Final Result Performing Organization Address City/State/[facility] Co de Phone Number [facility] [address] [place] [address] [phone] * XR Chest 1 View (12/20/2024 3:30 PM EDT) Only the most recent of2 resultswithin the time period is included. Anatomical Region Laterality Modality Chest Radiographic Che ging 12/20/2024 3:30 PM EDT Narrative 12/20/2024 3:45 PM EDT [address] [address] XRay Report Signed Patient: Maryellen Acosta MR#: [id number] 1351 : 1935 Acct:[id number] Age/Sex: 89 / F ADM Date: 12/20/24 Loc: HO.ED Attending Dr: Ordering Physician: Eusebio Juarez MD Date of Service: 12/20/24 Procedure(s): XR chest 1V Accession Number(s): [id number] cc: Eusebio Juarez MD; Monse Medina MD Reason for Exam: NG placement EXAMINATION: XR CHEST CLINICAL INFORMATION: NG placement COMPARISON: December 20, 2024 at 10:54 AM. TECHNIQUE: Frontal view of the chest was obtained. FINDINGS: NG tube ends below the left hemidiaphragm in the left upper quadrant abdomen. Pulmonary reticular pattern and patchy linear opacities both lungs. Cardiomediastinal silhouette size is prominent, unchanged. No gross pneumothorax. Multilevel spondylosis no fully evaluated due to patient's body habitus. XR/XR chest 1V IMPRESSION: NG tube in the stomach region. Worsening pulmonary edema versus acute pneumonitis among other etiologies. Electronically signed by: Mervin Varma MD 12/20/2024 03:42 PM EDT RP Dictated By: Mervin Leong MD Signed By: <Electronically signed by Mervin Gay MD in OV> 12/20/24 1542 DD/ 1530 TD/TT: 12/20/24 1538 Cocoa Room Operator: Procedure Note Donotuseinterpreter, Image - 12/20/2024 [place] [address] XRay Report Signed Patient: Maryellen AcostaMR#: [id number] 1351 : 8Acct:[id number] Age/Sex: 89 / FADM Date: 12/20/24 Loc: .ED Attending Dr: Ordering Physician: Eusebio Juarez MD Date of Service: 12/20/24 Procedure(s): XR chest 1V Accession Number(s): [id number] cc: Eusebio Juarez MD; Monse Medina MD Reason for Exam: NG placement EXAMINATION: XR CHEST CLINICAL INFORMATION: NG placement COMPARISON: December 20, 2024 at 10:54 AM. TECHNIQUE: Frontal view of the chest was obtained. FINDINGS: NG tube ends below the left hemidiaphragm in the left upper quadrant abdomen. Pulmonary reticular pattern and patchy linear opacities both lungs. Cardiomediastinal silhouette size is prominent, unchanged. No gross pneumothorax. Multilevel spondylosis no fully evaluated due to patient's body habitus. XR/XR chest 1V IMPRESSION: NG tube in the stomach region. Worsening pulmonary edema versus acute pneumonitis among other etiologies. Electronically signed by: Mervin Varma MD 12/20/2024 03:42 PM EDT RP Dictated By: Mervin Leong MD Signed By: <Electronically signed by Mervin Gay MDin OV> 12/20/24 1542 DD/ 1530 TD/TT: 12/20/24 1538 Cocoa Room Operator: [facility] External Provider IMG XR PROCEDURES Final Result * CTA Chest PE Protocal (12/20/2024 1:45 PM EDT) Anatomical Region Laterality Modality Body, Chest Computed Tomogra phy 12/20/2024 1:45 PM EDT Narrative 12/20/2024 2:37 PM EDT [place] [address] CT Scan Report Signed Patient: Maryellen Acosta MR#: [id number] 1351 : 1935 Acct:[id number] Age/Sex: 89 / F ADM Date: 12/20/24 Loc: .ED Attending Dr: Ordering Physician: Eusebio Juarez MD Date of Service: 12/20/24 Procedure(s): CT angio chest PE protocol Accession Number(s): [id number] cc: Eusebio Juarez MD; Monse Medina MD Report Number: [id number]: Total DLP = 280.00 mGy-cm Reason for Exam: elevated D-dimer, hypoxia EXAMINATION: CT ANGIOGRAM CHEST CLINICAL INFORMATION: Elevated d-dimer, hypoxia COMPARISON: None available. TECHNIQUE: Multiple axial images were obtained through the chest after the administration of 50 mL of Omnipaque 350 intravenous contrast. Extensive vascular post-processing including two-dimensional and three-dimensional reformatted images were created and reviewed on an independent workstation. This CT examination was performed using dose optimization techniques as appropriate, variously including the following: *Automated exposure control *Adjustment of mA and/or kV according to patient size (this includes techniques or standardized protocols for targeted exams where dose is matched to indication/reason for exam; i.e. extremities or head) *Use of iterative reconstruction technique FINDINGS: QUALITY OF STUDY/CONTRAST BOLUS: Adequate PULMONARY ARTERIES: Short linear low density is present in the vessels in the posterior left lower lobe (axial CT #7 image 66/126) that could represent small embolus. No other areas are concerning for filling defects. THORACIC AORTA: Thoracic aorta is tortuous with multifocal atherosclerotic calcifications. LUNGS AND PLEURA: There is a 6 mm calcified granuloma in the right upper lobe There is a 5 mm soft tissue pulmonary nodule in the right lower lobe (axial CT #6 image 76/126). There is mild to moderate cylindrical bronchiectasis in the right Irregular linear opacity in the anterior right upper lobe is consistent with scarring. 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 There is mild bibasilar atelectasis. MEDIASTINUM: Unremarkable CORONARY ARTERY CALCIFICATION: Present CHEST WALL/AXILLA: No axillary or internal mammary lymphadenopathy. UPPER ABDOMEN: There is a 1 cm focal calcification in the cortex the posterior mid right kidney adjacent to a simple renal cyst. There is a second 5 mm collimation that could represent a stone or calcification in the renal papilla. BONES: Extensive anterior osteophytes are present in the thoracic spine. There is disc space narrowing. There are multiple concave vertebral endplates consistent with compression fractures involving both upper and lower thoracic spine. CT/CT angio chest PE protocol IMPRESSION: Short linear low density in the pulmonary arteries leading to the left lower lobe could represent a small pulmonary embolus. There is a 6 mm calcified granuloma in the right upper lobe. Additionally there is a 5 mm solid pulmonary nodule in the right lower lobe. No further follow-up is indicated per Fleischner Society recommendations, unless the patient falls into a high risk category, in which case a 12 month follow-up CT chest without contrast is optional. High risk patients includes those with a history of smoking, first-degree relative with lung cancer, or exposure to uranium, radon, or asbestos. Bronchiectasis is noted in the bilateral lower lobes. Extensive degenerative changes in the thoracic spine and multiple age-indeterminate mild compression fractures. Chronic focal calcification is noted in the posterior right renal cortex. Fleischner guidelines were followed. Electronically signed by: Tj Rodriguez MD 12/20/2024 02:34 PM EDT RP Dictated By: Tj Rodriguez MD Signed By: <Electronically signed by Tj Rodriguez MD in OV> 12/20/24 1434 DD/ 1345 TD/TT: 12/20/24 1410 Cocoa Room Operator: Procedure Note Donotuseinterpreter, Image - 12/20/[address] [place] [address] [address] Scan Report Signed Patient: Carlin Acosta#: [id number] 1351 : 8Acct:[id number] Age/Sex: 89 / FADM Date: 12/20/24 Loc: .ED Attending Dr: Ordering Physician: Eusebio Juarez MD Date of Service: 12/20/24 Procedure(s): CT angio chest PE protocol Accession Number(s): [id number] cc: Eusebio Juarez MD; Monse Medina MD Report Number: [id number]: Total DLP = 280.00 mGy-cm Reason for Exam: elevated D-dimer, hypoxia EXAMINATION: CT ANGIOGRAM CHEST CLINICAL INFORMATION: Elevated d-dimer, hypoxia COMPARISON: None available. TECHNIQUE: Multiple axial images were obtained through the chest after the administration of 50 mL of Omnipaque 350 intravenous contrast. Extensive vascular post-processing including two-dimensional and three-dimensional reformatted images were created and reviewed on an independent workstation. This CT examination was performed using dose optimization techniques as appropriate, variously including the following: *Automated exposure control *Adjustment of mA and/or kV according to patient size (this includes techniques or standardized protocols for targeted exams where dose is matched to indication/reason for exam; i.e. extremities or head) *Use of iterative reconstruction technique FINDINGS: QUALITY OF STUDY/CONTRAST BOLUS: Adequate PULMONARY ARTERIES: Short linear low density is present in the vessels in the posterior left lower lobe (axial CT #7 image 66/126) that could represent small embolus. No other areas are concerning for filling defects. THORACIC AORTA: Thoracic aorta is tortuous with multifocal atherosclerotic calcifications. LUNGS AND PLEURA: There is a 6 mm calcified granuloma in the right upper lobe There is a 5 mm soft tissue pulmonary nodule in the right lower lobe (axial CT #6 image 76/126). There is mild to moderate cylindrical bronchiectasis in the right Irregular linear opacity in the anterior right upper lobe is consistent with scarring. 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 There is mild bibasilar atelectasis. MEDIASTINUM: Unremarkable CORONARY ARTERY CALCIFICATION: Present CHEST WALL/AXILLA: No axillary or internal mammary lymphadenopathy. UPPER ABDOMEN: There is a 1 cm focal calcification in the cortex the posterior mid right kidney adjacent to a simple renal cyst. There is a second 5 mm collimation that could represent a stone or calcification in the renal papilla. BONES: Extensive anterior osteophytes are present in the thoracic spine. There is disc space narrowing. There are multiple concave vertebral endplates consistent with compression fractures involving both upper and lower thoracic spine. CT/CT angio chest PE protocol IMPRESSION: Short linear low density in the pulmonary arteries leading to the left lower lobe could represent a small pulmonary embolus. There is a 6 mm calcified granuloma in the right upper lobe. Additionally there is a 5 mm solid pulmonary nodule in the right lower lobe. No further follow-up is indicated per Fleischner Society recommendations, unless the patient falls into a high risk category, in which case a 12 month follow-up CT chest without contrast is optional. High risk patients includes those with a history of smoking, first-degree relative with lung cancer, or exposure to uranium, radon, or asbestos. Bronchiectasis is noted in the bilateral lower lobes. Extensive degenerative changes in the thoracic spine and multiple age-indeterminate mild compression fractures. Chronic focal calcification is noted in the posterior right renal cortex. Fleischner guidelines were followed. Electronically signed by: Tj Rodriguez MD 12/20/2024 02:34 PM EDT RP Dictated By: Tj Rodriguez MD Signed By: <Electronically signed by Tj Rodriguez MD in OV> 12/20/24 1434 DD/ 1345 TD/TT: 12/20/24 1410 Cocoa Room Operator: us [facility] External Provider IMG CT PROCEDURES Final Result * CT Abdomen Pelvis w/o Contrast (12/20/2024 12:25 PM EDT) Anatomical Region Laterality Modality Body, Pelvis, Abdomen Computed T omography 12/20/2024 12:2 5 PM EDT Narrative 12/20/2024 1:04 PM EDT [address] [address] [address] Scan Report Signed Patient: Maryellen Acosta MR#: [id number] 1351 : 1935 Acct:[id number] Age/Sex: 89 / F ADM Date: 12/20/24 Loc: HO.ED Attending Dr: Ordering Physician: Eusebio Juarez MD Date of Service: 12/20/24 Procedure(s): CT abdomen pelvis wo IV con Accession Number(s): [id number] cc: Eusebio Juarez MD; Monse Medina MD Report Number: [id number]: Total DLP = 627.00 mGy-cm Reason for Exam: diffuse abdominal pain EXAMINATION: CT ABDOMEN AND PELVIS WITHOUT CONTRAST CLINICAL INFORMATION: Diffuse abdominal pain, nausea and bilious vomiting. COMPARISON: No prior. Abdomen ultrasound dated earlier same day. TECHNIQUE: Multidetector volumetric imaging was performed from the superior aspect of the liver through the pubic symphysis. Sagittal and coronal reformatted images were obtained on the technologist's workstation. This CT examination was performed using dose optimization techniques as appropriate, variously including the following: *Automated exposure control *Adjustment of mA and/or kV according to patient size (this includes techniques or standardized protocols for targeted exams where dose is matched to indication/reason for exam; i.e. extremities or head) *Use of iterative reconstruction technique FINDINGS: LUNG BASES: Lung bases are clear. There is minimal dependent atelectasis and mild subpleural scarring present. There is mild bronchiectasis of the lower lobe airways. No effusions. Heart size is top normal. Trace pericardial effusion. Moderate coronary calcifications present. There is a small to moderate-sized type I hiatus hernia. LIVER, GALLBLADDER, AND BILIARY TREE: The unenhanced liver is normal in size, shape, and attenuation. No focal hepatic lesion or biliary ductal dilatation is present. The gallbladder is unremarkable with no evidence of radiopaque gallstones, gallbladder wall thickening, or obvious pericholecystic inflammatory changes. PANCREAS: Normal. SPLEEN: Normal. ADRENAL GLANDS: Normal. KIDNEYS AND URETERS: The RIGHT kidney demonstrates right upper pole scarring with dystrophic calcifications . There is a 3 mm nonobstructing calculus in the upper pole. There are tiny subcentimeter cysts. There is no suspicious lesion. There is no hydronephrosis or hydroureter. The LEFT kidney demonstrates several small parapelvic cysts. There is no hydronephrosis, calculus, or mass. There is no hydroureter. BLADDER: Decompressed but normal in appearance. GASTROINTESTINAL TRACT: There is abnormal dilatation of several loops of proximal to mid small bowel, with associated mild mesenteric congestion and trace interloop ascites. Findings are consistent with small bowel obstruction. Transition point appears to be in the left anterior pelvis (series 3, images 55-60). No definite kinking of the small bowel is noted to suggest adhesions although this is not excluded. Evaluation further is limited without the benefit of IV contrast. The mid and distal small bowel are completely decompressed. The colon demonstrates scattered diverticula, but is normal in course and caliber without wall thickening or inflammation. The rectum is normal in appearance. A normal appendix is visualized. PERITONEUM: There is trace ascites in the pelvis and small bowel mesentery. There is no free intraperitoneal air. ABDOMINAL WALL: No significant hernia is appreciated. LYMPH NODES: There is no abnormal lymphadenopathy. VASCULAR: Moderate atheromatous calcification of the aorta and iliac arteries, without aneurysm present. PELVIC VISCERA: Senescent uterus. No adnexal masses. OSSEOUS STRUCTURES: No suspicious lytic or blastic bone lesions. Moderate degenerative changes throughout the spine. Mild to moderate degenerative changes of both hip joints and both SI joints. Minimal compression deformities of T11 and T12. CT/CT abdomen pelvis wo IV con IMPRESSION: 1. High-grade mechanical proximal small bowel obstruction, with transition point in the left anterior pelvis has discussed above. Etiology is not entirely clear on this noncontrast examination. Trace interloop and pelvic ascites. 2. Numerous additional ancillary findings as discussed in the body of the report. Electronically signed by: Sunny Lopes MD 12/20/2024 01:01 PM EDT RP Dictated By: Sunny Lopes MD Signed By: <Electronically signed by Sunny Lopes MD in OV> 12/20/24 1301 DD/ 1225 TD/TT: 12/20/24 1242 Cocoa Room Operator: Procedure Note Donotuseinterpreter, Image - 12/20/[address] [address] [address] Scan Report Signed Patient: Carlin Acosta#: [id number] 1351 : 8Acct:[id number] Age/Sex: 89 / FADM Date: 12/20/24 Loc: HO.ED Attending Dr: Ordering Physician: Eusebio Juarez MD Date of Service: 12/20/24 Procedure(s): CT abdomen pelvis wo IV con Accession Number(s): [id number] cc: Eusebio Juarez MD; Monse Medina MD Report Number: [id number]: Total DLP = 627.00 mGy-cm Reason for Exam: diffuse abdominal pain EXAMINATION: CT ABDOMEN AND PELVIS WITHOUT CONTRAST CLINICAL INFORMATION: Diffuse abdominal pain, nausea and bilious vomiting. COMPARISON: No prior. Abdomen ultrasound dated earlier same day. TECHNIQUE: Multidetector volumetric imaging was performed from the superior aspect of the liver through the pubic symphysis. Sagittal and coronal reformatted images were obtained on the technologist's workstation. This CT examination was performed using dose optimization techniques as appropriate, variously including the following: *Automated exposure control *Adjustment of mA and/or kV according to patient size (this includes techniques or standardized protocols for targeted exams where dose is matched to indication/reason for exam; i.e. extremities or head) *Use of iterative reconstruction technique FINDINGS: LUNG BASES: Lung bases are clear. There is minimal dependent atelectasis and mild subpleural scarring present. There is mild bronchiectasis of the lower lobe airways. No effusions. Heart size is top normal. Trace pericardial effusion. Moderate coronary calcifications present. There is a small to moderate-sized type I hiatus hernia. LIVER, GALLBLADDER, AND BILIARY TREE: The unenhanced liver is normal in size, shape, and attenuation. No focal hepatic lesion or biliary ductal dilatation is present. The gallbladder is unremarkable with no evidence of radiopaque gallstones, gallbladder wall thickening, or obvious pericholecystic inflammatory changes. PANCREAS: Normal. SPLEEN: Normal. ADRENAL GLANDS: Normal. KIDNEYS AND URETERS: The RIGHT kidney demonstrates right upper pole scarring with dystrophic calcifications . There is a 3 mm nonobstructing calculus in the upper pole. There are tiny subcentimeter cysts. There is no suspicious lesion. There is no hydronephrosis or hydroureter. The LEFT kidney demonstrates several small parapelvic cysts. There is no hydronephrosis, calculus, or mass. There is no hydroureter. BLADDER: Decompressed but normal in appearance. GASTROINTESTINAL TRACT: There is abnormal dilatation of several loops of proximal to mid small bowel, with associated mild mesenteric congestion and trace interloop ascites. Findings are consistent with small bowel obstruction. Transition point appears to be in the left anterior pelvis (series 3, images 55-60). No definite kinking of the small bowel is noted to suggest adhesions although this is not excluded. Evaluation further is limited without the benefit of IV contrast. The mid and distal small bowel are completely decompressed. The colon demonstrates scattered diverticula, but is normal in course and caliber without wall thickening or inflammation. The rectum is normal in appearance. A normal appendix is visualized. PERITONEUM: There is trace ascites in the pelvis and small bowel mesentery. There is no free intraperitoneal air. ABDOMINAL WALL: No significant hernia is appreciated. LYMPH NODES: There is no abnormal lymphadenopathy. VASCULAR: Moderate atheromatous calcification of the aorta and iliac arteries, without aneurysm present. PELVIC VISCERA: Senescent uterus. No adnexal masses. OSSEOUS STRUCTURES: No suspicious lytic or blastic bone lesions. Moderate degenerative changes throughout the spine. Mild to moderate degenerative changes of both hip joints and both SI joints. Minimal compression deformities of T11 and T12. CT/CT abdomen pelvis wo IV con IMPRESSION: 1. High-grade mechanical proximal small bowel obstruction, with transition point in the left anterior pelvis has discussed above. Etiology is not entirely clear on this noncontrast examination. Trace interloop and pelvic ascites. 2. Numerous additional ancillary findings as discussed in the body of the report. Electronically signed by: Sunny Lopes MD 12/20/2024 01:01 PM EDT RP Dictated By: Sunny Lopes MD Signed By: <Electronically signed by Sunny Lopes MD in OV> 12/20/24 1301 DD/ 1225 TD/TT: 12/20/24 1242 Cocoa Room Operator: us [facility] External Provider IMG CT PROCEDURES Final Result * D Dimer High Sensitivity (12/20/2024 12:01 PM EDT) D Dimer High Sensitivity 529 NG/ML [facility] Comment:D-DIMER HS REFERENCE RANGENote: Our [...] ORDERAB LES Final Result Performing Organization Address City/State/[facility] Co de Phone Number [facility] [address] [phone] * US Abdomen Limited (12/20/2024 11:29 AM EDT) Anatomical Region Laterality Modality Abdomen Ultrasound 12/20/2024 11:2 9 AM EDT Narrative 12/20/2024 12:22 PM EDT [address] [address] Ultrasound Report Signed Patient: Maryellen Acosta MR#: [id number] 1351 : 1935 Acct:[id number] Age/Sex: 89 / F ADM Date: 12/20/24 Loc: HO.ED Attending Dr: Ordering Physician: Eusebio Juarez MD Date of Service: 12/20/24 Procedure(s): US abdomen limited Accession Number(s): [id number] cc: Eusebio Juarez MD; Monse Medina MD [...] 12/20/24 1219 DD/ 1129 TD/TT: 12/20/24 1153 Cocoa Room Operator: Procedure Note Donotuseinterpreter, Image - 12/20/[address] [address] Ultrasound Report Signed Patient: Maryellen AcostaMR#: [id number] 1351 : 8Acct:[id number] Age/Sex: 89 / FADM Date: 12/20/24 Loc: HO.ED Attending Dr: Ordering Physician: Eusebio Juarez MD Date of Service: 12/20/24 Procedure(s): US abdomen limited Accession Number(s): [id number] cc: Eusebio Juarez MD; Monse Medina MD [...] 12/20/24 1219 DD/ 1129 TD/TT: 12/20/24 1153 Cocoa Room Operator: [facility] External Provider IMG US PROCEDURES Edited Result - Final * (ABNORMAL) VENOUS BLOOD GAS (12/20/2024 11:22 AM EDT) VBG pH 7.42 7.32 - 7.43 [facility] Comment:METER #: [id number] additional_comment: [facility] VBG PCO2 48 mmHg [facility] Comment:METER #: [id number] additional_comment: [employer] VBG PO2 72 mmHg [facility] Comment:METER #: [id number] additional_comment: [employer] VBG Base Excess 6.3 mmol/L [facility] Comment:METER #: [id number] additional_comment: [employer] VBG HCO3 32(H) 22 - 26 mmol/L [facility] Comment:METER #: [id number] additional_comment: [facility]b[employer] O2 Sat, Hebert 95.0 % [facility] Comment:METER #: [id number] additional_comment: CbAlbanom 12/20/2024 11:2 2 AM EDT 12/20/2024 11:25 AM EDT us Generic External Data Provider LAB BLOOD ORDERAB LES Final Result Performing Organization Address City/State/[facility] Co de Phone Number [facility] [address] [place] [phone] * Influenza A B2 ID NOW (Buy With Fetch) (12/20/2024 10:52 AM EDT) IDNOW SERIAL# [id number] [facility] Influenza A Negative Negative [facility] Influenza B2 Negative Negative [facility] Influenza A B2 Note See Note [facility] Comment:The Leon ID NOW In [...] LAB MICROBIOLOGY - GENERAL ORDERABLES Final Result [facility] [address] [place] [place] [phone] * COVID-19 ID NOW (LEON) (12/20/2024 10:52 AM EDT) IDNOW SERIAL# [id number] [facility] COVID-19 TEST Negative Negative [facility] COVID-19 NOTE See Note [facility] Comment: Results are for the identification of SARS-CoV2 RNA. TheSARS-CoV2 RNA is generally detectable in respiratory samplesduring the acute phase of infection. Positive results areindicative of the presence of SARS-CoV-2 RNA; clinicalcorrelation with patient history and other diagnosticinformation is necessary to determine patient infectionstatus. Positive results do not rule out bacterial infectionor co- infection with other viruses.Testing facilities within the [facility] and [facility] are required to report all positive [...] GNOSTICS ORDERABLES Final Result Performing Organization Address [facility] Co de Phone Number [facility] [address] [place] [phone] * High Sensitivity Troponin I (12/20/2024 10:52 AM EDT) TROPONIN I HIGH SENSITIVITY 4.5 <3.5 - 17.0 ng/L [facility] Comment:The Leon high sens itivity Troponin-I results should beused in conjunction with other diagnostic information suchas ECG, clinical observations and information, and patientsymptoms to aid in the diagnosis of [place]. 12/20/2024 10:5 2 AM EDT 12/20/2024 11:00 AM EDT us Generic External Data Provider LAB BLOOD ORDERAB LES Final Result Performing Organization Address [facility] de Phone Number [facility] [address] [place] [phone] * NT-proBNP (12/20/2024 10:52 AM EDT) NT-proBNP 158.5 <300 pg/mL [facility] Comment:Reference Range:Age Group (years) NT-proBNP (pg/ml) InterpretationAll <300 Negative: HF unlikelyFor patients presenting to the ED with clinical suspicion ofnew onset or worsening HF, see below:18 to <50 >299.9 to <450.0 Grayzone: Noazhgxm16 to 75 >299.9 to <900.0 other causes of>75 >299.9 to <1800.0 NT-proBNP to <50 >449.9 Positive: HF oieflu20-21 >899.9>75 >1799.9Note: Elevated NT-proBNP levels should be interpreted inthe context of other clinical information. 12/20/2024 10:5 2 AM EDT 12/20/2024 11:00 AM EDT us Generic External Data Provider LAB BLOOD ORDERAB LES Final Result Performing Organization Address [facility] Co de Phone Number [facility] [address] [place] [phone] * Magnesium (12/20/2024 10:52 AM EDT) Pathologist [facility] Magnesium 1.9 1.6 - 2.6 mg/dL [facility] 12/20/2024 10:5 2 AM EDT 12/20/2024 11:00 AM EDT Generic External Data Provider LAB BLOOD ORDERAB LES Final Result Performing Organization Address [facility] Co de Phone Number [facility] [address] [place] [phone] * Lactic Acid (12/20/2024 10:52 AM EDT) Pathologist [facility] Lactic Acid 1.9 0.5 - 2.0 mmol/L [facility] 12/20/2024 10:5 2 AM EDT 12/20/2024 10:59 AM EDT Generic External Data Provider LAB BLOOD ORDERAB LES Final Result Performing Organization Address [facility] de Phone Number [facility] [address] [place] [address] [phone] * Hepatic Function Panel (12/20/2024 10:52 AM EDT) Bilirubin, Total 1.0 0.0 - 1.0 mg/dL [facility] Bilirubin, Direct 0.3 0.0 - 0.5 mg/dL [facility] Aspartate Amino Transferase 26 5 - 31 U/L [facility] Alanine Aminotransferase 27 0 - 31 U/L [facility] Total Protein 7.2 6.5 - 8.0 g/dL [facility] Albumin Level 4.3 3.5 - 5.0 g/dL [facility] Alkaline Phosphatase 68 39 - 117 U/L [facility] 12/20/2024 10:5 2 AM EDT 12/20/2024 11:00 AM EDT us Generic External Data Provider LAB BLOOD ORDERAB LES Final Result Performing Organization Address [facility] de Phone Number [facility] [address] [place] [place] [phone] * Albumin, Random Urine W/Creatinine (06/06/2024 11:36 AM EDT) Creatinine, Urine 63.85 mg/dL [facility] Microalbumin Urine 12.0 mg/L [facility] Microalbum Creatinine Ratio Ur 18.7 <30 ug/mg cr [facility] Comment:Albumin/Creatinine R atio Reference Ranges: Normal: < 30 ug/mg creatinine Microalbuminuria: 30 - 300 ug/mg creatinineClinical Albuminuria: > 300 ug/mg creatinine Urine 06/06/2024 11:3 6 AM EDT 06/06/2024 1:06 PM EDT us Monse Medina MD LAB URINE ORDERABLES Final Resul t Performing Organization Address [facility] de Phone Number [facility] [address] [place] [place] [phone] * (ABNORMAL) Hemoglobin A1c (05/08/2024 12:23 PM EST) Hemoglobin A1c 7.2(H) <6.0 % [facility] Comment:Hemoglobin A1C Refer ence Range Adults: 4.8 - 6.0 % Non diabetic: < 6.0 % Goal: < 7.0 %Additional Action Suggested: > 8.0 %Note: Hemoglobin A1c results are invalid for patients with abnormal amounts of HbF. Blood transfusions may impact the HbA1c concentration in the patient sample. Estimated Average Glucose 160 mg/dL [facility] Comment:eAG = Estimated ave rage glucose which is %A1C expressed asaverage glucose, using the formula of the R6R-UhksiezUpawjsb Glucose study (ADAG), Diabetes Care, Vol.31,#8,2007 05/08/2024 12:2 3 PM EST 05/08/2024 12:28 PM EST us Generic External Data Provider LAB BLOOD ORDERAB LES Final Result [facility] [address] [place] [phone] from Last 3 Months or Most Recently Relevant to Health Maintenance Additional Health Concerns Active Problems Noted Date [...] neuropathy 02/07/2025 Patient has diabetic neuropathy 02/07/2025 Insurance [facility] HSN FULL Care Teams Director Equipment Relationship Specialty Start Date End Date Monse Medina MD [address] [place] [address] PCP - General Family Medicine 04/28/24
--- OUTSIDE RECORDS SUMMARY | 2025-02-13 19:45 | XMS_ITS | Encounter Summary ---
Author Organization [employer] Address [address] [facility] 7t [place] [address] Care Team Providers Care Cultural Centre Manager Name Role Phone Monse Medina MD Primary Care Provider [phone] Encounter Details Date Type Department Care Team ([facility] st Contact Info) Description 05/02/2024 Orders Only [facility] MEDICINE [address] [place], [place] [phone] Monse Medina MD [address] [place], [place] [phone] Social History Tobacco Use Types Packs/Day Years [...] PM EST Narrative 05/09/2024 1:05 PM EST [place] [address] Magnetic Resonance Report Signed Patient: Maryellen Acosta MR#: [id number] 1351 : 1935 Acct:[id number] Age/Sex: 88 / F ADM Date: 05/08/24 Loc: .ICU 254-[address]: Cindy Sesay MD Ordering Physician: Loc Elder Date of Service: 05/09/24 Procedure(s): MR head/brain wo/w con Accession Number(s): [id number] cc: Loc Elder; Monse Medina MD CLINICAL [...] 05/09/24 1305 DD/ 1304 TD/TT: 05/09/24 1304 Mobility Developer: Procedure Note Donotuseinterpreter, Image - 05/09/2024 [place] [address] Magnetic Resonance Report Signed Patient: Carlin Acosta#: [id number] 1351 : 8Acct:[id number] Age/Sex: 88 / FADM Date: 05/08/24 Loc: .ICU 254-[address]: Cindy Sesay MD Ordering Physician: Loc Elder Date of Service: 05/09/24 Procedure(s): MR head/brain wo/w con Accession Number(s): [id number] cc: Loc Elder; Monse Medina MD CLINICAL [...] 05/09/24 1305 DD/ 1304 TD/TT: 05/09/24 1304 Mobility Developer: [facility] External Provider IMG MRI PROCEDURES Final Result * CTA Head Stroke w/ and w/o Contrast (05/08/2024 12:54 PM EST) Anatomical Region Laterality Modality Computed Tomogra phy 05/08/2024 12:5 4 PM EST Narrative 05/08/2024 12:55 PM EST [place] [address] CT Scan Report Signed Patient: Maryellen Acosta MR#: [id number] 1351 : 1935 Acct:[id number] Age/Sex: 88 / F ADM Date: 05/08/24 Loc: HO.ED Attending Dr: Ordering Physician: Erica Valenzuela DO Date of Service: 05/08/24 Procedure(s): CT angio head neck STROKE Accession Number(s): [id number] cc: Erica Valenzuela DO; Monse Medina MD Report Number: [id number]: Total DLP = 647.00 mGy-cm CLINICAL HISTORY: [...] 05/08/24 1255 DD/ 1254 TD/TT: 05/08/24 1254 Mobility Developer: Procedure Note Donotuseinterpreter, Image - 05/08/[address] [place] [address] [address] Scan Report Signed Patient: Carlin Acosta#: [id number] 1351 : 8Acct:[id number] Age/Sex: 88 / FADM Date: 05/08/24 Loc: .ED Attending Dr: Ordering Physician: Erica Valenzuela DO Date of Service: 05/08/24 Procedure(s): CT angio head neck STROKE Accession Number(s): [id number] cc: Erica Valenzuela DO; Monse Medina MD Report Number: [id number]: Total DLP = 647.00 mGy-cm CLINICAL HISTORY: [...] 05/08/24 1255 DD/ 1254 TD/TT: 05/08/24 1254 Mobility Developer: [facility] External Provider IMG CT PROCEDURES Final Result * SARS-CoV-2 RNA, Influenza A/B, and RSV RNA, Ql NAAT (05/08/2024 12:52 PM EST) Influenza A PCR NEGATIVE Negative [facility] Influenza B PCR NEGATIVE Negative [facility] Resp Syncy Virus RNA Qual PCR NEGATIVE Negative [facility] SARS COV2 PCR NEGATIVE Negative [facility] Comment:All test results mus t [...] use by authorized laboratories.Testing performed on the [employer] GeneXpert utilizingreal-time RT-PCR.All SARS CoV2 and positive influenza A/B results arereported to [facility]. 05/08/2024 12:5 2 PM EST 05/08/2024 12:56 PM EST Generic External Data Provider LAB MICROBIOLOGY - GENERAL ORDERABLES Final Result [facility] [address] [place] [phone] * CT Head Stroke w/o Contrast (05/08/2024 12:30 PM EST) Anatomical Region Laterality Modality Computed Tomogra phy 05/08/2024 12:3 0 PM EST Narrative 05/08/2024 12:34 PM EST [address] [address] [address] Scan Report Signed with Karel Patient: Maryellen Acosta MR#: [id number] 1351 : 1935 Acct:[id number] Age/Sex: 88 / F ADM Date: 05/08/24 Loc: HO.ED Attending Dr: Ordering Physician: Erica Valenzuela DO Date of Service: 05/08/24 Procedure(s): CT head for STROKE Accession Number(s): [id number] cc: Erica Valenzuela DO; Monse Medina MD Report Number: [id number]: Total DLP = 667.00 mGy-cm ADDENDUM This [...] in OV> 05/08/241232 DD/ 29 TD/TT: 05/08/241229 Mobility Developer: Procedure Note Donotuseinterpreter, Image - 05/08/[address] [address] [address] Scan Report Signed with Addenda Patient: Maryellen AcostaMR#: [id number] 1351 : 8Acct:[id number] Age/Sex: 88 / FADM Date: 05/08/24 Loc: HO.ED Attending Dr: Ordering Physician: Erica Valenzuela DO Date of Service: 05/08/24 Procedure(s): CT head for STROKE Accession Number(s): [id number] cc: Erica Valenzuela DO; Monse Medina MD Report Number: [id number]: Total DLP = 667.00 mGy-cm ADDENDUM This [...] in OV> 05/08/241232 DD/ 29 TD/TT: 05/08/241229 Mobility Developer: [facility] External Provider IMG CT PROCEDURES Edited Result - Final * Hold Green Gel (05/08/2024 12:23 PM EST) Hold Green Gel See Note [facility] Comment:Specimen held untest ed for 24 hours; Call to requestChemistry testing. 05/08/2024 12:2 3 PM EST 05/08/2024 12:28 PM EST us Generic External Data Provider HISTORICAL/NON OR DERABLE LABS Final Result Performing Organization Address [facility]/ZIP Co de Phone Number [facility] [address] [place] [phone] * TSH with Reflex to Free T4 (05/08/2024 12:23 PM EST) Pathologist [facility] TSH reflex Free T4 1.48 0.32 - 4.0 uIU/mL [facility] 05/08/2024 12:2 3 PM EST 05/08/2024 12:28 PM EST Generic External Data Provider LAB BLOOD ORDERAB LES Final Result Performing Organization Address [facility] Co de Phone Number [facility] [address] [place] [phone] * B Type Natriuretic Peptide (BNP) (05/08/2024 12:23 PM EST) Pathologist [facility] B Type Natriuretic Peptide 44 <100 pg/mL [facility] Comment:For those patients w ho are being treated with Natrecor(nesiritide, recombinant BNP), BNP testing should beperformed at least two hours post treatment in order toensure that only endogenous levels of BNP are detected. 05/08/2024 12:2 3 PM EST 05/08/2024 12:28 PM EST us Generic External Data Provider LAB BLOOD ORDERAB LES Final Result Performing Organization Address [facility] Co de Phone Number [facility] [address] [place] [phone] * Lipase (05/08/2024 12:23 PM EST) Lipase 18 8 - 78 U/L [facility] 05/08/2024 12:2 3 PM EST 05/08/2024 12:28 PM EST Generic External Data Provider LAB BLOOD ORDERAB LES Final Result Performing Organization Address [facility]/ZIP Co de Phone Number [facility] [address] [place] [phone] * (ABNORMAL) Lipid Panel, Standard (05/08/2024 12:23 PM EST) Triglycerides 195(H) <150 mg/dL [facility] Comment:Desirable Triglyceri de: less than 150 mg/dLBorderline High Triglyceride 150-199 mg/dLHigh Triglyceride: 200-499 mg/dLVery High Triglyceride: greater than or equal to 5OO mg/dL Cholesterol 161 <200 mg/dL [facility] Comment:Desirable Cholestero l: less than 200 mg/dLBorderline High Cholesterol: 200-239 mg/dLHigh Cholesterol: greater than 239 mg/dL LDL Cholesterol Calculated 81 <100 mg/dL [facility] Comment:Desirable LDL: less than 100 mg/dLNear Optimal/Above Optimal LDL: 110- 129 mg/dLBorderline High LDL: 130-159 mg/dLHigh LDL: 160-189 mg/dLVery High LDL: greater than or equal to 190 mg/dL HDL Cholesterol 41 >40 mg/dL [facility] Comment:Desirable HDL: great er than 40 mg/dL Note: This HDL assay may give artificially low results in patients with liver disease. 05/08/2024 12:2 3 PM EST 05/08/2024 12:28 PM EST us Generic External Data Provider LAB BLOOD ORDERAB LES Final Result Performing Organization Address [facility]/ZIP Co de Phone Number [facility] [address] [place] [phone] * Magnesium (05/08/2024 12:23 PM EST) Magnesium 1.8 1.6 - 2.6 mg/dL [facility] 05/08/2024 12:2 3 PM EST 05/08/2024 12:28 PM EST us Generic External Data Provider LAB BLOOD ORDERAB LES Final Result [facility] [address] [place] [phone] * (ABNORMAL) Basic Metabolic Panel (05/08/2024 12:23 PM EST) Sodium 139 135 - 145 mmol/L [facility] Potassium 4.0 3.3 - 5.1 mmol/L [facility] Chloride 103 96 - 108 mmol/L [facility] Carbon Dioxide 25 22 - 29 mmol/L [facility] Anion Gap 15 12 - 20 [facility] Urea Nitrogen (BUN) 16 9 - 16 mg/dL [facility] Creatinine, Serum 0.67 0.5 - 1.4 mg/dL [facility] Creatinine Clr Calc Pharmacy 58.1 [facility] Comment:Provided height and weight: 157.48 cm,77.6 kg.eGFR (calculated from the MDRD study equation) and eCrCl(calculated from the Cockcroft-Gault equation) are based ondifferent parameters and may not yield comparable results.If eCrCl result is absurd, please check patient'sheight/weight. Estimated Glomerular Filt Rate >60 [facility] Comment:Chronic Kidney Disea se: Estimated GFR < 60 mL/min/1.25m9Bhtzll Kidney Disease: Estimated GFR < 15 mL/min/1.73m2 Glucose 223(H) 60 - 115 mg/dL [facility] Calcium 9.6 8.4 - 10.2 mg/dL [facility] 05/08/2024 12:2 3 PM EST 05/08/2024 12:28 PM EST us Generic External Data Provider LAB BLOOD ORDERAB LES Final Result Performing Organization Address [facility]/ZIP Co de Phone Number [facility] [address] [place] [phone] * (ABNORMAL) Hepatic Function Panel (05/08/2024 12:23 PM EST) Bilirubin, Total 0.8 0.0 - 1.0 mg/dL [facility] Bilirubin, Direct 0.2 0.0 - 0.5 mg/dL [facility] Aspartate Amino Transferase 53(H) 5 - 31 U/L [facility] Alanine Aminotransferase 64(H) 0 - 31 U/L [facility] Total Protein 7.6 6.5 - 8.0 g/dL [facility] Albumin Level 4.1 3.5 - 5.0 g/dL [facility] Alkaline Phosphatase 79 39 - 117 U/L [facility] 05/08/2024 12:2 3 PM EST 05/08/2024 12:28 PM EST us Generic External Data Provider LAB BLOOD ORDERAB LES Final Result Performing Organization Address [facility] Co de Phone Number [facility] [address] [place] [phone] * High Sensitivity Troponin I (05/08/2024 12:23 PM EST) Pathologist [facility] TROPONIN I HIGH SENSITIVITY 2.7 <3.5 - 17.0 ng/L [facility] Comment:The Magdaleno high sens itivity Troponin-I results should beused in conjunction with other diagnostic information suchas ECG, clinical observations and information, and patientsymptoms to aid in the diagnosis of [place]. 05/08/2024 12:2 3 PM EST 05/08/2024 12:28 PM EST us Generic External Data Provider LAB BLOOD ORDERAB LES Final Result Performing Organization Address City/[facility]/ZIP Co de Phone Number [facility] [address] [place] [phone] * Prothrombin Time-INR (05/08/2024 12:23 PM EST) Prothrombin Time 11.1 10.9 - 12.4 SEC [facility] INTERNATIONAL NORM RATIO 1.0 0.9 - 1.1 [facility] Comment:INTERNATIONAL NORMAL IZED RATIO [...] Provider LAB BLOOD ORDERAB LES Final Result [facility] [address] [place] [phone] * (ABNORMAL) Hemoglobin A1c (05/08/2024 12:23 PM EST) Hemoglobin A1c 7.2(H) <6.0 % [facility] Comment:Hemoglobin A1C Refer ence Range Adults: 4.8 - 6.0 % Non diabetic: < 6.0 % Goal: < 7.0 %Additional Action Suggested: > 8.0 %Note: Hemoglobin A1c results are invalid for patients with abnormal amounts of HbF. Blood transfusions may impact the HbA1c concentration in the patient sample. Estimated Average Glucose 160 mg/dL [facility] Comment:eAG = Estimated ave rage glucose which is %A1C expressed asaverage glucose, using the formula of the I6U-HghnzdlCksnlou Glucose study (ADAG), Diabetes Care, Vol.31,#8,2007 05/08/2024 12:2 3 PM EST 05/08/2024 12:28 PM EST us Generic External Data Provider LAB BLOOD ORDERAB LES Final Result [facility] [address] [place] [phone] * CBC auto differential (05/08/2024 12:23 PM EST) White Blood Count 7.1 4.8 - 10.8 X10*3/uL [facility] Red Blood Count 5.12 4.20 - 5.50 X10*6/uL [facility] Hemoglobin 14.0 12.0 - 16.0 g/dl [facility] Hematocrit 43.6 37.0 - 47.0 % [facility] Mean Corpuscular Volume 85.2 80.0 - 98.0 fL [facility] Mean Corpuscular Hemoglobin 27.3 27.0 - 33.0 pg [facility] Mean Corpuscular HGB Conc 32.1 31.0 - 35.0 g/dl [facility] Red Cell Distribution Width 14.4 11.0 - 16.0 % [facility] Platelet Count 161 160 - 400 X10*3/uL [facility] Mean Platelet Volume 9.7 9.4 - 12.3 fL [facility] Neutrophils Percent Auto 67.1 45 - 73 % [facility] Imm Gran Pct Auto 0.4 0.0 - 0.4 % [facility] Lymphocytes Percent Auto 23.9 20 - 40 % [facility] Monocytes Percent Auto 7.2 2 - 11 % [facility] Eosinophils Percent Auto 1.0 0 - 4 % [facility] Basophils Percent Auto 0.4 0 - 2 % [facility] NRBC Pct Auto 0.0 0.0 - 0.2 /100WBC [facility] Neutrophils Absolute Auto 4.8 2.0 - 8.3 x10*3/uL [facility] Imm Gran Abs Auto 0.03 0.00 - 0.03 X10*3/uL [facility] Lymphocytes Absolute Auto 1.7 1.2 - 4.9 X10*3/uL [facility] Monocytes Absolute Auto 0.5 0.1 - 1.2 X10*3/uL [facility] Eosinophils Absolute Auto 0.1 0.0 - 0.4 X10*3/uL [facility] Basophils Absolute Auto 0.0 0.0 - 0.2 X10*3/uL [facility] NRBC Abs Auto 0.000 0.0 - 0.012 X10*3/uL [facility] 05/08/2024 12:2 3 PM EST 05/08/2024 12:28 PM EST Generic External Data Provider LAB BLOOD ORDERAB LES Final Result Performing Organization Address [facility] de Phone Number [facility] [address] [place] [phone] * Hold Green Gel (05/08/2024 12:23 PM EST) Hold Green Gel See Note [facility] Comment:Specimen held untest ed for 24 hours; Call to requestChemistry testing. 05/08/2024 12:2 3 PM EST 05/08/2024 12:28 PM EST Generic External Data Provider HISTORICAL/NON OR DERABLE LABS Final Result Performing Organization Address [facility] Co de Phone Number [facility] [address] [place] [address] [phone] * PROTHROMBIN TIME WHOLE BLD POC (05/08/2024 12:19 PM EST) Protime 12.2 11.1 - 13.5 sec [facility] 05/08/2024 12:1 9 PM EST 05/08/2024 12:27 PM EST Generic External Data Provider LAB BLOOD ORDERAB LES Final Result Performing Organization Address [facility] Co de Phone Number [facility] [address] [place] [phone] * ~PT, ~INR - ANTI COAG CLINIC (05/08/2024 12:19 PM EST) Prothrombin Time INR 1.0 0.9 - 1.1 [facility] Comment:METER #: [id number] TERNATIONAL NORMALIZED RATIO (INR) REFERENCE RANGES Reference [...] ORDERAB LES Final Result Performing Organization Address City/[facility]/ZIP Co de Phone Number [facility] [address] [place] [phone] [phone] * (ABNORMAL) Glucose, Whole Blood (05/08/2024 12:17 PM EST) Glucose, Whole Blood 217(H) 60 - 115 mg/dL [facility] Comment:METER #: [id number] 05/08/2024 12:1 7 PM EST 05/08/2024 12:28 PM EST us Generic External Data Provider LAB BLOOD ORDERAB LES Final Result Performing Organization Address City/[facility]/ZIP Co de Phone Number [facility] [address] [place] [phone] documented in this encounter Visit Diagnoses Not on filedocumented in this encounter Additional Health Concerns Assessment Noted Time PHQ-9 Depression Total Score: 1 04/28/19 25 9:28 AM EST documented as of this encounter Care Teams Cultural Centre Manager Relationship Specialty Start Date End Date Monse Medina MD [address] [place] [phone] PCP - General Family Medicine 04/28/24 documented as of this encounter
--- OUTSIDE RECORDS SUMMARY | 2025-02-13 19:45 | XMS_ITS | Encounter Summary ---
Author Organization [employer] Address [address] [facility] 7[address] [place] [address] Care Team Providers Care Senior Games Technician Name Role Phone Monse Medina MD Primary Care Provider [phone] Encounter Details Date Type Department Care Team ([facility] st Contact Info) Description 09/29/2024 Orders Only [facility] [address] [place], [place] [phone] Monse Medina MD [address] [place], [place] [phone] Social History Tobacco Use Types Packs/Day Years [...] documented as of this encounter Care Teams Senior Games Technician Relationship Specialty Start Date End Date Monse Medina MD [address] [place] [phone] PCP - General Family Medicine 04/28/24 documented as of this encounter
--- OUTSIDE RECORDS SUMMARY | 2025-02-13 19:45 | XMS_ITS | Encounter Summary ---
Author Organization [employer] Address [address] [facility] [address] [place] [address] Care Team Providers Care Piece Dye Worker Name Role Phone Monse Medina MD Primary Care Provider [phone] Encounter Details Date Type Department Care Team ([facility] st Contact Info) Description 12/01/2024 Telephone [facility] [address] [place], [place] [phone] Monse Medina MD [address] [place], [place] [phone] Social History Tobacco Use Types Packs/Day Years [...] documented as of this encounter Care Teams Piece Dye Worker Relationship Specialty Start Date End Date Monse Medina MD [address] [place] [phone] PCP - General Family Medicine 04/28/24 documented as of this encounter
--- OUTSIDE RECORDS SUMMARY | 2025-02-13 19:45 | XMS_ITS | Encounter Summary ---
Author Organization [id number] Address [address] [facility] 7t [place] [address] Care Team Providers Care Cable Driller Name Role Phone Monse Medina MD Primary Care Provider Encounter Details Date Type Department Care Team ([facility] st Contact Info) Description 02/13/2025 Orders Only [facility] 230 [place], [place] [phone] Monse Medina MD [address] [place], [place] [phone] Social History Tobacco Use Types Packs/Day Years [...] Daigle MD documented as of this encounter Procedures Procedure Name Priority Date/Time Associated Diagnosis Comments LIPID PANEL WITH REFLEX TO DIRECT LDL Routine 02/13/2025 3:19 PM EST BASIC METABOLIC PANEL Routine 02/13/2025 3:19 PM EST documented in this encounter Results * (ABNORMAL) Lipid Panel with Reflex to Direct LDL (02/13/2025 3:19 PM EST) Triglycerides 392(H) <150 mg/dL [facility] Comment:Desirable Triglyceri de: less than 150 mg/dLBorderline High Triglyceride 150-199 mg/dLHigh Triglyceride: 200-499 mg/dLVery High Triglyceride: greater than or equal to 5OO mg/dL Cholesterol 228(H) <200 mg/dL [facility] Comment:Desirable Cholestero l: less than 200 mg/dLBorderline High Cholesterol: 200-239 mg/dLHigh Cholesterol: greater than 239 mg/dL LDL Cholesterol Calculated 105(H) <100 mg/dL [facility] Comment:Desirable LDL: less than 100 mg/dLNear Optimal/Above Optimal LDL: 110- 129 mg/dLBorderline High LDL: 130-159 mg/dLHigh LDL: 160-189 mg/dLVery High LDL: greater than or equal to 190 mg/dL HDL Cholesterol 45 >40 mg/dL [facility] Comment:Desirable HDL: great er than 40 mg/dL Note: This HDL assay may give artificially low results in patients with liver disease. 02/13/2025 3:19 PM EST 02/13/2025 3:19 PM EST us Monse Medina MD LAB BLOOD ORDERABLES Final Resul t [facility] [address] [place] [phone] * (ABNORMAL) Basic Metabolic Panel (02/13/2025 3:19 PM EST) Sodium 141 135 - 145 mmol/L [facility] Potassium 4.3 3.3 - 5.1 mmol/L [facility] Chloride 106 96 - 108 mmol/L [facility] Carbon Dioxide 29 22 - 29 mmol/L [facility] Anion Gap 10(L) 12 - 20 [facility] Urea Nitrogen (BUN) 15 9 - 16 mg/dL [facility] Creatinine, Serum 0.57 0.5 - 1.4 mg/dL [facility] Estimated Glomerular Filt Rate >60 [facility] Comment:Chronic Kidney Disea se: Estimated GFR < 60 mL/min/1.44t7Ybipsy Kidney Disease: Estimated GFR < 15 mL/min/1.73m2 Glucose 156(H) 60 - 115 mg/dL [facility] Calcium 9.9 8.4 - 10.2 mg/dL [facility] 02/13/2025 3:19 PM EST 02/13/2025 3:19 PM EST us Monse Medina MD LAB BLOOD ORDERABLES Final Resul t [facility] [address] [place] [phone] documented in this encounter Visit Diagnoses Not on filedocumented in this encounter Additional Health Concerns Active [...] documented as of this encounter Care Teams Cable Driller Relationship Specialty Start Date End Date Monse Medina MD [address] [place] [phone] PCP - General Family Medicine 04/28/24 documented as of this encounter
--- OUTSIDE RECORDS SUMMARY | 2025-02-13 19:45 | XMS_ITS | Encounter Summary ---
Author Organization [employer] Address [address] [place] [address] 7t [place] [address] Care Team Providers Care Senior Recruitment Consultant Name Role Phone Monse Medina MD Primary Care Provider [phone] Reason for Referral * Consultation (Routine) - Closed Specialty Diagnoses / Procedures Referred By Contmadison miranda Referred To Contact Hematology and Oncology Diagnoses Pulmonary embolism without acute cor pulmonale, unspecified chronicity, unspecified pulmonary embolism type (CMS/HCC) (HCC) History of DVT (deep vein thrombosis) History of TIA (transient ischemic attack) Monse Medina MD 230 [place] [address] Phone: tel: fax: Referral ID Status Reason Start Date Expiration Date V isits Requested Visits Authorized [id number] Closed Specialty Services Required 12/22/2024 12/22/2025 1 1 Encounter Details Date Type Department Care Team (Late st Contact Info) Description 12/22/2024 Orders Only [facility] [address] [place] [address] Monse Medina MD 230 [place] [address] Pulmonary embolism without acute cor pulmonale, unspecified chronicity, unspecified pulmonary embolism type (CMS/HCC) (HCC) (Primary Dx); History of DVT (deep vein thrombosis); History of TIA (transient ischemic attack) Social History Tobacco Use Types Packs/Day Years [...] Associated Diagnoses Orde r Schedule Referral to Hematology / Oncology Outpatient Referral Routine Pulmonary embolism without acute cor pulmonale, unspecified chronicity, unspecified pulmonary embolism type (CMS/HCC) History of DVT (deep vein thrombosis) History of TIA (transient ischemic attack) Expected: 12/22/2024 (Approximate), Expires: 12/22/2025 documented as of this encounter Visit Diagnoses Diagnosis Pulmonary embolism without acute cor pulmonale, unspecified chronicity, unspecified pulmonary embolism type (CMS/HCC) (HCC)- Primary History of DVT (deep vein thrombosis) History of TIA (transient ischemic attack) documented in this encounter Additional Health Concerns Assessment Noted Time PHQ-9 Depression Total Score: 1 04/28/19 25 9:28 AM EST documented as of this encounter Care Teams Senior Recruitment Consultant Relationship Specialty Start Date End Date Monse Medina MD 230 [place] [address] PCP - General Family Medicine 04/28/24 documented as of this encounter
--- OUTSIDE RECORDS SUMMARY | 2025-02-13 19:45 | XMS_ITS | Encounter Summary ---
Author Organization [employer] Address 75 [facility] 7t [place] [address] Care Team Providers Care Store Clerk Cashier Name Role Phone Monse Medina MD Primary Care Provider [phone] Reason for Referral * Consultation (Routine) - Closed Specialty Diagnoses / Procedures Referred By Contmadison t Referred To Contact Pain Medicine Diagnoses Spinal stenosis of lumbar region with neurogenic claudication Monse Medina MD 230 [place] [address] Phone: tel: fax: [facility] [address] [facility] [address] [place] [address] Phone: tel: fax: Referral ID Status Reason Start Date Expiration Date V isits Requested Visits Authorized [id number] Closed Specialty Services Required 11/08/2024 11/08/2025 1 1 Encounter Details Date Type Department Care Team (Late st Contact Info) Description 11/08/2024 Orders Only [facility] [address] [place] [address] [phone] oMnse Medina MD [address] [place], [place] [phone] Spinal stenosis of lumbar region with neurogenic [...] documented as of this encounter Care Teams Store Clerk Cashier Relationship Specialty Start Date End Date Monse Medina MD [address] [place] [phone] PCP - General Family Medicine 04/28/24 documented as of this encounter
--- OUTSIDE RECORDS SUMMARY | 2025-02-13 19:45 | XMS_ITS | Encounter Summary ---
Author Organization [employer] Address [address] [facility] 7t [place] [address] Care Team Providers Care Belt Press Operator Name Role Phone Monse Medina MD Primary Care Provider [phone] Encounter Details Date Type Department Care Team ([facility] st Contact Info) Description 01/26/2025 Orders Only [facility] 230 [place], [place] [phone] Monse Medina MD 230 [place], [place] [phone] Social History Tobacco Use Types Packs/Day Years [...] documented as of this encounter Care Teams Belt Press Operator Relationship Specialty Start Date End Date Monse Medina MD [address] [place] [address] PCP - General Family Medicine 04/28/24 documented as of this encounter
== END 2025-02-13 14:57 | disposition home or self-care (01) ==
LOC: HO.LAB 14:56
PROVIDERS: PCP Family Medicine; Visit Provider Family Medicine
DX: E11.9 Type 2 diabetes mellitus without complications (principal); R74.01 Elevation of levels of liver transaminase levels; E78.5 Hyperlipidemia, unspecified
CPT/HCPCS: 36415; 80048; 80061

== ENCOUNTER 2025-02-14 09:39 | Outpatient (AMB) | payer MEDICAID, OTHER, SELFPAY ==
[2025-02-14 10:07] LABS: Prothrombin Time Whole Bld POC 14.6 sec (11.1-13.5); ~PT, ~INR - Anti Coag Clinic 1.2 (0.9-1.1)
--- NOTE | 2025-02-14 10:27 | MHC.OFFVISCO ---
Intake Intake Visit Reasons: Anticoagulation Allergies No Known Allergies Allergy (Verified 12/29/24 06:50) Medication List - Last Reconciled 02/14/25 by Nadege Simons RN acetaminophen 500 - 1,000 mg PO Q8H PRN amlodipine 2.5 mg PO DAILY atorvastatin 10 mg PO BEDTIME gabapentin 300 mg PO BEDTIME gabapentin 300 mg PO DAILY PRN glipizide 5 mg PO DAILY metformin 500 mg PO BID omeprazole 20 mg PO DAILY PRN Nursing Note added new pt in for urgent visit - just resumed warfarin 2mg about 1 week ago [facility] office closed and Thursday- pt leaving to go out of town, chk INR again tomorrow - pt on lovenox reviewed food list with pt and her son in law INR: 1.2 OUT OF therapeutic range Medications and supplements reviewed No changes in health, diet, medications, or supplements, Denies any signs and symptoms of bleeding or bruising or clotting. Bleeding, bruising, clotting discussed Nutritional guidance given - avoid greens for 3 days then eat a mix of fruits and vegetables and warfarin dose will be adjusted to your diet Dose: 4MG now and tomorrow and lovenox per md orders F/U INR: tomorrow then again 02/21/25 - [facility] closed and Thursday pt leaving out of town wont be able to come back until 02/21/25 to have INR checked Patient and son in law verbalize understanding of instructions given t/c to PCP office nurse triage line - pt status given with INR and plan of care and request call back Anti-Coag Initial Assessment Social Hx Patient Tobacco Use Status: Never used Tobacco Coding Level of Care Code Est Patient Level 1 Diagnoses Current use of anticoagulant therapy Z79.01 Time Spent (min) 25 Comment new pt add on Assessment & Plan Assessment & Plan (1) Current use of anticoagulant therapy: 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
--- OUTSIDE RECORDS SUMMARY | 2025-02-14 11:12 | XMS_ITS | Encounter Summary ---
Author Organization [employer] Address [address] [place] [address] 7t [place] [address] Care Team Providers Care Licensed Certified Orthotist Name Role Phone Monse Medina MD Primary Care Provider [phone] Reason for Referral * Consultation (Routine) - Closed Specialty Diagnoses / Procedures Referred By Contmadison miranda Referred To Contact Hematology and Oncology Diagnoses Pulmonary embolism without acute cor pulmonale, unspecified chronicity, unspecified pulmonary embolism type (CMS/HCC) (HCC) History of DVT (deep vein thrombosis) History of TIA (transient ischemic attack) Monse Medina MD 230 [place] [address] Phone: tel: fax: Referral ID Status Reason Start Date Expiration Date V isits Requested Visits Authorized [id number] Closed Specialty Services Required 12/22/2024 12/22/2025 1 1 Encounter Details Date Type Department Care Team (Late st Contact Info) Description 12/22/2024 Orders Only [facility] 230 [place] [address] Monse Medina MD 230 [place] [address] Pulmonary embolism without acute cor pulmonale, unspecified [...] documented as of this encounter Care Teams Licensed Certified Orthotist Relationship Specialty Start Date End Date Monse Medina MD 230 [place] [address] PCP - General Family Medicine 04/28/24 documented as of this encounter
--- OUTSIDE RECORDS SUMMARY | 2025-02-14 11:12 | XMS_ITS | Encounter Summary ---
Author Organization [employer] Address [address] [facility] 7t [place] [address] Care Team Providers Care Ordnance Engineering Technician Name Role Phone Monse Medina MD Primary Care Provider [phone] Encounter Details Date Type Department Care Team ([facility] st Contact Info) Description 09/29/2024 Orders Only [facility] 230 [place], [place] [phone] Monse Medina MD 230 [place], [place] [phone] Social History Tobacco Use Types Packs/Day Years [...] documented as of this encounter Care Teams Ordnance Engineering Technician Relationship Specialty Start Date End Date Monse Medina MD [address] [place] [address] PCP - General Family Medicine 04/28/24 documented as of this encounter
--- OUTSIDE RECORDS SUMMARY | 2025-02-14 11:12 | XMS_ITS | Encounter Summary ---
Author Organization [employer] Address [address] [facility] 7t [place] [address] Care Team Providers Care Hobbing Machine Operator Name Role Phone Monse Medina MD Primary Care Provider [phone] Reason for Referral * Consultation (Routine) - Closed Specialty Diagnoses / Procedures Referred By Contmadison t Referred To Contact Pain Medicine Diagnoses Spinal stenosis of lumbar region with neurogenic claudication Monse Medina MD 230 [place] [address] Phone: tel: fax: [facility] [address] [facility] [address] [place] [address] Phone: tel: fax: Referral ID Status Reason Start Date Expiration Date V isits Requested Visits Authorized [id number] Closed Specialty Services Required 11/08/2024 11/08/2025 1 1 Encounter Details Date Type Department Care Team (Late st Contact Info) Description 11/08/2024 Orders Only [facility] [address] [place] [address] [phone] Monse Medina MD 230 [place], [place] [phone] Spinal stenosis of lumbar region with neurogenic [...] documented as of this encounter Care Teams Hobbing Machine Operator Relationship Specialty Start Date End Date Monse Medina MD [address] [place] [address] PCP - General Family Medicine 04/28/24 documented as of this encounter
--- OUTSIDE RECORDS SUMMARY | 2025-02-14 11:12 | XMS_ITS | Encounter Summary ---
Author Organization [employer] Address 75 [facility] 7t [place] [address] Care Team Providers Care Middle School Assistant Principal Name Role Phone Monse Medina MD Primary Care Provider [phone] Encounter Details Date Type Department Care Team ([facility] st Contact Info) Description 01/26/2025 Orders Only [facility] [address] [place], [place] [phone] Monse Medina MD 230 [place], [place] [phone] Social History Tobacco Use Types Packs/Day Years [...] documented as of this encounter Care Teams Middle School Assistant Principal Relationship Specialty Start Date End Date Monse Medina MD [address] [place] [phone] PCP - General Family Medicine 04/28/24 documented as of this encounter
--- OUTSIDE RECORDS SUMMARY | 2025-02-14 11:12 | XMS_ITS | Encounter Summary ---
Author Organization [employer] Address [address] [facility] 7t [place] [address] Care Team Providers Care Cotton Classer Aide Name Role Phone Monse Medina MD Primary Care Provider [phone] Encounter Details Date Type Department Care Team (Late st Contact Info) Description 02/14/2025 Orders Only [facility] Provider, Generic External Data Social History Tobacco Use Types Packs/Day Years [...] patients manage their type 2 diabetes No Monse Medina MD Weekly blood pressure task Care Plan Weekly blood pressure task No Monse Medina MD Help patients manage their type 2 diabetes Care Plan Help patients manage their type 2 diabetes Monse Dagile MD Patient has chronic kidney disease Care Plan Patient has chronic kidney disease Monse Daigle MD Help patients manage their type 2 diabetes Care Plan Help patients manage their type 2 diabetes No Monse Medina MD Patient has diabetic neuropathy Care Plan Patient has diabetic neuropathy No Monse Medina MD Weekly blood pressure task Care Plan Weekly blood pressure task Monse Daigle MD Weekly blood pressure task Care Plan Weekly blood pressure task Monse Daigle MD Patient has chronic kidney disease Care Plan Patient has chronic kidney disease Monse Daigle MD Patient has chronic kidney disease Care Plan Patient has chronic kidney disease No oMnse Medina MD Patient has diabetic neuropathy Care Plan Patient has diabetic neuropathy Monse Daigle MD Patient has diabetic neuropathy Care Plan Patient has diabetic neuropathy No Monse Medina MD Weekly blood pressure task Care Plan Weekly blood pressure task No Jyoti Barnhart RN Weekly blood pressure task Care Plan Weekly blood pressure task No Jyoti Barnhart RN Weekly blood pressure task Care Plan Weekly blood pressure task No Jyoti Barnhart RN Patient has chronic kidney disease Care Plan Patient has chronic kidney disease No Jyoti Barnhart RN Patient has chronic kidney disease Care Plan Patient has chronic kidney disease No Jyoti Barnhart RN Patient has chronic kidney disease Care Plan Patient has chronic kidney disease No Jyoti Barnhart RN Patient has diabetic neuropathy Care Plan Patient has diabetic neuropathy No Jyoti Barnhart RN Patient has diabetic neuropathy Care Plan Patient has diabetic neuropathy No Jyoti Barnhart RN Patient has diabetic neuropathy Care Plan Patient has diabetic neuropathy No Jyoti Barnhart RN documented as of this encounter Procedures Procedure Name Priority Date/Time Associated Diagnosis Comments PROTHROMBIN TIME WHOLE BLD POC Routine 02/14/2025 10:05 AM EST ~PT, ~INR - ANTI COAG CLINIC Routine 02/14/2025 10:05 AM EST documented in this encounter Results * (ABNORMAL) PROTHROMBIN TIME WHOLE BLD POC (02/14/2025 10:05 AM EST) Protime 14.6(H) 11.1 - 13.5 sec [facility] 02/14/2025 10:0 5 AM EST 02/14/2025 10:07 AM EST Generic External Data Provider LAB BLOOD ORDERAB LES Final Result [facility] [address] [place] [address] [phone] * (ABNORMAL) ~PT, ~INR - ANTI COAG CLINIC (02/14/2025 10:05 AM EST) Prothrombin Time INR 1.2(H) 0.9 - 1.1 [facility] Comment:METER #: [id number] TERNATIONAL NORMALIZED RATIO (INR) REFERENCE RANGES Reference RangeFor patients not on anticoagulant therapy: 0.9 - 1.1INR ranges for oral anticoagulanttherapy:For prevention and treatment of venous thrombosis and pulmonary embolism: 2.0 - 3.0For acute myocardial infarction with aspirin therapy: 2.0 - 3.0For acute myocardial infarction without aspirin therapy: 3.0 - 4.0For patients with mechanical prosthetic heart valves: 2.5 - 3.5 02/14/2025 10:0 5 AM EST 02/14/2025 10:07 AM EST us Generic External Data Provider LAB BLOOD ORDERAB LES Final Result [facility] [address] [place] [phone] [phone] documented in this encounter Visit Diagnoses [...] neuropathy 02/07/2025 Patient has diabetic neuropathy 02/07/2025 Weekly blood pressure task 02/14/2025 Weekly blood pressure task 02/14/2025 Weekly blood pressure task 02/14/2025 Patient has chronic kidney disease 02/14/2025 Patient has chronic kidney disease 02/14/2025 Patient has chronic kidney disease 02/14/2025 Patient has diabetic neuropathy 02/14/2025 Patient has diabetic neuropathy 02/14/2025 Patient has diabetic neuropathy 02/14/2025 Assessment Noted Time PHQ-9 Depression Total Score: 1 04/28/19 25 9:28 AM EST documented as of this encounter Care Teams Cotton Classer Aide Relationship Specialty Start Date End Date Monse Medina MD [address] [place] [phone] PCP - General Family Medicine 04/28/24 documented as of this encounter
--- OUTSIDE RECORDS SUMMARY | 2025-02-14 11:12 | XMS_ITS | Encounter Summary ---
Author Organization [employer] Address [address] [facility] 7t [place] [address] Care Team Providers Care Monotyper Name Role Phone Monse Medina MD Primary Care Provider [phone] Encounter Details Date Type Department Care Team ([facility] st Contact Info) Description 05/10/2024 Orders Only [facility] 230 [place], [place] [phone] Monse Medina MD 230 [place], [place] [phone] Social History Tobacco Use Types Packs/Day Years [...] documented as of this encounter Care Teams Monotyper Relationship Specialty Start Date End Date Monse Medina MD [address] [place] [phone] PCP - General Family Medicine 04/28/24 documented as of this encounter
--- OUTSIDE RECORDS SUMMARY | 2025-02-14 11:12 | XMS_ITS | Encounter Summary ---
Author Organization [employer] Address [address] [facility] 7t [place] [address] Care Team Providers Care Flavor Tank Tender Name Role Phone Monse Medina MD Primary Care Provider [phone] Encounter Details Date Type Department Care Team ([facility] st Contact Info) Description 02/07/2025 Orders Only [facility] 230 [place], [place] [phone] Monse Medina MD 230 [place], [place] [phone] Single subsegmental pulmonary embolism without acute cor [...] RN - 02/07/2025 11:02 PM EST Placed [facility] referral form on PCP desk for signature. * Kathryn Bay RN - 02/07/2025 11:02 PM EST Called [facility] and left FYI message regarding referral. Faxed signed referral form to [phone], confirmation received. * Dinora Beach RN - 02/07/2025 11:02 PM EST TC placed to [facility] to inquire if they received the referral for for the pt. Per [facility] the paperwork was received and the pt [...] documented as of this encounter Care Teams Flavor Tank Tender Relationship Specialty Start Date End Date Monse Medina MD [address] [place] [address] PCP - General Family Medicine 04/28/24 documented as of this encounter
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
--- OUTSIDE RECORDS SUMMARY | 2025-02-14 11:12 | XMS_ITS | Clinical Summary ---
Author Organization [employer] Address [address] [facility] [address] [place] [address] Care Team Providers Care Design Studio Consultant Name Role Phone Monse Medina MD Primary Care Provider [phone] Allergies No known active allergies Medications FREESTYLE LITE test strip Check blood glucose once daily and as needed 100 each 05/10/19 Active Alcohol Swabs (Alcohol Prep) pads Check blood sugar once daily and as needed 100 each 05/10/19 Active Blood Glucose Monitoring Suppl (FreeStyle Lite) [...] - received tenecteplase in ED, admitted to [facility] for further evaluation and management - Head [...] no hypercoagulable work-up - will consult with vessel welder if patient needs hypercoagulable work-up (likely unnecessary since patient has not had recurrence) Assessment & Plan (04/29/2024 5:08 PM EST): - suggestive of unprovoked DVT - patient states she took a medication for few months - no hypercoagulable work-up - will consult with vessel welder if patient needs hypercoagulable work-up (likely unnecessary [...] Encounters Date Type Department Care Team Description 02/14/2025 Telephone [facility] [address] [place] [phone] Monse Medina MD CRITICAL LAB 02/14/2025 Orders Only GENERIC EXTERNAL DATA DEPARTMENT Provider, Generic External Data 02/13/2025 Orders Only [facility] [address] [place] [address] Monse Medina MD 02/07/2025 Orders Only [facility] [address] [place] [address] Monse Medina MD Single subsegmental pulmonary embolism without acute cor pulmonale (CMS/HCC) (HCC) (Primary Dx); History of DVT (deep vein thrombosis) 01/26/2025 Orders Only [facility] [address] [place] [address] Monse Medina MD 01/24/[address] [address] Monse Medina MD ER Follow-up 12/29/2024 Orders Only GENERIC EXTERNAL DATA DEPARTMENT Provider, Generic External Data 12/26/2024 Patient Outreach [facility] [address] [place], [place] [phone] Monse Medina MD Transition Of Care (Tcm) (HDF unscheduled) 12/22/2024 Orders Only [facility] [address] [place] [address] Monse Medina MD Pulmonary embolism without acute cor pulmonale, unspecified chronicity, unspecified pulmonary embolism type (CMS/HCC) (HCC) (Primary Dx); History of DVT (deep vein thrombosis); History of TIA (transient ischemic attack) 12/20/2024 Orders Only [facility] External Provider, [facility] 12/01/2024 Telephone [facility] [address] [place], [place] [phone] Monse Medina MD from Last 3 Months [...] your housing situation today? I have rosa sidra 04/28/[address] you li [...] 2) 04/07/2024 Diabetes: Hemoglobin A1C 08/05/2024 05/08/2024, 0208/2024 COVID-19 Vaccine ( season) 2024 02/01/2024 Alcohol/Substance Use Screening 04/28/2025 04/28/2024 Depression Screening 04/28/2025 04/28/2024, 04/28/19 25 Diabetes: Foot Exam 04/28/2025 04/28/2024, 04/28/2024, 04/28/2024, Additional history exists SDOH Screening 04/28/2025 04/28/2024 Diabetes: Urine Protein Screening 06/06/2025 06/06/2024 Tobacco Screening 06/06/2025 06/06/2024 Lipid Panel 02/13/2026 02/13/2025, 05/21, 05/08/2024 DTaP/Tdap/Td Vaccines (2 - Td or [...] has diabetic neuropathy No Jyoti Barnhart RN Procedures Procedure Name Priority Date/Time Associated Diagnosis Comments PROTHROMBIN TIME WHOLE BLD POC Routine 02/14/2025 10:05 AM EST ~PT, ~INR - ANTI COAG CLINIC Routine 02/14/2025 10:05 AM EST LIPID PANEL WITH REFLEX TO DIRECT LDL [...] 2 diabetes mellitus without complication, unspecified whether assisted insulin use ([facility]) HEMOGLOBIN A1C Routine 05/08/2024 12:23 PM EST from Last 3 Months or Most Recently Relevant to Health Maintenance Results * (ABNORMAL) PROTHROMBIN TIME WHOLE BLD POC (02/14/2025 10:05 AM EST) Protime 14.6(H) 11.1 - 13.5 sec [facility] 02/14/2025 10:0 5 AM EST 02/14/2025 10:07 AM EST us Generic External Data Provider LAB BLOOD ORDERAB LES Final Result Performing Organization Address City/[facility]/ZIP Co de Phone Number [facility] [address] [place] [phone] * (ABNORMAL) ~PT, ~INR - ANTI COAG CLINIC (02/14/2025 10:05 AM EST) Prothrombin Time INR 1.2(H) 0.9 - 1.1 [facility] Comment:METER #: [id number] TERNATIONAL NORMALIZED RATIO (INR) REFERENCE RANGES Reference [...] ORDERAB LES Final Result Performing Organization Address [facility] Co de Phone Number [facility] [address] [place] [phone] * (ABNORMAL) Lipid Panel with Reflex to Direct LDL (02/13/2025 3:19 PM EST) Triglycerides 392(H) <150 mg/dL [facility] Comment:Desirable Triglyceri de: less than 150 mg/dLBorderline High Triglyceride 150-199 mg/dLHigh Triglyceride: 200-499 mg/dLVery High Triglyceride: greater than or equal to 5OO mg/dL Cholesterol 228(H) <200 mg/dL [facility] Comment:Desirable Cholestero l: less than 200 mg/dLBorderline High Cholesterol: 200-239 mg/dLHigh Cholesterol: greater than 239 mg/dL LDL Cholesterol Calculated 105(H) <100 mg/dL [facility] Comment:Desirable LDL: less than 100 mg/dLNear Optimal/Above Optimal LDL: 110- 129 mg/dLBorderline High LDL: 130-159 mg/dLHigh LDL: 160-189 mg/dLVery High LDL: greater than or equal to 190 mg/dL HDL Cholesterol 45 >40 mg/dL [facility] Comment:Desirable HDL: great er than 40 mg/dL Note: This HDL assay may give artificially low results in patients with liver disease. 02/13/2025 3:19 PM EST 02/13/2025 3:19 PM EST us Monse Medina MD LAB BLOOD ORDERABLES Final Resul t Performing Organization Address City/[facility] Co de Phone Number [facility] [address] [place] [phone] * (ABNORMAL) Basic Metabolic Panel (02/13/2025 3:19 PM EST) Only the most recent of2 resultswithin the time period is included. Sodium 141 135 - 145 mmol/L [facility] Potassium 4.3 3.3 - 5.1 mmol/L [facility] Chloride 106 96 - 108 mmol/L [facility] Carbon Dioxide 29 22 - 29 mmol/L [facility] Anion Gap 10(L) 12 - 20 [facility] Urea Nitrogen (BUN) 15 9 - 16 mg/dL [facility] Creatinine, Serum 0.57 0.5 - 1.4 mg/dL [facility] Estimated Glomerular Filt Rate >60 [facility] Comment:Chronic Kidney Disea se: Estimated GFR < 60 mL/min/[id number] Kidney Disease: Estimated GFR < 15 mL/min/1.73m2 Glucose 156(H) 60 - 115 mg/dL [facility] Calcium 9.9 8.4 - 10.2 mg/dL [facility] 02/13/2025 3:19 PM EST 02/13/2025 3:19 PM EST us Monse Medina MD LAB BLOOD ORDERABLES Final Resul t [facility] [address] [place] [phone] * (ABNORMAL) CBC auto differential (12/29/2024 8:07 AM EDT) Only the most recent of2 resultswithin the time period is included. White Blood Count 9.9 4.8 - 10.8 X10*3/uL [facility] Red Blood Count 4.62 4.20 - 5.50 X10*6/uL [facility] Hemoglobin 12.7 12.0 - 16.0 g/dl [facility] Hematocrit 39.0 37.0 - 47.0 % [facility] Mean Corpuscular Volume 84.4 80.0 - 98.0 fL [facility] Mean Corpuscular Hemoglobin 27.5 27.0 - 33.0 pg [facility] Mean Corpuscular HGB Conc 32.6 31.0 - 35.0 g/dl [facility] Red Cell Distribution Width 14.6 11.0 - 16.0 % [facility] Platelet Count 208 160 - 400 X10*3/uL [facility] Mean Platelet Volume 9.7 9.4 - 12.3 fL [facility] Neutrophils Percent Auto 65.6 45 - 73 % [facility] Imm Gran Pct Auto 2.2(H) 0.0 - 0.4 % [facility] Lymphocytes Percent Auto 23.5 20 - 40 % [facility] Monocytes Percent Auto 7.8 2 - 11 % [facility] Eosinophils Percent Auto 0.6 0 - 4 % [facility] Basophils Percent Auto 0.3 0 - 2 % [facility] NRBC Pct Auto 0.0 0.0 - 0.2 /100WBC [facility] Neutrophils Absolute Auto 6.5 2.0 - 8.3 x10*3/uL [facility] Imm Gran Abs Auto 0.22(H) 0.00 - 0.03 X10*3/uL [facility] Lymphocytes Absolute Auto 2.3 1.2 - 4.9 X10*3/uL [facility] Monocytes Absolute Auto 0.8 0.1 - 1.2 X10*3/uL [facility] Eosinophils Absolute Auto 0.1 0.0 - 0.4 X10*3/uL [facility] Basophils Absolute Auto 0.0 0.0 - 0.2 X10*3/uL [facility] NRBC Abs Auto 0.000 0.0 - 0.012 X10*3/uL [facility] 12/29/2024 8:07 AM EDT 12/29/2024 8:09 AM EDT Generic External Data Provider LAB BLOOD ORDERAB LES Final Result Performing Organization Address [facility]/ZIP Co de Phone Number [facility] [address] [place] [phone] * (ABNORMAL) Prothrombin Time-INR (12/29/2024 8:07 AM EDT) Prothrombin Time 13.2(H) 10.9 - 12.4 SEC [facility] INTERNATIONAL NORM RATIO 1.2(H) 0.9 - 1.1 [facility] Comment:INTERNATIONAL NORMAL IZED RATIO (INR) [...] 8:07 AM EDT 12/29/2024 8:09 AM EDT Generic External Data Provider LAB BLOOD ORDERAB LES Final Result Performing Organization Address [facility]/ZIP Co de Phone Number [facility] [address] [place] [phone] * (ABNORMAL) Comprehensive Metabolic Panel (12/29/2024 8:07 AM EDT) Sodium 141 135 - 145 mmol/L [facility] Potassium 4.2 3.3 - 5.1 mmol/L [facility] Chloride 106 96 - 108 mmol/L [facility] Carbon Dioxide 29 22 - 29 mmol/L [facility] Anion Gap 10(L) 12 - 20 [facility] Urea Nitrogen (BUN) 13 9 - 16 mg/dL [facility] Creatinine, Serum 0.56 0.5 - 1.4 mg/dL [facility] Creatinine Clr Calc Pharmacy 69.2 [facility] Comment:Provided height and weight: 157.48 cm,79.832 kg.eGFR (calculated from the MDRD study equation) and eCrCl(calculated from the Cockcroft-Gault equation) are based ondifferent parameters and may not yield comparable results.If eCrCl result is absurd, please check patient'sheight/weight. Estimated Glomerular Filt Rate >60 [facility] Comment:Chronic Kidney Disea se: Estimated GFR < 60 mL/min/1.32h0Bzbtpw Kidney Disease: Estimated GFR < 15 mL/min/1.73m2 Glucose 220(H) 60 - 115 mg/dL [facility] Calcium 9.2 8.4 - 10.2 mg/dL [facility] Bilirubin, Total 0.4 0.0 - 1.0 mg/dL [facility] Aspartate Amino Transferase 17 5 - 31 U/L [facility] Alanine Aminotransferase 24 0 - 31 U/L [facility] Total Protein 6.7 6.5 - 8.0 g/dL [facility] Albumin Level 3.9 3.5 - 5.0 g/dL [facility] Alkaline Phosphatase 62 39 - 117 U/L [facility] 12/29/2024 8:07 AM EDT 12/29/2024 8:09 AM EDT us Generic External Data Provider LAB BLOOD ORDERAB LES Final Result [facility] [address] [place] [phone] * [facility] US Lower Extremity Venous Duplex Bilateral (12/21/2024 7:29 PM EDT) 12/21/2024 7:29 PM EDT Narrative [facility] - 12/21/2024 7:31 PM EDT [address] [address] Ultrasound Report Signed Patient: Maryellen Acosta MR#: [id number] 1351 : 1935 Acct:[id number] Age/Sex: 89 / F ADM Date: 12/20/24 Loc: [place] [address]: Lincoln Cohen MD Ordering Physician: Jerrica Oropeza MD Date of Service: 12/21/24 Procedure(s): US venous duplex LE BI Accession Number(s): [id number] cc: Monse Medina MD; Jerrica Oropeza MD [...] in OV> 12/21/241930 DD/ 28 TD/TT: 12/21/241928 Area Sales Manager: Procedure Note Donotuseinterpreter, Image - 12/21/[address] [address] Ultrasound Report Signed Patient: Maryellen AcostaMR#: [id number] 1351 : 1935cct:[id number] Age/Sex: 89 / FADM Date: 12/20/24 Loc: [facility] [address]: Lincoln Cohen MD Ordering Physician: Jerrica Oropeza MD Date of Service: 12/21/24 Procedure(s): US venous duplex LE BI Accession Number(s): [id number] cc: Monse Medina MD; Jerrica Oropeza MD [...] in OV> 12/21/241930 DD/ 28 TD/TT: 12/21/241928 Area Sales Manager: [facility] External Provider CV VASC ULAR PROCEDURES Final Result Performing Organization Address City/State/[facility] Co de Phone Number [facility] [address] [place] [phone] * XR KUB and Upright 2 Views (12/21/2024 1:32 PM EDT) Anatomical Region Laterality Modality Radiographic Che ging 12/21/2024 1:32 PM EDT Narrative 12/21/2024 2:03 PM EDT [address] [address] XRay Report Signed Patient: Maryellen Acosta MR#: [id number] 1351 : 1935 Acct:[id number] Age/Sex: 89 / F ADM Date: 12/20/24 Loc: [facility] [address]: Lincoln Cohen MD Ordering Physician: Lincoln Cohen MD Date of Service: 12/21/24 Procedure(s): XR KUB Accession Number(s): [id number] cc: Lincoln Cohen MD; Monse Medina MD [...] Daniel Osuna MD 12/21/2024 02:00 PM EDT RP Dictated By: Juan Daniel Osuna MD Signed By: <Electronically signed by Juan Daniel Osuna MD in OV> 12/21/24 1400 DD/ 1332 TD/TT: 12/21/24 1356 Area Sales Manager: Procedure Note Donotuseinterpreter, Image - 12/21/2024 [place] [address] XRay Report Signed Patient: Carlin Acosta#: [id number] 1351 : 8Acct:[id number] Age/Sex: 89 / FADM Date: 12/20/24 Loc: [facility] [address]: Lincoln Cohen MD Ordering Physician: Lincoln Cohen MD Date of Service: 12/21/24 Procedure(s): XR KUB Accession Number(s): [id number] cc: Lincoln Cohen MD; Monse Medina MD [...] Daniel Osuna MD 12/21/2024 02:00 PM EDT RP Dictated By: Juan Daniel Osuna MD Signed By: <Electronically signed by Juan Daniel Osuna MD in OV> 12/21/24 1400 DD/ 1332 TD/TT: 12/21/24 1356 Area Sales Manager: us [facility] External Provider IMG XR PROCEDURES Final Result * FL SMALL BOWEL FOLLOW THROUGH (12/21/2024 7:56 AM EDT) Anatomical Region Laterality Modality Radiographic Che ging 12/21/2024 7:56 AM EDT Narrative 12/21/2024 12:48 PM EDT [address] [address] Fluoroscopy Report Signed Patient: Maryellen Acosta MR#: [id number] 1351 : 1935 Acct:[id number] Age/Sex: 89 / F ADM Date: 12/20/24 Loc: [facility] 475-[address]: Lincoln Cohen MD Ordering Physician: Lincoln Cohen MD Date of Service: 12/21/24 Procedure(s): FL small bowel follow through Accession Number(s): [id number] cc: Lincoln Cohen MD; Monse Medina MD Reason for Exam: SBO EXAMINATION: FL SMALL BOWEL SERIES CLINICAL INFORMATION: SBO COMPARISON: None available. TECHNIQUE: Following a behavioral consultant image of the abdomen, 50/50 diluted 400 mL of Gastrografin contrast was administered orally, and interval abdominal radiographs were performed to assess for contrast progression through the small bowel. However patient complained of significant abdominal pain and patient was aspirated by the floor nurse. The exam was then discontinued. FINDINGS: Upsetter Helper image of the abdomen demonstrates scattered stool [...] Eliud Metzger MD 12/21/2024 12:45 PM EDT RP Dictated By: Eliud Metzger MD Signed By: <Electronically signed by Eliud Metzger MD in OV> 12/21/24 1245 DD/ 0756 TD/TT: 12/21/24 1106 Area Sales Manager: [facility] Procedure Note Donotuseinterpreter, Image - 12/21/2024 [place] [address] Fluoroscopy Report Signed Patient: Carlin Acosta#: [id number] 1351 : 1936Acct:[id number] Age/Sex: 89 / FADM Date: 12/20/24 Loc: [facility] 475-[address]: Lincoln Cohen MD Ordering Physician: Licnoln Cohen MD Date of Service: 12/21/24 Procedure(s): FL small bowel follow through Accession Number(s): [id number] cc: Lincoln Cohen MD; Monse Medina MD Reason for Exam: SBO EXAMINATION: FL SMALL BOWEL SERIES CLINICAL INFORMATION: SBO COMPARISON: None available. TECHNIQUE: Following a behavioral consultant image of the abdomen, 50/50 diluted 400 mL of Gastrografin contrast was administered orally, and interval abdominal radiographs were performed to assess for contrast progression through the small bowel. However patient complained of significant abdominal pain and patient was aspirated by the floor nurse. The exam was then discontinued. FINDINGS: Upsetter Helper image of the abdomen demonstrates scattered stool [...] Eliud Metzger MD 12/21/2024 12:45 PM EDT RP Dictated By: Eliud Metzger MD Signed By: <Electronically signed by Eliud Metzger MD in OV> 12/21/24 1245 DD/ 0756 TD/TT: 12/21/24 1106 Area Sales Manager: VARGHESE [facility] External Provider IMG FLU OROSCOPY PROCEDURES Final Result * CBC (12/20/2024 3:51 PM EDT) White Blood Count 8.6 4.8 - 10.8 X10*3/uL [facility] Red Blood Count 5.27 4.20 - 5.50 X10*6/uL [facility] Hemoglobin 14.6 12.0 - 16.0 g/dl [facility] Hematocrit 44.1 37.0 - 47.0 % [facility] Mean Corpuscular Volume 83.7 80.0 - 98.0 fL [facility] Mean Corpuscular Hemoglobin 27.7 27.0 - 33.0 pg [facility] Mean Corpuscular HGB Conc 33.1 31.0 - 35.0 g/dl [facility] Red Cell Distribution Width 14.6 11.0 - 16.0 % [facility] Platelet Count 171 160 - 400 X10*3/uL [facility] Mean Platelet Volume 9.4 9.4 - 12.3 fL [facility] NRBC Pct Auto 0.0 0.0 - 0.2 /100WBC [facility] NRBC Abs Auto 0.000 0.0 - 0.012 X10*3/uL [facility] 12/20/2024 3:51 PM EDT 12/20/2024 3:55 PM EDT Generic External Data Provider LAB BLOOD ORDERAB LES Final Result Performing Organization Address [facility]/State/ZIP Co de Phone Number [facility] [address] [place] [phone] * XR Chest 1 View (12/20/2024 3:30 PM EDT) Only the most recent of2 resultswithin the time period is included. Anatomical Region Laterality Modality Chest Radiographic Che ging 12/20/2024 3:30 PM EDT Narrative 12/20/2024 3:45 PM EDT [address] [address] XRay Report Signed Patient: Maryellen Acosta MR#: [id number] 1351 : 1935 Acct:[id number] Age/Sex: 89 / F ADM Date: 12/20/24 Loc: [facility].ED Attending Dr: Ordering Physician: Eusebio Juarez MD Date of Service: 12/20/24 Procedure(s): XR chest 1V Accession Number(s): [id number] cc: Eusebio Juarez MD; Monse Medina MD [...] Mervin Varma MD 12/20/2024 03:42 PM EDT Dictated By: Mervin Leong MD Signed By: <Electronically signed by Mervin Gay MD in OV> 12/20/24 1542 DD/ 1530 TD/TT: 12/20/24 1538 Area Sales Manager: Procedure Note Donotuseinterpreter, Image - 12/20/[address] [address] XRay Report Signed Patient: Carlin Acosta#: [id number] 1351 : 8Acct:[id number] Age/Sex: 89 / FADM Date: 12/20/24 Loc: [facility].ED Attending Dr: Ordering Physician: Eusebio Juarez MD Date of Service: 12/20/24 Procedure(s): XR chest 1V Accession Number(s): [id number] cc: Eusebio Juarez MD; Monse Medina MD [...] Mervin Varma MD 12/20/2024 03:42 PM EDT Dictated By: Mervin Leong MD Signed By: <Electronically signed by Mervin Gay MDin OV> 12/20/24 1542 DD/ 1530 TD/TT: 12/20/24 1538 Area Sales Manager: us [facility] External Provider IMG XR PROCEDURES Final Result * CTA Chest PE Protocal (12/20/2024 1:45 PM EDT) Anatomical Region Laterality Modality Body, Chest Computed Tomogra phy 12/20/2024 1:45 PM EDT Narrative 12/20/2024 2:37 PM EDT [address] [address] [address] Scan Report Signed Patient: Maryellen Acosta MR#: [id number] 1351 : 1935 Acct:[id number] Age/Sex: 89 / F ADM Date: 12/20/24 Loc: [facility].ED Attending Dr: Ordering Physician: Eusebio Juarez MD Date of Service: 12/20/24 Procedure(s): CT angio chest PE protocol Accession Number(s): [id number] cc: Eusebio Juarez MD; Monse Medina MD Report Number: [id number]: Total DLP = 280.00 mGy-cm Reason for [...] 12/20/24 1434 DD/ 1345 TD/TT: 12/20/24 1410 Area Sales Manager: Procedure Note Donotuseinterpreter, Image - 12/20/[address] [address] [address] Scan Report Signed Patient: Carlin Acosta#: [id number] 1351 : 8Acct:[id number] Age/Sex: 89 / FADM Date: 12/20/24 Loc: .ED Attending Dr: Ordering Physician: Eusebio Juarez MD Date of Service: 12/20/24 Procedure(s): CT angio chest PE protocol Accession Number(s): [id number] cc: Eusebio Juarez MD; Monse Medina MD Report Number: [id number]: Total DLP = 280.00 mGy-cm Reason for [...] 12/20/24 1434 DD/ 1345 TD/TT: 12/20/24 1410 Area Sales Manager: [facility] External Provider IMG CT PROCEDURES Final Result * CT Abdomen Pelvis w/o Contrast (12/20/2024 12:25 PM EDT) Anatomical Region Laterality Modality Body, Pelvis, Abdomen Computed T omography 12/20/2024 12:2 5 PM EDT Narrative 12/20/2024 1:04 PM EDT [place] [address] CT Scan Report Signed Patient: Maryellen Acosta MR#: [id number] 1351 : 1935 Acct:[id number] Age/Sex: 89 / F ADM Date: 12/20/24 Loc: [facility].ED Attending Dr: Ordering Physician: Eusebio Juarez MD Date of Service: 12/20/24 Procedure(s): CT abdomen pelvis wo IV con Accession Number(s): [id number] cc: Eusebio Juarez MD; Monse Medina MD Report Number: [id number]: Total DLP = 627.00 mGy-cm Reason for [...] Sunny Lopes MD 12/20/2024 01:01 PM EDT Dictated By: Sunny Lopes MD Signed By: <Electronically signed by Sunny Lopes MD in OV> 12/20/24 1301 DD/ 1225 TD/TT: 12/20/24 1242 Area Sales Manager: Procedure Note Donotuseinterpreter, Image - 12/20/[address] [place] [address] [address] Scan Report Signed Patient: Maryellen AcostaMR#: [id number] 1351 : 8Acct:[id number] Age/Sex: 89 / FADM Date: 12/20/24 Loc: [facility].ED Attending Dr: Ordering Physician: Eusebio Juarez MD Date of Service: 12/20/24 Procedure(s): CT abdomen pelvis wo IV con Accession Number(s): [id number] cc: Eusebio Juarez MD; Monse Medina MD Report Number: [id number]: Total DLP = 627.00 mGy-cm Reason for [...] body of the report. Electronically signed by: Snuny Lopes MD 12/20/2024 01:01 PM EDT Dictated By: Sunny Lopes MD Signed By: <Electronically signed by Sunny Lopes MD in OV> 12/20/24 1301 DD/ 1225 TD/TT: 12/20/24 1242 Area Sales Manager: [facility] External Provider IMG CT PROCEDURES Final Result * D Dimer High Sensitivity (12/20/2024 12:01 PM EDT) D Dimer High Sensitivity 529 NG/ML [facility] Comment:D-DIMER HS REFERENCE RANGENote: Our assay reports D-Dimer Units (D- DU).The cut-off value for venous thromboembolic (VTE) disease is230 ng/mL. This value has a very high negative predictivevalue when the patient has a low to moderate clinicalprobability of VTE.The upper limit of normal is 243 ng/mL. 12/20/2024 12:0 1 PM EDT 12/20/2024 12:05 PM EDT Generic External Data Provider LAB BLOOD ORDERAB LES Final Result [facility] [address] [place] [phone] * US Abdomen Limited (12/20/2024 11:29 AM EDT) Anatomical Region Laterality Modality Abdomen Ultrasound 12/20/2024 11:2 9 AM EDT Narrative 12/20/2024 12:22 PM EDT [address] [address] Ultrasound Report Signed Patient: Maryellen Acosta MR#: [id number] 1351 : 1935 Acct:[id number] Age/Sex: 89 / F ADM Date: 12/20/24 Loc: [facility].ED Attending Dr: Ordering Physician: Eusebio Juarez MD Date of Service: 12/20/24 Procedure(s): US abdomen limited Accession Number(s): [id number] cc: Eusebio Juarez MD; Monse Medina MD [...] 12/20/24 1219 DD/ 1129 TD/TT: 12/20/24 1153 Area Sales Manager: Procedure Note Donotuseinterpreter, Image - 12/20/2024 [place] [address] Ultrasound Report Signed Patient: Carlin Acosta#: [id number] 1351 : 8Acct:[id number] Age/Sex: 89 / FADM Date: 12/20/24 Loc: [facility].ED Attending Dr: Ordering Physician: Eusebio Juarez MD Date of Service: 12/20/24 Procedure(s): US abdomen limited Accession Number(s): [id number] cc: Eusebio Juarez MD; Monse Medina MD [...] 12/20/24 1219 DD/ 1129 TD/TT: 12/20/24 1153 Area Sales Manager: [facility] External Provider IMG US PROCEDURES Edited Result - Final * (ABNORMAL) VENOUS BLOOD GAS (12/20/2024 11:22 AM EDT) VBG pH 7.42 7.32 - 7.43 [facility] Comment:METER #: [id number] additional_comment: CbAlbanom VBG PCO2 48 mmHg [facility] Comment:METER #: [id number] additional_comment: CbAlbanom VBG PO2 72 mmHg [facility] Comment:METER #: [id number] additional_comment: CbAlbanom VBG Base Excess 6.3 mmol/L [facility] Comment:METER #: [id number] additional_comment: CbAlbanom VBG HCO3 32(H) 22 - 26 mmol/L [facility] Comment:METER #: [id number] additional_comment: CbAlbanom O2 Sat, Hebert 95.0 % [facility] Comment:METER #: [id number] additional_comment: CbAlbanom 12/20/2024 11:2 2 AM EDT 12/20/2024 11:25 AM EDT Generic External Data Provider LAB BLOOD ORDERAB LES Final Result [facility] [address] [place] [phone] * Influenza A B2 ID NOW (Leon) (12/20/2024 10:52 AM EDT) IDNOW SERIAL# [id number] [facility] Influenza A Negative Negative [facility] Influenza B2 Negative Negative [facility] Influenza A B2 Note See Note [facility] Comment:The Leon ID NOW In [...] GENERAL ORDERABLES Final Result Performing Organization Address [facility] Co de Phone Number [facility] [address] [place] [phone] * COVID-19 ID NOW (LEON) (12/20/2024 10:52 AM EDT) IDNOW SERIAL# [id number] [facility] COVID-19 TEST Negative Negative [facility] COVID-19 NOTE See Note [facility] Comment: Results are for the identification of SARS-CoV2 RNA. TheSARS-CoV2 RNA is generally detectable in respiratory samplesduring the acute phase of infection. Positive results areindicative of the presence of SARS-CoV-2 RNA; clinicalcorrelation with patient history and other diagnosticinformation is necessary to determine patient infectionstatus. Positive results do not rule out bacterial infectionor co- infection with other viruses.Testing facilities [facility] are required to report all positive results [...] use by authorized laboratories.Testing performed on the Let ID NOW utilizing NAAT. 12/20/2024 10:5 2 AM EDT 12/20/2024 11:01 AM EDT Generic External Data Provider LAB MOLECULAR CAYETANO GNOSTICS ORDERABLES Final Result Performing Organization Address [facility] Co de Phone Number [facility] [address] [place] [phone] * High Sensitivity Troponin I (12/20/2024 10:52 AM EDT) Pathologist [facility] TROPONIN I HIGH SENSITIVITY 4.5 <3.5 - 17.0 ng/L [facility] Comment:The Leon high sens itivity Troponin-I results should beused in conjunction with other diagnostic information suchas ECG, clinical observations and information, and patientsymptoms to aid in the diagnosis of [place]. 12/20/2024 10:5 2 AM EDT 12/20/2024 11:00 AM EDT us Generic External Data Provider LAB BLOOD ORDERAB LES Final Result Performing Organization Address [facility] Co de Phone Number [facility] [address] [place] [phone] * NT-proBNP (12/20/2024 10:52 AM EDT) Pathologist [facility] NT-proBNP 158.5 <300 pg/mL [facility] Comment:Reference Range:Age Group (years) NT-proBNP (pg/ml) InterpretationAll <300 Negative: HF unlikelyFor patients presenting to the ED with clinical suspicion ofnew onset or worsening HF, see below:18 to <50 >299.9 to <450.0 Grayzone: [id number] to 75 >299.9 to <900.0 other causes of>75 >299.9 to <1800.0 NT-proBNP [id number] to <50 >449.9 Positive: HF [id number] >899.9>75 >1799.9Note: Elevated NT-proBNP levels should be interpreted inthe context of other clinical information. 12/20/2024 10:5 2 AM EDT 12/20/2024 11:00 AM EDT us Generic External Data Provider LAB BLOOD ORDERAB LES Final Result Performing Organization Address [facility]/ZIP Co de Phone Number [facility] [address] [place] [phone] * Magnesium (12/20/2024 10:52 AM EDT) Magnesium 1.9 1.6 - 2.6 mg/dL [facility] 12/20/2024 10:5 2 AM EDT 12/20/2024 11:00 AM EDT us Generic External Data Provider LAB BLOOD ORDERAB LES Final Result Performing Organization Address [facility]/ZIP Co de Phone Number [facility] [address] [place] [phone] * Lactic Acid (12/20/2024 10:52 AM EDT) Lactic Acid 1.9 0.5 - 2.0 mmol/L [facility] 12/20/2024 10:5 2 AM EDT 12/20/2024 10:59 AM EDT us Generic External Data Provider LAB BLOOD ORDERAB LES Final Result [facility] [address] [place] [phone] * Hepatic Function Panel (12/20/2024 10:52 AM EDT) Bilirubin, Total 1.0 0.0 - 1.0 mg/dL [facility] Bilirubin, Direct 0.3 0.0 - 0.5 mg/dL [facility] Aspartate Amino Transferase 26 5 - 31 U/L [facility] Alanine Aminotransferase 27 0 - 31 U/L [facility] Total Protein 7.2 6.5 - 8.0 g/dL [facility] Albumin Level 4.3 3.5 - 5.0 g/dL [facility] Alkaline Phosphatase 68 39 - 117 U/L [facility] 12/20/2024 10:5 2 AM EDT 12/20/2024 11:00 AM EDT us Generic External Data Provider LAB BLOOD ORDERAB LES Final Result Performing Organization Address [facility] Phone Number [facility] [address] [place] [phone] * Albumin, Random Urine W/Creatinine (06/06/2024 11:36 AM EDT) Creatinine, Urine 63.85 mg/dL [facility] Microalbumin Urine 12.0 mg/L [facility] Microalbum Creatinine Ratio Ur 18.7 <30 ug/mg cr [facility] Comment:Albumin/Creatinine R atio Reference Ranges: Normal: < 30 ug/mg creatinine Microalbuminuria: 30 - 300 ug/mg creatinineClinical Albuminuria: > 300 ug/mg creatinine Urine 06/06/2024 11:3 6 AM EDT 06/06/2024 1:06 PM EDT us Monse Medina MD LAB URINE ORDERABLES Final Resul t Performing Organization Address [facility]/State/ZIP Co de Phone Number [facility] [address] [place] [phone] * (ABNORMAL) Hemoglobin A1c (05/08/2024 12:23 PM EST) Hemoglobin A1c 7.2(H) <6.0 % [facility] Comment:Hemoglobin A1C Refer ence Range Adults: 4.8 - 6.0 % Non diabetic: < 6.0 % Goal: < 7.0 %Additional Action Suggested: > 8.0 %Note: Hemoglobin A1c results are invalid for patients with abnormal amounts of HbF. Blood transfusions may impact the HbA1c concentration in the patient sample. Estimated Average Glucose 160 mg/dL [facility] Comment:eAG = Estimated ave rage glucose which is %A1C expressed asaverage glucose, using the formula of the E3C-SkbzrhcBhkdozk Glucose study (ADAG), Diabetes Care, Vol.31,#8,Oct. 2007 05/08/2024 12:2 3 PM EST 05/08/2024 12:28 PM EST us Generic External Data Provider LAB BLOOD ORDERAB LES Final Result [facility] [address] [place] [phone] from Last 3 Months or Most [...] neuropathy 02/14/2025 Patient has diabetic neuropathy 02/14/2025 Insurance [facility] HSN FULL Care Teams Design Studio Consultant Relationship Specialty Start Date End Date Monse Medina MD [address] [place] [phone] PCP - General Family Medicine 04/28/24
--- OUTSIDE RECORDS SUMMARY | 2025-02-14 11:12 | XMS_ITS | Encounter Summary ---
Author Organization [employer] Address [address] [facility] [address] [place] [address] Care Team Providers Care Bicycle Repairer Name Role Phone Monse Medina MD Primary Care Provider [phone] Reason for Visit * Reason Onset Date Comments CRITICAL LAB 02/14/2025 Encounter Details Date Type Department Care Team (Late st Contact Info) Description 02/14/2025 Telephone [facility] [address] [place], [place] [phone] Monse Medina MD [address] [place], [place] [phone] CRITICAL LAB Social History Tobacco Use Types Packs/Day Years [...] encounter Miscellaneous Notes * Telephone Encounter - Jyoti Barnhart RN - 02/14/2025 10:42 AM EST TC incoming from [place] with [facility] anticoagulation clinic with critical lab: Pt INR is 1.2. 2 mg warfarin daily. 4 mg Thursday, Thursday, Thursday. 2mg all other days. INR check tomorrow due topt being out of town. INR to be checked Thursday. Pt is also on Lovenox. Nurse to route to PCP and team nurses as GAEL Rosario RN aware [phone] documented in this encounter Plan of Treatment [...] Help patients manage their type 2 diabetes oMnse Daigle MD Patient has chronic kidney disease Care Plan Patient has chronic kidney disease Monse Daigle MD Help patients manage their type 2 diabetes Care Plan Help patients manage their type 2 diabetes Monse Daigle MD Patient has diabetic neuropathy Care Plan Patient has diabetic neuropathy Monse Daigle MD Weekly blood pressure task Care Plan Weekly blood pressure task No Monse Medina MD Weekly blood pressure task Care Plan Weekly blood pressure task No Monse Medina MD Patient has chronic kidney disease Care Plan Patient has chronic kidney disease No Monse Medina MD Patient has chronic kidney disease Care Plan Patient has chronic kidney disease No Monse Medina MD Patient has diabetic neuropathy Care Plan Patient has diabetic neuropathy No Monse Medina MD Patient has diabetic [...] Barnhart RN documented as of this encounter Visit Diagnoses [...] documented as of this encounter Care Teams Bicycle Repairer Relationship Specialty Start Date End Date Monse Medina MD [address] [place] [phone] PCP - General Family Medicine 04/28/24 documented as of this encounter
--- OUTSIDE RECORDS SUMMARY | 2025-02-14 11:12 | XMS_ITS | Encounter Summary ---
Author Organization [employer] Address [address] [facility] [address] [place] [address] Care Team Providers Care Retail Banking Manager Name Role Phone Monse Medina MD Primary Care Provider [phone] Encounter Details Date Type Department Care Team ([facility] st Contact Info) Description 12/01/[address] [facility] [address] [place], [place] [phone] Monse Medina MD [address] [place], [place] [phone] Social History Tobacco Use Types Packs/Day Years [...] documented as of this encounter Care Teams Retail Banking Manager Relationship Specialty Start Date End Date Monse Medina MD [address] [place] [phone] PCP - General Family Medicine 04/28/24 documented as of this encounter
--- OUTSIDE RECORDS SUMMARY | 2025-02-14 11:12 | XMS_ITS | Encounter Summary ---
Author Organization [employer] Address [address] [facility] [address] [place] [address] Care Team Providers Care Prestressed Concrete Laborer Name Role Phone Monse Medina MD Primary Care Provider [phone] Encounter Details Date Type Department Care Team ([facility] st Contact Info) Description 02/13/2025 Orders Only [facility] [address] [place], [place] [phone] Monse Medina MD [address] [place], [place] [phone] Social History Tobacco Use Types Packs/Day Years [...] Plan Patient has chronic kidney disease Monse Dagile MD Patient has diabetic neuropathy Care Plan [...] 3:19 PM EST) Triglycerides 392(H) <150 mg/dL [facility] Comment:Desirable Triglyceri de: less than 150 mg/dLBorderline High Triglyceride 150-199 mg/dLHigh Triglyceride: 200-499 mg/dLVery High Triglyceride: greater than or equal to 5OO mg/dL Cholesterol 228(H) <200 mg/dL [facility] Comment:Desirable Cholestero l: less than 200 mg/dLBorderline High Cholesterol: 200-239 mg/dLHigh Cholesterol: greater than 239 mg/dL LDL Cholesterol Calculated 105(H) <100 mg/dL [facility] Comment:Desirable LDL: less than 100 mg/dLNear Optimal/Above Optimal LDL: 110- 129 mg/dLBorderline High LDL: 130-159 mg/dLHigh LDL: 160-189 mg/dLVery High LDL: greater than or equal to 190 mg/dL HDL Cholesterol 45 >40 mg/dL [facility] Comment:Desirable HDL: great er than 40 mg/dL Note: This HDL assay may give artificially low results in patients with liver disease. 02/13/2025 3:19 PM EST 02/13/2025 3:19 PM EST us Monse Medina MD LAB BLOOD ORDERABLES Final Resul t [facility] [address] [place] [phone] * (ABNORMAL) Basic Metabolic Panel (02/13/2025 3:19 PM EST) Sodium 141 135 - 145 mmol/L [facility] Potassium 4.3 3.3 - 5.1 mmol/L [facility] Chloride 106 96 - 108 mmol/L [facility] Carbon Dioxide 29 22 - 29 mmol/L [facility] Anion Gap 10(L) 12 - 20 [facility] Urea Nitrogen (BUN) 15 9 - 16 mg/dL [facility] Creatinine, Serum 0.57 0.5 - 1.4 mg/dL [facility] Estimated Glomerular Filt Rate >60 [facility] Comment:Chronic Kidney Disea se: Estimated GFR < 60 mL/min/[id number] Kidney Disease: Estimated GFR < 15 mL/min/1.73m2 Glucose 156(H) 60 - 115 mg/dL [facility] Calcium 9.9 8.4 - 10.2 mg/dL [facility] 02/13/2025 3:19 PM EST 02/13/2025 3:19 PM EST us Monse Medina MD LAB BLOOD ORDERABLES Final Resul t [facility] [address] [place] [phone] documented in this encounter Visit Diagnoses [...] documented as of this encounter Care Teams Prestressed Concrete Laborer Relationship Specialty Start Date End Date Monse Medina MD [address] [place] [phone] PCP - General Family Medicine 04/28/24 documented as of this encounter
== END 2025-02-14 10:48 | disposition home or self-care (01) ==
LOC: HO.ACS 09:39
PROVIDERS: PCP Family Medicine; Visit Provider Internal Medicine Medical Oncology
DX: Z79.01 Long term (current) use of anticoagulants (principal)

== ENCOUNTER → 2025-02-14 09:39 | Outpatient (BNVA) | payer MEDICAID, OTHER, SELFPAY | PROVIDERS: PCP Family Medicine; Visit Provider Internal Medicine Medical Oncology | DX: I26.99 Other pulmonary embolism without acute cor pulmonale (principal); Z86.718 Personal history of other venous thrombosis and embolism; Z79.01 Long term (current) use of anticoagulants; Z51.81 Encounter for therapeutic drug level monitoring | CPT/HCPCS: 85610; 99211 ==

== ENCOUNTER 2025-02-15 09:36 | Outpatient (AMB) | payer MEDICAID, OTHER, SELFPAY ==
[2025-02-15 09:43] LABS: Prothrombin Time Whole Bld POC 17.3 sec (11.1-13.5); ~PT, ~INR - Anti Coag Clinic 1.4 (0.9-1.1)
--- NOTE | 2025-02-15 09:50 | MHC.OFFVISCO ---
Intake Intake Visit Reasons: Anticoagulation Charge Rn Required: No Allergies No Known Allergies Allergy (Verified 02/15/25 09:36) Medication List - Last Reconciled 02/15/25 by Nadege Simons RN acetaminophen 500 - 1,000 mg PO Q8H PRN amlodipine 2.5 mg PO DAILY atorvastatin 10 mg PO BEDTIME gabapentin 300 mg PO BEDTIME gabapentin 300 mg PO DAILY PRN glipizide 5 mg PO DAILY metformin 1,000 mg PO BID omeprazole 20 mg PO DAILY PRN warfarin See Protocol 2 mg orally 4MG X 2 DAYS/ 2MG X 5 DAYS; Is last menstrual period known: No Post menopausal: Yes (3 NATURAL BIRTHS ) Patient : No Nursing Note pt came to clinic today with son in law Ed, she walks with cane with out complications 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 Denies any c/p of sob - but does complain of diarrhea x 1 month INR out of therapeutic range Medications and supplements reviewed Patient status: does not feel well with diarrhea Medications or supplements: no changes - she has lovenox and will cont per md orders Diet: ok Denies any signs and symptoms of bleeding or clotting or unusual bruising Bleeding, bruising, clotting discussed Nutritional guidance given: avoid greens today then resume usual diet Dose: 4mg x 2 days / 2mg x 5 days F/U INR Date : 02/20/25 ?? Patient and son in law verbalize understanding of instructions given. 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 Anti-Coag Initial Assessment Social Hx Patient Tobacco Use Status: Never used Tobacco alcohol intake: unknown (celebrations ) Alcohol intake frequency: holidays/special occasions only (few time / year ) Housing: House Housing Other:: house has stairs current occupation: retired current occupational exposures/hazards: No Fall risk assessment: 1 Fall in past year (small falls no injury, walks with cane or walker) Cardiovascular Hx: HTN and Varicose Veins (wears compression socks ) Lung Disease HX: DVT/PE (JUNE CVA, 2024 PE, DVT 7-8 YEARS AGO ) Endocrine Hx: Diabetes Musculoskeletal Hx: Osteoporosis (BACK, BACK PAIN TAKES GABAPENTIN AND SPINAL INJECTIONS ) Blood Disorder Hx: Hyperlipidemia GI Hx: Hemorrhoids (BLED IN THE PAST ) and Other (HAS DIARRHEA X 1 MONTH - SEVERAL TIMES / DAY ) 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 Illness/Depression: No Is last menstrual period known: No Post menopausal: Yes (3 NATURAL BIRTHS ) Patient : No Surgeries: GALL BLADDER STONE REMOVAL - STILL HAS GALLBLADDER Anti-Coag. Education Record Teaching Recipient: Family and Patient What is the easiest way to learn: Reading and Listening List any additional concerns (family/financial etc.): LIVES WITH FAMILY Significant other who can be involved in Teaching Process when Indicated: son in law Ed and daughter Kurt Charge Rn Required: No Readiness To Learn: Good (ON WARFARIN ABOUT 7 - 8 YEARS AGO FOR DVT ) Teaching Methods: Demonstration, Discussion, Handout and Teach Back Response to Teaching: Verbalize Understanding Education Intervention/Brief Description of Teaching 1. Able to state reason for taking Warfarin: Yes 2. Able to state Pain Management techniques: Yes 3. Able to state action of Warfarin.: Yes Able to state current dose, pill color, how and when Warfarin to be taken: Yes Able to identify signs of bleeding &/or clotting: Yes 4. Able to identify need to keep diet consistent in regard to vitamin K intake: Yes Able to state restriction on alcohol: Yes 5. Able to state need for compliance with PT/INR testing: Yes Describes rationale for carrying ID and wearing Medic Alert bracelet: Yes Patient instructed to monitor for excess bruising or signs/symptoms of clotting or bleeding: Yes 6. Able to state that there are drugs that interact with Warfin: Yes 7. Able to state the need to seek medical attention when illness/injury occur.: Yes Describes the need to avoid activities with high risk of injury: Yes 8. Able to state duration of treatment: Yes 9. Demonstrates understanding of notifying all providers of pending dental surgical, or other invasive procedures: Yes 10. Able to state Home Care instructions Questionnaires HAS-BLED Does the patient had uncontrolled Hypertension?: No Does the patient have renal disease?: No Does the patient have liver disease?: No Does the patient have a history of stroke?: Yes Has the patient had major bleeding or predisposition to bleeding?: Yes Does the patient have labile INRs?: Yes Is the patient over 65 years of age?: Yes Is the patient on medications that gives them a predisposition to bleeding?: Yes Does the patient use alcohol?: No HAS-BLED Score: 5 CHADSVASC Age: 75 or over Gender: Female Does the patient have a history of CHF?: No Does the patient have a history of Hypertension?: Yes Does the patient have a history of Stroke/TIA/Thromboembolism?: Yes Does the patient have a history of Vascular Disease (prior [place], PAD or aortic plaque)?: Yes (small varicose veins ) Does the patient have a history of Diabetes?: Yes CHADS VACS Score: 8 Peter Prediction Score Rsk VTE Active Cancer: No Previous VTE, excluding superficial vein thrombosis: Yes Reduced mobility: Yes Already known Thrombophilic Condition: Yes (hx of DVT, CVA, PE - not diagnosed but something causing clots ) With-in last month Trauma and/or Surgery: No Elderly 70 year or older: Yes Heart and/or Respiratory Failure: No Acute Myocardial infarction and/or Ischemic Stroke: Yes Acute Infection and/or Rheumatologic Disorder: No Obesity (BMI 30 or greater): Yes Ongoing Hormonal Treatment: No Score: 12 Peter Score less than 4; Low Risk of VTE Peter Score 4 or greater; High Risk of VTE Coding Level of Care Code Est Patient Level 1 Diagnoses Current use of anticoagulant therapy Z79.01 Results AMB INR Fingerstick AMB INR Fingerstick 1.4 Last Edit by Nadege Simons RN on 02/15/25 09:43 manual entry Assessment & Plan Assessment & Plan (1) Current use of anticoagulant therapy: Code(s): Z79.01 - halfway (current) use of anticoagulants Category: Medical
--- OUTSIDE RECORDS SUMMARY | 2025-02-15 10:50 | XMS_ITS ---
chronic kidney disease No Monse Medina MD Help patients manage [...] has diabetic neuropathy No Jyoti Barnhart RN Weekly blood pressure task Care Plan Weekly blood pressure task No Malena Moore LPN Weekly blood pressure task Care Plan Weekly blood pressure task No Malena Moore LPN Weekly blood pressure task Care Plan Weekly blood pressure task No Malena Moore LPN Patient has chronic kidney disease Care Plan Patient has chronic kidney disease No Malena Moore LPN Patient has chronic kidney disease Care Plan Patient has chronic kidney disease No Malena Moore LPN Patient has chronic kidney disease Care Plan Patient has chronic kidney disease No Malena Moore LPN Patient has diabetic neuropathy Care Plan Patient has diabetic neuropathy No Malena Moore LPN Patient has diabetic neuropathy Care Plan Patient has diabetic neuropathy No Malena Moore LPN Patient has diabetic neuropathy Care Plan Patient has diabetic neuropathy No Malena Moore LPN Procedures Procedure Name Priority Date/Time Associated Diagnosis Comments PROTHROMBIN TIME WHOLE BLD POC Routine 02/15/2025 9:41 AM EST ~PT, ~INR - ANTI COAG CLINIC Routine 02/15/2025 9:41 AM EST PROTHROMBIN TIME WHOLE BLD POC Routine 02/14/2025 [...] 2 diabetes mellitus without complication, unspecified whether buttermaker helper insulin use ([facility]) HEMOGLOBIN A1C Routine 05/08/2024 12:23 PM EST from Last 3 Months or Most Recently Relevant to Health Maintenance Results * (ABNORMAL) PROTHROMBIN TIME WHOLE BLD POC (02/15/2025 9:41 AM EST) Only the most recent of2 resultswithin the time period is included. Protime 17.3(H) 11.1 - 13.5 sec [facility] 02/15/2025 9:41 AM EST 02/15/2025 9:43 AM EST Generic External Data Provider LAB BLOOD ORDERAB LES Final Result Performing Organization Address City/[facility]/ZIP Co de Phone Number [facility] [address] [place] [phone] * (ABNORMAL) ~PT, ~INR - ANTI COAG CLINIC (02/15/2025 9:41 AM EST) Only the most recent of2 resultswithin the time period is included. Prothrombin Time INR 1.4(H) 0.9 - 1.1 [facility] Comment:METER #: [id number] TERNATIONAL NORMALIZED RATIO (INR) REFERENCE RANGES Reference RangeFor patients not on anticoagulant therapy: 0.9 - 1.1INR ranges for oral anticoagulanttherapy:For prevention and treatment of venous thrombosis and pulmonary embolism: 2.0 - 3.0For acute myocardial infarction with aspirin therapy: 2.0 - 3.0For acute myocardial infarction without aspirin therapy: 3.0 - 4.0For patients with mechanical prosthetic heart valves: 2.5 - 3.5 02/15/2025 9:41 AM EST 02/15/2025 9:43 AM EST us Generic External Data Provider LAB BLOOD ORDERAB LES Final Result Performing Organization Address [facility]/ZIP Co de Phone Number [facility] [address] [place] [phone] * (ABNORMAL) Lipid Panel with Reflex to Direct LDL (02/13/2025 3:19 PM EST) Triglycerides 392(H) <150 mg/dL [facility] Comment:Desirable Triglyceri de: less than 150 mg/dLBorderline High Triglyceride 150-199 mg/dLHigh Triglyceride: 200-499 mg/dLVery High Triglyceride: greater than or equal to 5OO mg/dL Cholesterol 228(H) <200 mg/dL [facility] Comment:Desirable Cholestero l: less than 200 mg/dLBorderline High Cholesterol: 200-239 mg/dLHigh Cholesterol: greater than 239 mg/dL LDL Cholesterol Calculated 105(H) <100 mg/dL [facility] Comment:Desirable LDL: less than 100 mg/dLNear Optimal/Above Optimal LDL: 110- 129 mg/dLBorderline High LDL: 130-159 mg/dLHigh LDL: 160-189 mg/dLVery High LDL: greater than or equal to 190 mg/dL HDL Cholesterol 45 >40 mg/dL [facility] Comment:Desirable HDL: great er than 40 mg/dL Note: This HDL assay may give artificially low results in patients with liver disease. 02/13/2025 3:19 PM EST 02/13/2025 3:19 PM EST us Monse Medina MD LAB BLOOD ORDERABLES Final Resul t [facility] [address] [place] [phone] * (ABNORMAL) Basic Metabolic Panel (02/13/2025 3:19 PM EST) Only the most recent of2 resultswithin the time period is included. Sodium 141 135 - 145 mmol/L [facility] Potassium 4.3 3.3 - 5.1 mmol/L [facility] Chloride 106 96 - 108 mmol/L [facility] Carbon Dioxide 29 22 - 29 mmol/L [facility] Anion Gap 10(L) 12 - 20 [facility] Urea Nitrogen (BUN) 15 9 - 16 mg/dL [facility] Creatinine, Serum 0.57 0.5 - 1.4 mg/dL [facility] Estimated Glomerular Filt Rate >60 [facility] Comment:Chronic Kidney Disea se: Estimated GFR < 60 mL/min/1.21o6Nlnfug Kidney Disease: Estimated GFR < 15 mL/min/1.73m2 Glucose 156(H) 60 - 115 mg/dL [facility] Calcium 9.9 8.4 - 10.2 mg/dL [facility] 02/13/2025 3:19 PM EST 02/13/2025 3:19 PM EST us Monse Medina MD LAB BLOOD ORDERABLES Final Resul t [facility] [address] [place] [phone] * (ABNORMAL) CBC auto differential (12/29/2024 8:07 AM EDT) Only the most recent of2 resultswithin the time period is included. White Blood Count 9.9 4.8 - 10.8 X10*3/uL [facility] Red Blood Count 4.62 4.20 - 5.50 X10*6/uL [facility] Hemoglobin 12.7 12.0 - 16.0 g/dl [facility] Hematocrit 39.0 37.0 - 47.0 % [facility] Mean Corpuscular Volume 84.4 80.0 - 98.0 fL [facility] Mean Corpuscular Hemoglobin 27.5 27.0 - 33.0 pg [facility] Mean Corpuscular HGB Conc 32.6 31.0 - 35.0 g/dl [facility] Red Cell Distribution Width 14.6 11.0 - 16.0 % [facility] Platelet Count 208 160 - 400 X10*3/uL [facility] Mean Platelet Volume 9.7 9.4 - 12.3 fL [facility] Neutrophils Percent Auto 65.6 45 - 73 % [facility] Imm Gran Pct Auto 2.2(H) 0.0 - 0.4 % [facility] Lymphocytes Percent Auto 23.5 20 - 40 % [facility] Monocytes Percent Auto 7.8 2 - 11 % [facility] Eosinophils Percent Auto 0.6 0 - 4 % [facility] Basophils Percent Auto 0.3 0 - 2 % [facility] NRBC Pct Auto 0.0 0.0 - 0.2 /100WBC [facility] Neutrophils Absolute Auto 6.5 2.0 - 8.3 x10*3/uL [facility] Imm Gran Abs Auto 0.22(H) 0.00 - 0.03 X10*3/uL [facility] Lymphocytes Absolute Auto 2.3 1.2 - 4.9 X10*3/uL [facility] Monocytes Absolute Auto 0.8 0.1 - 1.2 X10*3/uL [facility] Eosinophils Absolute Auto 0.1 0.0 - 0.4 X10*3/uL [facility] Basophils Absolute Auto 0.0 0.0 - 0.2 X10*3/uL [facility] NRBC Abs Auto 0.000 0.0 - 0.012 X10*3/uL [facility] 12/29/2024 8:07 AM EDT 12/29/2024 8:09 AM EDT us Generic External Data Provider LAB BLOOD ORDERAB LES Final Result Performing Organization Address City/State/[facility] Co de Phone Number [facility] [address] [place] [phone] * (ABNORMAL) Prothrombin Time-INR (12/29/2024 8:07 AM EDT) Prothrombin Time 13.2(H) 10.9 - 12.4 SEC [facility] INTERNATIONAL NORM RATIO 1.2(H) 0.9 - 1.1 [facility] Comment:INTERNATIONAL NORMAL IZED RATIO (INR) [...] Provider LAB BLOOD ORDERAB LES Final Result [facility] [address] [place] [phone] * (ABNORMAL) Comprehensive Metabolic Panel (12/29/2024 8:07 AM EDT) Sodium 141 135 - 145 mmol/L [facility] Potassium 4.2 3.3 - 5.1 mmol/L [facility] Chloride 106 96 - 108 mmol/L [facility] Carbon Dioxide 29 22 - 29 mmol/L [facility] Anion Gap 10(L) 12 - 20 [facility] Urea Nitrogen (BUN) 13 9 - 16 mg/dL [facility] Creatinine, Serum 0.56 0.5 - 1.4 mg/dL [facility] Creatinine Clr Calc Pharmacy 69.2 [facility] Comment:Provided height and weight: 157.48 cm,79.832 kg.eGFR (calculated from the MDRD study equation) and eCrCl(calculated from the Cockcroft-Gault equation) are based ondifferent parameters and may not yield comparable results.If eCrCl result is absurd, please check patient'sheight/weight. Estimated Glomerular Filt Rate >60 [facility] Comment:Chronic Kidney Disea se: Estimated GFR < 60 mL/min/1.95m2Ifbvhi Kidney Disease: Estimated GFR < 15 mL/min/1.73m2 Glucose 220(H) 60 - 115 mg/dL [facility] Calcium 9.2 8.4 - 10.2 mg/dL [facility] Bilirubin, Total 0.4 0.0 - 1.0 mg/dL [facility] Aspartate Amino Transferase 17 5 - 31 U/L [facility] Alanine Aminotransferase 24 0 - 31 U/L [facility] Total Protein 6.7 6.5 - 8.0 g/dL [facility] Albumin Level 3.9 3.5 - 5.0 g/dL [facility] Alkaline Phosphatase 62 39 - 117 U/L [facility] 12/29/2024 8:07 AM EDT 12/29/2024 8:09 AM EDT us Generic External Data Provider LAB BLOOD ORDERAB LES Final Result Performing Organization Address City/State/[facility] Co de Phone Number [facility] [address] [place] [phone] * VASC US Lower Extremity Venous Duplex Bilateral (12/21/2024 7:29 PM EDT) 12/21/2024 7:29 PM EDT Narrative [facility] - 12/21/2024 7:31 PM EDT [address] [address] Ultrasound Report Signed Patient: Maryellen Acosta MR#: [id number] 1351 : 1935 Acct:[id number] Age/Sex: 89 / F ADM Date: 12/20/24 Loc: [facility] 475-[address]: Lincoln Cohen MD Ordering Physician: Jerrica Oropeza MD Date of Service: 12/21/24 Procedure(s): US venous duplex LE BI Accession Number(s): [id number] cc: Monse Medina MD; Jerrica Oropeza MD [...] Dodge MD on 12/21/2024 19:29:44 Dictated By: Satnana Dodge MD Signed By: <Electronically signed by Santana Dodge MD in OV> 12/21/241930 DD/ 28 TD/TT: 12/21/241928 Product Tester [employer]erglass: Procedure Note Donotuseinterpreter, Image - 12/21/[address] [address] Ultrasound Report Signed Patient: Maryellen AcostaMR#: [id number] 1351 : 8Acct:[id number] Age/Sex: 89 / FADM Date: 12/20/24 Loc: [facility] [address]: Lincoln Cohen MD Ordering Physician: Jerrica Oropeza MD Date of Service: 12/21/24 Procedure(s): US venous duplex LE BI Accession Number(s): [id number] cc: Monse Medina MD; Jerrica Oropeza MD [...] in OV> 12/21/241930 DD/ 28 TD/TT: 12/21/241928 Product Tester Fiberglass: [facility] External Provider CV VASC ULAR PROCEDURES Final Result [facility] [address] [place] [phone] * XR KUB and Upright 2 Views (12/21/2024 1:32 PM EDT) Anatomical Region Laterality Modality Radiographic Che ging 12/21/2024 1:32 PM EDT Narrative 12/21/2024 2:03 PM EDT [address] [address] XRay Report Signed Patient: Maryellen Acosta MR#: [id number] 1351 : 1935 Acct:[id number] Age/Sex: 89 / F ADM Date: 12/20/24 Loc: [facility] 475-[address]: Lincoln Cohen MD Ordering Physician: Lincoln Cohen MD Date of Service: 12/21/24 Procedure(s): XR KUB Accession Number(s): [id number] cc: Lincoln Cohen MD; Monse Medina MD [...] 12/21/24 1400 DD/ 1332 TD/TT: 12/21/24 1356 Product Tester [employer]: Procedure Note Donotuseinterpreter, Image - 12/21/2024 [place] [address] XRay Report Signed Patient: Maryellen AcostaMR#: [id number] 1351 : 1935cct:[id number] Age/Sex: 89 / FADM Date: 12/20/24 Loc: [facility] [address]: Lincoln Cohen MD Ordering Physician: Lincoln Cohen MD Date of Service: 12/21/24 Procedure(s): XR KUB Accession Number(s): [id number] cc: Lincoln Cohen MD; Monse Medina MD [...] 12/21/24 1400 DD/ 1332 TD/TT: 12/21/24 1356 Product Tester [employer]erglass: [facility] External Provider IMG XR PROCEDURES Final Result * FL SMALL BOWEL FOLLOW THROUGH (12/21/2024 7:56 AM EDT) Anatomical Region Laterality Modality Radiographic Che ging 12/21/2024 7:56 AM EDT Narrative 12/21/2024 12:48 PM EDT [place] [address] Fluoroscopy Report Signed Patient: Maryellen Acosta MR#: [id number] 1351 : 1935 Acct:[id number] Age/Sex: 89 / F ADM Date: 12/20/24 Loc: [facility] 475-[address]: Lincoln Cohen MD Ordering Physician: Lincoln Cohen MD Date of Service: 12/21/24 Procedure(s): FL small bowel follow through Accession Number(s): [id number] cc: Lincoln Cohen MD; Monse Medina MD Reason for Exam: SBO EXAMINATION: FL SMALL BOWEL SERIES CLINICAL INFORMATION: SBO COMPARISON: None available. TECHNIQUE: Following a jitterbug operator image of the abdomen, 50/50 diluted 400 mL of Gastrografin contrast was administered orally, and interval abdominal radiographs were performed to assess for contrast progression through the small bowel. However patient complained of significant abdominal pain and patient was aspirated by the floor nurse. The exam was then discontinued. FINDINGS: Video Technician image of the abdomen demonstrates scattered stool [...] 12/21/24 1245 DD/ 0756 TD/TT: 12/21/24 1106 Product Tester Fiberglass: [facility] Procedure Note Donotuseinterpreter, Image - 12/21/2024 [place] [address] Fluoroscopy Report Signed Patient: Carlin Acosta#: [id number] 1351 : 8Acct:[id number] Age/Sex: 89 / FADM Date: 12/20/24 Loc: [facility] 475-[address]: Lincoln Cohen MD Ordering Physician: Lincoln Cohen MD Date of Service: 12/21/24 Procedure(s): FL small bowel follow through Accession Number(s): [id number] cc: Lincoln Cohen MD; Monse Medina MD Reason for Exam: SBO EXAMINATION: FL SMALL BOWEL SERIES CLINICAL INFORMATION: SBO COMPARISON: None available. TECHNIQUE: Following a jitterbug operator image of the abdomen, 50/50 diluted 400 mL of Gastrografin contrast was administered orally, and interval abdominal radiographs were performed to assess for contrast progression through the small bowel. However patient complained of significant abdominal pain and patient was aspirated by the floor nurse. The exam was then discontinued. FINDINGS: Video Technician image of the abdomen demonstrates scattered stool [...] 12/21/24 1245 DD/ 0756 TD/TT: 12/21/24 1106 Product Tester Fiberglass: VAR[facility] External Provider IMG FLU OROSCOPY PROCEDURES Final Result * CBC (12/20/2024 3:51 PM EDT) White Blood Count 8.6 4.8 - 10.8 X10*3/uL [facility] Red Blood Count 5.27 4.20 - 5.50 X10*6/uL [facility] Hemoglobin 14.6 12.0 - 16.0 g/dl [facility] Hematocrit 44.1 37.0 - 47.0 % [facility] Mean Corpuscular Volume 83.7 80.0 - 98.0 fL [facility] Mean Corpuscular Hemoglobin 27.7 27.0 - 33.0 pg [facility] Mean Corpuscular HGB Conc 33.1 31.0 - 35.0 g/dl [facility] Red Cell Distribution Width 14.6 11.0 - 16.0 % [facility] Platelet Count 171 160 - 400 X10*3/uL [facility] Mean Platelet Volume 9.4 9.4 - 12.3 fL [facility] NRBC Pct Auto 0.0 0.0 - 0.2 /100WBC [facility] NRBC Abs Auto 0.000 0.0 - 0.012 X10*3/uL [facility] 12/20/2024 3:51 PM EDT 12/20/2024 3:55 PM EDT us Generic External Data Provider LAB BLOOD ORDERAB LES Final Result [facility] [address] [place] [phone] * XR Chest 1 View (12/20/2024 3:30 PM EDT) Only the most recent of2 resultswithin the time period is included. Anatomical Region Laterality Modality Chest Radiographic Che ging 12/20/2024 3:30 PM EDT Narrative 12/20/2024 3:45 PM EDT [address] [address] XRay Report Signed Patient: Maryellen Acosta MR#: [id number] 1351 : 1935 Acct:[id number] Age/Sex: 89 / F ADM Date: 12/20/24 Loc: .ED Attending Dr: Ordering Physician: Eusebio Juarez MD Date of Service: 12/20/24 Procedure(s): XR chest 1V Accession Number(s): [id number] cc: Eusebio Juarez MD; Monse Medina MD [...] 12/20/24 1542 DD/ 1530 TD/TT: 12/20/24 1538 Product Tester [employer]erglass: Procedure Note Donotuseinterpreter, Image - 12/20/[address] [address] XRay Report Signed Patient: Carlin Acosta#: [id number] 1351 : 8Acct:[id number] Age/Sex: 89 / FADM Date: 12/20/24 Loc: .ED Attending Dr: Ordering Physician: Eusebio Juarez MD Date of Service: 12/20/24 Procedure(s): XR chest 1V Accession Number(s): [id number] cc: uEsebio Juarez MD; Monse Medina MD Reason for [...] 12/20/24 1542 DD/ 1530 TD/TT: 12/20/24 1538 Product Tester Fiberglass: [facility] External Provider IMG XR PROCEDURES Final Result * CTA Chest PE Protocal (12/20/2024 1:45 PM EDT) Anatomical Region Laterality Modality Body, Chest Computed Tomogra phy 12/20/2024 1:45 PM EDT Narrative 12/20/2024 2:37 PM EDT [address] [address] [address] Scan Report Signed Patient: Maryellen Acosta MR#: [id number] 1351 : 1935 Acct:[id number] Age/Sex: 89 / F ADM Date: 12/20/24 Loc: HO.ED Attending Dr: Ordering Physician: Eusebio Juarez MD Date of Service: 12/20/24 Procedure(s): CT angio chest PE protocol Accession Number(s): [id number] cc: Eusebio Juarez MD; Monse Medina MD Report Number: [id number]: Total DLP = 280.00 mGy-cm Reason for [...] 12/20/24 1434 DD/ 1345 TD/TT: 12/20/24 1410 Product Tester Fiberglass: Procedure Note Donotuseinterpreter, Image - 12/20/[address] [address] [address] Scan Report Signed Patient: Carlin Acosta#: [id number] 1351 : 8Acct:[id number] Age/Sex: 89 / FADM Date: 12/20/24 Loc: .ED Attending Dr: Ordering Physician: Eusebio Juarez MD Date of Service: 12/20/24 Procedure(s): CT angio chest PE protocol Accession Number(s): [id number] cc: Eusebio Juarez MD; Monse Medina MD Report Number: [id number]: Total DLP = 280.00 mGy-cm Reason for [...] Tj Rodriguez MD 12/20/2024 02:34 PM EDT Dictated By: Tj Rodriguez MD Signed By: <Electronically signed by Tj Rodriguez MD in OV> 12/20/24 1434 DD/ 1345 TD/TT: 12/20/24 1410 Product Tester Fiberglass: [facility] External Provider IMG CT PROCEDURES Final Result * CT Abdomen Pelvis w/o Contrast (12/20/2024 12:25 PM EDT) Anatomical Region Laterality Modality Body, Pelvis, Abdomen Computed T omography 12/20/2024 12:2 5 PM EDT Narrative 12/20/2024 1:04 PM EDT [address] [address] [address] Scan Report Signed Patient: Maryellen Acosta MR#: [id number] 1351 : 1935 Acct:[id number] Age/Sex: 89 / F ADM Date: 12/20/24 Loc: HO.ED Attending Dr: Ordering Physician: Eusebio Juarez MD Date of Service: 12/20/24 Procedure(s): CT abdomen pelvis wo IV con Accession Number(s): [id number] cc: Eusebio Juarez MD; Monse Medina MD Report Number: [id number]: Total DLP = 627.00 mGy-cm Reason for [...] 12/20/2024 01:01 PM EDT Dictated By: Sunny Loeps MD Signed By: <Electronically signed by Sunny Lopes MD in OV> 12/20/24 1301 DD/ 1225 TD/TT: 12/20/24 1242 Product Tester Fiberglass: Procedure Note Donotuseinterpreter, Image - 12/20/[address] [address] [address] Scan Report Signed Patient: Maryellen AcostaMR#: [id number] 1351 : 1935cct:[id number] Age/Sex: 89 / FADM Date: 12/20/24 Loc: HO.ED Attending Dr: Ordering Physician: Eusebio Juarez MD Date of Service: 12/20/24 Procedure(s): CT abdomen pelvis wo IV con Accession Number(s): [id number] cc: Eusebio Juarez MD; Monse Medina MD Report Number: [id number]: Total DLP = 627.00 mGy-cm Reason for [...] 12/20/24 1301 DD/ 1225 TD/TT: 12/20/24 1242 Product Tester Fiberglass: [facility] External Provider IMG CT PROCEDURES Final Result * D Dimer High Sensitivity (12/20/2024 12:01 PM EDT) D Dimer High Sensitivity 529 NG/ML [facility] Comment:D-DIMER HS REFERENCE RANGENote: Our [...] Provider LAB BLOOD ORDERAB LES Final Result [facility] [address] [place] [phone] * US Abdomen Limited (12/20/2024 11:29 AM EDT) Anatomical Region Laterality Modality Abdomen Ultrasound 12/20/2024 11:2 9 AM EDT Narrative 12/20/2024 12:22 PM EDT [address] [address] Ultrasound Report Signed Patient: Maryellen Acosta MR#: [id number] 1351 : 1935 Acct:[id number] Age/Sex: 89 / F ADM Date: 12/20/24 Loc: HO.ED Attending Dr: Ordering Physician: Eusebio Juarez MD Date of Service: 12/20/24 Procedure(s): US abdomen limited Accession Number(s): [id number] cc: Eusebio Juarez MD; Monse Medina MD [...] 12/20/24 1219 DD/ 1129 TD/TT: 12/20/24 1153 Product Tester Fiberglass: Procedure Note Donotuseinterpreter, Image - 12/20/2024 [place] [address] Ultrasound Report Signed Patient: Carlin Acosta#: [id number] 1351 : 8Acct:[id number] Age/Sex: 89 / FADM Date: 12/20/24 Loc: HO.ED Attending Dr: Ordering Physician: Eusebio Juarez MD Date of Service: 12/20/24 Procedure(s): US abdomen limited Accession Number(s): [id number] cc: Eusebio Juarez MD; Monse Medina MD [...] 12/20/24 1219 DD/ 1129 TD/TT: 12/20/24 1153 Product Tester Fiberglass: us [facility] External Provider IMG US PROCEDURES Edited Result - Final * (ABNORMAL) VENOUS BLOOD GAS (12/20/2024 11:22 AM EDT) VBG pH 7.42 7.32 - 7.43 [facility] Comment:METER #: [id number] additional_comment: CbAlbanom VBG PCO2 48 mmHg [facility] Comment:METER #: [id number] additional_comment: CbAlbanom VBG PO2 72 mmHg [facility] Comment:METER #: [id number] additional_comment: CbAlbanom VBG Base Excess 6.3 mmol/L [facility] Comment:METER #: [id number] additional_comment: CbAlbanom VBG HCO3 32(H) 22 - 26 mmol/L [facility] Comment:METER #: [id number] additional_comment: CbAlbanom O2 Sat, Hebert 95.0 % [facility] Comment:METER #: [id number] additional_comment: CbAlbanom 12/20/2024 11:2 2 AM EDT 12/20/2024 11:25 AM EDT Generic External Data Provider LAB BLOOD ORDERAB LES Final Result Performing Organization Address [facility]/ZIP Co de Phone Number [facility] [address] [place] [phone] * Influenza A B2 ID NOW (Leon) (12/20/2024 10:52 AM EDT) IDNOW SERIAL# [id number] [facility] Influenza A Negative Negative [facility] Influenza B2 Negative Negative [facility] Influenza A B2 Note See Note [facility] Comment:The Leon ID NOW In [...] GENERAL ORDERABLES Final Result Performing Organization Address [facility] Co de Phone Number [facility] [address] [place] [phone] * COVID-19 ID NOW (LEON) (12/20/2024 10:52 AM EDT) IDNOW SERIAL# [id number] [facility] COVID-19 TEST Negative Negative [facility] COVID-19 NOTE See Note [facility] Comment: Results are for the [...] within the [facility] and [facility] hospitalies are required to report all positive [...] use by authorized laboratories.Testing performed on the [employer] ID NOW utilizing NAAT. 12/20/2024 10:5 2 AM EDT 12/20/2024 11:01 AM EDT us Generic External Data Provider LAB MOLECULAR CAYETANO GNOST[employer] ORDERABLES Final Result [facility] [address] [place] [phone] * High Sensitivity Troponin I (12/20/2024 10:52 AM EDT) TROPONIN I HIGH SENSITIVITY 4.5 <3.5 - 17.0 ng/L [facility] Comment:The Leon high sens itivity Troponin-I results should beused in conjunction with other diagnostic information suchas ECG, clinical observations and information, and patientsymptoms to aid in the diagnosis of AL. 12/20/2024 10:5 2 AM EDT 12/20/2024 11:00 AM EDT us Generic External Data Provider LAB BLOOD ORDERAB LES Final Result Performing Organization Address City/[facility]/ZIP Co de Phone Number [facility] [address] [place] [phone] * NT-proBNP (12/20/2024 10:52 AM EDT) NT-proBNP 158.5 <300 pg/mL [facility] Comment:Reference Range:Age Group (years) NT-proBNP (pg/ml) InterpretationAll <300 Negative: HF unlikelyFor patients presenting to the ED with clinical suspicion ofnew onset or worsening HF, see below:18 to <50 >299.9 to <450.0 Grayzone: [id number] to 75 >299.9 to <900.0 other causes of>75 >299.9 to <1800.0 NT-proBNP [id number] to <50 >449.9 Positive: HF [id number] >899.9>75 >1799.9Note: Elevated NT-proBNP levels should be interpreted inthe context of other clinical information. 12/20/2024 10:5 2 AM EDT 12/20/2024 11:00 AM EDT us Generic External Data Provider LAB BLOOD ORDERAB LES Final Result Performing Organization Address [facility] Co de Phone Number [facility] [address] [place] [phone] * Magnesium (12/20/2024 10:52 AM EDT) Magnesium 1.9 1.6 - 2.6 mg/dL [facility] 12/20/2024 10:5 2 AM EDT 12/20/2024 11:00 AM EDT us Generic External Data Provider LAB BLOOD ORDERAB LES Final Result Performing Organization Address City/[facility]/ZIP Co de Phone Number [facility] [address] [place] [phone] * Lactic Acid (12/20/2024 10:52 AM EDT) Pathologist [facility] Lactic Acid 1.9 0.5 - 2.0 mmol/L [facility] 12/20/2024 10:5 2 AM EDT 12/20/2024 10:59 AM EDT Generic External Data Provider LAB BLOOD ORDERAB LES Final Result Performing Organization Address City/[facility]/ZIP Co de Phone Number [facility] [address] [place] [phone] [phone] * Hepatic Function Panel (12/20/2024 10:52 AM EDT) [facility] Bilirubin, Total 1.0 0.0 - 1.0 mg/dL [facility] Bilirubin, Direct 0.3 0.0 - 0.5 mg/dL [facility] Aspartate Amino Transferase 26 5 - 31 U/L [facility] Alanine Aminotransferase 27 0 - 31 U/L [facility] Total Protein 7.2 6.5 - 8.0 g/dL [facility] Albumin Level 4.3 3.5 - 5.0 g/dL [facility] Alkaline Phosphatase 68 39 - 117 U/L [facility] 12/20/2024 10:5 2 AM EDT 12/20/2024 11:00 AM EDT [employer] External Data Provider LAB BLOOD ORDERAB LES Final Result Performing Organization Address City/[facility]/ZIP Co de Phone Number [facility] [address] [place] [phone] * Albumin, Random Urine W/Creatinine (06/06/2024 11:36 AM EDT) Pathologist [facility] Creatinine, Urine 63.85 mg/dL [facility] Microalbumin Urine 12.0 mg/L [facility] Microalbum Creatinine Ratio Ur 18.7 <30 ug/mg cr [facility] Comment:Albumin/Creatinine R atio Reference Ranges: Normal: < 30 ug/mg creatinine Microalbuminuria: 30 - 300 ug/mg creatinineClinical Albuminuria: > 300 ug/mg creatinine Urine 06/06/2024 11:3 6 AM EDT 06/06/2024 1:06 PM EDT us Monse Medina MD LAB URINE ORDERABLES Final Resul t Performing Organization Address City/[facility]/ZIP Co de Phone Number [facility] [address] [place] [phone] * (ABNORMAL) Hemoglobin A1c (05/08/2024 12:23 PM EST) Hemoglobin A1c 7.2(H) <6.0 % [facility] Comment:Hemoglobin A1C Refer ence Range Adults: 4.8 - 6.0 % Non diabetic: < 6.0 % Goal: < 7.0 %Additional Action Suggested: > 8.0 %Note: Hemoglobin A1c results are invalid for patients with abnormal amounts of HbF. Blood transfusions may impact the HbA1c concentration in the patient sample. Estimated Average Glucose 160 mg/dL [facility] Comment:eAG = Estimated ave rage glucose which is %A1C expressed asaverage glucose, using the formula of the I6B-[id number] Glucose study (ADAG), Diabetes Care, Vol.31,#8,Oct. 2007 05/08/2024 12:2 3 PM EST 05/08/2024 12:28 PM EST us Generic External Data Provider LAB BLOOD ORDERAB LES Final Result Performing Organization Address City/[facility] Co de Phone Number [facility] [address] [place] [phone] from Last 3 Months or Most [...] neuropathy 02/14/2025 Patient has diabetic neuropathy 02/14/2025 Weekly blood pressure task 02/14/2025 Weekly blood pressure task 02/14/2025 Weekly blood pressure task 02/14/2025 Patient has chronic kidney disease 02/14/2025 Patient has chronic kidney disease 02/14/2025 Patient has chronic kidney disease 02/14/2025 Patient has diabetic neuropathy 02/14/2025 Patient has diabetic neuropathy 02/14/2025 Patient has diabetic neuropathy 02/14/2025 Insurance [facility] F[facility] Care Teams Society Editor Relationship Specialty Start Date End Date Monse Medina MD [address] [place] [phone] PCP - General Family Medicine 04/28/24 Clinical Summary Created on: February 15, 2025 Gustavoangelbrittny Maryellen : 1935 Sex: Female Author Organization [employer] Address [address] [place] [address] [address] [place] [address] Care Team Providers Care Society Editor Name Role Phone Monse Medina MD Primary Care Provider [phone] Allergies No known active allergies Medications FREESTYLE LITE test strip Check blood glucose once daily and as needed 100 each 05/10/19 Active Alcohol Swabs (Alcohol Prep) pads Check blood sugar once daily and as needed 100 each 05/10/19 Active Blood Glucose Monitoring Suppl (FreeStyle Lite) w/Device kit 1 Device Once per day. 1 kit 3 05/10/19 Active FreeStyle lancets 1 each by Other [...] per day. 90 tablet 09/30/19 25 Active apixaban (Eliquis) 5 MG tablet Take 1 tablet (5 mg) by mouth 2 times daily. 180 tablet 3 01/27/20 Active gabapentin (Neurontin) 300 MG capsule Take 2 capsules by mouth in the morning and 3 capsules at night 150 capsule 11 01/27/20 Active metFORMIN XR (Glucophage-XR ) 500 MG 24 hr tablet Take 2 tablets (1,000 mg) by mouth with breakfast and with evening meal. Do not crush, chew, or split. 360 tablet 3 01/27/20 Active glipiZIDE (Glucotrol) 5 MG tablet Take [...] per day. 90 tablet 3 01/27/20 25 Active omeprazole (PriLOSEC) [address] capsule Take 1 tablet by mouth once a day as needed when taking pain medication 90 capsule 3 01/27/20 Active warfarin (Coumadin) 2 MG tablet Take as directed 30 tablet 2 02/08/20 Active Enoxaparin Sodium 80 MG/0.8ML solution prefilled syringe INJECT 0.7 ML (70 MG) DIRECTED EVERY 12 (TWELVE) HOURS. 7 mL 1 02/15/20 Active metFORMIN XR (Glucophage-XR ) 500 MG [...] you feel weak. 90 tablet 3 08/23/19 025 Discontinued(Re order (will not trigger notification to Pharmacy)) omeprazole (PriLOSEC) [address] capsule Take 1 tablet by mouth once a day as needed when taking pain medication 90 capsule 1 09/30/19 025 Discontinued(Re order (will not trigger notification to Pharmacy)) gabapentin (Neurontin) 300 MG capsule Take 2 capsules by mouth in the morning and 3 capsules at night 150 capsule 12/02/19 025 Discontinued(Re order (will not trigger notification to Pharmacy)) apixaban (Eliquis) 5 MG tablet Take 5 mg by mouth 2 times daily. 12/24/19 025 Discontinued(Re order (will not trigger notification to Pharmacy)) Enoxaparin Sodium 80 MG/0.8ML solution prefilled syringe Inject 0.7 mL (70 mg) as directed every 12 (twelve) hours. 7 mL 1 02/08/20 025 Discontinued Active Problems Problem Noted Date Diagnosed Date Transaminitis 06/06/2024 Assessment & Plan (06/06/2024 12:08 PM EDT): -Pt is currently taking atorvastatin and niacin -Will check lab today History of TIA (transient ischemic attack) 06/06 Assessment & Plan (06/06/2024 4:20 PM EDT): - on 05/08/24, left UE and LE weakness and numbness - received tenecteplase in ED, admitted to [facility] for further evaluation and management - [...] no hypercoagulable work-up - will consult with clinical services professional if patient needs hypercoagulable work-up (likely unnecessary since patient has not had recurrence) Assessment & Plan (04/29/2024 5:08 PM EST): - suggestive of unprovoked DVT - patient states she took a medication for few months - no hypercoagulable work-up - will consult with clinical services professional if patient needs hypercoagulable work-up (likely unnecessary [...] Encounters Date Type Department Care Team Description 02/15/2025 Orders Only GENERIC EXTERNAL DATA DEPARTMENT Provider, Generic External Data 02/14/2025 Refill [facility] [address] [facility] [place] [address] Monse Medina MD 02/14/2025 Telephone [facility] [address] [place] [address] Monse Medina MD CRITICAL LAB 02/14/2025 Orders Only GENERIC EXTERNAL DATA DEPARTMENT Provider, Generic External Data 02/13/2025 Orders Only [facility] [address] [facility] [place] [address] Monse Medina MD 02/07/2025 Orders Only [facility] [address] [place] [address] Monse Medina MD Single subsegmental pulmonary embolism without acute cor pulmonale (CMS/HCC) (HCC) (Primary Dx); History of DVT (deep vein thrombosis) 01/26/2025 Orders Only [facility] [address] [place] [address] Monse Medina MD 01/24/[address] [address] Monse Medina MD ER Follow-up 12/29/2024 Orders Only GENERIC EXTERNAL DATA DEPARTMENT Provider, Generic External Data 12/26/2024 Patient Outreach [facility] [address] [facility] [place] [phone] Monse Medina MD Transition Of Care (Tcm) (HDF unscheduled) 12/22/2024 Orders Only [facility] [address] [facility] [place] [address] Monse Medina MD Pulmonary embolism without acute cor pulmonale, unspecified chronicity, unspecified pulmonary embolism type (CMS/HCC) (HCC) (Primary Dx); History of DVT (deep vein thrombosis); History of TIA (transient ischemic attack) 12/20/2024 Orders Only [facility] External Provider, [facility] 12/01/2024 Telephone [facility] [address] [place], [place] [phone] Monse Medina MD from Last 3 Months [...] is your housing situation today? I have rosasun valente 04/28/[address] you [...] 08/2024 COVID-19 Vaccine ( season) 2024 02/01/2024 Alcohol/Substance [...]
--- OUTSIDE RECORDS SUMMARY | 2025-02-15 10:50 | XMS_ITS | Encounter Summary ---
Author Organization [employer] Address [address] [facility] 7t [place] [address] Care Team Providers Care Bid Manager Name Role Phone Monse Medina MD Primary Care Provider [phone] Encounter Details Date Type Department Care Team ([facility] st Contact Info) Description 05/10/2024 Orders Only [facility] [address] [place], [place] [phone] Monse Medina MD [address] [place], [place] [phone] Social History Tobacco Use Types Packs/Day Years [...] documented as of this encounter Care Teams Bid Manager Relationship Specialty Start Date End Date Monse Medina MD [address] [place] [phone] PCP - General Family Medicine 04/28/24 documented as of this encounter
--- OUTSIDE RECORDS SUMMARY | 2025-02-15 10:50 | XMS_ITS | Encounter Summary ---
Author Organization [employer] Address [address] [facility] 7t [place] [address] Care Team Providers Care Electrical Subcontractor Name Role Phone Monse Medina MD Primary Care Provider [phone] Reason for Visit * Reason Comments Med Refill Encounter Details Date Type Department Care Team ([facility] st Contact Info) Description 02/14/2025 Refill [facility] [address] [place], [place] [phone] Monse Medina MD [address] [place], [place] [phone] Social History Tobacco Use Types Packs/Day Years [...] Care Plan Patient has diabetic neuropathy Monse Diagle MD Weekly blood pressure task Care Plan [...] Care Plan Weekly blood pressure task No Oscar, Malena, TELEGRAPHIC TYPEWRITER INSTALLER Weekly blood pressure task Care Plan Weekly blood pressure task No Oscar, Malena, TELEGRAPHIC TYPEWRITER INSTALLER Weekly blood pressure task Care Plan Weekly blood pressure task No Oscar, Malena, TELEGRAPHIC TYPEWRITER INSTALLER Patient has chronic kidney disease Care Plan Patient has chronic kidney disease No Oscar, Malena, TELEGRAPHIC TYPEWRITER INSTALLER Patient has chronic kidney disease Care Plan Patient has chronic kidney disease No Oscar, Malena, TELEGRAPHIC TYPEWRITER INSTALLER Patient has chronic kidney disease Care Plan Patient has chronic kidney disease No Oscar Malena, TELEGRAPHIC TYPEWRITER INSTALLER Patient has diabetic neuropathy Care Plan Patient has diabetic neuropathy No Oscar, Malena, TELEGRAPHIC TYPEWRITER INSTALLER Patient has diabetic neuropathy Care Plan Patient has diabetic neuropathy No Oscar, Malena, TELEGRAPHIC TYPEWRITER INSTALLER Patient has diabetic neuropathy Care Plan Patient has diabetic neuropathy No Oscar, Malena, TELEGRAPHIC TYPEWRITER INSTALLER documented as of this encounter Visit Diagnoses [...] documented as of this encounter Care Teams Electrical Subcontractor Relationship Specialty Start Date End Date Monse Medina MD [address] [place] [address] PCP - General Family Medicine 04/28/24 documented as of this encounter
--- OUTSIDE RECORDS SUMMARY | 2025-02-15 10:50 | XMS_ITS | Encounter Summary ---
Author Organization [employer] Address [address] [facility] 7t [place] [address] Care Team Providers Care Gardening Supervisor Name Role Phone Monse Medina MD Primary Care Provider [phone] Encounter Details Date Type Department Care Team ([facility] st Contact Info) Description 01/26/2025 Orders Only [facility] [address] [place], [place] [phone] Monse Medina MD [address] [place], [place] [phone] Social History Tobacco Use Types Packs/Day Years [...] documented as of this encounter Care Teams Gardening Supervisor Relationship Specialty Start Date End Date Monse Medina MD [address] [place] [phone] PCP - General Family Medicine 04/28/24 documented as of this encounter
--- OUTSIDE RECORDS SUMMARY | 2025-02-15 10:50 | XMS_ITS | Encounter Summary ---
Author Organization [employer] Address [address] [facility] 7t [place] [address] Care Team Providers Care Rn Access Name Role Phone Monse Medina MD Primary Care Provider [phone] Reason for Visit * Reason Onset Date Comments CRITICAL LAB 02/14/2025 Encounter Details Date Type Department Care Team (Late st Contact Info) Description 02/14/2025 Telephone [facility] [address] [place] [address] [phone] Monse Medina MD [address] [place], [place] [phone] CRITICAL LAB Social History Tobacco Use Types [...] Telephone Encounter - Jyoti Barnhart RN - 02/15/2025 10:26 AM EST TC incoming from [place] with critical lab INR 1.4 4 mg yesterday 4 mg today, 2 mg , Thursday, Thursday, 4 mg Thursday. Recheck on Thursday, continuing Lovenox as well. Will route to team nurses to advise. Contact [place] at [phone] Marlene FOWLER aware. * Telephone Encounter - Jyoti Barnhart RN - 02/14/2025 10:42 AM EST TC incoming from [place] with [facility] anticoagulation clinic with critical lab: Pt INR is 1.2. 2 mg warfarin daily. 4 mg Thursday, Thursday, Thursday. 2mg all other days. INR check tomorrow due topt being out of town. INR to be checked Thursday. Pt is also on Lovenox. Nurse to route to PCP and team nurses as GAEL Rosario RN aware [phone] documented in this encounter Plan of Treatment [...] has diabetic neuropathy No Malena Moore LPN documented as of this encounter Visit Diagnoses [...] documented as of this encounter Care Teams Rn Access Relationship Specialty Start Date End Date Monse Medina MD [address] [place] [address] PCP - General Family Medicine 04/28/24 documented as of this encounter
--- OUTSIDE RECORDS SUMMARY | 2025-02-15 10:50 | XMS_ITS | Encounter Summary ---
Author Organization [employer] Address [address] [facility] 7t [place] [address] Care Team Providers Care Raftsman Name Role Phone Monse Medina MD Primary Care Provider Encounter Details Date Type Department Care Team (Late st Contact Info) Description 02/15/2025 Orders Only GENERIC EXTERNAL DATA [...] Weekly blood pressure task No Oscar, Malena, CAMPUS ADMINISTRATIVE ASSISTANT Weekly blood pressure task Care Plan Weekly blood pressure task No Oscar, Malena, CAMPUS ADMINISTRATIVE ASSISTANT Weekly blood pressure task Care Plan Weekly blood pressure task No Oscar, Malena, CAMPUS ADMINISTRATIVE ASSISTANT Patient has chronic kidney disease Care Plan Patient has chronic kidney disease No Oscar, Malena, CAMPUS ADMINISTRATIVE ASSISTANT Patient has chronic kidney disease Care Plan Patient has chronic kidney disease No Oscar, Malena, CAMPUS ADMINISTRATIVE ASSISTANT Patient has chronic kidney disease Care Plan Patient has chronic kidney disease No Oscar, Malena, CAMPUS ADMINISTRATIVE ASSISTANT Patient has diabetic neuropathy Care Plan Patient has diabetic neuropathy No Oscar, Malena, CAMPUS ADMINISTRATIVE ASSISTANT Patient has diabetic neuropathy Care Plan Patient has diabetic neuropathy No Oscar, Malena, CAMPUS ADMINISTRATIVE ASSISTANT Patient has diabetic neuropathy Care Plan Patient has diabetic neuropathy No Oscar, Malena, CAMPUS ADMINISTRATIVE ASSISTANT documented as of this encounter Procedures Procedure Name Priority Date/Time Associated Diagnosis Comments PROTHROMBIN TIME WHOLE BLD POC Routine 02/15/2025 9:41 AM EST ~PT, ~INR - ANTI COAG CLINIC Routine 02/15/2025 9:41 AM EST documented in this encounter Results * (ABNORMAL) PROTHROMBIN TIME WHOLE BLD POC (02/15/2025 9:41 AM EST) Protime 17.3(H) 11.1 - 13.5 sec [facility] 02/15/2025 9:41 AM EST 02/15/2025 9:43 AM EST us Generic External Data Provider LAB BLOOD ORDERAB LES Final Result [facility] [address] [place] [phone] * (ABNORMAL) ~PT, ~INR - ANTI COAG CLINIC (02/15/2025 9:41 AM EST) Prothrombin Time INR 1.4(H) 0.9 - 1.1 [facility] Comment:METER #: [id number] TERNATIONAL NORMALIZED RATIO (INR) REFERENCE RANGES Reference [...] ORDERAB LES Final Result Performing Organization Address City/State/[facility] Co de Phone Number [facility] [address] [place] [phone] documented in this encounter Visit Diagnoses [...] documented as of this encounter Care Teams Raftsman Relationship Specialty Start Date End Date Monse Medina MD [address] [place] [address] PCP - General Family Medicine 04/28/24 documented as of this encounter
--- OUTSIDE RECORDS SUMMARY | 2025-02-15 10:50 | XMS_ITS | Encounter Summary ---
Author Organization [employer] Address [address] [facility] 7t [place] [address] Care Team Providers Care Flavor Maker Name Role Phone Monse Medina MD Primary Care Provider [phone] Encounter Details Date Type Department Care Team ([facility] st Contact Info) Description 02/13/2025 Orders Only [facility] [address] [place], [place] [phone] Monse Medina MD 230 [place], [place] [phone] Social History Tobacco Use Types Packs/Day Years [...] Plan Patient has chronic kidney disease Monse Dailge MD Help patients manage their type 2 [...] to 5OO mg/dL Cholesterol 228(H) <200 mg/dL [facility] Comment:Desirable Cholestero l: less than 200 mg/dLBorderline High Cholesterol: 200-239 mg/dLHigh Cholesterol: greater than 239 mg/dL LDL Cholesterol Calculated 105(H) <100 mg/dL [facility] Comment:Desirable LDL: less than 100 mg/dLNear Optimal/Above Optimal LDL: 110- 129 mg/dLBorderline High LDL: 130-159 mg/dLHigh LDL: 160-189 mg/dLVery High LDL: greater than or equal to 190 mg/dL HDL Cholesterol 45 >40 mg/dL [facility] Comment:Desirable HDL: great er than 40 mg/dL Note: This HDL assay may give artificially low results in patients with liver disease. 02/13/2025 3:19 PM EST 02/13/2025 3:19 PM EST us Monse Medina MD LAB BLOOD ORDERABLES Final Resul t [facility] [address] [place] [phone] * (ABNORMAL) Basic Metabolic Panel (02/13/2025 3:19 PM EST) Sodium 141 135 - 145 mmol/L [facility] Potassium 4.3 3.3 - 5.1 mmol/L [facility] Chloride 106 96 - 108 mmol/L [facility] Carbon Dioxide 29 22 - 29 mmol/L [facility] Anion Gap 10(L) 12 - 20 [facility] Urea Nitrogen (BUN) 15 9 - 16 mg/dL [facility] Creatinine, Serum 0.57 0.5 - 1.4 mg/dL [facility] Estimated Glomerular Filt Rate >60 [facility] Comment:Chronic Kidney Disea se: Estimated GFR < 60 mL/min/1.94f0Iuarrr Kidney Disease: Estimated GFR < 15 mL/min/1.73m2 Glucose 156(H) 60 - 115 mg/dL [facility] Calcium 9.9 8.4 - 10.2 mg/dL [facility] 02/13/2025 3:19 PM EST 02/13/2025 3:19 PM EST us Monse Medina MD LAB BLOOD ORDERABLES Final Resul t [facility] [address] [place] [phone] documented in this encounter Visit Diagnoses [...] as of this encounter Care Teams Flavor Maker Relationship Specialty Start Date End Date Monse Medina MD [address] [place] [phone] PCP - General Family Medicine 04/28/24 documented as of this encounter
--- OUTSIDE RECORDS SUMMARY | 2025-02-15 10:51 | XMS_ITS | Encounter Summary ---
Author Organization [employer] Address [address] [place] [address] 7t [place] [address] Care Team Providers Care Car Rider Name Role Phone Monse Medina MD Primary Care Provider [phone] Reason for Referral * Consultation (Routine) - Closed Specialty Diagnoses / Procedures Referred By Contmadison miranda Referred To Contact Hematology and Oncology Diagnoses Pulmonary embolism without acute cor pulmonale, unspecified chronicity, unspecified pulmonary embolism type (CMS/HCC) (HCC) History of DVT (deep vein thrombosis) History of TIA (transient ischemic attack) Monse Medina MD [address] [place] [address] Phone: tel: fax: Referral ID Status Reason Start Date Expiration Date V isits Requested Visits Authorized [id number] Closed Specialty Services Required 12/22/2024 12/22/2025 1 1 Encounter Details Date Type Department Care Team (Late st Contact Info) Description 12/22/2024 Orders Only [facility] [address] [place] [address] Monse Medina MD [address] [place] [address] Pulmonary embolism without acute cor pulmonale, unspecified [...] documented as of this encounter Care Teams Car Rider Relationship Specialty Start Date End Date Monse Medina MD [address] [place] [address] PCP - General Family Medicine 04/28/24 documented as of this encounter
--- OUTSIDE RECORDS SUMMARY | 2025-02-15 10:51 | XMS_ITS | Encounter Summary ---
Author Organization [employer] Address 75 [facility] 7t [place] [address] Care Team Providers Care Weatherization Specialist Name Role Phone Monse Medina MD Primary Care Provider [phone] Encounter Details Date Type Department Care Team [...] Weekly blood pressure task No Oscar, Malena, CINDER SNAPPER Weekly blood pressure task Care Plan Weekly blood pressure task No Oscar, Malena, CINDER SNAPPER Weekly blood pressure task Care Plan Weekly blood pressure task No Oscar, Malena, CINDER SNAPPER Patient has chronic kidney disease Care Plan Patient has chronic kidney disease No Oscar, Malena, CINDER SNAPPER Patient has chronic kidney disease Care Plan Patient has chronic kidney disease No Oscar, Malena, CINDER SNAPPER Patient has chronic kidney disease Care Plan Patient has chronic kidney disease No Oscar, Malena, CINDER SNAPPER Patient has diabetic neuropathy Care Plan Patient has diabetic neuropathy No Oscar, Malena, CINDER SNAPPER Patient has diabetic neuropathy Care Plan Patient has diabetic neuropathy No Oscar, Malena, CINDER SNAPPER Patient has diabetic neuropathy Care Plan Patient has diabetic neuropathy No Oscar, Malena, CINDER SNAPPER documented as of this encounter Procedures Procedure Name Priority Date/Time Associated Diagnosis Comments PROTHROMBIN TIME WHOLE BLD POC Routine 02/14/2025 10:05 AM EST ~PT, ~INR - ANTI COAG CLINIC Routine 02/14/2025 10:05 AM EST documented in this encounter Results * (ABNORMAL) PROTHROMBIN TIME WHOLE BLD POC (02/14/2025 10:05 AM EST) Protime 14.6(H) 11.1 - 13.5 sec [facility] 02/14/2025 10:0 5 AM EST 02/14/2025 10:07 AM EST us Generic External Data Provider LAB BLOOD ORDERAB LES Final Result [facility] [address] [place] [phone] * (ABNORMAL) ~PT, ~INR - ANTI COAG CLINIC (02/14/2025 10:05 AM EST) Prothrombin Time INR 1.2(H) 0.9 - 1.1 [facility] Comment:METER #: [id number] TERNATIONAL NORMALIZED RATIO (INR) REFERENCE RANGES Reference [...] ORDERAB LES Final Result Performing Organization Address City/State/[facility] de Phone Number [facility] [address] [place] [phone] documented in this encounter Visit Diagnoses [...] documented as of this encounter Care Teams Weatherization Specialist Relationship Specialty Start Date End Date Monse Medina MD [address] [place] [address] PCP - General Family Medicine 04/28/24 documented as of this encounter
--- OUTSIDE RECORDS SUMMARY | 2025-02-15 10:51 | XMS_ITS | Encounter Summary ---
Author Organization [employer] Address 75 [facility] 7t [place] [address] Care Team Providers Care Instructor Decorating Name Role Phone Monse Medina MD Primary Care Provider [phone] Reason for Referral * Consultation (Routine) - Closed Specialty Diagnoses / Procedures Referred By Contmadison t Referred To Contact Pain Medicine Diagnoses Spinal stenosis of lumbar region with neurogenic claudication Monse Medina MD [address] [place] [address] Phone: tel: fax: [facility] [address] [facility] [address] [place] [address] Phone: tel: fax: Referral ID Status Reason Start Date Expiration Date V isits Requested Visits Authorized [id number] Closed Specialty Services Required 11/08/2024 11/08/2025 1 1 Encounter Details Date Type Department Care Team (Late st Contact Info) Description 11/08/2024 Orders Only [facility] [address] [place] [address] [phone] Monse Medina MD [address] [place], [place] [phone] Spinal stenosis of lumbar region with neurogenic [...] documented as of this encounter Care Teams Instructor Decorating Relationship Specialty Start Date End Date Monse Medina MD [address] [place] [phone] PCP - General Family Medicine 04/28/24 documented as of this encounter
--- OUTSIDE RECORDS SUMMARY | 2025-02-15 10:51 | XMS_ITS | Encounter Summary ---
Author Organization [employer] Address 75 [facility] 7t [place] [address] Care Team Providers Care Technical Project Coordinator Name Role Phone Monse Medina MD Primary Care Provider [phone] Encounter Details Date Type Department Care Team ([facility] st Contact Info) Description 05/02/2024 Orders Only [facility] [address] [place], [place] [phone] Monse Medina MD [address] [place], [place] [phone] Social History Tobacco Use Types Packs/Day Years [...] PM EST Narrative 05/09/2024 1:05 PM EST [place] [address] Magnetic Resonance Report Signed Patient: Maryellen Acosta MR#: [id number] 1351 : 1935 Acct:[id number] Age/Sex: 88 / F ADM Date: 05/08/24 Loc: .ICU 254-[address]: Cindy Sesay MD Ordering Physician: Loc Elder Date of Service: 05/09/24 Procedure(s): MR head/brain wo/w con Accession Number(s): [id number] cc: Loc Elder; Monse Medina MD CLINICAL [...] 05/09/24 1305 DD/ 1304 TD/TT: 05/09/24 1304 Motor Vehicle Light Assembler: Procedure Note Donotuseinterpreter, Image - 05/09/2024 [place] [address] Magnetic Resonance Report Signed Patient: Carlin Acosta#: [id number] 1351 : 8Acct:[id number] Age/Sex: 88 / FADM Date: 05/08/24 Loc: .ICU 254-[address]: Cindy Sesay MD Ordering Physician: Loc Elder Date of Service: 05/09/24 Procedure(s): MR head/brain wo/w con Accession Number(s): [id number] cc: Loc Elder; Monse Medina MD CLINICAL [...] 05/09/24 1305 DD/ 1304 TD/TT: 05/09/24 1304 Motor Vehicle Light Assembler: [facility] External Provider IMG MRI PROCEDURES Final Result * CTA Head Stroke w/ and w/o Contrast (05/08/2024 12:54 PM EST) Anatomical Region Laterality Modality Computed Tomogra phy 05/08/2024 12:5 4 PM EST Narrative 05/08/2024 12:55 PM EST [place] [address] CT Scan Report Signed Patient: Maryellen Acosta MR#: [id number] 1351 : 1935 Acct:[id number] Age/Sex: 88 / F ADM Date: 05/08/24 Loc: HO.ED Attending Dr: Ordering Physician: Erica Valenzuela DO Date of Service: 05/08/24 Procedure(s): CT angio head neck STROKE Accession Number(s): [id number] cc: Erica Valenzuela DO; Monse Medina MD Report Number: [id number]: Total DLP = 647.00 mGy-cm CLINICAL HISTORY: [...] 05/08/24 1255 DD/ 1254 TD/TT: 05/08/24 1254 Motor Vehicle Light Assembler: Procedure Note Donotuseinterpreter, Image - 05/08/[address] [place] [address] [address] Scan Report Signed Patient: Carlin Acosta#: [id number] 1351 : 8Acct:[id number] Age/Sex: 88 / FADM Date: 05/08/24 Loc: .ED Attending Dr: Ordering Physician: Erica Valenzuela DO Date of Service: 05/08/24 Procedure(s): CT angio head neck STROKE Accession Number(s): [id number] cc: Erica Valenzuela DO; Monse Medina MD Report Number: [id number]: Total DLP = 647.00 mGy-cm CLINICAL HISTORY: [...] 05/08/24 1255 DD/ 1254 TD/TT: 05/08/24 1254 Motor Vehicle Light Assembler: [facility] External Provider IMG CT PROCEDURES Final Result * SARS-CoV-2 RNA, Influenza A/B, and RSV RNA, Ql NAAT (05/08/2024 12:52 PM EST) Influenza A PCR NEGATIVE Negative [facility] Influenza B PCR NEGATIVE Negative [facility] Resp Syncy Virus RNA Qual PCR NEGATIVE Negative [facility] SARS COV2 PCR NEGATIVE Negative [facility] Comment:All test results mus t [...] use by authorized laboratories.Testing performed on the [employer] GeneXpert utilizingreal-time RT-PCR.All SARS CoV2 and positive influenza A/B results arereported to [facility]. 05/08/2024 12:5 2 PM EST 05/08/2024 12:56 PM EST Generic External Data Provider LAB MICROBIOLOGY - GENERAL ORDERABLES Final Result [facility] [address] [place] [phone] * CT Head Stroke w/o Contrast (05/08/2024 12:30 PM EST) Anatomical Region Laterality Modality Computed Tomogra phy 05/08/2024 12:3 0 PM EST Narrative 05/08/2024 12:34 PM EST [address] [address] [address] Scan Report Signed with Karel Patient: Maryellen Acosta MR#: [id number] 1351 : 1935 Acct:[id number] Age/Sex: 88 / F ADM Date: 05/08/24 Loc: HO.ED Attending Dr: Ordering Physician: Erica Valenzuela DO Date of Service: 05/08/24 Procedure(s): CT head for STROKE Accession Number(s): [id number] cc: Erica Valenzuela DO; Monse Medina MD Report Number: [id number]: Total DLP = 667.00 mGy-cm ADDENDUM This [...] in OV> 05/08/241232 DD/ 29 TD/TT: 05/08/241229 Motor Vehicle Light Assembler: Procedure Note Donotuseinterpreter, Image - 05/08/[address] [address] [address] Scan Report Signed with Addenda Patient: Maryellen AcostaMR#: [id number] 1351 : 8Acct:[id number] Age/Sex: 88 / FADM Date: 05/08/24 Loc: HO.ED Attending Dr: Ordering Physician: Erica Valenzuela DO Date of Service: 05/08/24 Procedure(s): CT head for STROKE Accession Number(s): [id number] cc: Erica Valenzuela DO; Monse Medina MD Report Number: [id number]: Total DLP = 667.00 mGy-cm ADDENDUM This [...] in OV> 05/08/241232 DD/ 29 TD/TT: 05/08/241229 Motor Vehicle Light Assembler: [facility] External Provider IMG CT PROCEDURES Edited Result - Final * Hold Green Gel (05/08/2024 12:23 PM EST) Hold Green Gel See Note [facility] Comment:Specimen held untest ed for 24 hours; Call to requestChemistry testing. 05/08/2024 12:2 3 PM EST 05/08/2024 12:28 PM EST us Generic External Data Provider HISTORICAL/NON OR DERABLE LABS Final Result Performing Organization Address [facility]/ZIP Co de Phone Number [facility] [address] [place] [phone] * TSH with Reflex to Free T4 (05/08/2024 12:23 PM EST) Pathologist [facility] TSH reflex Free T4 1.48 0.32 - 4.0 uIU/mL [facility] 05/08/2024 12:2 3 PM EST 05/08/2024 12:28 PM EST Generic External Data Provider LAB BLOOD ORDERAB LES Final Result Performing Organization Address [facility] Co de Phone Number [facility] [address] [place] [phone] * B Type Natriuretic Peptide (BNP) (05/08/2024 12:23 PM EST) Pathologist [facility] B Type Natriuretic Peptide 44 <100 pg/mL [facility] Comment:For those patients w ho are being treated with Natrecor(nesiritide, recombinant BNP), BNP testing should beperformed at least two hours post treatment in order toensure that only endogenous levels of BNP are detected. 05/08/2024 12:2 3 PM EST 05/08/2024 12:28 PM EST us Generic External Data Provider LAB BLOOD ORDERAB LES Final Result Performing Organization Address [facility] Co de Phone Number [facility] [address] [place] [phone] * Lipase (05/08/2024 12:23 PM EST) Lipase 18 8 - 78 U/L [facility] 05/08/2024 12:2 3 PM EST 05/08/2024 12:28 PM EST Generic External Data Provider LAB BLOOD ORDERAB LES Final Result Performing Organization Address [facility]/ZIP Co de Phone Number [facility] [address] [place] [address] [phone] * (ABNORMAL) Lipid Panel, Standard (05/08/2024 12:23 PM EST) Triglycerides 195(H) <150 mg/dL [facility] Comment:Desirable Triglyceri de: less than 150 mg/dLBorderline High Triglyceride 150-199 mg/dLHigh Triglyceride: 200-499 mg/dLVery High Triglyceride: greater than or equal to 5OO mg/dL Cholesterol 161 <200 mg/dL [facility] Comment:Desirable Cholestero l: less than 200 mg/dLBorderline High Cholesterol: 200-239 mg/dLHigh Cholesterol: greater than 239 mg/dL LDL Cholesterol Calculated 81 <100 mg/dL [facility] Comment:Desirable LDL: less than 100 mg/dLNear Optimal/Above Optimal LDL: 110- 129 mg/dLBorderline High LDL: 130-159 mg/dLHigh LDL: 160-189 mg/dLVery High LDL: greater than or equal to 190 mg/dL HDL Cholesterol 41 >40 mg/dL [facility] Comment:Desirable HDL: great er than 40 mg/dL Note: This HDL assay may give artificially low results in patients with liver disease. 05/08/2024 12:2 3 PM EST 05/08/2024 12:28 PM EST us Generic External Data Provider LAB BLOOD ORDERAB LES Final Result Performing Organization Address [facility]/ZIP Co de Phone Number [facility] [address] [place] [phone] * Magnesium (05/08/2024 12:23 PM EST) Magnesium 1.8 1.6 - 2.6 mg/dL [facility] 05/08/2024 12:2 3 PM EST 05/08/2024 12:28 PM EST us Generic External Data Provider LAB BLOOD ORDERAB LES Final Result [facility] [address] [place] [phone] * (ABNORMAL) Basic Metabolic Panel (05/08/2024 12:23 PM EST) Sodium 139 135 - 145 mmol/L [facility] Potassium 4.0 3.3 - 5.1 mmol/L [facility] Chloride 103 96 - 108 mmol/L [facility] Carbon Dioxide 25 22 - 29 mmol/L [facility] Anion Gap 15 12 - 20 [facility] Urea Nitrogen (BUN) 16 9 - 16 mg/dL [facility] Creatinine, Serum 0.67 0.5 - 1.4 mg/dL [facility] Creatinine Clr Calc Pharmacy 58.1 [facility] Comment:Provided height and weight: 157.48 cm,77.6 kg.eGFR (calculated from the MDRD study equation) and eCrCl(calculated from the Cockcroft-Gault equation) are based ondifferent parameters and may not yield comparable results.If eCrCl result is absurd, please check patient'sheight/weight. Estimated Glomerular Filt Rate >60 [facility] Comment:Chronic Kidney Disea se: Estimated GFR < 60 mL/min/1.54k3Zpacpy Kidney Disease: Estimated GFR < 15 mL/min/1.73m2 Glucose 223(H) 60 - 115 mg/dL [facility] Calcium 9.6 8.4 - 10.2 mg/dL [facility] 05/08/2024 12:2 3 PM EST 05/08/2024 12:28 PM EST us Generic External Data Provider LAB BLOOD ORDERAB LES Final Result Performing Organization Address [facility]/ZIP Co de Phone Number [facility] [address] [place] [phone] * (ABNORMAL) Hepatic Function Panel (05/08/2024 12:23 PM EST) Bilirubin, Total 0.8 0.0 - 1.0 mg/dL [facility] Bilirubin, Direct 0.2 0.0 - 0.5 mg/dL [facility] Aspartate Amino Transferase 53(H) 5 - 31 U/L [facility] Alanine Aminotransferase 64(H) 0 - 31 U/L [facility] Total Protein 7.6 6.5 - 8.0 g/dL [facility] Albumin Level 4.1 3.5 - 5.0 g/dL [facility] Alkaline Phosphatase 79 39 - 117 U/L [facility] 05/08/2024 12:2 3 PM EST 05/08/2024 12:28 PM EST us Generic External Data Provider LAB BLOOD ORDERAB LES Final Result Performing Organization Address [facility] Co de Phone Number [facility] [address] [place] [phone] * High Sensitivity Troponin I (05/08/2024 12:23 PM EST) Pathologist [facility] TROPONIN I HIGH SENSITIVITY 2.7 <3.5 - 17.0 ng/L [facility] Comment:The Magdaleno high sens itivity Troponin-I results should beused in conjunction with other diagnostic information suchas ECG, clinical observations and information, and patientsymptoms to aid in the diagnosis of [place]. 05/08/2024 12:2 3 PM EST 05/08/2024 12:28 PM EST us Generic External Data Provider LAB BLOOD ORDERAB LES Final Result Performing Organization Address City/[facility]/ZIP Co de Phone Number [facility] [address] [place] [phone] * Prothrombin Time-INR (05/08/2024 12:23 PM EST) Prothrombin Time 11.1 10.9 - 12.4 SEC [facility] INTERNATIONAL NORM RATIO 1.0 0.9 - 1.1 [facility] Comment:INTERNATIONAL NORMAL IZED RATIO (INR) [...] Provider LAB BLOOD ORDERAB LES Final Result [facility] [address] [place] [phone] * (ABNORMAL) Hemoglobin A1c (05/08/2024 12:23 PM EST) Hemoglobin A1c 7.2(H) <6.0 % [facility] Comment:Hemoglobin A1C Refer ence Range Adults: 4.8 - 6.0 % Non diabetic: < 6.0 % Goal: < 7.0 %Additional Action Suggested: > 8.0 %Note: Hemoglobin A1c results are invalid for patients with abnormal amounts of HbF. Blood transfusions may impact the HbA1c concentration in the patient sample. Estimated Average Glucose 160 mg/dL [facility] Comment:eAG = Estimated ave rage glucose which is %A1C expressed asaverage glucose, using the formula of the Y7H-CowrxqlEvszszy Glucose study (ADAG), Diabetes Care, Vol.31,#8,2007 05/08/2024 12:2 3 PM EST 05/08/2024 12:28 PM EST us Generic External Data Provider LAB BLOOD ORDERAB LES Final Result [facility] [address] [place] [phone] * CBC auto differential (05/08/2024 12:23 PM EST) White Blood Count 7.1 4.8 - 10.8 X10*3/uL [facility] Red Blood Count 5.12 4.20 - 5.50 X10*6/uL [facility] Hemoglobin 14.0 12.0 - 16.0 g/dl [facility] Hematocrit 43.6 37.0 - 47.0 % [facility] Mean Corpuscular Volume 85.2 80.0 - 98.0 fL [facility] Mean Corpuscular Hemoglobin 27.3 27.0 - 33.0 pg [facility] Mean Corpuscular HGB Conc 32.1 31.0 - 35.0 g/dl [facility] Red Cell Distribution Width 14.4 11.0 - 16.0 % [facility] Platelet Count 161 160 - 400 X10*3/uL [facility] Mean Platelet Volume 9.7 9.4 - 12.3 fL [facility] Neutrophils Percent Auto 67.1 45 - 73 % [facility] Imm Gran Pct Auto 0.4 0.0 - 0.4 % [facility] Lymphocytes Percent Auto 23.9 20 - 40 % [facility] Monocytes Percent Auto 7.2 2 - 11 % [facility] Eosinophils Percent Auto 1.0 0 - 4 % [facility] Basophils Percent Auto 0.4 0 - 2 % [facility] NRBC Pct Auto 0.0 0.0 - 0.2 /100WBC [facility] Neutrophils Absolute Auto 4.8 2.0 - 8.3 x10*3/uL [facility] Imm Gran Abs Auto 0.03 0.00 - 0.03 X10*3/uL [facility] Lymphocytes Absolute Auto 1.7 1.2 - 4.9 X10*3/uL [facility] Monocytes Absolute Auto 0.5 0.1 - 1.2 X10*3/uL [facility] Eosinophils Absolute Auto 0.1 0.0 - 0.4 X10*3/uL [facility] Basophils Absolute Auto 0.0 0.0 - 0.2 X10*3/uL [facility] NRBC Abs Auto 0.000 0.0 - 0.012 X10*3/uL [facility] 05/08/2024 12:2 3 PM EST 05/08/2024 12:28 PM EST Generic External Data Provider LAB BLOOD ORDERAB LES Final Result Performing Organization Address [facility] de Phone Number [facility] [address] [place] [phone] * Hold Green Gel (05/08/2024 12:23 PM EST) Hold Green Gel See Note [facility] Comment:Specimen held untest ed for 24 hours; Call to requestChemistry testing. 05/08/2024 12:2 3 PM EST 05/08/2024 12:28 PM EST Generic External Data Provider HISTORICAL/NON OR DERABLE LABS Final Result Performing Organization Address [facility] Co de Phone Number [facility] [address] [place] [phone] * PROTHROMBIN TIME WHOLE BLD POC (05/08/2024 12:19 PM EST) Protime 12.2 11.1 - 13.5 sec [facility] 05/08/2024 12:1 9 PM EST 05/08/2024 12:27 PM EST Generic External Data Provider LAB BLOOD ORDERAB LES Final Result Performing Organization Address [facility] Co de Phone Number [facility] [address] [place] [phone] * ~PT, ~INR - ANTI COAG CLINIC (05/08/2024 12:19 PM EST) Prothrombin Time INR 1.0 0.9 - 1.1 [facility] Comment:METER #: [id number] TERNATIONAL NORMALIZED RATIO (INR) REFERENCE RANGES Reference [...] ORDERAB LES Final Result Performing Organization Address City/[facility]/ZIP Co de Phone Number [facility] [address] [place] [phone] * (ABNORMAL) Glucose, Whole Blood (05/08/2024 12:17 PM EST) Glucose, Whole Blood 217(H) 60 - 115 mg/dL [facility] Comment:METER #: [id number] 05/08/2024 12:1 7 PM EST 05/08/2024 12:28 PM EST us Generic External Data Provider LAB BLOOD ORDERAB LES Final Result Performing Organization Address City/[facility]/ZIP Co de Phone Number [facility] [address] [place] [phone] documented in this encounter Visit Diagnoses Not on filedocumented in this encounter Additional Health Concerns Assessment Noted Time PHQ-9 Depression Total Score: 1 04/28/19 25 9:28 AM EST documented as of this encounter Care Teams Technical Project Coordinator Relationship Specialty Start Date End Date Monse Medina MD [address] [place] [phone] PCP - General Family Medicine 04/28/24 documented as of this encounter
--- OUTSIDE RECORDS SUMMARY | 2025-02-15 10:51 | XMS_ITS | Encounter Summary ---
Author Organization [employer] Address [address] [facility] 7t [place] [address] Care Team Providers Care Head School Custodian Name Role Phone Monse Medina MD Primary Care Provider [phone] Encounter Details Date Type Department Care Team ([facility] st Contact Info) Description 02/07/2025 Orders Only [facility] [address] [place], [place] [phone] Monse Medina MD [address] [place], [place] [phone] Single subsegmental pulmonary embolism without acute cor [...] RN - 02/07/2025 11:02 PM EST Placed [facility] referral form on PCP desk for signature. * Kathryn Bay RN - 02/07/2025 11:02 PM EST Called [facility] clinic and left FYI message regarding referral. Faxed signed referral form to [phone], confirmation received. * Dinora Beach RN - 02/07/2025 11:02 PM EST TC placed to [facility] Service to inquire if they received the referral for for the pt. Per [facility] the paperwork was received and the pt [...] documented as of this encounter Care Teams Head School Custodian Relationship Specialty Start Date End Date Monse Medina MD [address] [place] [phone] PCP - General Family Medicine 04/28/24 documented as of this encounter
--- OUTSIDE RECORDS SUMMARY | 2025-02-15 10:51 | XMS_ITS | Encounter Summary ---
Author Organization [employer] Address [address] [facility] 7t [place] [address] Care Team Providers Care Latin Professor Name Role Phone Monse Medina MD Primary Care Provider [phone] Encounter Details Date Type Department Care Team ([facility] st Contact Info) Description 12/01/2024 Telephone [facility] MED[facility]INE [address] [place], [place] [phone] Monse Medina MD [address] [place], [place] [phone] Social History Tobacco Use Types Packs/Day Years [...] documented as of this encounter Care Teams Latin Professor Relationship Specialty Start Date End Date Monse Medina MD [address] [place] [phone] PCP - General Family Medicine 04/28/24 documented as of this encounter
--- OUTSIDE RECORDS SUMMARY | 2025-02-15 10:51 | XMS_ITS | Encounter Summary ---
Author Organization [employer] Address [address] [facility] 7t [place] [address] Care Team Providers Care Solar Sales Rep Name Role Phone Mosne Medina MD Primary Care Provider [phone] Encounter Details Date Type Department Care Team ([facility] st Contact Info) Description 09/29/2024 Orders Only [facility] MEDICINE [address] [place], [place] [phone] Monse Medina MD [address] [place], [place] [phone] Social History Tobacco Use Types Packs/Day Years [...] documented as of this encounter Care Teams Solar Sales Rep Relationship Specialty Start Date End Date Monse Medina MD [address] [place] [phone] PCP - General Family Medicine 04/28/24 documented as of this encounter
== END 2025-02-15 10:41 | disposition home or self-care (01) ==
LOC: HO.ACS 09:36
PROVIDERS: PCP Family Medicine; Visit Provider Internal Medicine Medical Oncology
DX: Z79.01 Long term (current) use of anticoagulants (principal)

== ENCOUNTER → 2025-02-15 09:36 | Outpatient (BNVA) | payer MEDICAID, OTHER, SELFPAY | PROVIDERS: PCP Family Medicine; Visit Provider Internal Medicine Medical Oncology | DX: Z86.718 Personal history of other venous thrombosis and embolism (principal); Z79.01 Long term (current) use of anticoagulants; Z51.81 Encounter for therapeutic drug level monitoring | CPT/HCPCS: 85610; 99211 ==

== ENCOUNTER 2025-02-20 09:39 | Outpatient (AMB) | payer MEDICAID, OTHER, SELFPAY ==
[2025-02-20 09:45] LABS: Prothrombin Time Whole Bld POC 20.8 sec (11.1-13.5); ~PT, ~INR - Anti Coag Clinic 1.7 (0.9-1.1)
--- NOTE | 2025-02-20 10:03 | MHC.OFFVISCO ---
Intake Intake Visit Reasons: Anticoagulation Allergies No Known Allergies Allergy (Verified 02/20/25 09:40) Medication List - Last Reconciled 02/20/25 by Danelle Sanders RN acetaminophen 500 - 1,000 mg PO Q8H PRN amlodipine 2.5 mg PO DAILY atorvastatin 10 mg PO BEDTIME gabapentin 300 mg PO BEDTIME gabapentin 300 mg PO DAILY PRN glipizide 5 mg PO DAILY metformin 1,000 mg PO BID omeprazole 20 mg PO DAILY PRN warfarin See Protocol 2 mg TAB PO / 4MG X 2 DAYS/ 2MG X 5 DAYS; Nursing Note Pt to [facility] accompanied by son in law INR: 1.7 out of therapeutic range of 2-3 Medications and supplements reviewed: no changes Patient status: pt states she feels well Diet: usual diet for pt Denies any signs and symptoms of bleeding or clotting or unusual bruising. Denies bloody or dark stools. Denies bloody or pink urine. Bleeding, bruising, clotting discussed. Nutritional guidance given: to avoid greens for 2 days. Dose: 4mg today and tomorrow then retest. Pt will continue lovenox bid. She takes lovenox at 11:30am and 11:30pm. F/U INR Date: 02/22/25?? Patient and son in law verbalizing understanding of instructions with read back given. 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 Illness/Depression: No Coding Level of Care Code Est Patient Level 1 Diagnoses Current use of anticoagulant therapy Z79.01 Results AMB INR Fingerstick AMB INR Fingerstick 1.7 Last Edit by Danelle Sanders RN on 02/20/25 09:52 interface delay Assessment & Plan Assessment & Plan (1) Current use of anticoagulant therapy: Code(s): Z79.01 - [facility] (current) use of anticoagulants Category: Medical
--- OUTSIDE RECORDS SUMMARY | 2025-02-20 11:38 | XMS_ITS | Encounter Summary ---
Author Organization [employer] Address [address] [facility] 7t [place] [address] Care Team Providers Care Bridge Carpenter Name Role Phone Monse Medina MD Primary Care Provider [phone] Reason for Visit * Reason Comments Med Refill Encounter Details Date Type Department Care Team ([facility] st Contact Info) Description 02/14/2025 Refill [facility] MEDICINE [address] [place], [place] [phone] Monse Medina MD [address] [place], [place] [phone] Social History Tobacco Use Types Packs/Day Years [...] Weekly blood pressure task No Oscar, Malena, SEED ANALYST Weekly blood pressure task Care Plan Weekly blood pressure task No Oscar, Malena, SEED ANALYST Weekly blood pressure task Care Plan Weekly blood pressure task No Oscar, Malena, SEED ANALYST Patient has chronic kidney disease Care Plan Patient has chronic kidney disease No Oscar, Malena, SEED ANALYST Patient has chronic kidney disease Care Plan Patient has chronic kidney disease No Oscar, Malena, SEED ANALYST Patient has chronic kidney disease Care Plan Patient has chronic kidney disease No Oscar Malena, SEED ANALYST Patient has diabetic neuropathy Care Plan Patient has diabetic neuropathy No Oscar, Malena, SEED ANALYST Patient has diabetic neuropathy Care Plan Patient has diabetic neuropathy No Oscar, Malena, SEED ANALYST Patient has diabetic neuropathy Care Plan Patient has diabetic neuropathy No Oscar, Malena, SEED ANALYST documented as of this encounter Visit Diagnoses [...] documented as of this encounter Care Teams Bridge Carpenter Relationship Specialty Start Date End Date Monse Medina MD [address] [place] [address] PCP - General Family Medicine 04/28/24 documented as of this encounter
--- OUTSIDE RECORDS SUMMARY | 2025-02-20 11:38 | XMS_ITS | Encounter Summary ---
Author Organization [employer] Address [address] [facility] 7t [place] [address] Care Team Providers Care Farm Hand Name Role Phone Monse Medina MD Primary Care Provider [phone] Encounter Details Date Type Department Care Team ([facility] st Contact Info) Description 05/10/2024 Orders Only [facility] MEDICINE [address] [place], [place] [phone] Monse Medina MD [address] [place], [place] [phone] Social History Tobacco Use Types Packs/Day Years [...] documented as of this encounter Care Teams Farm Hand Relationship Specialty Start Date End Date Monse Medina MD [address] [place] [phone] PCP - General Family Medicine 04/28/24 documented as of this encounter
--- OUTSIDE RECORDS SUMMARY | 2025-02-20 11:38 | XMS_ITS | Encounter Summary ---
Author Organization [employer] Address [address] [facility] 7t [place] [address] Care Team Providers Care Handle Attacher Name Role Phone Monse Medina MD Primary Care Provider [phone] Encounter Details Date Type Department Care Team [...] Weekly blood pressure task No Oscar, Malena, ETL MANAGER Weekly blood pressure task Care Plan Weekly blood pressure task No Oscar, Malena, ETL MANAGER Weekly blood pressure task Care Plan Weekly blood pressure task No Oscar, Malena, ETL MANAGER Patient has chronic kidney disease Care Plan Patient has chronic kidney disease No Oscar, Malena, ETL MANAGER Patient has chronic kidney disease Care Plan Patient has chronic kidney disease No Oscar, Malena, ETL MANAGER Patient has chronic kidney disease Care Plan Patient has chronic kidney disease No Oscar, Malena, ETL MANAGER Patient has diabetic neuropathy Care Plan Patient has diabetic neuropathy No Oscar, Malena, ETL MANAGER Patient has diabetic neuropathy Care Plan Patient has diabetic neuropathy No Oscar, Malena, ETL MANAGER Patient has diabetic neuropathy Care Plan Patient has diabetic neuropathy No Oscar, Malena, ETL MANAGER Weekly blood pressure task Care Plan Weekly [...] Plan Patient has chronic kidney disease No Mones Medina MD Patient has chronic kidney disease Care Plan Patient has chronic kidney disease No Monse Medina MD Patient has diabetic neuropathy Care Plan Patient has diabetic neuropathy No Monse Medina MD Patient has diabetic neuropathy Care Plan Patient has diabetic neuropathy No Monse Medina MD Patient has diabetic neuropathy Care Plan Patient has diabetic neuropathy No Monse Medina MD documented as of this encounter Procedures Procedure Name Priority Date/Time Associated Diagnosis Comments PROTHROMBIN TIME WHOLE BLD POC Routine 02/15/2025 9:41 AM EST ~PT, ~INR - ANTI COAG CLINIC Routine 02/15/2025 9:41 AM EST documented in this encounter Results * (ABNORMAL) PROTHROMBIN TIME WHOLE BLD POC (02/15/2025 9:41 AM EST) Protime 17.3(H) 11.1 - 13.5 sec [facility] 02/15/2025 9:4 1 AM EST 02/15/2025 9:43 AM EST Generic External Data Provider LAB BLOOD ORDERAB LES Final Result Performing Organization Address [facility] Co de Phone Number [facility] [address] [place] [phone] * (ABNORMAL) ~PT, ~INR - ANTI COAG CLINIC (02/15/2025 9:41 AM EST) Prothrombin Time INR 1.4(H) 0.9 - 1.1 [facility] Comment:METER #: [id number] TERNATIONAL NORMALIZED RATIO (INR) REFERENCE RANGES Reference [...] 9:41 AM EST 02/15/2025 9:43 AM EST [employer] External Data Provider LAB BLOOD ORDERAB LES Final Result Performing Organization Address [facility] Co de Phone Number [facility] [address] [place] [phone] documented in this encounter Visit Diagnoses [...] diabetic neuropathy 02/14/2025 Weekly blood pressure task 02/15/2025 Weekly blood pressure task 02/15/2025 Weekly blood pressure task 02/15/2025 Patient has chronic kidney disease 02/15/2025 Patient has chronic kidney disease 02/15/2025 Patient has chronic kidney disease 02/15/2025 Patient has diabetic neuropathy 02/15/2025 Patient has diabetic neuropathy 02/15/2025 Patient has diabetic neuropathy 02/15/2025 Assessment Noted Time PHQ-9 Depression Total Score: 1 04/28/19 25 9:28 AM EST documented as of this encounter Care Teams Handle Attacher Relationship Specialty Start Date End Date Monse Medina MD [address] [place] [phone] PCP - General Family Medicine 04/28/24 documented as of this encounter
--- OUTSIDE RECORDS SUMMARY | 2025-02-20 11:39 | XMS_ITS | Encounter Summary ---
Author Organization [employer] Address [address] [facility] 7t [place] [address] Care Team Providers Care Overhead Cleaner Name Role Phone Monse Medina MD Primary Care Provider [phone] Encounter Details Date Type Department Care Team ([facility] st Contact Info) Description 09/29/2024 Orders Only [facility] MEDICINE [address] [place], [place] [phone] Monse Medina MD [address] [place], [place] [phone] Social History Tobacco Use Types Packs/Day Years [...] documented as of this encounter Care Teams Overhead Cleaner Relationship Specialty Start Date End Date Monse Medina MD [address] [place] [phone] PCP - General Family Medicine 04/28/24 documented as of this encounter
--- OUTSIDE RECORDS SUMMARY | 2025-02-20 11:39 | XMS_ITS | Encounter Summary ---
Author Organization [employer] Address [address] [facility] 7t [place] [address] Care Team Providers Care Continuity Coordinator Name Role Phone Monse Medina MD Primary Care Provider [phone] Encounter Details Date Type Department Care Team ([facility] st Contact Info) Description 12/01/2024 Telephone [facility] MEDICINE [address] [place], [place] [phone] Monse Medina MD [address] [place], [place] [phone] Social History Tobacco Use Types Packs/Day Years [...] documented as of this encounter Care Teams Continuity Coordinator Relationship Specialty Start Date End Date Monse Medina MD [address] [place] [phone] PCP - General Family Medicine 04/28/24 documented as of this encounter
--- OUTSIDE RECORDS SUMMARY | 2025-02-20 11:39 | XMS_ITS | Encounter Summary ---
Author Organization [employer] Address [address] [facility] 7t [place] [address] Care Team Providers Care Roll Machine Operator Name Role Phone Monse Medina MD Primary Care Provider [phone] Encounter Details Date Type Department Care Team ([facility] st Contact Info) Description 05/02/2024 Orders Only [facility] MEDICINE [address] [place], [place] [phone] Monse Medina MD [address] [place], [place] [phone] Social History Tobacco Use Types Packs/Day Years [...] PM EST Narrative 05/09/2024 1:05 PM EST [place] [address] Magnetic Resonance Report Signed Patient: Maryellen Acosta MR#: [id number] 1351 : 1935 Acct:[id number] Age/Sex: 88 / F ADM Date: 05/08/24 Loc: .ICU 254-[address]: Cindy Sesay MD Ordering Physician: Loc Elder Date of Service: 05/09/24 Procedure(s): MR head/brain wo/w con Accession Number(s): [id number] cc: Loc Elder; Monse Medina MD CLINICAL [...] 05/09/24 1305 DD/ 1304 TD/TT: 05/09/24 1304 Client Business Manager: Procedure Note Donotuseinterpreter, Image - 05/09/2024 [place] [address] Magnetic Resonance Report Signed Patient: Carlin Acosta#: [id number] 1351 : 8Acct:[id number] Age/Sex: 88 / FADM Date: 05/08/24 Loc: .ICU 254-[address]: Cindy Sesay MD Ordering Physician: Loc Elder Date of Service: 05/09/24 Procedure(s): MR head/brain wo/w con Accession Number(s): [id number] cc: Loc Elder; Monse Medina MD CLINICAL [...] 05/09/24 1305 DD/ 1304 TD/TT: 05/09/24 1304 Client Business Manager: [facility] External Provider IMG MRI PROCEDURES Final Result * CTA Head Stroke w/ and w/o Contrast (05/08/2024 12:54 PM EST) Anatomical Region Laterality Modality Computed Tomogra phy 05/08/2024 12:5 4 PM EST Narrative 05/08/2024 12:55 PM EST [place] [address] CT Scan Report Signed Patient: Maryellen Acosta MR#: [id number] 1351 : 1935 Acct:[id number] Age/Sex: 88 / F ADM Date: 05/08/24 Loc: HO.ED Attending Dr: Ordering Physician: Erica Valenzuela DO Date of Service: 05/08/24 Procedure(s): CT angio head neck STROKE Accession Number(s): [id number] cc: Erica Valenzuela DO; Monse Medina MD Report Number: [id number]: Total DLP = 647.00 mGy-cm CLINICAL HISTORY: [...] 05/08/24 1255 DD/ 1254 TD/TT: 05/08/24 1254 Client Business Manager: Procedure Note Donotuseinterpreter, Image - 05/08/[address] [place] [address] [address] Scan Report Signed Patient: Carlin Acosta#: [id number] 1351 : 8Acct:[id number] Age/Sex: 88 / FADM Date: 05/08/24 Loc: .ED Attending Dr: Ordering Physician: Erica Valenzuela DO Date of Service: 05/08/24 Procedure(s): CT angio head neck STROKE Accession Number(s): [id number] cc: Erica Valenzuela DO; Monse Medina MD Report Number: [id number]: Total DLP = 647.00 mGy-cm CLINICAL HISTORY: [...] 05/08/24 1255 DD/ 1254 TD/TT: 05/08/24 1254 Client Business Manager: [facility] External Provider IMG CT PROCEDURES Final Result * SARS-CoV-2 RNA, Influenza A/B, and RSV RNA, Ql NAAT (05/08/2024 12:52 PM EST) Influenza A PCR NEGATIVE Negative [facility] Influenza B PCR NEGATIVE Negative [facility] Resp Syncy Virus RNA Qual PCR NEGATIVE Negative [facility] SARS COV2 PCR NEGATIVE Negative [facility] Comment:All test results mus t [...] use by authorized laboratories.Testing performed on the [employer] GeneXpert utilizingreal-time RT-PCR.All SARS CoV2 and positive influenza A/B results arereported to [facility]. 05/08/2024 12:5 2 PM EST 05/08/2024 12:56 PM EST Generic External Data Provider LAB MICROBIOLOGY - GENERAL ORDERABLES Final Result [facility] [address] [place] [phone] * CT Head Stroke w/o Contrast (05/08/2024 12:30 PM EST) Anatomical Region Laterality Modality Computed Tomogra phy 05/08/2024 12:3 0 PM EST Narrative 05/08/2024 12:34 PM EST [address] [address] [address] Scan Report Signed with Karel Patient: Maryellen Acosta MR#: [id number] 1351 : 1935 Acct:[id number] Age/Sex: 88 / F ADM Date: 05/08/24 Loc: HO.ED Attending Dr: Ordering Physician: Erica Valenzuela DO Date of Service: 05/08/24 Procedure(s): CT head for STROKE Accession Number(s): [id number] cc: Erica Valenzuela DO; Monse Medina MD Report Number: [id number]: Total DLP = 667.00 mGy-cm ADDENDUM This [...] in OV> 05/08/241232 DD/ 29 TD/TT: 05/08/241229 Client Business Manager: Procedure Note Donotuseinterpreter, Image - 05/08/[address] [address] [address] Scan Report Signed with Addenda Patient: Maryellen AcostaMR#: [id number] 1351 : 8Acct:[id number] Age/Sex: 88 / FADM Date: 05/08/24 Loc: HO.ED Attending Dr: Ordering Physician: Erica Valenzuela DO Date of Service: 05/08/24 Procedure(s): CT head for STROKE Accession Number(s): [id number] cc: Erica Valenzuela DO; Monse Medina MD Report Number: [id number]: Total DLP = 667.00 mGy-cm ADDENDUM This [...] in OV> 05/08/241232 DD/ 29 TD/TT: 05/08/241229 Client Business Manager: [facility] External Provider IMG CT PROCEDURES Edited Result - Final * Hold Green Gel (05/08/2024 12:23 PM EST) Hold Green Gel See Note [facility] Comment:Specimen held untest ed for 24 hours; Call to requestChemistry testing. 05/08/2024 12:2 3 PM EST 05/08/2024 12:28 PM EST us Generic External Data Provider HISTORICAL/NON OR DERABLE LABS Final Result Performing Organization Address [facility]/ZIP Co de Phone Number [facility] [address] [place] [phone] * TSH with Reflex to Free T4 (05/08/2024 12:23 PM EST) Pathologist [facility] TSH reflex Free T4 1.48 0.32 - 4.0 uIU/mL [facility] 05/08/2024 12:2 3 PM EST 05/08/2024 12:28 PM EST Generic External Data Provider LAB BLOOD ORDERAB LES Final Result Performing Organization Address [facility] Co de Phone Number [facility] [address] [place] [phone] * B Type Natriuretic Peptide (BNP) (05/08/2024 12:23 PM EST) Pathologist [facility] B Type Natriuretic Peptide 44 <100 pg/mL [facility] Comment:For those patients w ho are being treated with Natrecor(nesiritide, recombinant BNP), BNP testing should beperformed at least two hours post treatment in order toensure that only endogenous levels of BNP are detected. 05/08/2024 12:2 3 PM EST 05/08/2024 12:28 PM EST us Generic External Data Provider LAB BLOOD ORDERAB LES Final Result Performing Organization Address [facility] Co de Phone Number [facility] [address] [place] [phone] * Lipase (05/08/2024 12:23 PM EST) Lipase 18 8 - 78 U/L [facility] 05/08/2024 12:2 3 PM EST 05/08/2024 12:28 PM EST Generic External Data Provider LAB BLOOD ORDERAB LES Final Result Performing Organization Address [facility]/ZIP Co de Phone Number [facility] [address] [place] [phone] * (ABNORMAL) Lipid Panel, Standard (05/08/2024 12:23 PM EST) Triglycerides 195(H) <150 mg/dL [facility] Comment:Desirable Triglyceri de: less than 150 mg/dLBorderline High Triglyceride 150-199 mg/dLHigh Triglyceride: 200-499 mg/dLVery High Triglyceride: greater than or equal to 5OO mg/dL Cholesterol 161 <200 mg/dL [facility] Comment:Desirable Cholestero l: less than 200 mg/dLBorderline High Cholesterol: 200-239 mg/dLHigh Cholesterol: greater than 239 mg/dL LDL Cholesterol Calculated 81 <100 mg/dL [facility] Comment:Desirable LDL: less than 100 [...] ORDERAB LES Final Result Performing Organization Address [facility]/ZIP Co de Phone Number [facility] [address] [place] [phone] * Magnesium (05/08/2024 12:23 PM EST) Magnesium 1.8 1.6 - 2.6 mg/dL [facility] 05/08/2024 12:2 3 PM EST 05/08/2024 12:28 PM EST us Generic External Data Provider LAB BLOOD ORDERAB LES Final Result [facility] [address] [place] [phone] * (ABNORMAL) Basic Metabolic Panel (05/08/2024 12:23 PM EST) Sodium 139 135 - 145 mmol/L [facility] Potassium 4.0 3.3 - 5.1 mmol/L [facility] Chloride 103 96 - 108 mmol/L [facility] Carbon Dioxide 25 22 - 29 mmol/L [facility] Anion Gap 15 12 - 20 [facility] Urea Nitrogen (BUN) 16 9 - 16 mg/dL [facility] Creatinine, Serum 0.67 0.5 - 1.4 mg/dL [facility] Creatinine Clr Calc Pharmacy 58.1 [facility] Comment:Provided height and weight: 157.48 cm,77.6 kg.eGFR (calculated from the MDRD study equation) and eCrCl(calculated from the Cockcroft-Gault equation) are based ondifferent parameters and may not yield comparable results.If eCrCl result is absurd, please check patient'sheight/weight. Estimated Glomerular Filt Rate >60 [facility] Comment:Chronic Kidney Disea se: Estimated GFR < 60 mL/min/1.53j1Aleldj Kidney Disease: Estimated GFR < 15 mL/min/1.73m2 Glucose 223(H) 60 - 115 mg/dL [facility] Calcium 9.6 8.4 - 10.2 mg/dL [facility] 05/08/2024 12:2 3 PM EST 05/08/2024 12:28 PM EST us Generic External Data Provider LAB BLOOD ORDERAB LES Final Result Performing Organization Address [facility]/ZIP Co de Phone Number [facility] [address] [place] [phone] * (ABNORMAL) Hepatic Function Panel (05/08/2024 12:23 PM EST) Bilirubin, Total 0.8 0.0 - 1.0 mg/dL [facility] Bilirubin, Direct 0.2 0.0 - 0.5 mg/dL [facility] Aspartate Amino Transferase 53(H) 5 - 31 U/L [facility] Alanine Aminotransferase 64(H) 0 - 31 U/L [facility] Total Protein 7.6 6.5 - 8.0 g/dL [facility] Albumin Level 4.1 3.5 - 5.0 g/dL [facility] Alkaline Phosphatase 79 39 - 117 U/L [facility] 05/08/2024 12:2 3 PM EST 05/08/2024 12:28 PM EST us Generic External Data Provider LAB BLOOD ORDERAB LES Final Result Performing Organization Address [facility] Co de Phone Number [facility] [address] [place] [phone] * High Sensitivity Troponin I (05/08/2024 12:23 PM EST) Pathologist [facility] TROPONIN I HIGH SENSITIVITY 2.7 <3.5 - 17.0 ng/L [facility] Comment:The Magdaleno high sens itivity Troponin-I results should beused in conjunction with other diagnostic information suchas ECG, clinical observations and information, and patientsymptoms to aid in the diagnosis of NH. 05/08/2024 12:2 3 PM EST 05/08/2024 12:28 PM EST us Generic External Data Provider LAB BLOOD ORDERAB LES Final Result Performing Organization Address City/[facility]/ZIP Co de Phone Number [facility] [address] [place] [phone] * Prothrombin Time-INR (05/08/2024 12:23 PM EST) Prothrombin Time 11.1 10.9 - 12.4 SEC [facility] INTERNATIONAL NORM RATIO 1.0 0.9 - 1.1 [facility] Comment:INTERNATIONAL NORMAL IZED RATIO (INR) [...] Provider LAB BLOOD ORDERAB LES Final Result [facility] [address] [place] [phone] * (ABNORMAL) Hemoglobin A1c (05/08/2024 12:23 PM EST) Hemoglobin A1c 7.2(H) <6.0 % [facility] Comment:Hemoglobin A1C Refer ence Range Adults: 4.8 - 6.0 % Non diabetic: < 6.0 % Goal: < 7.0 %Additional Action Suggested: > 8.0 %Note: Hemoglobin A1c results are invalid for patients with abnormal amounts of HbF. Blood transfusions may impact the HbA1c concentration in the patient sample. Estimated Average Glucose 160 mg/dL [facility] Comment:eAG = Estimated ave rage glucose which is %A1C expressed asaverage glucose, using the formula of the S1K-HsjjrdsCxzqpcq Glucose study (ADAG), Diabetes Care, Vol.31,#8,2007 05/08/2024 12:2 3 PM EST 05/08/2024 12:28 PM EST us Generic External Data Provider LAB BLOOD ORDERAB LES Final Result [facility] [address] [place] [phone] * CBC auto differential (05/08/2024 12:23 PM EST) White Blood Count 7.1 4.8 - 10.8 X10*3/uL [facility] Red Blood Count 5.12 4.20 - 5.50 X10*6/uL [facility] Hemoglobin 14.0 12.0 - 16.0 g/dl [facility] Hematocrit 43.6 37.0 - 47.0 % [facility] Mean Corpuscular Volume 85.2 80.0 - 98.0 fL [facility] Mean Corpuscular Hemoglobin 27.3 27.0 - 33.0 pg [facility] Mean Corpuscular HGB Conc 32.1 31.0 - 35.0 g/dl [facility] Red Cell Distribution Width 14.4 11.0 - 16.0 % [facility] Platelet Count 161 160 - 400 X10*3/uL [facility] Mean Platelet Volume 9.7 9.4 - 12.3 fL [facility] Neutrophils Percent Auto 67.1 45 - 73 % [facility] Imm Gran Pct Auto 0.4 0.0 - 0.4 % [facility] Lymphocytes Percent Auto 23.9 20 - 40 % [facility] Monocytes Percent Auto 7.2 2 - 11 % [facility] Eosinophils Percent Auto 1.0 0 - 4 % [facility] Basophils Percent Auto 0.4 0 - 2 % [facility] NRBC Pct Auto 0.0 0.0 - 0.2 /100WBC [facility] Neutrophils Absolute Auto 4.8 2.0 - 8.3 x10*3/uL [facility] Imm Gran Abs Auto 0.03 0.00 - 0.03 X10*3/uL [facility] Lymphocytes Absolute Auto 1.7 1.2 - 4.9 X10*3/uL [facility] Monocytes Absolute Auto 0.5 0.1 - 1.2 X10*3/uL [facility] Eosinophils Absolute Auto 0.1 0.0 - 0.4 X10*3/uL [facility] Basophils Absolute Auto 0.0 0.0 - 0.2 X10*3/uL [facility] NRBC Abs Auto 0.000 0.0 - 0.012 X10*3/uL [facility] 05/08/2024 12:2 3 PM EST 05/08/2024 12:28 PM EST Generic External Data Provider LAB BLOOD ORDERAB LES Final Result Performing Organization Address [facility] de Phone Number [facility] [address] [place] [phone] * Hold Green Gel (05/08/2024 12:23 PM EST) Hold Green Gel See Note [facility] Comment:Specimen held untest ed for 24 hours; Call to requestChemistry testing. 05/08/2024 12:2 3 PM EST 05/08/2024 12:28 PM EST Generic External Data Provider HISTORICAL/NON OR DERABLE LABS Final Result Performing Organization Address [facility] Co de Phone Number [facility] [address] [place] [phone] * PROTHROMBIN TIME WHOLE BLD POC (05/08/2024 12:19 PM EST) Protime 12.2 11.1 - 13.5 sec [facility] 05/08/2024 12:1 9 PM EST 05/08/2024 12:27 PM EST Generic External Data Provider LAB BLOOD ORDERAB LES Final Result Performing Organization Address [facility] Co de Phone Number [facility] [address] [place] [phone] * ~PT, ~INR - ANTI COAG CLINIC (05/08/2024 12:19 PM EST) Prothrombin Time INR 1.0 0.9 - 1.1 [facility] Comment:METER #: [id number] TERNATIONAL NORMALIZED RATIO (INR) REFERENCE RANGES Reference [...] ORDERAB LES Final Result Performing Organization Address City/[facility]/ZIP Co de Phone Number [facility] [address] [place] [phone] * (ABNORMAL) Glucose, Whole Blood (05/08/2024 12:17 PM EST) Glucose, Whole Blood 217(H) 60 - 115 mg/dL [facility] Comment:METER #: [id number] 05/08/2024 12:1 7 PM EST 05/08/2024 12:28 PM EST us Generic External Data Provider LAB BLOOD ORDERAB LES Final Result Performing Organization Address City/[facility]/ZIP Co de Phone Number [facility] [address] [place] [phone] documented in this encounter Visit Diagnoses Not on filedocumented in this encounter Additional Health Concerns Assessment Noted Time PHQ-9 Depression Total Score: 1 04/28/19 25 9:28 AM EST documented as of this encounter Care Teams Roll Machine Operator Relationship Specialty Start Date End Date Monse Medina MD [address] [place] [phone] PCP - General Family Medicine 04/28/24 documented as of this encounter
--- OUTSIDE RECORDS SUMMARY | 2025-02-20 11:39 | XMS_ITS | Encounter Summary ---
Author Organization [employer] Address [address] [facility] [address]t [place] [address] Care Team Providers Care Retort Loader Name Role Phone Monse Medina MD Primary Care Provider [phone] Encounter Details Date Type Department Care Team (Late st Contact Info) Description 02/20/2025 Orders Only GENERIC EXTERNAL DATA DEPARTMENT Provider, [...] Weekly blood pressure task No Oscar, Malena, MICE RAISER Weekly blood pressure task Care Plan Weekly blood pressure task No Oscar, Malena, MICE RAISER Weekly blood pressure task Care Plan Weekly blood pressure task No Oscar, Malena, MICE RAISER Patient has chronic kidney disease Care Plan Patient has chronic kidney disease No Oscar, Malena, MICE RAISER Patient has chronic kidney disease Care Plan Patient has chronic kidney disease No Oscar, Malena, MICE RAISER Patient has chronic kidney disease Care Plan Patient has chronic kidney disease No Oscar, Malena, MICE RAISER Patient has diabetic neuropathy Care Plan Patient has diabetic neuropathy No Oscar, Malena, MICE RAISER Patient has diabetic neuropathy Care Plan Patient has diabetic neuropathy No Oscar, Malena, MICE RAISER Patient has diabetic neuropathy Care Plan Patient has diabetic neuropathy No Oscar, Malena, MICE RAISER Weekly blood pressure task Care Plan Weekly [...] Comments PROTHROMBIN TIME WHOLE BLD POC Routine 02/20/2025 9:43 AM EST ~PT, ~INR - ANTI COAG CLINIC Routine 02/20/2025 9:43 AM EST documented in this encounter Results * (ABNORMAL) PROTHROMBIN TIME WHOLE BLD POC (02/20/2025 9:43 AM EST) Protime 20.8(H) 11.1 - 13.5 sec [facility] 02/20/2025 9:43 AM EST 02/20/2025 9:44 AM EST us Generic External Data Provider LAB BLOOD ORDERAB LES Final Result Performing Organization Address City/State/[facility] Co de Phone Number [facility] [address] [place] [phone] * (ABNORMAL) ~PT, ~INR - ANTI COAG CLINIC (02/20/2025 9:43 AM EST) Prothrombin Time INR 1.7(H) 0.9 - 1.1 [facility] Comment:METER #: [id number] TERNATIONAL NORMALIZED RATIO (INR) REFERENCE RANGES Reference RangeFor patients not on anticoagulant therapy: 0.9 - 1.1INR ranges for oral anticoagulanttherapy:For prevention and treatment of venous thrombosis and pulmonary embolism: 2.0 - 3.0For acute myocardial infarction with aspirin therapy: 2.0 - 3.0For acute myocardial infarction without aspirin therapy: 3.0 - 4.0For patients with mechanical prosthetic heart valves: 2.5 - 3.5 02/20/2025 9:43 AM EST 02/20/2025 9:44 AM EST us Generic External Data Provider LAB BLOOD ORDERAB LES Final Result Performing Organization Address City/State/[facility] Co de Phone Number [facility] [address] [place] [phone] documented in this encounter Visit Diagnoses [...] neuropathy 02/15/2025 Patient has diabetic neuropathy 02/15/2025 Weekly blood pressure task 02/20/2025 Weekly blood pressure task 02/20/2025 Weekly blood pressure task 02/20/2025 Patient has chronic kidney disease 02/20/2025 Patient has chronic kidney disease 02/20/2025 Patient has chronic kidney disease 02/20/2025 Patient has diabetic neuropathy 02/20/2025 Patient has diabetic neuropathy 02/20/2025 Patient has diabetic neuropathy 02/20/2025 Assessment Noted Time PHQ-9 Depression Total Score: 1 04/28/19 9:28 AM EST documented as of this encounter Care Teams Retort Loader Relationship Specialty Start Date End Date Monse Medina MD [address] [place] [address] PCP - General Family Medicine 04/28/24 documented as of this encounter
--- OUTSIDE RECORDS SUMMARY | 2025-02-20 11:39 | XMS_ITS | Encounter Summary ---
Author Organization [employer] Address [address] [place] [address] [address] [place] [address] Care Team Providers Care Fuel Cell Engineer Name Role Phone Monse Medina MD Primary Care Provider Reason for Referral * Consultation (Routine) - Closed Specialty Diagnoses / Procedures Referred By Contmadison miranda Referred To Contact Hematology and Oncology Diagnoses Pulmonary embolism without acute cor pulmonale, unspecified chronicity, unspecified pulmonary embolism type (CMS/HCC) (HCC) History of DVT (deep vein thrombosis) History of TIA (transient ischemic attack) Monse Medina MD [address] [place] [address] Phone: tel: fax: Referral ID Status Reason Start Date Expiration Date V isits Requested Visits Authorized [id number] Closed Specialty Services Required 12/22/2024 12/22/2025 1 1 Encounter Details Date Type Department Care Team (Late st Contact Info) Description 12/22/2024 Orders Only [facility] [address] [place] [address] Monse Medina MD [address] [place] [address] Pulmonary embolism without acute cor pulmonale, unspecified [...] documented as of this encounter Care Teams Fuel Cell Engineer Relationship Specialty Start Date End Date Monse Medina MD [address] [place] [address] PCP - General Family Medicine 04/28/24 documented as of this encounter
--- OUTSIDE RECORDS SUMMARY | 2025-02-20 11:39 | XMS_ITS | Encounter Summary ---
Author Organization [employer] Address [address] [facility] [address]t [place] [address] Care Team Providers Care Unix Engineer Name Role Phone Monse Medina MD Primary Care Provider [phone] Encounter Details Date Type Department Care Team ([facility] st Contact Info) Description 02/15/2025 Orders Only [facility] MEDIC[facility] [address] [place], [place] [phone] Monse Medina MD [address] [place], [place] [phone] Diarrhea, unspecified type (Primary Dx) Social History Tobacco Use Types [...] of this encounter Plan of Treatment Scheduled Orders Name Type Priority Associated Diagnoses Orde r Schedule Stool - Gastrointestinal panel Microbiology Routine Diarrhea, unspecified type Expected: 02/15/2025 (Approximate), Expires: 02/15/2026 documented as of this encounter Goals Goal [...] Weekly blood pressure task No Oscar, Malena, NAMED ACCOUNT EXECUTIVE Weekly blood pressure task Care Plan Weekly blood pressure task No Oscar, Malena, NAMED ACCOUNT EXECUTIVE Weekly blood pressure task Care Plan Weekly blood pressure task No Oscar, Malena, NAMED ACCOUNT EXECUTIVE Patient has chronic kidney disease Care Plan Patient has chronic kidney disease No Oscar, Malena, NAMED ACCOUNT EXECUTIVE Patient has chronic kidney disease Care Plan Patient has chronic kidney disease No Oscar, Malena, NAMED ACCOUNT EXECUTIVE Patient has chronic kidney disease Care Plan Patient has chronic kidney disease No Oscar, Malena, NAMED ACCOUNT EXECUTIVE Patient has diabetic neuropathy Care Plan Patient has diabetic neuropathy No Oscar, Malena, NAMED ACCOUNT EXECUTIVE Patient has diabetic neuropathy Care Plan Patient has diabetic neuropathy No Oscar, Malena, NAMED ACCOUNT EXECUTIVE Patient has diabetic neuropathy Care Plan Patient has diabetic neuropathy No Oscar, Malena, NAMED ACCOUNT EXECUTIVE Weekly blood pressure task Care Plan Weekly [...] Medina MD documented as of this encounter Visit Diagnoses Diagnosis Diarrhea, unspecified type- Primary documented in this encounter Additional Health [...] documented as of this encounter Care Teams Unix Engineer Relationship Specialty Start Date End Date Monse Medina MD [address] [place] [address] PCP - General Family Medicine 04/28/24 documented as of this encounter
--- OUTSIDE RECORDS SUMMARY | 2025-02-20 11:39 | XMS_ITS | Encounter Summary ---
Author Organization [employer] Address [address] [facility] [address] [place] [address] Care Team Providers Care Appliance Parts Counter Clerk Name Role Phone Monse Medina MD Primary Care Provider [phone] Reason for Referral * Consultation (Routine) - Closed Specialty Diagnoses / Procedures Referred By Contmadison t Referred To Contact Pain Medicine Diagnoses Spinal stenosis of lumbar region with neurogenic claudication Monse Medina MD [address] [place] [address] Phone: tel: fax: [facility] [address] [facility] [address] [place] [address] Phone: tel: fax: Referral ID Status Reason Start Date Expiration Date V isits Requested Visits Authorized [id number] Closed Specialty Services Required 11/08/2024 11/08/2025 1 1 Encounter Details Date Type Department Care Team (Late st Contact Info) Description 11/08/2024 Orders Only [facility] [address] [place] [address] [phone] Monse Medina MD [address], [place] [phone] Spinal stenosis of lumbar region with neurogenic [...] documented as of this encounter Care Teams Appliance Parts Counter Clerk Relationship Specialty Start Date End Date Monse Medina MD [address] [place] [id number] PCP - General Family Medicine 04/28/24 documented as of this encounter
--- OUTSIDE RECORDS SUMMARY | 2025-02-20 11:39 | XMS_ITS | Encounter Summary ---
Author Organization [employer] Address [address] [facility] [address] [place] [address] Care Team Providers Care Extension Division Director Name Role Phone Monse Medina MD Primary Care Provider [phone] Reason for Visit * Reason Onset Date Comments CRITICAL LAB 02/14/2025 Encounter Details Date Type Department Care Team (Late st Contact Info) Description 02/14/2025 Telephone [facility] [address] [place] [address] [phone] Monse Medina MD [address] [place], [place] [phone] CRITICAL LAB Social History Tobacco Use Types [...] Miscellaneous Notes * Telephone Encounter - Jyoti Barnhatr RN - 02/15/2025 10:26 AM EST TC incoming from [place] with critical lab INR 1.4 4 mg yesterday 4 mg today, 2 mg , Thursday, Thursday, 4 mg Thursday. Recheck on Thursday, continuing Lovenox as well. Will route to team nurses to advise. Contact [facility] at [phone] Marlene FOWLER aware. * Telephone Encounter - Jyoti Barnhart RN - 02/14/2025 10:42 AM EST TC incoming from [place] with [facility] anticoagulation clinic with critical lab: Pt INR is 1.2. 2 mg warfarin daily. 4 mg Thursday, Thursday, Thursday. 2mg all other days. INR check tomorrow due topt being out of town. INR to be checked Thursday. Pt is also on Lovenox. Nurse to route to PCP and team nurses as GAEL Rosario RN aware [phone] documented in this encounter Plan of Treatment [...] Plan Patient has chronic kidney disease No Jytoi Barnhart RN Patient has diabetic neuropathy Care [...] has diabetic neuropathy No Malena Moore LPN Weekly blood pressure [...] documented as of this encounter Care Teams Extension Division Director Relationship Specialty Start Date End Date Monse Medina MD [address] [place] [phone] PCP - General Family Medicine 04/28/24 documented as of this encounter
--- OUTSIDE RECORDS SUMMARY | 2025-02-20 11:39 | XMS_ITS | Clinical Summary ---
Author Organization [email or web address] Address [address] [facility] [address] [place] [address] Care Team Providers Care Stick Welder Name Role Phone Monse Medina MD Primary Care Provider [phone] Allergies No known active allergies Medications FREESTYLE [...] - received tenecteplase in ED, [place] [facility] [place] and [place] - Head [...] no hypercoagulable work-up - will consult with still operator brandy if patient needs hypercoagulable work-up (likely unnecessary since patient has not had recurrence) Assessment & Plan (04/29/2024 5:08 PM EST): - suggestive of unprovoked DVT - patient states she took a medication for few months - no hypercoagulable work-up - will consult with still operator brandy if patient needs hypercoagulable work-up (likely unnecessary [...] Encounters Date Type Department Care Team Description 02/20/2025 Orders Only GENERIC EXTERNAL DATA DEPARTMENT Provider, Generic External Data 02/15/2025 Orders Only [facility] [place] [address] Monse Medina MD Diarrhea, unspecified type (Primary Dx) 02/15/2025 Orders Only [facility] [place] [address] Monse Medina MD 02/15/2025 Orders Only GENERIC EXTERNAL DATA DEPARTMENT Provider, Generic External Data 02/14/2025 Refill [facility] [place], [place] [address] Monse Medina MD 02/14/2025 Telephone [facility] P[facility] [place] [address] Monse Medina MD CRITICAL LAB 02/14/2025 Orders Only GENERIC EXTERNAL DATA DEPARTMENT Provider, Generic External Data 02/13/2025 Orders Only [facility] [place] [address] Monse Medina MD 02/07/2025 Orders Only [facility] [place] [address] Monse Medina MD Single subsegmental pulmonary embolism without acute cor pulmonale (CMS/HCC) (HCC) (Primary Dx); History of DVT (deep vein thrombosis) 01/26/2025 Orders Only [facility] [place] [address] Monse Medina MD 01/24/2025 Telephone [facility] [place] [address] Monse Medina MD ER Follow-up 12/29/2024 Orders Only GENERIC EXTERNAL DATA DEPARTMENT Provider, Generic External Data 12/26/2024 Patient Outreach [facility] [address] [facility] [place], [place] [phone] Monse Medina MD Transition Of Care (Tcm) (HDF unscheduled) 12/22/2024 Orders Only [facility] MEDICINE [facility] [place] [address] Monse Medina MD Pulmonary embolism without acute cor pulmonale, unspecified chronicity, unspecified pulmonary embolism type (CMS/HCC) (HCC) (Primary Dx); History of DVT (deep vein thrombosis); History of TIA (transient ischemic attack) 12/20/2024 Orders Only [facility] External Provider, [facility] 12/01/2024 Telephone [facility] MEDICINE [address] [place], [place] [phone] Monse Medina MD from Last 3 Months [...] Weekly blood pressure task No Oscar, Malena, SUPERVISOR [employer] Weekly blood pressure task Care Plan Weekly blood pressure task No Oscar Malena, SUPERVISOR [employer]ASS[employer]SEMBLY Weekly blood pressure task Care Plan Weekly blood pressure task No Oscar, Malena, SUPERVISOR [employer]ASSIS [employer]SEMBL[employer] Patient has chronic kidney disease Care Plan Patient has chronic kidney disease No Oscar, Malena, SUPERVISOR [employer]ASSIS ASSEMBLY Patient has chronic kidney disease Care Plan Patient has chronic kidney disease No Oscar, Malena, SUPERVISOR CHASSIS ASSEMBLY Patient has chronic kidney disease Care Plan Patient has chronic kidney disease No Oscar Malena, SUPERVISOR [employer]ASSIS ASSEMBLY Patient has diabetic neuropathy Care Plan Patient has diabetic neuropathy No Oscar, Malena, SUPERVISOR [employer]ASSIS ASSEMBLY Patient has diabetic neuropathy Care Plan Patient has diabetic neuropathy No Oscar, Malena, SUPERVISOR CHASSIS ASSEMBLY Patient has diabetic neuropathy Care Plan Patient has diabetic neuropathy No Oscar, Malena, SUPERVISOR CHASSIS ASSEMBLY Weekly blood pressure task Care Plan Weekly [...] has diabetic neuropathy No Monse Medina MD Procedures Procedure Name Priority Date/Time Associated Diagnosis Comments PROTHROMBIN TIME WHOLE BLD POC Routine 02/20/2025 9:43 AM EST ~PT, ~INR - ANTI COAG CLINIC Routine 02/20/2025 9:43 AM EST PROTHROMBIN TIME WHOLE BLD POC Routine 02/15/2025 [...] 2 diabetes mellitus without complication, unspecified whether joint terminal attack controller insulin use ([facility]) HEMOGLOBIN A1C Routine 05/08/2024 12:23 PM EST from Last 3 Months or Most Recently Relevant to Health Maintenance Results * (ABNORMAL) PROTHROMBIN TIME WHOLE BLD POC (02/20/2025 9:43 AM EST) Only the most recent of3 resultswithin the time period is included. Protime 20.8(H) 11.1 - 13.5 sec [facility] 02/20/2025 9:43 AM EST 02/20/2025 9:44 AM EST us Generic External Data Provider LAB BLOOD ORDERAB LES Final Result [facility] [address] [place] [phone] * (ABNORMAL) ~PT, ~INR - ANTI COAG CLINIC (02/20/2025 9:43 AM EST) Only the most recent of3 resultswithin the time period is included. Prothrombin Time INR 1.7(H) 0.9 - 1.1 [facility] Comment:METER #: [id number] TERNATIONAL NORMALIZED RATIO (INR) REFERENCE RANGES Reference [...] Provider LAB BLOOD ORDERAB LES Final Result [facility] [address] [place] [address] [phone] * (ABNORMAL) Lipid Panel with Reflex to Direct LDL (02/13/2025 3:19 PM EST) Triglycerides 392(H) <150 mg/dL [facility] Comment:Desirable Triglyceri de: less than 150 mg/dLBorderline High Triglyceride 150-199 mg/dLHigh Triglyceride: 200-499 mg/dLVery High Triglyceride: greater than or equal to 5OO mg/dL Cholesterol 228(H) <200 mg/dL [facility] Comment:Desirable Cholestero l: less than 200 mg/dLBorderline High Cholesterol: 200-239 mg/dLHigh Cholesterol: greater than 239 mg/dL LDL Cholesterol Calculated 105(H) <100 mg/dL [facility] Comment:Desirable LDL: less than 100 mg/dLNear Optimal/Above Optimal LDL: 110- 129 mg/dLBorderline High LDL: 130-159 mg/dLHigh LDL: 160-189 mg/dLVery High LDL: greater than or equal to 190 mg/dL HDL Cholesterol 45 >40 mg/dL [facility] Comment:Desirable HDL: great er than 40 mg/dL Note: This HDL assay may give artificially low results in patients with liver disease. 02/13/2025 3:19 PM EST 02/13/2025 3:19 PM EST Monse Medina MD LAB BLOOD ORDERABLES Final Resul t Performing Organization Address [facility] de Phone Number [facility] [address] [place] [phone] * (ABNORMAL) Basic Metabolic Panel (02/13/2025 3:19 PM EST) Only the most recent of2 resultswithin the time period is included. Sodium 141 135 - 145 mmol/L [facility] Potassium 4.3 3.3 - 5.1 mmol/L [facility] Chloride 106 96 - 108 mmol/L [facility] Carbon Dioxide 29 22 - 29 mmol/L [facility] Anion Gap 10(L) 12 - 20 [facility] Urea Nitrogen (BUN) 15 9 - 16 mg/dL [facility] Creatinine, Serum 0.57 0.5 - 1.4 mg/dL [facility] Estimated Glomerular Filt Rate >60 [facility] Comment:Chronic Kidney Disea se: Estimated GFR < 60 mL/min/1.87s8Hrhmnu Kidney Disease: Estimated GFR < 15 mL/min/1.73m2 Glucose 156(H) 60 - 115 mg/dL [facility] Calcium 9.9 8.4 - 10.2 mg/dL [facility] 02/13/2025 3:19 PM EST 02/13/2025 3:19 PM EST Monse Medina MD LAB BLOOD ORDERABLES Final Resul t Performing Organization Address [facility] Co de Phone Number [facility] [address] [place] [phone] * (ABNORMAL) CBC auto differential (12/29/2024 8:07 AM EDT) Only the most recent of2 resultswithin the time period is included. White Blood Count 9.9 4.8 - 10.8 X10*3/uL [facility] Red Blood Count 4.62 4.20 - 5.50 X10*6/uL [facility] Hemoglobin 12.7 12.0 - 16.0 g/dl [facility] Hematocrit 39.0 37.0 - 47.0 % [facility] Mean Corpuscular Volume 84.4 80.0 - 98.0 fL [facility] Mean Corpuscular Hemoglobin 27.5 27.0 - 33.0 pg [facility] Mean Corpuscular HGB Conc 32.6 31.0 - 35.0 g/dl [facility] Red Cell Distribution Width 14.6 11.0 - 16.0 % [facility] Platelet Count 208 160 - 400 X10*3/uL [facility] Mean Platelet Volume 9.7 9.4 - 12.3 fL [facility] Neutrophils Percent Auto 65.6 45 - 73 % [facility] Imm Gran Pct Auto 2.2(H) 0.0 - 0.4 % [facility] Lymphocytes Percent Auto 23.5 20 - 40 % [facility] Monocytes Percent Auto 7.8 2 - 11 % [facility] Eosinophils Percent Auto 0.6 0 - 4 % [facility] Basophils Percent Auto 0.3 0 - 2 % [facility] NRBC Pct Auto 0.0 0.0 - 0.2 /100WBC [facility] Neutrophils Absolute Auto 6.5 2.0 - 8.3 x10*3/uL [facility] Imm Gran Abs Auto 0.22(H) 0.00 - 0.03 X10*3/uL [facility] Lymphocytes Absolute Auto 2.3 1.2 - 4.9 X10*3/uL [facility] Monocytes Absolute Auto 0.8 0.1 - 1.2 X10*3/uL [facility] Eosinophils Absolute Auto 0.1 0.0 - 0.4 X10*3/uL [facility] Basophils Absolute Auto 0.0 0.0 - 0.2 X10*3/uL [facility] NRBC Abs Auto 0.000 0.0 - 0.012 X10*3/uL [facility] 12/29/2024 8:07 AM EDT 12/29/2024 8:09 AM EDT Generic External Data Provider LAB BLOOD ORDERAB LES Final Result Performing Organization Address [facility] Co de Phone Number [facility] [address] [place] [phone] [phone] * (ABNORMAL) Prothrombin Time-INR (12/29/2024 8:07 AM EDT) Prothrombin Time 13.2(H) 10.9 - 12.4 SEC [facility] INTERNATIONAL NORM RATIO 1.2(H) 0.9 - 1.1 [facility] Comment:INTERNATIONAL NORMAL IZED RATIO (INR) [...] ORDERAB LES Final Result Performing Organization Address [facility]/ZIP Co de Phone Number [facility] [address] [place] [phone] * (ABNORMAL) Comprehensive Metabolic Panel (12/29/2024 8:07 AM EDT) Sodium 141 135 - 145 mmol/L [facility] Potassium 4.2 3.3 - 5.1 mmol/L [facility] Chloride 106 96 - 108 mmol/L [facility] Carbon Dioxide 29 22 - 29 mmol/L [facility] Anion Gap 10(L) 12 - 20 [facility] Urea Nitrogen (BUN) 13 9 - 16 mg/dL [facility] Creatinine, Serum 0.56 0.5 - 1.4 mg/dL [facility] Creatinine Clr Calc Pharmacy 69.2 [facility] Comment:Provided height and weight: 157.48 cm,79.832 kg.eGFR (calculated from the MDRD study equation) and eCrCl(calculated from the Cockcroft-Gault equation) are based ondifferent parameters and may not yield comparable results.If eCrCl result is absurd, please check patient'sheight/weight. Estimated Glomerular Filt Rate >60 [facility] Comment:Chronic Kidney Disea se: Estimated GFR < 60 mL/min/1.17x4Sgehnm Kidney Disease: Estimated GFR < 15 mL/min/1.73m2 Glucose 220(H) 60 - 115 mg/dL [facility] Calcium 9.2 8.4 - 10.2 mg/dL [facility] Bilirubin, Total 0.4 0.0 - 1.0 mg/dL [facility] Aspartate Amino Transferase 17 5 - 31 U/L [facility] Alanine Aminotransferase 24 0 - 31 U/L [facility] Total Protein 6.7 6.5 - 8.0 g/dL [facility] Albumin Level 3.9 3.5 - 5.0 g/dL [facility] Alkaline Phosphatase 62 39 - 117 U/L [facility] 12/29/2024 8:07 AM EDT 12/29/2024 8:09 AM EDT us Generic External Data Provider LAB BLOOD ORDERAB LES Final Result [facility] [address] [place] [phone] * VASC US Lower Extremity Venous Duplex Bilateral (12/21/2024 7:29 PM EDT) 12/21/2024 7:29 PM EDT Narrative [facility] - 12/21/2024 7:31 PM EDT [address] [address] Ultrasound Report Signed Patient: Maryellen Acosta MR#: [id number] 1351 : 1935 Acct:[id number] Age/Sex: 89 / F ADM Date: 12/20/24 Loc: [facility] 475-[address]: Lincoln Cohen MD Ordering Physician: Jerrica Oropeza MD Date of Service: 12/21/24 Procedure(s): US venous duplex LE BI Accession Number(s): [id number] cc: Monse Medina MD; Jerrica Oropeza MD [...] in OV> 12/21/241930 DD/ 28 TD/TT: 12/21/241928 Bluing Oven Tender: Procedure Note Donotuseinterpreter, Image - 12/21/[address] [address] Ultrasound Report Signed Patient: Maryellen AcostaMR#: [id number] 1351 : 1935cct:[id number] Age/Sex: 89 / FADM Date: 12/20/24 Loc: [facility] 475-[address]: Lincoln Cohen MD Ordering Physician: Jerrica Oropeza MD Date of Service: 12/21/24 Procedure(s): US venous duplex LE BI Accession Number(s): [id number] cc: Monse Medina MD; Jerrica Oropeza MD [...] in OV> 12/21/241930 DD/ 28 TD/TT: 12/21/241928 Bluing Oven Tender: [facility] External Provider CV VASC ULAR PROCEDURES Final Result [facility] [address] [place] [address] [phone] * XR KUB and Upright 2 Views (12/21/2024 1:32 PM EDT) Anatomical Region Laterality Modality Radiographic Che ging 12/21/2024 1:32 PM EDT Narrative 12/21/2024 2:03 PM EDT [address] [address] XRay Report Signed Patient: Maryellen Acosta MR#: [id number] 1351 : 1935 Acct:[id number] Age/Sex: 89 / F ADM Date: 12/20/24 Loc: [facility] [address]: Lincoln Cohen MD Ordering Physician: Lincoln Cohen MD Date of Service: 12/21/24 Procedure(s): XR KUB Accession Number(s): [id number] cc: Lincoln Cohen MD; Monse Medina MD [...] 12/21/24 1400 DD/ 1332 TD/TT: 12/21/24 1356 Bluing Oven Tender: Procedure Note Donotuseinterpreter, Image - 12/21/[address] [address] XRay Report Signed Patient: Maryellen AcostaMR#: [id number] 1351 : 8Acct:[id number] Age/Sex: 89 / FADM Date: 12/20/24 Loc: [facility] 475-[address]: Lincoln Cohen MD Ordering Physician: Lincoln Cohen MD Date of Service: 12/21/24 Procedure(s): XR KUB Accession Number(s): [id number] cc: Lincoln Cohen MD; Monse Medina MD [...] 12/21/24 1400 DD/ 1332 TD/TT: 12/21/24 1356 Bluing Oven Tender: [facility] External Provider IMG XR PROCEDURES Final Result * [place] SMALL BOWEL FOLLOW THROUGH (12/21/2024 7:56 AM EDT) Anatomical Region Laterality Modality Radiographic Che ging 12/21/2024 7:56 AM EDT Narrative 12/21/2024 12:48 PM EDT [place] [address] Fluoroscopy Report Signed Patient: Maryellen Acosta MR#: [id number] 1351 : 1935 Acct:[id number] Age/Sex: 89 / F ADM Date: 12/20/24 Loc: [facility] 475-[address]: Lincoln Cohen MD Ordering Physician: Lincoln Cohen MD Date of Service: 12/21/24 Procedure(s): FL small bowel follow through Accession Number(s): [id number] cc: Lincoln Cohen MD; Monse Medina MD Reason for Exam: SBO EXAMINATION: FL SMALL BOWEL SERIES CLINICAL INFORMATION: SBO COMPARISON: None available. TECHNIQUE: Following a photographer scientific image of the abdomen, 50/50 diluted 400 mL of Gastrografin contrast was administered orally, and interval abdominal radiographs were performed to assess for contrast progression through the small bowel. However patient complained of significant abdominal pain and patient was aspirated by the floor nurse. The exam was then discontinued. FINDINGS: Residential Energy Auditor image of the abdomen demonstrates scattered stool [...] 12/21/24 1245 DD/ 0756 TD/TT: 12/21/24 1106 Bluing Oven Tender: [facility] Procedure Note Donotuseinterpreter, Image - 12/21/[address] [address] Fluoroscopy Report Signed Patient: Carlin Acosta#: [id number] 1351 : 8Acct:[id number] Age/Sex: 89 / FADM Date: 12/20/24 Loc: [facility] 475-[address]: Lincoln Cohen MD Ordering Physician: Lincoln Cohen MD Date of Service: 12/21/24 Procedure(s): FL small bowel follow through Accession Number(s): [id number] cc: Lincoln Cohen MD; Monse Medina MD Reason for Exam: SBO EXAMINATION: FL SMALL BOWEL SERIES CLINICAL INFORMATION: SBO COMPARISON: None available. TECHNIQUE: Following a photographer scientific image of the abdomen, 50/50 diluted 400 mL of Gastrografin contrast was administered orally, and interval abdominal radiographs were performed to assess for contrast progression through the small bowel. However patient complained of significant abdominal pain and patient was aspirated by the floor nurse. The exam was then discontinued. FINDINGS: Residential Energy Auditor image of the abdomen demonstrates scattered stool [...] 12/21/24 1245 DD/ 0756 TD/TT: 12/21/24 1106 Bluing Oven Tender: VARGH[facility] External Provider IMG FLU OROSCOPY PROCEDURES Final Result * CBC (12/20/2024 3:51 PM EDT) White Blood Count 8.6 4.8 - 10.8 X10*3/uL [facility] Red Blood Count 5.27 4.20 - 5.50 X10*6/uL [facility] Hemoglobin 14.6 12.0 - 16.0 g/dl [facility] Hematocrit 44.1 37.0 - 47.0 % [facility] Mean Corpuscular Volume 83.7 80.0 - 98.0 fL [facility] Mean Corpuscular Hemoglobin 27.7 27.0 - 33.0 pg [facility] Mean Corpuscular HGB Conc 33.1 31.0 - 35.0 g/dl [facility] Red Cell Distribution Width 14.6 11.0 - 16.0 % [facility] Platelet Count 171 160 - 400 X10*3/uL [facility] Mean Platelet Volume 9.4 9.4 - 12.3 fL [facility] NRBC Pct Auto 0.0 0.0 - 0.2 /100WBC [facility] NRBC Abs Auto 0.000 0.0 - 0.012 X10*3/uL [facility] 12/20/2024 3:51 PM EDT 12/20/2024 3:55 PM EDT us Generic External Data Provider LAB BLOOD ORDERAB LES Final Result [facility] [address] [place] [phone] * XR Chest 1 View (12/20/2024 3:30 PM EDT) Only the most recent of2 resultswithin the time period is included. Anatomical Region Laterality Modality Chest Radiographic Che ging 12/20/2024 3:30 PM EDT Narrative 12/20/2024 3:45 PM EDT [address] [address] XRay Report Signed Patient: Maryellen Acosta MR#: [id number] 1351 : 1935 Acct:[id number] Age/Sex: 89 / F ADM Date: 12/20/24 Loc: HO.ED Attending Dr: Ordering Physician: Eusebio Juarez MD Date of Service: 12/20/24 Procedure(s): XR chest 1V Accession Number(s): [id number] cc: Eusebio Juarez MD; Monse Medina MD [...] 12/20/24 1542 DD/ 1530 TD/TT: 12/20/24 1538 Bluing Oven Tender: Procedure Note Donotuseinterpreter, Image - 12/20/[address] [address] XRay Report Signed Patient: Maryellen AcostaMR#: [id number] 1351 : 1935cct:[id number] Age/Sex: 89 / FADM Date: 12/20/24 Loc: HO.ED Attending Dr: Ordering Physician: Eusebio Juarez MD Date of Service: 12/20/24 Procedure(s): XR chest 1V Accession Number(s): [id number] cc: Eusebio Juarez MD; Monse Medina MD [...] 12/20/24 1542 DD/ 1530 TD/TT: 12/20/24 1538 Bluing Oven Tender: [facility] External Provider IMG XR PROCEDURES Final Result * CTA Chest PE Protocal (12/20/2024 1:45 PM EDT) Anatomical Region Laterality Modality Body, Chest Computed Tomogra phy 12/20/2024 1:45 PM EDT Narrative 12/20/2024 2:37 PM EDT [address] [address] [address] Scan Report Signed Patient: Maryellen Acosta MR#: [id number] 1351 : 1935 Acct:[id number] Age/Sex: 89 / F ADM Date: 12/20/24 Loc: .ED Attending Dr: Ordering Physician: Eusebio Juarez MD Date of Service: 12/20/24 Procedure(s): CT angio chest PE protocol Accession Number(s): [id number] cc: Eusebio Juarez MD; Monse Medina MD Report Number: [id number]: Total DLP = 280.00 mGy-cm Reason for [...] 12/20/24 1434 DD/ 1345 TD/TT: 12/20/24 1410 Bluing Oven Tender: Procedure Note Donotuseinterpreter, Image - 12/20/[address] [place] [address] [address] Scan Report Signed Patient: Maryellen AcostaMR#: [id number] 1351 : 8Acct:[id number] Age/Sex: 89 / FADM Date: 12/20/24 Loc: .ED Attending Dr: Ordering Physician: Eusebio Juarez MD Date of Service: 12/20/24 Procedure(s): CT angio chest PE protocol Accession Number(s): [id number] cc: Eusebio Juarez MD; Monse Medina MD Report Number: [id number]: Total DLP = 280.00 mGy-cm Reason for [...] 12/20/24 1434 DD/ 1345 TD/TT: 12/20/24 1410 Bluing Oven Tender: [facility] External Provider IMG CT PROCEDURES Final Result * CT Abdomen Pelvis w/o Contrast (12/20/2024 12:25 PM EDT) Anatomical Region Laterality Modality Body, Pelvis, Abdomen Computed T omography 12/20/2024 12:2 5 PM EDT Narrative 12/20/2024 1:04 PM EDT [place] [address] CT Scan Report Signed Patient: Maryellen Acosta MR#: [id number] 1351 : 1935 Acct:[id number] Age/Sex: 89 / F ADM Date: 12/20/24 Loc: HO.ED Attending Dr: Ordering Physician: Eusebio Juarez MD Date of Service: 12/20/24 Procedure(s): CT abdomen pelvis wo IV con Accession Number(s): [id number] cc: Eusebio Juarez MD; Monse Medina MD Report Number: [id number]: Total DLP = 627.00 mGy-cm Reason for [...] 12/20/24 1301 DD/ 1225 TD/TT: 12/20/24 1242 Bluing Oven Tender: Procedure Note Donotuseinterpreter, Image - 12/20/[address] [place] [address] [address] Scan Report Signed Patient: Carlin Acosta#: [id number] 1351 : 8Acct:[id number] Age/Sex: 89 / FADM Date: 12/20/24 Loc: HO.ED Attending Dr: Ordering Physician: Eusebio Juarez MD Date of Service: 12/20/24 Procedure(s): CT abdomen pelvis wo IV con Accession Number(s): [id number] cc: Eusebio Juarez MD; Monse Medina MD Report Number: [id number]: Total DLP = 627.00 mGy-cm Reason for [...] 12/20/24 1301 DD/ 1225 TD/TT: 12/20/24 1242 Bluing Oven Tender: us [facility] External Provider IMG CT PROCEDURES Final Result * D Dimer High Sensitivity (12/20/2024 12:01 PM EDT) D Dimer High Sensitivity 529 NG/ML [facility] Comment:D-DIMER HS REFERENCE RANGENote: Our [...] Provider LAB BLOOD ORDERAB LES Final Result [facility] [address] [place] [phone] * US Abdomen Limited (12/20/2024 11:29 AM EDT) Anatomical Region Laterality Modality Abdomen Ultrasound 12/20/2024 11:2 9 AM EDT Narrative 12/20/2024 12:22 PM EDT [address] [address] Ultrasound Report Signed Patient: Maryellen Acosta MR#: [id number] 1351 : 1935 Acct:[id number] Age/Sex: 89 / F ADM Date: 12/20/24 Loc: HO.ED Attending Dr: Ordering Physician: Eusebio Juarez MD Date of Service: 12/20/24 Procedure(s): US abdomen limited Accession Number(s): [id number] cc: Eusebio Juarez MD; Monse Medina MD [...] 12/20/24 1219 DD/ 1129 TD/TT: 12/20/24 1153 Bluing Oven Tender: Procedure Note Donotuseinterpreter, Image - 12/20/[address] [address] Ultrasound Report Signed Patient: Carlin Acosta#: [id number] 1351 : 8Acct:[id number] Age/Sex: 89 / FADM Date: 12/20/24 Loc: HO.ED Attending Dr: Ordering Physician: Eusebio Juarez MD Date of Service: 12/20/24 Procedure(s): US abdomen limited Accession Number(s): [id number] cc: Eusebio Juarez MD; Monse Medina MD [...] 12/20/24 1219 DD/ 1129 TD/TT: 12/20/24 1153 Bluing Oven Tender: us [facility] External Provider IMG US PROCEDURES Edited Result - Final * (ABNORMAL) VENOUS BLOOD GAS (12/20/2024 11:22 AM EDT) VBG pH 7.42 7.32 - 7.43 [facility] Comment:METER #: [id number] additional_comment: CbAlbanom VBG PCO2 48 mmHg [facility] [facility] Comment:METER #: [id number] additional_comment: CbAlbanom VBG PO2 72 mmHg [facility] Comment:METER #: [id number] additional_comment: CbAlbanom VBG Base Excess 6.3 mmol/L [facility] Comment:METER #: [id number] additional_comment: CbAlbanom VBG HCO3 32(H) 22 - 26 mmol/L [facility] Comment:METER #: [id number] additional_comment: CbAlbanom O2 Sat, Hebert 95.0 % [facility] Comment:METER #: [id number] additional_comment: CbAlbanom 12/20/2024 11:2 2 AM EDT 12/20/2024 11:25 AM EDT us Generic External Data Provider LAB BLOOD ORDERAB LES Final Result [facility] [address] [place] [phone] * Influenza A B2 ID NOW (Leon) (12/20/2024 10:52 AM EDT) IDNOW SERIAL# [id number] [facility] Influenza A Negative Negative [facility] Influenza B2 Negative Negative [facility] Influenza A B2 Note See Note [facility] Comment:The Leon ID NOW In [...] LAB MICROBIOLOGY - GENERAL ORDERABLES Final Result [facility] [address] [place] [phone] * COVID-19 ID NOW (LEON) (12/20/2024 10:52 AM EDT) IDNOW SERIAL# [id number] [facility] COVID-19 TEST Negative Negative [facility] COVID-19 NOTE See Note [facility] Comment: Results are for the identification of SARS-CoV2 RNA. TheSARS-CoV2 RNA is generally detectable in respiratory samplesduring the acute phase of infection. Positive results areindicative of the presence of SARS-CoV-2 RNA; clinicalcorrelation with patient history and other diagnosticinformation is necessary to determine patient infectionstatus. Positive results do not rule out bacterial infectionor co- infection with other viruses.Testing facilities within the [facility] and itsterritories are required to [...] use by authorized laboratories.Testing performed on the [facility] ID NOW utilizing NAAT. 12/20/2024 10:5 2 AM EDT 12/20/2024 11:01 AM EDT Generic External Data Provider LAB MOLECULAR CAYETANO GNOSTICS ORDERABLES Final Result Performing Organization Address [facility] de Phone Number [facility] [address] [place] [phone] * High Sensitivity Troponin I (12/20/2024 10:52 AM EDT) Pathologist [facility] TROPONIN I HIGH SENSITIVITY 4.5 <3.5 - 17.0 ng/L [facility] Comment:The Leon high sens itivity Troponin-I results should beused in conjunction with other diagnostic information suchas ECG, clinical observations and information, and patientsymptoms to aid in the diagnosis of [place]. 12/20/2024 10:5 2 AM EDT 12/20/2024 11:00 AM EDT Generic External Data Provider LAB BLOOD ORDERAB LES Final Result Performing Organization Address [facility] [address] [place] [phone] * NT-proBNP (12/20/2024 10:52 AM EDT) NT-proBNP 158.5 <300 pg/mL [facility] Comment:Reference Range:Age Group (years) NT-proBNP (pg/ml) InterpretationAll <300 Negative: HF unlikelyFor patients presenting to the ED with clinical suspicion ofnew onset or worsening HF, see below:18 to <50 >299.9 to <450.0 Grayzone: [id number] to 75 >299.9 to <900.0 other causes of>75 >299.9 to <1800.0 NT-proBNP [id number] to <50 >449.9 Positive: HF [id number] >899.9>75 >1799.9Note: Elevated NT-proBNP levels should be interpreted inthe context of other clinical information. 12/20/2024 10:5 2 AM EDT 12/20/2024 11:00 AM EDT Generic External Data Provider LAB BLOOD ORDERAB LES Final Result Performing Organization Address [facility] Co de Phone Number [facility] [address] [place] [phone] * Magnesium (12/20/2024 10:52 AM EDT) Magnesium 1.9 1.6 - 2.6 mg/dL [facility] 12/20/2024 10:5 2 AM EDT 12/20/2024 11:00 AM EDT Generic External Data Provider LAB BLOOD ORDERAB LES Final Result Performing Organization Address [facility] de Phone Number [facility] [address] [place] [phone] * Lactic Acid (12/20/2024 10:52 AM EDT) Lactic Acid 1.9 0.5 - 2.0 mmol/L [facility] 12/20/2024 10:5 2 AM EDT 12/20/2024 10:59 AM EDT Generic External Data Provider LAB BLOOD ORDERAB LES Final Result Performing Organization Address [facility] de Phone Number [facility] [address] [place] [phone] * Hepatic Function Panel (12/20/2024 10:52 AM EDT) Bilirubin, Total 1.0 0.0 - 1.0 mg/dL [facility] Bilirubin, Direct 0.3 0.0 - 0.5 mg/dL [facility] Aspartate Amino Transferase 26 5 - 31 U/L [facility] Alanine Aminotransferase 27 0 - 31 U/L [facility] Total Protein 7.2 6.5 - 8.0 g/dL [facility] Albumin Level 4.3 3.5 - 5.0 g/dL [facility] Alkaline Phosphatase 68 39 - 117 U/L [facility] 12/20/2024 10:5 2 AM EDT 12/20/2024 11:00 AM EDT us Generic External Data Provider LAB BLOOD ORDERAB LES Final Result Performing Organization Address [facility]/ZIP Co de Phone Number [facility] [address] [place] [phone] * Albumin, Random Urine W/Creatinine (06/06/2024 11:36 AM EDT) Creatinine, Urine 63.85 mg/dL [facility] Microalbumin Urine 12.0 mg/L [facility] Microalbum Creatinine Ratio Ur 18.7 <30 ug/mg cr [facility] Comment:Albumin/Creatinine R atio Reference Ranges: Normal: < 30 ug/mg creatinine Microalbuminuria: 30 - 300 ug/mg creatinineClinical Albuminuria: > 300 ug/mg creatinine Urine 06/06/2024 11:3 6 AM EDT 06/06/2024 1:06 PM EDT us Monse Medina MD LAB URINE ORDERABLES Final Resul t Performing Organization Address City/[facility]/ZIP Co de Phone Number [facility] [address] [place] [phone] * (ABNORMAL) Hemoglobin A1c (05/08/2024 12:23 PM EST) Hemoglobin A1c 7.2(H) <6.0 % [facility] Comment:Hemoglobin A1C Refer ence Range Adults: 4.8 - 6.0 % Non diabetic: < 6.0 % Goal: < 7.0 %Additional Action Suggested: > 8.0 %Note: Hemoglobin A1c results are invalid for patients with abnormal amounts of HbF. Blood transfusions may impact the HbA1c concentration in the patient sample. Estimated Average Glucose 160 mg/dL [facility] Comment:eAG = Estimated ave rage glucose which is %A1C expressed asaverage glucose, using the formula of the G3H-NpssvvxFcrrboo Glucose study (ADAG), Diabetes Care, Vol.31,#8,Oct. 2007 05/08/2024 12:2 3 PM EST 05/08/2024 12:28 PM EST us Generic External Data Provider LAB BLOOD ORDERAB LES Final Result Performing Organization Address City/State/[facility] Co de Phone Number [facility] [address] [place] [phone] from Last 3 Months or Most [...] neuropathy 02/20/2025 Patient has diabetic neuropathy 02/20/2025 Insurance [facility] HSN FULL Care Teams Stick Welder Relationship Specialty Start Date End Date Monse Medina MD [address] [place] [phone] PCP - General Family Medicine 04/28/24
--- OUTSIDE RECORDS SUMMARY | 2025-02-20 11:39 | XMS_ITS | Encounter Summary ---
Author Organization [employer] Address [address] [facility] [address]t [place] [address] Care Team Providers Care Motor And Generator Assembler Name Role Phone Monse Medina MD Primary Care Provider [phone] Encounter Details Date Type Department Care Team ([facility] st Contact Info) Description 01/26/2025 Orders Only [facility] MEDICINE [address] [place], [place] [phone] Monse Medina MD [address] [place], [place] [phone] Social History Tobacco Use Types Packs/Day Years [...] documented as of this encounter Care Teams Motor And Generator Assembler Relationship Specialty Start Date End Date Monse Medina MD [address] [place] [phone] PCP - General Family Medicine 04/28/24 documented as of this encounter
--- OUTSIDE RECORDS SUMMARY | 2025-02-20 11:39 | XMS_ITS | Encounter Summary ---
Author Organization [employer] Address [address] [facility] [address]t [place] [address] Care Team Providers Care Quarter Trimmer Name Role Phone Monse Medina MD Primary Care Provider [phone] Encounter Details Date Type Department Care Team ([facility] st Contact Info) Description 02/15/2025 Orders Only [facility] MEDICINE [address] [place], [place] [phone] Monse Medina MD [address] [place], [place] [phone] Social History Tobacco Use Types Packs/Day Years [...] Plan Weekly blood pressure task No Jyoti Barnhart, JANETH Weekly blood pressure task Care Plan Weekly blood pressure task No Jyoti Barnhart, JANETH Patient has chronic kidney disease Care Plan [...] Weekly blood pressure task No Oscar, Malena, INKER MACHINE Weekly blood pressure task Care Plan Weekly blood pressure task No Oscar, Malena, INKER MACHINE Weekly blood pressure task Care Plan Weekly blood pressure task No Oscar, Malena, INKER MACHINE Patient has chronic kidney disease Care Plan Patient has chronic kidney disease No Oscar, Malena, INKER MACHINE Patient has chronic kidney disease Care Plan Patient has chronic kidney disease No Oscar, Malena, INKER MACHINE Patient has chronic kidney disease Care Plan Patient has chronic kidney disease No Oscar, Malena, INKER MACHINE Patient has diabetic neuropathy Care Plan Patient has diabetic neuropathy No Oscar, Malena, INKER MACHINE Patient has diabetic neuropathy Care Plan Patient has diabetic neuropathy No Oscar, Malena, INKER MACHINE Patient has diabetic neuropathy Care Plan Patient has diabetic neuropathy No Oscar, Malena, INKER MACHINE Weekly blood pressure task Care Plan Weekly [...] documented as of this encounter Care Teams Quarter Trimmer Relationship Specialty Start Date End Date Monse Medina MD [address] [place] [phone] PCP - General Family Medicine 04/28/24 documented as of this encounter
== END 2025-02-20 10:09 | disposition home or self-care (01) ==
LOC: HO.ACS 09:39
PROVIDERS: PCP Family Medicine; Visit Provider Internal Medicine Medical Oncology
DX: Z79.01 Long term (current) use of anticoagulants (principal)

== ENCOUNTER → 2025-02-20 09:39 | Outpatient (BNVA) | payer MEDICAID, OTHER, SELFPAY | PROVIDERS: PCP Family Medicine; Visit Provider Internal Medicine Medical Oncology | DX: Z86.718 Personal history of other venous thrombosis and embolism (principal); Z79.01 Long term (current) use of anticoagulants; Z51.81 Encounter for therapeutic drug level monitoring | CPT/HCPCS: 85610; 99211 ==

== ENCOUNTER 2025-02-22 09:45 | Outpatient (AMB) | payer MEDICAID, OTHER, SELFPAY ==
[2025-02-22 09:52] LABS: Prothrombin Time Whole Bld POC 28.2 sec (11.1-13.5); ~PT, ~INR - Anti Coag Clinic 2.4 (0.9-1.1)
--- NOTE | 2025-02-22 10:02 | MHC.OFFVISCO ---
Intake Intake Visit Reasons: Anticoagulation Allergies No Known Allergies Allergy (Verified 02/22/25 09:46) Medication List - Last Reconciled 02/22/25 by Fara Alarcon RN acetaminophen 500 - 1,000 mg PO Q8H PRN amlodipine 2.5 mg PO DAILY atorvastatin 10 mg PO BEDTIME gabapentin 300 mg PO BEDTIME gabapentin 300 mg PO DAILY PRN glipizide 5 mg PO DAILY metformin 1,000 mg PO BID omeprazole 20 mg PO DAILY PRN warfarin See Protocol 2 mg TAB PO / 4MG X 2 DAYS/ 2MG X 5 DAYS; Nursing Note PT. RAN OUT OF LOVENOX. PT.DENIES ANY CP,SOB,DIET/ MED CHANGES OR SX OF BLEEDING. PT.HAS APPT.LATER TODAY WITH FOR EVAL OF CLOTTING HX. WILL CONTINUE ON WARFARIN PLAN OF 4MG X3 AND 2MG X4 WITH FOLLOW-UP IN 1 WEEK. 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 Illness/Depression: No Coding Level of Care Code Est Patient Level 1 Diagnoses Current use of anticoagulant therapy Z79.01 Assessment & Plan Assessment & Plan (1) Current use of anticoagulant therapy: Code(s): Z79.01 - penitentiary (current) use of anticoagulants Category: Medical
--- OUTSIDE RECORDS SUMMARY | 2025-02-22 10:51 | XMS_ITS | Encounter Summary ---
Author Organization [employer] Address [address] [facility] 7t [place] [address] Care Team Providers Care Odd Ticket Clerk Name Role Phone Monse Medina MD Primary Care Provider [phone] Encounter Details Date Type Department Care Team (Late st Contact Info) Description 02/21/2025 Orders Only [facility] MEDICINE [address] [place], [place] [phone] Ladonna Reynoso ANP [address] [place], [place] [phone] Social History Tobacco Use Types Packs/Day Years [...] as of this encounter Progress Notes * [place] Good[place] - 02/21/2025 1:09 PM EST Spoke with Joan at [facility] to clarify lovenox - they are bridging pt, last INR still low, 1.7. asked joan to remind pt of heme referral and to follow-up on this. documented in this encounter Plan of Treatment [...] Weekly blood pressure task No Oscar, Malena, MACHINE BUNCH MAKER Weekly blood pressure task Care Plan Weekly blood pressure task No Oscar, Malena, MACHINE BUNCH MAKER Weekly blood pressure task Care Plan Weekly blood pressure task No Oscar, Malena, MACHINE BUNCH MAKER Patient has chronic kidney disease Care Plan Patient has chronic kidney disease No Oscar, Malena, MACHINE BUNCH MAKER Patient has chronic kidney disease Care Plan Patient has chronic kidney disease No Oscar, Malena, MACHINE BUNCH MAKER Patient has chronic kidney disease Care Plan Patient has chronic kidney disease No Oscar, Malena, MACHINE BUNCH MAKER Patient has diabetic neuropathy Care Plan Patient has diabetic neuropathy No Oscar, Malena, MACHINE BUNCH MAKER Patient has diabetic neuropathy Care Plan Patient has diabetic neuropathy No Oscar, Malena, MACHINE BUNCH MAKER Patient has diabetic neuropathy Care Plan Patient has diabetic neuropathy No Oscar, Malena, MACHINE BUNCH MAKER Weekly blood pressure task Care Plan Weekly [...] Care Plan Weekly blood pressure task No Ladonna Reynoso ANP Weekly blood pressure task Care Plan Weekly blood pressure task No Ladonna Reynoso ANP Weekly blood pressure task Care Plan Weekly blood pressure task No Ladonna Reynoso ANP Patient has chronic kidney disease Care Plan Patient has chronic kidney disease No Ladonna Reynoso ANP Patient has chronic kidney disease Care Plan Patient has chronic kidney disease No Ladonna Reynoso ANP Patient has chronic kidney disease Care Plan Patient has chronic kidney disease No Ladonna Reynoso ANP Patient has diabetic neuropathy Care Plan Patient has diabetic neuropathy No Ladonna Reynoso ANP Patient has diabetic neuropathy Care Plan Patient has diabetic neuropathy No Ladonna Reynoso ANP Patient has diabetic neuropathy Care Plan Patient has diabetic neuropathy No Ladonna Reynoso ANP documented as of this encounter Visit Diagnoses [...] neuropathy 02/20/2025 Patient has diabetic neuropathy 02/20/2025 Weekly blood pressure task 02/21/2025 Weekly blood pressure task 02/21/2025 Weekly blood pressure task 02/21/2025 Patient has chronic kidney disease 02/21/2025 Patient has chronic kidney disease 02/21/2025 Patient has chronic kidney disease 02/21/2025 Patient has diabetic neuropathy 02/21/2025 Patient has diabetic neuropathy 02/21/2025 Patient has diabetic neuropathy 02/21/2025 Assessment Noted Time PHQ-9 Depression Total Score: 1 04/28/19 9:28 AM EST documented as of this encounter Care Teams Odd Ticket Clerk Relationship Specialty Start Date End Date Monse Medina MD [address] [place] [address] PCP - General Family Medicine 04/28/24 documented as of this encounter
--- OUTSIDE RECORDS SUMMARY | 2025-02-22 10:51 | XMS_ITS | Encounter Summary ---
Author Organization [employer] Address [address] [facility] 7t [place] [address] Care Team Providers Care Glove Sewer Name Role Phone Monse Medina MD Primary Care Provider [phone] Encounter Details Date Type Department Care Team ([facility] st Contact Info) Description 12/01/2024 Telephone [facility] MEDICINE [address] [place], [place] [phone] Monse Medina MD [address] [place], [place] [phone] Social History Tobacco Use Types Packs/Day Years [...] as of this encounter Care Teams Glove Sewer Relationship Specialty Start Date End Date Monse Medina MD [address] [place] [phone] PCP - General Family Medicine 04/28/24 documented as of this encounter
--- OUTSIDE RECORDS SUMMARY | 2025-02-22 10:51 | XMS_ITS | Encounter Summary ---
Author Organization [employer] Address [address] [place] [address] 7[address] [place] [address] Care Team Providers Care Care Technician Name Role Phone Monse Medina MD Primary Care Provider [phone] Reason for Referral * Consultation (Routine) - Closed Specialty Diagnoses / Procedures Referred By Contmadison miranda Referred To Contact Hematology and Oncology Diagnoses Pulmonary embolism without acute cor pulmonale, unspecified chronicity, unspecified pulmonary embolism type (CMS/HCC) (HCC) History of DVT (deep vein thrombosis) History of TIA (transient ischemic attack) Monse Medina MD [address] [place] [address] Phone: tel: fax: Referral ID Status Reason Start Date Expiration Date V isits Requested Visits Authorized [id number] Closed Specialty Services Required 12/22/2024 12/22/2025 1 1 Encounter Details Date Type Department Care Team (Late st Contact Info) Description 12/22/2024 Orders Only [facility] MEDICINE [address] [place] [address] Monse Medina MD [address] [place] [address] Pulmonary embolism without acute cor pulmonale, unspecified [...] documented as of this encounter Care Teams Care Technician Relationship Specialty Start Date End Date Monse Medina MD [address] [place] [address] PCP - General Family Medicine 04/28/24 documented as of this encounter
--- OUTSIDE RECORDS SUMMARY | 2025-02-22 10:51 | XMS_ITS | Encounter Summary ---
Author Organization [employer] Address [address] [facility] [address] [place] [address] Care Team Providers Care Payroll Services Analyst Name Role Phone Monse Medina MD Primary Care Provider [phone] Encounter Details Date Type Department Care Team ([facility] st Contact Info) Description 05/02/2024 Orders Only [facility] MEDICINE [address] [place], [place] [phone] Monse Medina MD [address] [place], [place] [phone] Social History Tobacco Use Types Packs/Day Years [...] PM EST Narrative 05/09/2024 1:05 PM EST [place] [address] Magnetic Resonance Report Signed Patient: Maryellen Acosta MR#: [id number] 1351 : 1935 Acct:[id number] Age/Sex: 88 / F ADM Date: 05/08/24 Loc: .ICU 254-[address]: Cindy Sesay MD Ordering Physician: Loc Elder Date of Service: 05/09/24 Procedure(s): MR head/brain wo/w con Accession Number(s): [id number] cc: Loc Elder; Monse Medina MD CLINICAL [...] 05/09/24 1305 DD/ 1304 TD/TT: 05/09/24 1304 Supervisor Telephone Information: Procedure Note Donotuseinterpreter, Image - 05/09/2024 [place] [address] Magnetic Resonance Report Signed Patient: Carlin Acosta#: [id number] 1351 : 8Acct:[id number] Age/Sex: 88 / FADM Date: 05/08/24 Loc: .ICU 254-[address]: Cindy Sesay MD Ordering Physician: Loc Elder Date of Service: 05/09/24 Procedure(s): MR head/brain wo/w con Accession Number(s): [id number] cc: Loc Elder; Monse Medina MD CLINICAL [...] 05/09/24 1305 DD/ 1304 TD/TT: 05/09/24 1304 Supervisor Telephone Information: [facility] External Provider IMG MRI PROCEDURES Final Result * CTA Head Stroke w/ and w/o Contrast (05/08/2024 12:54 PM EST) Anatomical Region Laterality Modality Computed Tomogra phy 05/08/2024 12:5 4 PM EST Narrative 05/08/2024 12:55 PM EST [place] [address] CT Scan Report Signed Patient: Maryellen Acosta MR#: [id number] 1351 : 1935 Acct:[id number] Age/Sex: 88 / F ADM Date: 05/08/24 Loc: HO.ED Attending Dr: Ordering Physician: Erica Valenzuela DO Date of Service: 05/08/24 Procedure(s): CT angio head neck STROKE Accession Number(s): [id number] cc: Erica Valenzuela DO; Monse Medina MD Report Number: [id number]: Total DLP = 647.00 mGy-cm CLINICAL HISTORY: [...] 05/08/24 1255 DD/ 1254 TD/TT: 05/08/24 1254 Supervisor Telephone Information: Procedure Note Donotuseinterpreter, Image - 05/08/[address] [place] [address] [address] Scan Report Signed Patient: Carlin Acosta#: [id number] 1351 : 8Acct:[id number] Age/Sex: 88 / FADM Date: 05/08/24 Loc: .ED Attending Dr: Ordering Physician: Erica Valenzuela DO Date of Service: 05/08/24 Procedure(s): CT angio head neck STROKE Accession Number(s): [id number] cc: Erica Valenzuela DO; Monse Medina MD Report Number: [id number]: Total DLP = 647.00 mGy-cm CLINICAL HISTORY: [...] 05/08/24 1255 DD/ 1254 TD/TT: 05/08/24 1254 Supervisor Telephone Information: [facility] External Provider IMG CT PROCEDURES Final Result * SARS-CoV-2 RNA, Influenza A/B, and RSV RNA, Ql NAAT (05/08/2024 12:52 PM EST) Influenza A PCR NEGATIVE Negative [facility] Influenza B PCR NEGATIVE Negative [facility] Resp Syncy Virus RNA Qual PCR NEGATIVE Negative [facility] SARS COV2 PCR NEGATIVE Negative [facility] Comment:All test results mus t [...] use by authorized laboratories.Testing performed on the [employer] GeneXpert utilizingreal-time RT-PCR.All SARS CoV2 and positive influenza A/B results arereported to [facility]. 05/08/2024 12:5 2 PM EST 05/08/2024 12:56 PM EST Generic External Data Provider LAB MICROBIOLOGY - GENERAL ORDERABLES Final Result [facility] [address] [place] [phone] * CT Head Stroke w/o Contrast (05/08/2024 12:30 PM EST) Anatomical Region Laterality Modality Computed Tomogra phy 05/08/2024 12:3 0 PM EST Narrative 05/08/2024 12:34 PM EST [address] [address] [address] Scan Report Signed with Karel Patient: Maryellen Acosta MR#: [id number] : 1935 Acct:[id number] Age/Sex: 88 / F ADM Date: 05/08/24 Loc: HO.ED Attending Dr: Ordering Physician: Erica Valenzuela DO Date of Service: 05/08/24 Procedure(s): CT head for STROKE Accession Number(s): [id number] cc: Erica Valenzuela DO; Monse Medina MD Report Number: [id number]: Total DLP = 667.00 mGy-cm ADDENDUM This [...] in OV> 05/08/241232 DD/ 29 TD/TT: 05/08/241229 Supervisor Telephone Information: Procedure Note Donotuseinterpreter, Image - 05/08/[address] [address] [address] Scan Report Signed with Addenda Patient: Maryellen AcostaMR#: [id number] 1351 : 8Acct:[id number] Age/Sex: 88 / FADM Date: 05/08/24 Loc: HO.ED Attending Dr: Ordering Physician: Erica Valenzuela DO Date of Service: 05/08/24 Procedure(s): CT head for STROKE Accession Number(s): [id number] cc: Erica Valenzuela DO; oMnse Medina MD Report Number: [id number]: Total DLP = 667.00 mGy-cm ADDENDUM This [...] in OV> 05/08/241232 DD/ 29 TD/TT: 05/08/241229 Supervisor Telephone Information: [facility] External Provider IMG CT PROCEDURES Edited Result - Final * Hold Green Gel (05/08/2024 12:23 PM EST) Hold Green Gel See Note [facility] Comment:Specimen held untest ed for 24 hours; Call to requestChemistry testing. 05/08/2024 12:2 3 PM EST 05/08/2024 12:28 PM EST us Generic External Data Provider HISTORICAL/NON OR DERABLE LABS Final Result Performing Organization Address [facility]/ZIP Co de Phone Number [facility] [address] [place] [phone] * TSH with Reflex to Free T4 (05/08/2024 12:23 PM EST) Pathologist [facility] TSH reflex Free T4 1.48 0.32 - 4.0 uIU/mL [facility] 05/08/2024 12:2 3 PM EST 05/08/2024 12:28 PM EST Generic External Data Provider LAB BLOOD ORDERAB LES Final Result Performing Organization Address [facility] Co de Phone Number [facility] [address] [place] [phone] * B Type Natriuretic Peptide (BNP) (05/08/2024 12:23 PM EST) Pathologist [facility] B Type Natriuretic Peptide 44 <100 pg/mL [facility] Comment:For those patients w ho are being treated with Natrecor(nesiritide, recombinant BNP), BNP testing should beperformed at least two hours post treatment in order toensure that only endogenous levels of BNP are detected. 05/08/2024 12:2 3 PM EST 05/08/2024 12:28 PM EST us Generic External Data Provider LAB BLOOD ORDERAB LES Final Result Performing Organization Address [facility] Co de Phone Number [facility] [address] [place] [phone] * Lipase (05/08/2024 12:23 PM EST) Lipase 18 8 - 78 U/L [facility] 05/08/2024 12:2 3 PM EST 05/08/2024 12:28 PM EST Generic External Data Provider LAB BLOOD ORDERAB LES Final Result Performing Organization Address [facility]/ZIP Co de Phone Number [facility] [address] [place] [phone] * (ABNORMAL) Lipid Panel, Standard (05/08/2024 12:23 PM EST) Triglycerides 195(H) <150 mg/dL [facility] Comment:Desirable Triglyceri de: less than 150 mg/dLBorderline High Triglyceride 150-199 mg/dLHigh Triglyceride: 200-499 mg/dLVery High Triglyceride: greater than or equal to 5OO mg/dL Cholesterol 161 <200 mg/dL [facility] Comment:Desirable Cholestero l: less than 200 mg/dLBorderline High Cholesterol: 200-239 mg/dLHigh Cholesterol: greater than 239 mg/dL LDL Cholesterol Calculated 81 <100 mg/dL [facility] Comment:Desirable LDL: less than 100 mg/dLNear Optimal/Above Optimal LDL: 110- 129 mg/dLBorderline High LDL: 130-159 mg/dLHigh LDL: 160-189 mg/dLVery High LDL: greater than or equal to 190 mg/dL HDL Cholesterol 41 >40 mg/dL [facility] Comment:Desirable HDL: great er than 40 mg/dL Note: This HDL assay may give artificially low results in patients with liver disease. 05/08/2024 12:2 3 PM EST 05/08/2024 12:28 PM EST us Generic External Data Provider LAB BLOOD ORDERAB LES Final Result Performing Organization Address [facility]/ZIP Co de Phone Number [facility] [address] [place] [phone] * Magnesium (05/08/2024 12:23 PM EST) Magnesium 1.8 1.6 - 2.6 mg/dL [facility] 05/08/2024 12:2 3 PM EST 05/08/2024 12:28 PM EST us Generic External Data Provider LAB BLOOD ORDERAB LES Final Result [facility] [address] [place] [phone] * (ABNORMAL) Basic Metabolic Panel (05/08/2024 12:23 PM EST) Sodium 139 135 - 145 mmol/L [facility] Potassium 4.0 3.3 - 5.1 mmol/L [facility] Chloride 103 96 - 108 mmol/L [facility] Carbon Dioxide 25 22 - 29 mmol/L [facility] Anion Gap 15 12 - 20 [facility] Urea Nitrogen (BUN) 16 9 - 16 mg/dL [facility] Creatinine, Serum 0.67 0.5 - 1.4 mg/dL [facility] Creatinine Clr Calc Pharmacy 58.1 [facility] Comment:Provided height and weight: 157.48 cm,77.6 kg.eGFR (calculated from the MDRD study equation) and eCrCl(calculated from the Cockcroft-Gault equation) are based ondifferent parameters and may not yield comparable results.If eCrCl result is absurd, please check patient'sheight/weight. Estimated Glomerular Filt Rate >60 [facility] Comment:Chronic Kidney Disea se: Estimated GFR < 60 mL/min/[id number] Kidney Disease: Estimated GFR < 15 mL/min/1.73m2 Glucose 223(H) 60 - 115 mg/dL [facility] Calcium 9.6 8.4 - 10.2 mg/dL [facility] 05/08/2024 12:2 3 PM EST 05/08/2024 12:28 PM EST us Generic External Data Provider LAB BLOOD ORDERAB LES Final Result Performing Organization Address [facility]/ZIP Co de Phone Number [facility] [address] [place] [phone] * (ABNORMAL) Hepatic Function Panel (05/08/2024 12:23 PM EST) Bilirubin, Total 0.8 0.0 - 1.0 mg/dL [facility] Bilirubin, Direct 0.2 0.0 - 0.5 mg/dL [facility] Aspartate Amino Transferase 53(H) 5 - 31 U/L [facility] Alanine Aminotransferase 64(H) 0 - 31 U/L [facility] Total Protein 7.6 6.5 - 8.0 g/dL [facility] Albumin Level 4.1 3.5 - 5.0 g/dL [facility] Alkaline Phosphatase 79 39 - 117 U/L [facility] 05/08/2024 12:2 3 PM EST 05/08/2024 12:28 PM EST us Generic External Data Provider LAB BLOOD ORDERAB LES Final Result Performing Organization Address [facility] Co de Phone Number [facility] [address] [place] [phone] * High Sensitivity Troponin I (05/08/2024 12:23 PM EST) Pathologist [facility] TROPONIN I HIGH SENSITIVITY 2.7 <3.5 - 17.0 ng/L [facility] Comment:The Magdaleno high sens itivity Troponin-I results should beused in conjunction with other diagnostic information suchas ECG, clinical observations and information, and patientsymptoms to aid in the diagnosis of DE. 05/08/2024 12:2 3 PM EST 05/08/2024 12:28 PM EST us Generic External Data Provider LAB BLOOD ORDERAB LES Final Result Performing Organization Address City/[facility]/ZIP Co de Phone Number [facility] [address] [place] [phone] * Prothrombin Time-INR (05/08/2024 12:23 PM EST) Prothrombin Time 11.1 10.9 - 12.4 SEC [facility] INTERNATIONAL NORM RATIO 1.0 0.9 - 1.1 [facility] Comment:INTERNATIONAL NORMAL IZED RATIO (INR) REFERENCE [...] Provider LAB BLOOD ORDERAB LES Final Result [facility] [address] [place] [phone] * (ABNORMAL) Hemoglobin A1c (05/08/2024 12:23 PM EST) Hemoglobin A1c 7.2(H) <6.0 % [facility] Comment:Hemoglobin A1C Refer ence Range Adults: 4.8 - 6.0 % Non diabetic: < 6.0 % Goal: < 7.0 %Additional Action Suggested: > 8.0 %Note: Hemoglobin A1c results are invalid for patients with abnormal amounts of HbF. Blood transfusions may impact the HbA1c concentration in the patient sample. Estimated Average Glucose 160 mg/dL [facility] Comment:eAG = Estimated ave rage glucose which is %A1C expressed asaverage glucose, using the formula of the [id number]-[id number] Glucose study (ADAG), Diabetes Care, Vol.31,#8,2007 05/08/2024 12:2 3 PM EST 05/08/2024 12:28 PM EST us Generic External Data Provider LAB BLOOD ORDERAB LES Final Result [facility] [address] [place] [phone] * CBC auto differential (05/08/2024 12:23 PM EST) White Blood Count 7.1 4.8 - 10.8 X10*3/uL [facility] Red Blood Count 5.12 4.20 - 5.50 X10*6/uL [facility] Hemoglobin 14.0 12.0 - 16.0 g/dl [facility] Hematocrit 43.6 37.0 - 47.0 % [facility] Mean Corpuscular Volume 85.2 80.0 - 98.0 fL [facility] Mean Corpuscular Hemoglobin 27.3 27.0 - 33.0 pg [facility] Mean Corpuscular HGB Conc 32.1 31.0 - 35.0 g/dl [facility] Red Cell Distribution Width 14.4 11.0 - 16.0 % [facility] Platelet Count 161 160 - 400 X10*3/uL [facility] Mean Platelet Volume 9.7 9.4 - 12.3 fL [facility] Neutrophils Percent Auto 67.1 45 - 73 % [facility] Imm Gran Pct Auto 0.4 0.0 - 0.4 % [facility] Lymphocytes Percent Auto 23.9 20 - 40 % [facility] Monocytes Percent Auto 7.2 2 - 11 % [facility] Eosinophils Percent Auto 1.0 0 - 4 % [facility] Basophils Percent Auto 0.4 0 - 2 % [facility] NRBC Pct Auto 0.0 0.0 - 0.2 /100WBC [facility] Neutrophils Absolute Auto 4.8 2.0 - 8.3 x10*3/uL [facility] Imm Gran Abs Auto 0.03 0.00 - 0.03 X10*3/uL [facility] Lymphocytes Absolute Auto 1.7 1.2 - 4.9 X10*3/uL [facility] Monocytes Absolute Auto 0.5 0.1 - 1.2 X10*3/uL [facility] Eosinophils Absolute Auto 0.1 0.0 - 0.4 X10*3/uL [facility] Basophils Absolute Auto 0.0 0.0 - 0.2 X10*3/uL [facility] NRBC Abs Auto 0.000 0.0 - 0.012 X10*3/uL [facility] 05/08/2024 12:2 3 PM EST 05/08/2024 12:28 PM EST Generic External Data Provider LAB BLOOD ORDERAB LES Final Result Performing Organization Address [facility] de Phone Number [facility] [address] [place] [phone] * Hold Green Gel (05/08/2024 12:23 PM EST) Hold Green Gel See Note [facility] Comment:Specimen held untest ed for 24 hours; Call to requestChemistry testing. 05/08/2024 12:2 3 PM EST 05/08/2024 12:28 PM EST Generic External Data Provider HISTORICAL/NON OR DERABLE LABS Final Result Performing Organization Address [facility] Co de Phone Number [facility] [address] [place] [phone] * PROTHROMBIN TIME WHOLE BLD POC (05/08/2024 12:19 PM EST) Protime 12.2 11.1 - 13.5 sec [facility] 05/08/2024 12:1 9 PM EST 05/08/2024 12:27 PM EST Generic External Data Provider LAB BLOOD ORDERAB LES Final Result Performing Organization Address [facility] Co de Phone Number [facility] [address] [place] [phone] * ~PT, ~INR - ANTI COAG CLINIC (05/08/2024 12:19 PM EST) Prothrombin Time INR 1.0 0.9 - 1.1 [facility] Comment:METER #: [id number] TERNATIONAL NORMALIZED RATIO (INR) REFERENCE RANGES Reference [...] ORDERAB LES Final Result Performing Organization Address City/[facility]/ZIP Co de Phone Number [facility] [address] [place] [phone] * (ABNORMAL) Glucose, Whole Blood (05/08/2024 12:17 PM EST) Glucose, Whole Blood 217(H) 60 - 115 mg/dL [facility] Comment:METER #: [id number] 05/08/2024 12:1 7 PM EST 05/08/2024 12:28 PM EST us Generic External Data Provider LAB BLOOD ORDERAB LES Final Result Performing Organization Address City/[facility]/ZIP Co de Phone Number [facility] [address] [place] [phone] documented in this encounter Visit Diagnoses Not on filedocumented in this encounter Additional Health Concerns Assessment Noted Time PHQ-9 Depression Total Score: 1 04/28/19 25 9:28 AM EST documented as of this encounter Care Teams Payroll Services Analyst Relationship Specialty Start Date End Date Monse Medina MD [address] [place] [phone] PCP - General Family Medicine 04/28/24 documented as of this encounter
--- OUTSIDE RECORDS SUMMARY | 2025-02-22 10:51 | XMS_ITS | Encounter Summary ---
Author Organization [employer] Address [address] [facility] [address] [place] [address] Care Team Providers Care Weapons Designer Name Role Phone Monse Medina MD Primary Care Provider [phone] Encounter Details Date Type Department Care Team ([facility] st Contact Info) Description 02/15/2025 Orders Only [facility] MEDICINE [address] [place], [place] [phone] Monse Medina MD [address] [place], [place] [phone] Diarrhea, unspecified type (Primary Dx) Social History [...] task Care Plan Weekly blood pressure task Mosne Daigle MD Patient has chronic kidney disease [...] Weekly blood pressure task No Oscar, Malena, FEATHER SHAPER Weekly blood pressure task Care Plan Weekly blood pressure task No Oscar, Malena, FEATHER SHAPER Weekly blood pressure task Care Plan Weekly blood pressure task No Oscar, Malena, FEATHER SHAPER Patient has chronic kidney disease Care Plan Patient has chronic kidney disease No Oscar, Malena, FEATHER SHAPER Patient has chronic kidney disease Care Plan Patient has chronic kidney disease No Oscar, Malena, FEATHER SHAPER Patient has chronic kidney disease Care Plan Patient has chronic kidney disease No Oscar, Malena, FEATHER SHAPER Patient has diabetic neuropathy Care Plan Patient has diabetic neuropathy No Oscar, Malena, FEATHER SHAPER Patient has diabetic neuropathy Care Plan Patient has diabetic neuropathy No Oscar, Malena, FEATHER SHAPER Patient has diabetic neuropathy Care Plan Patient has diabetic neuropathy No Oscar, Malena, FEATHER SHAPER Weekly blood pressure task Care Plan Weekly blood pressure task No Monse Mednia MD Weekly blood pressure task Care Plan [...] documented as of this encounter Care Teams Weapons Designer Relationship Specialty Start Date End Date Monse Medina MD [address] [place] [address] PCP - General Family Medicine 04/28/24 documented as of this encounter
--- OUTSIDE RECORDS SUMMARY | 2025-02-22 10:51 | XMS_ITS | Clinical Summary ---
Author Organization [employer] Address [address] [facility] 7[address] [place] [address] Care Team Providers Care Merchandising Manager Name Role Phone Monse Medina MD Primary Care Provider [phone] Allergies No known active allergies Medications FREESTYLE [...] day. 90 tablet 1 09/30/19 25 Active gabapentin (Neurontin) 300 MG capsule Take 2 capsules by mouth in the morning and 3 capsules at night 150 capsule 11 01/27/20 25 Active metFORMIN XR (Glucophage-XR ) 500 MG 24 hr tablet Take 2 tablets (1,000 mg) by mouth with breakfast and with evening meal. Do not crush, chew, or split. 360 tablet 3 01/27/20 25 Active glipiZIDE (Glucotrol) 5 MG tablet [...] as directed 30 tablet 2 02/08/20 25 026 Active Enoxaparin Sodium 80 MG/0.8ML solution prefilled syringe INJECT 0.7 ML (70 MG) DIRECTED EVERY 12 (TWELVE) HOURS. 7 mL 1 02/22/20 Active metFORMIN XR (Glucophage-XR ) 500 MG [...] taking pain medication 90 capsule 1 09/30/19 25 025 Discontinued(Re order (will not trigger notification to Pharmacy)) gabapentin (Neurontin) 300 MG capsule Take 2 capsules by mouth in the morning and 3 capsules at night 150 capsule 11 12/02/19 025 Discontinued(Re order (will not trigger notification to Pharmacy)) apixaban (Eliquis) 5 MG tablet Take 5 mg by mouth 2 times daily. 12/24/19 025 Discontinued(Re order (will not trigger notification to Pharmacy)) apixaban (Eliquis) 5 MG tablet Take 1 tablet (5 mg) by mouth 2 times daily. 180 tablet 3 01/27/20 025 Discontinued(Si de effects) Enoxaparin Sodium 80 MG/0.8ML solution prefilled syringe Inject 0.7 mL (70 mg) as directed every 12 (twelve) hours. 7 mL 1 02/08/20 025 Discontinued Enoxaparin Sodium 80 MG/0.8ML solution prefilled syringe INJECT 0.7 ML (70 MG) DIRECTED EVERY 12 (TWELVE) HOURS. 7 mL 1 02/15/20 025 Discontinued Active Problems Problem Noted Date Diagnosed Date Transaminitis 06/06/2024 Assessment & Plan (06/06/2024 12:08 PM EDT): -Pt is currently taking atorvastatin and niacin -Will check lab today History of TIA (transient ischemic attack) 06/06 Assessment & Plan (06/06/2024 4:20 PM EDT): - on 05/08/24, left UE and LE weakness and numbness - received tenecteplase in ED, [place] [facility] [place] and management - Head [...] no hypercoagulable work-up - will consult with paramedic rn if patient needs hypercoagulable work-up (likely unnecessary since patient has not had recurrence) Assessment & Plan (04/29/2024 5:08 PM EST): - suggestive of unprovoked DVT - patient states she took a medication for few months - no hypercoagulable work-up - will consult with paramedic rn if patient needs hypercoagulable work-up (likely unnecessary [...] Encounters Date Type Department Care Team Description 02/22/2025 Orders Only GENERIC EXTERNAL DATA DEPARTMENT Provider, Generic External Data 02/21/2025 Orders Only [facility] [place] [address] Ladonna Reynoso ANP 02/20/2025 Refill [facility] [place] [address] Monse Medina MD 02/20/2025 Orders Only GENERIC EXTERNAL DATA DEPARTMENT Provider, Generic External Data 02/15/2025 Orders Only [facility] [place] [address] Monse Medina MD Diarrhea, unspecified type (Primary Dx) 02/15/2025 Orders Only [facility] [place] [address] Monse Medina MD 02/15/2025 Orders Only GENERIC EXTERNAL DATA DEPARTMENT Provider, Generic External Data 02/14/2025 Refill [facility] [place] [address] Monse Medina MD 02/14/2025 Telephone [facility] [place] [address] Monse Medina MD CRITICAL LAB 02/14/2025 Orders Only GENERIC EXTERNAL DATA DEPARTMENT Provider, Generic External Data 02/13/2025 Orders Only [facility] [place] [address] Monse Medina MD 02/07/2025 Orders Only [facility] [place] [address] Monse Medina MD Single subsegmental pulmonary embolism without acute cor pulmonale (CMS/HCC) (HCC) (Primary Dx); History of DVT (deep vein thrombosis) 01/26/2025 Orders Only [facility] [place] [address] Monse Medina MD 01/24/2025 Telephone [facility] MEDICINE [address] [place] [address] Monse Medina MD ER Follow-up 12/29/2024 Orders Only GENERIC EXTERNAL DATA DEPARTMENT Provider, Generic External Data 12/26/2024 Patient Outreach [facility] MED & PEDS [address] [place] [address] Monse Medina MD Transition Of Care (Tcm) (HDF unscheduled) 12/22/2024 Orders Only [facility] MEDICINE [address] [place] [address] Monse Medina MD Pulmonary embolism without acute cor pulmonale, unspecified chronicity, unspecified pulmonary embolism type (CMS/HCC) (HCC) (Primary Dx); History of DVT (deep vein thrombosis); History of TIA (transient ischemic attack) 12/20/2024 Orders Only [facility] External Provider, [facility] 12/01/2024 Telephone [facility] MEDICINE [address] [place] [address] Monse Medina MD from Last 3 Months [...] 2) 04/07/2024 Diabetes: Hemoglobin A1C 08/05/2024 05/08/2024, 08/2024 COVID-19 Vaccine ( season) 2024 02/01/2024 [...] Care Plan Weekly blood pressure task No Malnea Moore LPN Weekly blood pressure task Care [...] has diabetic neuropathy No Ladonna Reynoso ANP Procedures Procedure Name Priority Date/Time Associated Diagnosis Comments PROTHROMBIN TIME WHOLE BLD POC Routine 02/22/2025 9:49 AM EST ~PT, ~INR - ANTI COAG CLINIC Routine 02/22/2025 9:49 AM EST PROTHROMBIN TIME WHOLE BLD POC Routine 02/20/2025 [...] 2 diabetes mellitus without complication, unspecified whether senior care insulin use ([facility]) HEMOGLOBIN A1C Routine 05/08/2024 12:23 PM EST from Last 3 Months or Most Recently Relevant to Health Maintenance Results * (ABNORMAL) PROTHROMBIN TIME WHOLE BLD POC (02/22/2025 9:49 AM EST) Only the most recent of4 resultswithin the time period is included. Protime 28.2(H) 11.1 - 13.5 sec [facility] 02/22/2025 9:49 AM EST 02/22/2025 9:51 AM EST us Generic External Data Provider LAB BLOOD ORDERAB LES Final Result [facility] [address] [place] [phone] * (ABNORMAL) ~PT, ~INR - ANTI COAG CLINIC (02/22/2025 9:49 AM EST) Only the most recent of4 resultswithin the time period is included. Prothrombin Time INR 2.4(H) 0.9 - 1.1 [facility] Comment:METER #: [id number] TERNATIONAL NORMALIZED RATIO (INR) REFERENCE RANGES Reference RangeFor patients not on anticoagulant therapy: 0.9 - 1.1INR ranges for oral anticoagulanttherapy:For prevention and treatment of venous thrombosis and pulmonary embolism: 2.0 - 3.0For acute myocardial infarction with aspirin therapy: 2.0 - 3.0For acute myocardial infarction without aspirin therapy: 3.0 - 4.0For patients with mechanical prosthetic heart valves: 2.5 - 3.5 02/22/2025 9:49 AM EST 02/22/2025 9:51 AM EST us Generic External Data Provider LAB BLOOD ORDERAB LES Final Result Performing Organization Address [facility] Co de Phone Number [facility] [address] [place] [phone] * (ABNORMAL) Lipid Panel with Reflex to Direct LDL (02/13/2025 3:19 PM EST) Triglycerides 392(H) <150 mg/dL [facility] Comment:Desirable Triglyceri de: less than 150 mg/dLBorderline High Triglyceride 150-199 mg/dLHigh Triglyceride: 200-499 mg/dLVery High Triglyceride: greater than or equal to 5OO mg/dL Cholesterol 228(H) <200 mg/dL [facility] Comment:Desirable Cholestero l: less than 200 mg/dLBorderline High Cholesterol: 200-239 mg/dLHigh Cholesterol: greater than 239 mg/dL LDL Cholesterol Calculated 105(H) <100 mg/dL [facility] Comment:Desirable LDL: less than 100 mg/dLNear Optimal/Above Optimal LDL: 110- 129 mg/dLBorderline High LDL: 130-159 mg/dLHigh LDL: 160-189 mg/dLVery High LDL: greater than or equal to 190 mg/dL HDL Cholesterol 45 >40 mg/dL [facility] Comment:Desirable HDL: great er than 40 mg/dL Note: This HDL assay may give artificially low results in patients with liver disease. 02/13/2025 3:19 PM EST 02/13/2025 3:19 PM EST us Monse Medina MD LAB BLOOD ORDERABLES Final Resul t Performing Organization Address [facility]/ZIP Co de Phone Number [facility] [address] [place] [phone] * (ABNORMAL) Basic Metabolic Panel (02/13/2025 3:19 PM EST) Only the most recent of2 resultswithin the time period is included. Sodium 141 135 - 145 mmol/L [facility] Potassium 4.3 3.3 - 5.1 mmol/L [facility] Chloride 106 96 - 108 mmol/L [facility] Carbon Dioxide 29 22 - 29 mmol/L [facility] Anion Gap 10(L) 12 - 20 [facility] Urea Nitrogen (BUN) 15 9 - 16 mg/dL [facility] Creatinine, Serum 0.57 0.5 - 1.4 mg/dL [facility] Estimated Glomerular Filt Rate >60 [facility] Comment:Chronic Kidney Disea se: Estimated GFR < 60 mL/min/1.95n2Jyvfxl Kidney Disease: Estimated GFR < 15 mL/min/1.73m2 Glucose 156(H) 60 - 115 mg/dL [facility] Calcium 9.9 8.4 - 10.2 mg/dL [facility] 02/13/2025 3:19 PM EST 02/13/2025 3:19 PM EST us Monse Medina MD LAB BLOOD ORDERABLES Final Resul t [facility] [address], [place] [phone] * (ABNORMAL) CBC auto differential (12/29/2024 8:07 AM EDT) Only the most recent of2 resultswithin the time period is included. White Blood Count 9.9 4.8 - 10.8 X10*3/uL [facility] Red Blood Count 4.62 4.20 - 5.50 X10*6/uL [facility] Hemoglobin 12.7 12.0 - 16.0 g/dl [facility] Hematocrit 39.0 37.0 - 47.0 % [facility] Mean Corpuscular Volume 84.4 80.0 - 98.0 fL [facility] Mean Corpuscular Hemoglobin 27.5 27.0 - 33.0 pg [facility] Mean Corpuscular HGB Conc 32.6 31.0 - 35.0 g/dl [facility] Red Cell Distribution Width 14.6 11.0 - 16.0 % [facility] Platelet Count 208 160 - 400 X10*3/uL [facility] Mean Platelet Volume 9.7 9.4 - 12.3 fL [facility] Neutrophils Percent Auto 65.6 45 - 73 % [facility] Imm Gran Pct Auto 2.2(H) 0.0 - 0.4 % [facility] Lymphocytes Percent Auto 23.5 20 - 40 % [facility] Monocytes Percent Auto 7.8 2 - 11 % [facility] Eosinophils Percent Auto 0.6 0 - 4 % [facility] Basophils Percent Auto 0.3 0 - 2 % [facility] NRBC Pct Auto 0.0 0.0 - 0.2 /100WBC [facility] Neutrophils Absolute Auto 6.5 2.0 - 8.3 x10*3/uL [facility] Imm Gran Abs Auto 0.22(H) 0.00 - 0.03 X10*3/uL [facility] Lymphocytes Absolute Auto 2.3 1.2 - 4.9 X10*3/uL [facility] Monocytes Absolute Auto 0.8 0.1 - 1.2 X10*3/uL [facility] Eosinophils Absolute Auto 0.1 0.0 - 0.4 X10*3/uL [facility] Basophils Absolute Auto 0.0 0.0 - 0.2 X10*3/uL [facility] NRBC Abs Auto 0.000 0.0 - 0.012 X10*3/uL [facility] 12/29/2024 8:07 AM EDT 12/29/2024 8:09 AM EDT us Generic External Data Provider LAB BLOOD ORDERAB LES Final Result [facility] [address] [place] [phone] * (ABNORMAL) Prothrombin Time-INR (12/29/2024 8:07 AM EDT) Prothrombin Time 13.2(H) 10.9 - 12.4 SEC [facility] INTERNATIONAL NORM RATIO 1.2(H) 0.9 - 1.1 [facility] Comment:INTERNATIONAL NORMAL IZED RATIO (INR) [...] Provider LAB BLOOD ORDERAB LES Final Result [facility] [address] [place] [phone] * (ABNORMAL) Comprehensive Metabolic Panel (12/29/2024 8:07 AM EDT) Sodium 141 135 - 145 mmol/L [facility] Potassium 4.2 3.3 - 5.1 mmol/L [facility] Chloride 106 96 - 108 mmol/L [facility] Carbon Dioxide 29 22 - 29 mmol/L [facility] Anion Gap 10(L) 12 - 20 [facility] Urea Nitrogen (BUN) 13 9 - 16 mg/dL [facility] Creatinine, Serum 0.56 0.5 - 1.4 mg/dL [facility] Creatinine Clr Calc Pharmacy 69.2 [facility] Comment:Provided height and weight: 157.48 cm,79.832 kg.eGFR (calculated from the MDRD study equation) and eCrCl(calculated from the Cockcroft-Gault equation) are based ondifferent parameters and may not yield comparable results.If eCrCl result is absurd, please check patient'sheight/weight. Estimated Glomerular Filt Rate >60 [facility] Comment:Chronic Kidney Disea se: Estimated GFR < 60 mL/min/1.94d8Gydopx Kidney Disease: Estimated GFR < 15 mL/min/1.73m2 Glucose 220(H) 60 - 115 mg/dL [facility] Calcium 9.2 8.4 - 10.2 mg/dL [facility] Bilirubin, Total 0.4 0.0 - 1.0 mg/dL [facility] Aspartate Amino Transferase 17 5 - 31 U/L [facility] Alanine Aminotransferase 24 0 - 31 U/L [facility] Total Protein 6.7 6.5 - 8.0 g/dL [facility] Albumin Level 3.9 3.5 - 5.0 g/dL [facility] Alkaline Phosphatase 62 39 - 117 U/L [facility] 12/29/2024 8:07 AM EDT 12/29/2024 8:09 AM EDT us Generic External Data Provider LAB BLOOD ORDERAB LES Final Result Performing Organization Address City/State/[facility] Co de Phone Number [facility] [address] [place] [phone] * VASC US Lower Extremity Venous Duplex Bilateral (12/21/2024 7:29 PM EDT) 12/21/2024 7:29 PM EDT Narrative [facility] - 12/21/2024 7:31 PM EDT [address] [address] Ultrasound Report Signed Patient: Maryellen Acosta MR#: [id number] 1351 : 1935 Acct:[id number] Age/Sex: 89 / F ADM Date: 12/20/24 Loc: [facility] 475-[address]: Lincoln Cohen MD Ordering Physician: Jerrica Oropeza MD Date of Service: 12/21/24 Procedure(s): US venous duplex LE BI Accession Number(s): [id number] cc: Monse Medina MD; Jerrica Oropeza MD [...] in OV> 12/21/241930 DD/ 28 TD/TT: 12/21/241928 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: Procedure Note Donotuseinterpreter, Image - 12/21/2024 [place] [address] Ultrasound Report Signed Patient: Carlin Acosta#: [id number] 1351 : 8Acct:[id number] Age/Sex: 89 / FADM Date: 12/20/24 Loc: [facility] 475-[address]: Lincoln Cohen MD Ordering Physician: Jerrica Oropeza MD Date of Service: 12/21/24 Procedure(s): US venous duplex LE BI Accession Number(s): [id number] cc: Monse Medina MD; Jerrica Oropeza MD [...] in OV> 12/21/241930 DD/ 28 TD/TT: 12/21/241928 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: [facility] External Provider CV VASC ULAR PROCEDURES Final Result [facility] [address] [place] [phone] * XR KUB and Upright 2 Views (12/21/2024 1:32 PM EDT) Anatomical Region Laterality Modality Radiographic Che ging 12/21/2024 1:32 PM EDT Narrative 12/21/2024 2:03 PM EDT [address] [address] XRay Report Signed Patient: Maryellen Acosta MR#: [id number] 1351 : 1935 Acct:[id number] Age/Sex: 89 / F ADM Date: 12/20/24 Loc: [facility] 475-[address]: Lincoln Cohen MD Ordering Physician: Lincoln Cohen MD Date of Service: 12/21/24 Procedure(s): XR KUB Accession Number(s): [id number] cc: Lincoln Cohen MD; Monse Medina MD [...] 12/21/24 1400 DD/ 1332 TD/TT: 12/21/24 1356 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: Procedure Note Donotuseinterpreter, Image - 12/21/[address] [address] XRay Report Signed Patient: Maryellen AcostaMR#: [id number] 1351 : 8Acct:[id number] Age/Sex: 89 / FADM Date: 12/20/24 Loc: [facility] 475-[address]: Lincoln Cohen MD Ordering Physician: Lincoln Cohen MD Date of Service: 12/21/24 Procedure(s): XR KUB Accession Number(s): [id number] cc: Lincoln Cohen MD; Monse Medina MD [...] 12/21/24 1400 DD/ 1332 TD/TT: 12/21/24 1356 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: [facility] External Provider IMG XR PROCEDURES Final Result * FL SMALL BOWEL FOLLOW THROUGH (12/21/2024 7:56 AM EDT) Anatomical Region Laterality Modality Radiographic Che ging 12/21/2024 7:56 AM EDT Narrative 12/21/2024 12:48 PM EDT [place] [address] Fluoroscopy Report Signed Patient: Maryellen Acosta MR#: [id number] 1351 : 1935 Acct:[id number] Age/Sex: 89 / F ADM Date: 12/20/24 Loc: [facility] 475-[address]: Lincoln Cohen MD Ordering Physician: Lincoln Cohen MD Date of Service: 12/21/24 Procedure(s): FL small bowel follow through Accession Number(s): [id number] cc: Lincoln Cohen MD; Monse Medina MD Reason for Exam: SBO EXAMINATION: FL SMALL BOWEL SERIES CLINICAL INFORMATION: SBO COMPARISON: None available. TECHNIQUE: Following a sales service supervisor image of the abdomen, 50/50 diluted 400 mL of Gastrografin contrast was administered orally, and interval abdominal radiographs were performed to assess for contrast progression through the small bowel. However patient complained of significant abdominal pain and patient was aspirated by the floor nurse. The exam was then discontinued. FINDINGS: Lease Buyer image of the abdomen demonstrates scattered stool [...] 12/21/24 1245 DD/ 0756 TD/TT: 12/21/24 1106 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: [facility] [place] [place] Procedure Note Donotuseinterpreter, Image - 12/21/[address] [address] Fluoroscopy Report Signed Patient: Carlin Acosta#: [id number] 1351 : 1936Acct:[id number] Age/Sex: 89 / FADM Date: 12/20/24 Loc: [facility] 475-[address]: Lincoln Cohen MD Ordering Physician: Lincoln Cohen MD Date of Service: 12/21/24 Procedure(s): FL small bowel follow through Accession Number(s): [id number] cc: Lincoln Cohen MD; Monse Medina MD Reason for Exam: SBO EXAMINATION: FL SMALL BOWEL SERIES CLINICAL INFORMATION: SBO COMPARISON: None available. TECHNIQUE: Following a sales service supervisor image of the abdomen, 50/50 diluted 400 mL of Gastrografin contrast was administered orally, and interval abdominal radiographs were performed to assess for contrast progression through the small bowel. However patient complained of significant abdominal pain and patient was aspirated by the floor nurse. The exam was then discontinued. FINDINGS: Lease Buyer image of the abdomen demonstrates scattered stool [...] 12/21/24 1245 DD/ 0756 TD/TT: 12/21/24 1106 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: VARGHESE us [facility] External Provider IMG FLU OROSCOPY PROCEDURES Final Result * CBC (12/20/2024 3:51 PM EDT) White Blood Count 8.6 4.8 - 10.8 X10*3/uL [facility] Red Blood Count 5.27 4.20 - 5.50 X10*6/uL [facility] Hemoglobin 14.6 12.0 - 16.0 g/dl [facility] Hematocrit 44.1 37.0 - 47.0 % [facility] Mean Corpuscular Volume 83.7 80.0 - 98.0 fL [facility] Mean Corpuscular Hemoglobin 27.7 27.0 - 33.0 pg [facility] Mean Corpuscular HGB Conc 33.1 31.0 - 35.0 g/dl [facility] Red Cell Distribution Width 14.6 11.0 - 16.0 % [facility] Platelet Count 171 160 - 400 X10*3/uL [facility] Mean Platelet Volume 9.4 9.4 - 12.3 fL [facility] NRBC Pct Auto 0.0 0.0 - 0.2 /100WBC [facility] NRBC Abs Auto 0.000 0.0 - 0.012 X10*3/uL [facility] 12/20/2024 3:51 PM EDT 12/20/2024 3:55 PM EDT us Generic External Data Provider LAB BLOOD ORDERAB LES Final Result Performing Organization Address City/State/[facility] Co de Phone Number [facility] [address] [place] [address] [phone] * XR Chest 1 View (12/20/2024 3:30 PM EDT) Only the most recent of2 resultswithin the time period is included. Anatomical Region Laterality Modality Chest Radiographic Che ging 12/20/2024 3:30 PM EDT Narrative 12/20/2024 3:45 PM EDT [address] [address] XRay Report Signed Patient: Maryellen Acosta MR#: [id number] 1351 : 1935 Acct:[id number] Age/Sex: 89 / F ADM Date: 12/20/24 Loc: .ED Attending Dr: Ordering Physician: Eusebio Juarez MD Date of Service: 12/20/24 Procedure(s): XR chest 1V Accession Number(s): [id number] cc: Eusebio Juarez MD; Monse Medina MD [...] MD Signed By: <Electronically signed by Mervin aGy MD in OV> 12/20/24 1542 DD/ 1530 TD/TT: 12/20/24 1538 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: Procedure Note Donotuseinterpreter, Image - 12/20/2024 [place] [address] XRay Report Signed Patient: Carlin Acosta#: [id number] 1351 : 8Acct:[id number] Age/Sex: 89 / FADM Date: 12/20/24 Loc: .ED Attending Dr: Ordering Physician: Eusebio Juarez MD Date of Service: 12/20/24 Procedure(s): XR chest 1V Accession Number(s): [id number] cc: Eusebio Juarez MD; Monse Medina MD [...] 12/20/24 1542 DD/ 1530 TD/TT: 12/20/24 1538 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: [facility] External Provider IMG XR PROCEDURES Final Result * CTA Chest PE Protocal (12/20/2024 1:45 PM EDT) Anatomical Region Laterality Modality Body, Chest Computed Tomogra phy 12/20/2024 1:45 PM EDT Narrative 12/20/2024 2:37 PM EDT [place] [address] CT Scan Report Signed Patient: Maryellen Acosta MR#: [id number] 1351 : 1935 Acct:[id number] Age/Sex: 89 / F ADM Date: 12/20/24 Loc: .ED Attending Dr: Ordering Physician: Eusebio Juarez MD Date of Service: 12/20/24 Procedure(s): CT angio chest PE protocol Accession Number(s): [id number] cc: Eusebio Juarez MD; Monse Medina MD Report Number: [id number]: Total DLP = 280.00 mGy-cm Reason for [...] 12/20/24 1434 DD/ 1345 TD/TT: 12/20/24 1410 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: Procedure Note Donotuseinterpreter, Image - 12/20/[address] [address] [address] Scan Report Signed Patient: Carlin Acosta#: [id number] 1351 : 8Acct:[id number] Age/Sex: 89 / FADM Date: 12/20/24 Loc: .ED Attending Dr: Ordering Physician: Eusebio Juarez MD Date of Service: 12/20/24 Procedure(s): CT angio chest PE protocol Accession Number(s): [id number] cc: Eusebio Juarez MD; Monse Medina MD Report Number: [id number]: Total DLP = 280.00 mGy-cm Reason for [...] 12/20/24 1434 DD/ 1345 TD/TT: 12/20/24 1410 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: [facility] External Provider IMG CT PROCEDURES Final Result * CT Abdomen Pelvis w/o Contrast (12/20/2024 12:25 PM EDT) Anatomical Region Laterality Modality Body, Pelvis, Abdomen Computed T omography 12/20/2024 12:2 5 PM EDT Narrative 12/20/2024 1:04 PM EDT [address] [address] [address] Scan Report Signed Patient: Maryellen Acosta MR#: [id number] 1351 : 1935 Acct:[id number] Age/Sex: 89 / F ADM Date: 12/20/24 Loc: [facility].ED Attending Dr: Ordering Physician: Eusebio Juarez MD Date of Service: 12/20/24 Procedure(s): CT abdomen pelvis wo IV con Accession Number(s): [id number] cc: Eusebio Juarez MD; Monse Medina MD Report Number: [id number]: Total DLP = 627.00 mGy-cm Reason for [...] 12/20/24 1301 DD/ 1225 TD/TT: 12/20/24 1242 Industrial 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: Procedure Note Donotuseinterpreter, Image - 12/20/[address] [address] [address] Scan Report Signed Patient: Carlin Acosta#: [id number] : 8Acct:[id number] Age/Sex: 89 / FADM Date: 12/20/24 Loc: HO.ED Attending Dr: Ordering Physician: Eusebio Juarez MD Date of Service: 12/20/24 Procedure(s): CT abdomen pelvis wo IV con Accession Number(s): [id number] cc: Eusebio Juaerz MD; Monse Medina MD Report Number: [id number]: Total DLP = 627.00 mGy-cm Reason for [...] 12/20/24 1301 DD/ 1225 TD/TT: 12/20/24 1242 Industrial 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: [facility] External Provider IMG CT PROCEDURES Final Result * D Dimer High Sensitivity (12/20/2024 12:01 PM EDT) D Dimer High Sensitivity 529 NG/ML [facility] Comment:D-DIMER HS REFERENCE RANGENote: Our assay [...] ORDERAB LES Final Result Performing Organization Address City/State/[facility] Co de Phone Number [facility] [address] [place] [phone] * US Abdomen Limited (12/20/2024 11:29 AM EDT) Anatomical Region Laterality Modality Abdomen Ultrasound 12/20/2024 11:2 9 AM EDT Narrative 12/20/2024 12:22 PM EDT [address] [address] Ultrasound Report Signed Patient: Maryellen Acosta MR#: [id number] : 1935 Acct:[id number] Age/Sex: 89 / F ADM Date: 12/20/24 Loc: .ED Attending Dr: Ordering Physician: Eusebio Juarez MD Date of Service: 12/20/24 Procedure(s): US abdomen limited Accession Number(s): [id number] cc: Eusebio Juarez MD; Monse Medina MD [...] 12/20/24 1219 DD/ 1129 TD/TT: 12/20/24 1153 Industrial 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: Procedure Note Donotuseinterpreter, Image - 12/20/[address] [address] Ultrasound Report Signed Patient: Carlin Acosta#: [id number] : 1936Acct:[id number] Age/Sex: 89 / FADM Date: 12/20/24 Loc: HO.ED Attending Dr: Ordering Physician: Eusebio Juarez MD Date of Service: 12/20/24 Procedure(s): US abdomen limited Accession Number(s): [id number] cc: Eusebio Juarez MD; Monse Medina MD [...] 12/20/24 1219 DD/ 1129 TD/TT: 12/20/24 1153 Industrial 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: [facility] External Provider IMG US PROCEDURES Edited Result - Final * (ABNORMAL) VENOUS BLOOD GAS (12/20/2024 11:22 AM EDT) VBG pH 7.42 7.32 - 7.43 [facility] Comment:METER #: [id number] additional_comment: CbAlbanom VBG PCO2 48 mmHg [facility] Comment:METER #: [id number] additional_comment: CbAlbanom VBG PO2 72 mmHg [facility] Comment:METER #: [id number] additional_comment: CbAlbanom VBG Base Excess 6.3 mmol/L [facility] Comment:METER #: [id number] additional_comment: CbAlbanom VBG HCO3 32(H) 22 - 26 mmol/L [facility] Comment:METER #: [id number] additional_comment: CbAlbanom O2 Sat, Hebert 95.0 % [facility] Comment:METER #: [id number] additional_comment: CbAlbanom 12/20/2024 11:2 2 AM EDT 12/20/2024 11:25 AM EDT us Generic External Data Provider LAB BLOOD ORDERAB LES Final Result [facility] [address] [place] [phone] * Influenza A B2 ID NOW (Leon) (12/20/2024 10:52 AM EDT) IDNOW SERIAL# [id number] [facility] Influenza A Negative Negative [facility] Influenza B2 Negative Negative [facility] Influenza A B2 Note See Note [facility] Comment:The Leon ID NOW In fluenza [...] GENERAL ORDERABLES Final Result Performing Organization Address [facility] Co de Phone Number [facility] [address] [place] [phone] * COVID-19 ID NOW (LEON) (12/20/2024 10:52 AM EDT) IDNOW SERIAL# [id number] [facility] COVID-19 TEST Negative Negative [facility] COVID-19 NOTE See Note [facility] Comment: Results are for the identification of SARS-CoV2 RNA. TheSARS-CoV2 RNA is generally detectable in respiratory samplesduring the acute phase of infection. Positive results areindicative of the presence of SARS-CoV-2 RNA; clinicalcorrelation with patient history and other diagnosticinformation is necessary to determine patient infectionstatus. Positive results do not rule out bacterial infectionor co- infection with other viruses.Testing facilities within the [facility] and [facility] are required to report all positive [...] GNOSTICS ORDERABLES Final Result Performing Organization Address City/[facility]/ZIP Co de Phone Number [facility] [address] [place] [phone] * High Sensitivity Troponin I (12/20/2024 10:52 AM EDT) Pathologist [facility] TROPONIN I HIGH SENSITIVITY 4.5 <3.5 - 17.0 ng/L [facility] Comment:The Leon high sens itivity Troponin-I results should beused in conjunction with other diagnostic information suchas ECG, clinical observations and information, and patientsymptoms to aid in the diagnosis of CA. 12/20/2024 10:5 2 AM EDT 12/20/2024 11:00 AM EDT us Generic External Data Provider LAB BLOOD ORDERAB LES Final Result Performing Organization Address [facility]/ZIP Co de Phone Number [facility] [address] [place] [phone] * NT-proBNP (12/20/2024 10:52 AM EDT) [facility] NT-proBNP 158.5 <300 pg/mL [facility] Comment:Reference Range:Age Group (years) NT-proBNP (pg/ml) InterpretationAll <300 Negative: HF unlikelyFor patients presenting to the ED with clinical suspicion ofnew onset or worsening HF, see below:18 to <50 >299.9 to <450.0 Grayzone: [id number] to 75 >299.9 to <900.0 other causes of>75 >299.9 to <1800.0 NT-proBNP to <50 >449.9 Positive: HF [id number] >899.9>75 >1799.9Note: Elevated NT-proBNP levels should be interpreted inthe context of other clinical information. 12/20/2024 10:5 2 AM EDT 12/20/2024 11:00 AM EDT us Generic External Data Provider LAB BLOOD ORDERAB LES Final Result Performing Organization Address [facility]/ZIP Co de Phone Number [facility] [address] [place] [phone] * Magnesium (12/20/2024 10:52 AM EDT) Magnesium 1.9 1.6 - 2.6 mg/dL [facility] 12/20/2024 10:5 2 AM EDT 12/20/2024 11:00 AM EDT Generic External Data Provider LAB BLOOD ORDERAB LES Final Result Performing Organization Address City/[facility]/ZIP Co de Phone Number [facility] [address] [place] [phone] * Lactic Acid (12/20/2024 10:52 AM EDT) Lactic Acid 1.9 0.5 - 2.0 mmol/L [facility] 12/20/2024 10:5 2 AM EDT 12/20/2024 10:59 AM EDT us Generic External Data Provider LAB BLOOD ORDERAB LES Final Result Performing Organization Address [facility] de Phone Number [facility] [address] [place] [phone] * Hepatic Function Panel (12/20/2024 10:52 AM EDT) Bilirubin, Total 1.0 0.0 - 1.0 mg/dL [facility] Bilirubin, Direct 0.3 0.0 - 0.5 mg/dL [facility] Aspartate Amino Transferase 26 5 - 31 U/L [facility] Alanine Aminotransferase 27 0 - 31 U/L [facility] Total Protein 7.2 6.5 - 8.0 g/dL [facility] Albumin Level 4.3 3.5 - 5.0 g/dL [facility] Alkaline Phosphatase 68 39 - 117 U/L [facility] 12/20/2024 10:5 2 AM EDT 12/20/2024 11:00 AM EDT us Generic External Data Provider LAB BLOOD ORDERAB LES Final Result Performing Organization Address [facility]/ZIP Co de Phone Number [facility] [address] [place] [phone] * Albumin, Random Urine W/Creatinine (06/06/2024 11:36 AM EDT) Creatinine, Urine 63.85 mg/dL [facility] Microalbumin Urine 12.0 mg/L [facility] Microalbum Creatinine Ratio Ur 18.7 <30 ug/mg cr [facility] Comment:Albumin/Creatinine R atio Reference Ranges: Normal: < 30 ug/mg creatinine Microalbuminuria: 30 - 300 ug/mg creatinineClinical Albuminuria: > 300 ug/mg creatinine Urine 06/06/2024 11:3 6 AM EDT 06/06/2024 1:06 PM EDT Monse Medina MD LAB URINE ORDERABLES Final Resul t Performing Organization Address [facility] Co de Phone Number [facility] [address] [place] [phone] * (ABNORMAL) Hemoglobin A1c (05/08/2024 12:23 PM EST) Hemoglobin A1c 7.2(H) <6.0 % [facility] Comment:Hemoglobin A1C Refer ence Range Adults: 4.8 - 6.0 % Non diabetic: < 6.0 % Goal: < 7.0 %Additional Action Suggested: > 8.0 %Note: Hemoglobin A1c results are invalid for patients with abnormal amounts of HbF. Blood transfusions may impact the HbA1c concentration in the patient sample. Estimated Average Glucose 160 mg/dL [facility] Comment:eAG = Estimated ave rage glucose which is %A1C expressed asaverage glucose, using the formula of the F7J-BcegiksIjghkmb Glucose study (ADAG), Diabetes Care, Vol.31,#8,Oct. 2007 05/08/2024 12:2 3 PM EST 05/08/2024 12:28 PM EST us Generic External Data Provider LAB BLOOD ORDERAB LES Final Result Performing Organization Address City/State/[facility] Co de Phone Number [facility] [address] [place] [phone] from Last 3 Months or Most [...] neuropathy 02/21/2025 Patient has diabetic neuropathy 02/21/2025 Insurance [facility] HSN FULL Care Teams Merchandising Manager Relationship Specialty Start Date End Date Monse Medina MD [address] [place] [phone] PCP - General Family Medicine 04/28/24
--- OUTSIDE RECORDS SUMMARY | 2025-02-22 10:51 | XMS_ITS | Encounter Summary ---
Author Organization [employer] Address [address] [facility] 7t [place] [address] Care Team Providers Care Glass Installer Name Role Phone Monse Medina MD Primary Care Provider [phone] Encounter Details Date Type Department Care Team [...] Weekly blood pressure task No Oscar, Malena, ENGINE ROOM OPERATOR Weekly blood pressure task Care Plan Weekly blood pressure task No Oscar, Malena, ENGINE ROOM OPERATOR Weekly blood pressure task Care Plan Weekly blood pressure task No Oscar, Malena, ENGINE ROOM OPERATOR Patient has chronic kidney disease Care Plan Patient has chronic kidney disease No Oscar, Malena, ENGINE ROOM OPERATOR Patient has chronic kidney disease Care Plan Patient has chronic kidney disease No Oscar, Malena, ENGINE ROOM OPERATOR Patient has chronic kidney disease Care Plan Patient has chronic kidney disease No Oscar, Malena, ENGINE ROOM OPERATOR Patient has diabetic neuropathy Care Plan Patient has diabetic neuropathy No Oscar, Malena, ENGINE ROOM OPERATOR Patient has diabetic neuropathy Care Plan Patient has diabetic neuropathy No Oscar, Malena, ENGINE ROOM OPERATOR Patient has diabetic neuropathy Care Plan Patient has diabetic neuropathy No Oscar, Malena, ENGINE ROOM OPERATOR Weekly blood pressure task Care Plan Weekly [...] Plan Patient has diabetic neuropathy No Monse Mdeina MD Patient has diabetic neuropathy Care Plan [...] EST) Protime 20.8(H) 11.1 - 13.5 sec [facility] 02/20/2025 9:43 AM EST 02/20/2025 9:44 AM EST us Generic External Data Provider LAB BLOOD ORDERAB LES Final Result Performing Organization Address City/State/[facility] Co de Phone Number [facility] [address] [place] [phone] * (ABNORMAL) ~PT, ~INR - ANTI COAG CLINIC (02/20/2025 9:43 AM EST) Prothrombin Time INR 1.7(H) 0.9 - 1.1 [facility] Comment:METER #: [id number] TERNATIONAL NORMALIZED RATIO (INR) REFERENCE RANGES Reference [...] ORDERAB LES Final Result Performing Organization Address City/State/[facility] Co de Phone Number [facility] [address] [place] [phone] documented in this encounter Visit Diagnoses [...] documented as of this encounter Care Teams Glass Installer Relationship Specialty Start Date End Date Monse eMdina MD [address] [place] [address] PCP - General Family Medicine 04/28/24 documented as of this encounter
--- OUTSIDE RECORDS SUMMARY | 2025-02-22 10:51 | XMS_ITS | Encounter Summary ---
Author Organization [employer] Address [address] [facility] 7t [place] [address] Care Team Providers Care Teacher Of Family And Consumer Science Name Role Phone Monse Medina MD Primary Care Provider [phone] Encounter Details Date Type Department Care Team ([facility] st Contact Info) Description 05/10/2024 Orders Only [facility] MEDICINE [address] [place], [place] [phone] Monse Medina MD [address] [place], [place] [phone] Social History Tobacco Use Types Packs/Day Years [...] documented as of this encounter Care Teams Teacher Of Family And Consumer Science Relationship Specialty Start Date End Date Monse Medina MD [address] [place] [phone] PCP - General Family Medicine 04/28/24 documented as of this encounter
--- OUTSIDE RECORDS SUMMARY | 2025-02-22 10:51 | XMS_ITS | Encounter Summary ---
Author Organization [employer] Address [address] [facility] 7t [place] [address] Care Team Providers Care Asphalt Plant Worker Name Role Phone Monse Medina MD Primary Care Provider [phone] Encounter Details Date Type Department Care Team ([facility] st Contact Info) Description 09/29/2024 Orders Only [facility] MEDICINE [address] [place], [place] [phone] Monse Medina MD [address] [place], [place] [phone] Social History Tobacco Use Types Packs/Day Years [...] documented as of this encounter Care Teams Asphalt Plant Worker Relationship Specialty Start Date End Date Monse Medina MD [address] [place] [phone] PCP - General Family Medicine 04/28/24 documented as of this encounter
--- OUTSIDE RECORDS SUMMARY | 2025-02-22 10:51 | XMS_ITS | Encounter Summary ---
Author Organization [employer] Address [address] [facility] 7t [place] [address] Care Team Providers Care Door Hanger Name Role Phone Monse Medina MD Primary Care Provider [phone] Encounter Details Date Type Department Care Team ([facility] st Contact Info) Description 02/15/2025 Orders Only [facility] MEDICINE [address] [place], [place] [phone] Monse Medina MD [address] [place], [place] [phone] Social History Tobacco Use Types Packs/Day Years [...] task Care Plan Weekly blood pressure task oMnse Daigle MD Weekly blood pressure task Care [...] Weekly blood pressure task No Oscar, Malena, ADVICE CLERK Weekly blood pressure task Care Plan Weekly blood pressure task No Oscar, Malena, ADVICE CLERK Weekly blood pressure task Care Plan Weekly blood pressure task No Oscar, Malena, ADVICE CLERK Patient has chronic kidney disease Care Plan Patient has chronic kidney disease No Oscar, Malena, ADVICE CLERK Patient has chronic kidney disease Care Plan Patient has chronic kidney disease No Oscar, Malena, ADVICE CLERK Patient has chronic kidney disease Care Plan Patient has chronic kidney disease No Oscar, Malena, ADVICE CLERK Patient has diabetic neuropathy Care Plan Patient has diabetic neuropathy No Oscar, Malena, ADVICE CLERK Patient has diabetic neuropathy Care Plan Patient has diabetic neuropathy No Oscar, Malena, ADVICE CLERK Patient has diabetic neuropathy Care Plan Patient has diabetic neuropathy No Oscar, Malena, ADVICE CLERK Weekly blood pressure task Care Plan Weekly [...] documented as of this encounter Care Teams Door Hanger Relationship Specialty Start Date End Date Monse Medina MD [address] [place] [phone] PCP - General Family Medicine 04/28/24 documented as of this encounter
--- OUTSIDE RECORDS SUMMARY | 2025-02-22 10:51 | XMS_ITS | Encounter Summary ---
Author Organization [employer] Address [address] [facility] 7t [place] [address] Care Team Providers Care Reed Worker Name Role Phone Monse Medina MD Primary Care Provider [phone] Encounter Details Date Type Department Care Team ([facility] st Contact Info) Description 01/26/2025 Orders Only [facility] MEDICINE [address] [place], [place] [phone] Monse Medina MD [address] [place], [place] [phone] Social History Tobacco Use Types Packs/Day Years [...] documented as of this encounter Care Teams Reed Worker Relationship Specialty Start Date End Date Monse Medina MD [address] [place] [phone] PCP - General Family Medicine 04/28/24 documented as of this encounter
--- OUTSIDE RECORDS SUMMARY | 2025-02-22 10:51 | XMS_ITS | Encounter Summary ---
Author Organization [employer] Address [address] [facility] 7t [place] [address] Care Team Providers Care Fine Grade Bulldozer Operator Name Role Phone Monse Medina MD Primary Care Provider Encounter Details Date Type Department Care Team (Late st Contact Info) Description 02/22/2025 Orders Only GENERIC EXTERNAL DATA [...] Weekly blood pressure task No Oscar, Malena, MANGLE ROLLER Weekly blood pressure task Care Plan Weekly blood pressure task No Oscar, Malena, MANGLE ROLLER Weekly blood pressure task Care Plan Weekly blood pressure task No Oscar, Malena, MANGLE ROLLER Patient has chronic kidney disease Care Plan Patient has chronic kidney disease No Oscar, Malena, MANGLE ROLLER Patient has chronic kidney disease Care Plan Patient has chronic kidney disease No Oscar, Malena, MANGLE ROLLER Patient has chronic kidney disease Care Plan Patient has chronic kidney disease No Oscar, Malena, MANGLE ROLLER Patient has diabetic neuropathy Care Plan Patient has diabetic neuropathy No Oscar, Malena, MANGLE ROLLER Patient has diabetic neuropathy Care Plan Patient has diabetic neuropathy No Oscar, Malena, MANGLE ROLLER Patient has diabetic neuropathy Care Plan Patient has diabetic neuropathy No Oscar, Malena, MANGLE ROLLER Weekly blood pressure task Care Plan Weekly [...] Reynoso ANP documented as of this encounter Procedures Procedure Name Priority Date/Time Associated Diagnosis Comments PROTHROMBIN TIME WHOLE BLD POC Routine 02/22/2025 9:49 AM EST ~PT, ~INR - ANTI COAG CLINIC Routine 02/22/2025 9:49 AM EST documented in this encounter Results * (ABNORMAL) PROTHROMBIN TIME WHOLE BLD POC (02/22/2025 9:49 AM EST) Protime 28.2(H) 11.1 - 13.5 sec [facility] 02/22/2025 9:49 AM EST 02/22/2025 9:51 AM EST us Generic External Data Provider LAB BLOOD ORDERAB LES Final Result [facility] [address] [place] [phone] * (ABNORMAL) ~PT, ~INR - ANTI COAG CLINIC (02/22/2025 9:49 AM EST) Prothrombin Time INR 2.4(H) 0.9 - 1.1 [facility] Comment:METER #: [id number] TERNATIONAL NORMALIZED RATIO (INR) REFERENCE RANGES Reference [...] ORDERAB LES Final Result Performing Organization Address City/State/[facility] de Phone Number [facility] [address] [place] [phone] documented in this encounter Visit Diagnoses [...] documented as of this encounter Care Teams Fine Grade Bulldozer Operator Relationship Specialty Start Date End Date Monse Medina MD [address] [place] [phone] PCP - General Family Medicine 04/28/24 documented as of this encounter
--- OUTSIDE RECORDS SUMMARY | 2025-02-22 10:51 | XMS_ITS | Encounter Summary ---
Author Organization [employer] Address [address] [facility] 7t [place] [address] Care Team Providers Care Template Reproduction Technician Name Role Phone Monse Medina MD Primary Care Provider [phone] Reason for Visit * Reason Comments Med Refill Encounter Details Date Type Department Care Team ([facility] st Contact Info) Description 02/20/[address] [facility] MEDICINE [address] [place], [place] [phone] Monse Medina MD [address] [place], [place] [phone] Social History Tobacco Use Types Packs/Day Years [...] Weekly blood pressure task No Oscar, Malena, INSPECTOR REPAIRER SANDSTONE Weekly blood pressure task Care Plan Weekly blood pressure task No Oscar, Malena, INSPECTOR REPAIRER SANDSTONE Weekly blood pressure task Care Plan Weekly blood pressure task No Oscar, Malena, INSPECTOR REPAIRER SANDSTONE Patient has chronic kidney disease Care Plan Patient has chronic kidney disease No Oscar, Malena, INSPECTOR REPAIRER SANDSTONE Patient has chronic kidney disease Care Plan Patient has chronic kidney disease No Oscar, Malena, INSPECTOR REPAIRER SANDSTONE Patient has chronic kidney disease Care Plan Patient has chronic kidney disease No Oscar, Malena, INSPECTOR REPAIRER SANDSTONE Patient has diabetic neuropathy Care Plan Patient has diabetic neuropathy No Oscar, Malena, INSPECTOR REPAIRER SANDSTONE Patient has diabetic neuropathy Care Plan Patient has diabetic neuropathy No Oscar, Malena, INSPECTOR REPAIRER SANDSTONE Patient has diabetic neuropathy Care Plan Patient has diabetic neuropathy No Oscar, Malena, INSPECTOR REPAIRER SANDSTONE Weekly blood pressure task Care Plan Weekly [...] Care Plan Weekly blood pressure task No Gordonurai, Monse, MD Weekly blood pressure task Care [...] documented as of this encounter Care Teams Template Reproduction Technician Relationship Specialty Start Date End Date Monse Medina MD [address] [place] [phone] PCP - General Family Medicine 04/28/24 documented as of this encounter
--- OUTSIDE RECORDS SUMMARY | 2025-02-22 10:51 | XMS_ITS | Encounter Summary ---
Author Organization [employer] Address [address] [facility] 7t [place] [address] Care Team Providers Care Zinc Plating Machine Operator Name Role Phone Monse Medina MD Primary Care Provider [phone] Reason for Referral * Consultation (Routine) - Closed Specialty Diagnoses / Procedures Referred By Contmadison t Referred To Contact Pain Medicine Diagnoses Spinal stenosis of lumbar region with neurogenic claudication Monse Medina MD [address] [place] [address] Phone: tel: fax: [facility] [address] [facility] [address] [place] [address] Phone: tel: fax: Referral ID Status Reason Start Date Expiration Date V isits Requested Visits Authorized [id number] Closed Specialty Services Required 11/08/2024 11/08/2025 1 1 Encounter Details Date Type Department Care Team (Late st Contact Info) Description 11/08/2024 Orders Only [facility] MEDICINE [address] [place] [address] [phone] Monse Medina MD [address] [place], [place] [phone] Spinal stenosis of lumbar region with neurogenic [...] documented as of this encounter Care Teams Zinc Plating Machine Operator Relationship Specialty Start Date End Date Monse Medina MD [address] [place] [phone] PCP - General Family Medicine 04/28/24 documented as of this encounter
== END 2025-02-22 10:56 | disposition home or self-care (01) ==
LOC: HO.ACS 09:45
PROVIDERS: PCP Family Medicine; Visit Provider Internal Medicine Medical Oncology
DX: Z79.01 Long term (current) use of anticoagulants (principal)

== ENCOUNTER → 2025-02-22 09:45 | Outpatient (BNVA) | payer MEDICAID, OTHER, SELFPAY | PROVIDERS: PCP Family Medicine; Visit Provider Internal Medicine Medical Oncology | DX: Z86.718 Personal history of other venous thrombosis and embolism (principal); Z51.81 Encounter for therapeutic drug level monitoring; Z79.01 Long term (current) use of anticoagulants | CPT/HCPCS: 85610; 99211 ==

== ENCOUNTER 2025-02-28 09:46 | Outpatient (AMB) | payer MEDICAID, OTHER, SELFPAY ==
--- NOTE | 2025-02-28 10:19 | MHC.OFFVISCO ---
Intake Intake Visit Reasons: Anticoagulation Allergies No Known Allergies Allergy (Verified 02/28/25 09:52) Medication List - Last Reconciled 02/28/25 by Nadege Simons RN acetaminophen 500 - 1,000 mg PO Q8H PRN amlodipine 2.5 mg PO DAILY atorvastatin 10 mg PO BEDTIME gabapentin 300 mg PO BEDTIME gabapentin 300 mg PO DAILY PRN glipizide 5 mg PO DAILY metformin 1,000 mg PO BID omeprazole 20 mg PO DAILY PRN warfarin See Protocol 2 mg TAB PO / 4MG X 2 DAYS/ 2MG X 5 DAYS; Nursing Note Pt came with daughter today INR: 2.0 in therapeutic range Medications and supplements reviewed- no changes Pt reports no diarrhea / little constipation - normal color Denies any signs and symptoms of bleeding or bruising or clotting. Bleeding, bruising, clotting discussed Nutritional guidance given - cont to eat usual diet, resume usual greens at the end of the week Dose: increase to dose 4mg x 4 days/ 2mg x 3 days to keep INR above 2.0 F/U INR: 1 week same day as Dr. 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
[2025-03-01 08:29] LABS: Prothrombin Time Whole Bld POC 24.4 sec (11.1-13.5); ~PT, ~INR - Anti Coag Clinic 2.0 (0.9-1.1)
== END 2025-02-28 10:24 | disposition home or self-care (01) ==
LOC: HO.ACS 09:46
PROVIDERS: PCP Family Medicine; Visit Provider Internal Medicine Medical Oncology
DX: Z79.01 Long term (current) use of anticoagulants (principal)

== ENCOUNTER → 2025-02-28 09:46 | Outpatient (BNVA) | payer MEDICAID, OTHER, SELFPAY | PROVIDERS: PCP Family Medicine; Visit Provider Internal Medicine Medical Oncology | DX: Z86.718 Personal history of other venous thrombosis and embolism (principal); Z79.01 Long term (current) use of anticoagulants; Z51.81 Encounter for therapeutic drug level monitoring | CPT/HCPCS: 85610; 99211 ==

== ENCOUNTER 2025-03-07 15:43 | Outpatient (AMB) | payer MEDICAID, OTHER, SELFPAY ==
[2025-03-07 15:54] LABS: Prothrombin Time Whole Bld POC 22.1 sec (11.1-13.5); ~PT, ~INR - Anti Coag Clinic 1.8 (0.9-1.1)
--- NOTE | 2025-03-07 16:08 | MHC.OFFVISCO ---
Intake Intake Visit Reasons: Anticoagulation Allergies No Known Allergies Allergy (Verified 03/07/25 15:50) Medication List - Last Reconciled 03/07/25 by Danelle Sanders RN acetaminophen 500 - 1,000 mg PO Q8H PRN amlodipine 2.5 mg PO DAILY atorvastatin 10 mg PO BEDTIME gabapentin 300 mg PO BEDTIME gabapentin 300 mg PO DAILY PRN glipizide 5 mg PO DAILY metformin 1,000 mg PO BID omeprazole 20 mg PO DAILY PRN warfarin See Protocol 2 mg orally TAB: 1-2 TABS DAILY; = 60 TABS/ MONTH = 180 /3 MONTH SUPPLY 4MG X 4 DAYS/ 2MG MWF Nursing Note Pt to [facility] accompanied by daughter. INR: 1.8 out of therapeutic range of 2-3 Medications and supplements reviewed Patient status: feels well Medications or supplements: no changes Diet: usual diet for pt Denies any signs and symptoms of bleeding or clotting or unusual bruising Bleeding, bruising, clotting discussed Nutritional guidance given: pt to avoid greens X 2 days and to have a serving of foods that raise the INR for 2 days. Food list reviewed with pt. Dose: weekly dose increased by 2mg to 4mg X 5 days and 2mg X 2 days (Thu & ) F/U INR Date: 03/14/25?? Patient and daughter verbalizing understanding of instructions with read back given. 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 Illness/Depression: No Coding Level of Care Code Est Patient Level 1 Diagnoses Current use of anticoagulant therapy Z79.01 Results AMB INR Fingerstick AMB INR Fingerstick 1.8 Last Edit by Danelle Sanders RN on 03/07/25 15:58 interface delay Assessment & Plan Assessment & Plan (1) Current use of anticoagulant therapy: Code(s): Z79.01 - long term acute care registered nurse (current) use of anticoagulants Category: Medical
--- OUTSIDE RECORDS SUMMARY | 2025-03-07 19:49 | XMS_ITS | Encounter Summary ---
Author Organization [employer] Address [address] [facility] [address] [place] [address] Care Team Providers Care Senior Production Manager Name Role Phone Monse Medina MD Primary Care Provider [phone] Encounter Details Date Type Department Care Team ([facility] st Contact Info) Description 05/10/2024 Orders Only [facility] [address], [place] [phone] Monse Medina MD [address] [place], [place] [phone] Social History Tobacco Use Types Packs/Day Years [...] as of this encounter Care Teams Senior Production Manager Relationship Specialty Start Date End Date Monse Medina MD [address] [place] [id number] PCP - General Family Medicine 04/28/24 documented as of this encounter
--- OUTSIDE RECORDS SUMMARY | 2025-03-07 19:50 | XMS_ITS | Encounter Summary ---
Author Organization [employer] Address [address] [facility] [address] [place] [address] Care Team Providers Care Grinder Gear Name Role Phone Monse Medina MD Primary Care Provider [phone] Reason for Referral * Consultation (Routine) - Closed Specialty Diagnoses / Procedures Referred By Contmadison t Referred To Contact Pain Medicine Diagnoses Spinal stenosis of lumbar region with neurogenic claudication Monse Medina MD [address] [place] [address] Phone: tel: fax: [facility] [address] [facility] [facility] [address] [place] [address] Phone: tel: fax: Referral ID Status Reason Start Date Expiration Date V isits Requested Visits Authorized [id number] Closed Specialty Services Required 11/08/2024 11/08/2025 1 1 Encounter Details Date Type Department Care Team (Late st Contact Info) Description 11/08/2024 Orders Only [facility] [address] [place] [address] [phone] Monse Medina MD [address] [place], [place] [phone] Spinal stenosis of lumbar region with neurogenic [...] documented as of this encounter Care Teams Grinder Gear Relationship Specialty Start Date End Date Monse Medina MD [address] [place] [id number] PCP - General Family Medicine 04/28/24 documented as of this encounter
--- OUTSIDE RECORDS SUMMARY | 2025-03-07 19:50 | XMS_ITS | Encounter Summary ---
Author Organization [employer] Address [address] [facility] 7t [place] [address] Care Team Providers Care Supervisor Forming Department Name Role Phone Monse Medina MD Primary Care Provider [phone] Encounter Details Date Type Department Care Team ([facility] st Contact Info) Description 05/02/2024 Orders Only [facility] MEDICINE [address] [place], [place] [phone] Monse Medina MD [address] [place], [place] [phone] Social History Tobacco Use Types Packs/Day Years [...] PM EST Narrative 05/09/2024 1:05 PM EST [place] [address] Magnetic Resonance Report Signed Patient: Maryellen Acosta MR#: [id number] 1351 : 1935 Acct:[id number] Age/Sex: 88 / F ADM Date: 05/08/24 Loc: .ICU 254-[address]: Cindy Sesay MD Ordering Physician: Loc Elder Date of Service: 05/09/24 Procedure(s): MR head/brain wo/w con Accession Number(s): [id number] cc: Loc Elder; Monse Medina MD CLINICAL [...] 05/09/24 1305 DD/ 1304 TD/TT: 05/09/24 1304 Relish Blender: Procedure Note Donotuseinterpreter, Image - 05/09/2024 [place] [address] Magnetic Resonance Report Signed Patient: Carlin Acosta#: [id number] 1351 : 8Acct:[id number] Age/Sex: 88 / FADM Date: 05/08/24 Loc: .ICU 254-[address]: Cindy Sesay MD Ordering Physician: Loc Elder Date of Service: 05/09/24 Procedure(s): MR head/brain wo/w con Accession Number(s): [id number] cc: Loc Elder; Monse Medina MD CLINICAL [...] 05/09/24 1305 DD/ 1304 TD/TT: 05/09/24 1304 Relish Blender: [facility] External Provider IMG MRI PROCEDURES Final Result * CTA Head Stroke w/ and w/o Contrast (05/08/2024 12:54 PM EST) Anatomical Region Laterality Modality Computed Tomogra phy 05/08/2024 12:5 4 PM EST Narrative 05/08/2024 12:55 PM EST [place] [address] CT Scan Report Signed Patient: Maryellen Acosta MR#: [id number] 1351 : 1935 Acct:[id number] Age/Sex: 88 / F ADM Date: 05/08/24 Loc: HO.ED Attending Dr: Ordering Physician: Erica Valenzuela DO Date of Service: 05/08/24 Procedure(s): CT angio head neck STROKE Accession Number(s): [id number] cc: Erica Valenzuela DO; Monse Medina MD Report Number: [id number]: Total DLP = 647.00 mGy-cm CLINICAL HISTORY: [...] 05/08/24 1255 DD/ 1254 TD/TT: 05/08/24 1254 Relish Blender: Procedure Note Donotuseinterpreter, Image - 05/08/[address] [place] [address] [address] Scan Report Signed Patient: Carlin Acosta#: [id number] : 8Acct:[id number] Age/Sex: 88 / FADM Date: 05/08/24 Loc: .ED Attending Dr: Ordering Physician: Erica Valenzuela DO Date of Service: 05/08/24 Procedure(s): CT angio head neck STROKE Accession Number(s): [id number] cc: Erica Valenzuela DO; Monse Medina MD Report Number: [id number]: Total DLP = 647.00 mGy-cm CLINICAL HISTORY: [...] 05/08/24 1255 DD/ 1254 TD/TT: 05/08/24 1254 Relish Blender: [facility] External Provider IMG CT PROCEDURES Final Result * SARS-CoV-2 RNA, Influenza A/B, and RSV RNA, Ql NAAT (05/08/2024 12:52 PM EST) Influenza A PCR NEGATIVE Negative [facility] Influenza B PCR NEGATIVE Negative [facility] Resp Syncy Virus RNA Qual PCR NEGATIVE Negative [facility] SARS COV2 PCR NEGATIVE Negative [facility] [...] use by authorized laboratories.Testing performed on the [employer] GeneXpert utilizingreal-time RT-PCR.All SARS CoV2 and positive influenza A/B results arereported to [facility]. 05/08/2024 12:5 2 PM EST 05/08/2024 12:56 PM EST Generic External Data Provider LAB MICROBIOLOGY - GENERAL ORDERABLES Final Result [facility] [address] [place] [phone] * CT Head Stroke w/o Contrast (05/08/2024 12:30 PM EST) Anatomical Region Laterality Modality Computed Tomogra phy 05/08/2024 12:3 0 PM EST Narrative 05/08/2024 12:34 PM EST [address] [address] [address] Scan Report Signed with Karel Patient: Maryellen Acosta MR#: [id number] 1351 : 1935 Acct:[id number] Age/Sex: 88 / F ADM Date: 05/08/24 Loc: HO.ED Attending Dr: Ordering Physician: Erica Valenzuela DO Date of Service: 05/08/24 Procedure(s): CT head for STROKE Accession Number(s): [id number] cc: Erica Valenzuela DO; Monse Medina MD Report Number: [id number]: Total DLP = 667.00 mGy-cm ADDENDUM This [...] in OV> 05/08/241232 DD/ 29 TD/TT: 05/08/241229 Relish Blender: Procedure Note Donotuseinterpreter, Image - 05/08/[address] [address] [address] Scan Report Signed with Addenda Patient: Maryellen AcostaMR#: [id number] 1351 : 8Acct:[id number] Age/Sex: 88 / FADM Date: 05/08/24 Loc: HO.ED Attending Dr: Ordering Physician: Erica Valenzuela DO Date of Service: 05/08/24 Procedure(s): CT head for STROKE Accession Number(s): [id number] cc: Erica Valenzuela DO; Monse Medina MD Report Number: [id number]: Total DLP = 667.00 mGy-cm ADDENDUM This [...] in OV> 05/08/241232 DD/ 29 TD/TT: 05/08/241229 Relish Blender: [facility] External Provider IMG CT PROCEDURES Edited Result - Final * Hold Green Gel (05/08/2024 12:23 PM EST) Hold Green Gel See Note [facility] Comment:Specimen held untest ed for 24 hours; Call to requestChemistry testing. 05/08/2024 12:2 3 PM EST 05/08/2024 12:28 PM EST us Generic External Data Provider HISTORICAL/NON OR DERABLE LABS Final Result Performing Organization Address [facility]/ZIP Co de Phone Number [facility] [address] [place] [phone] * TSH with Reflex to Free T4 (05/08/2024 12:23 PM EST) Pathologist [facility] TSH reflex Free T4 1.48 0.32 - 4.0 uIU/mL [facility] 05/08/2024 12:2 3 PM EST 05/08/2024 12:28 PM EST Generic External Data Provider LAB BLOOD ORDERAB LES Final Result Performing Organization Address [facility] Co de Phone Number [facility] [address] [place] [phone] * B Type Natriuretic Peptide (BNP) (05/08/2024 12:23 PM EST) Pathologist [facility] B Type Natriuretic Peptide 44 <100 pg/mL [facility] Comment:For those patients w ho are being treated with Natrecor(nesiritide, recombinant BNP), BNP testing should beperformed at least two hours post treatment in order toensure that only endogenous levels of BNP are detected. 05/08/2024 12:2 3 PM EST 05/08/2024 12:28 PM EST us Generic External Data Provider LAB BLOOD ORDERAB LES Final Result Performing Organization Address [facility] Co de Phone Number [facility] [address] [place] [phone] * Lipase (05/08/2024 12:23 PM EST) Lipase 18 8 - 78 U/L [facility] 05/08/2024 12:2 3 PM EST 05/08/2024 12:28 PM EST Generic External Data Provider LAB BLOOD ORDERAB LES Final Result Performing Organization Address [facility]/ZIP Co de Phone Number [facility] [address] [place] [phone] * (ABNORMAL) Lipid Panel, Standard (05/08/2024 12:23 PM EST) Triglycerides 195(H) <150 mg/dL [facility] Comment:Desirable Triglyceri de: less than 150 mg/dLBorderline High Triglyceride 150-199 mg/dLHigh Triglyceride: 200-499 mg/dLVery High Triglyceride: greater than or equal to 5OO mg/dL Cholesterol 161 <200 mg/dL [facility] Comment:Desirable Cholestero l: less than 200 mg/dLBorderline High Cholesterol: 200-239 mg/dLHigh Cholesterol: greater than 239 mg/dL LDL Cholesterol Calculated 81 <100 mg/dL [facility] Comment:Desirable LDL: less than 100 mg/dLNear Optimal/Above Optimal LDL: 110- 129 mg/dLBorderline High LDL: 130-159 mg/dLHigh LDL: 160-189 mg/dLVery High LDL: greater than or equal to 190 mg/dL HDL Cholesterol 41 >40 mg/dL [facility] Comment:Desirable HDL: great er than 40 mg/dL Note: This HDL assay may give artificially low results in patients with liver disease. 05/08/2024 12:2 3 PM EST 05/08/2024 12:28 PM EST us Generic External Data Provider LAB BLOOD ORDERAB LES Final Result Performing Organization Address [facility]/ZIP Co de Phone Number [facility] [address] [place] [phone] * Magnesium (05/08/2024 12:23 PM EST) Magnesium 1.8 1.6 - 2.6 mg/dL [facility] 05/08/2024 12:2 3 PM EST 05/08/2024 12:28 PM EST us Generic External Data Provider LAB BLOOD ORDERAB LES Final Result [facility] [address] [place] [phone] * (ABNORMAL) Basic Metabolic Panel (05/08/2024 12:23 PM EST) Sodium 139 135 - 145 mmol/L [facility] Potassium 4.0 3.3 - 5.1 mmol/L [facility] Chloride 103 96 - 108 mmol/L [facility] Carbon Dioxide 25 22 - 29 mmol/L [facility] Anion Gap 15 12 - 20 [facility] Urea Nitrogen (BUN) 16 9 - 16 mg/dL [facility] Creatinine, Serum 0.67 0.5 - 1.4 mg/dL [facility] Creatinine Clr Calc Pharmacy 58.1 [facility] Comment:Provided height and weight: 157.48 cm,77.6 kg.eGFR (calculated from the MDRD study equation) and eCrCl(calculated from the Cockcroft-Gault equation) are based ondifferent parameters and may not yield comparable results.If eCrCl result is absurd, please check patient'sheight/weight. Estimated Glomerular Filt Rate >60 [facility] Comment:Chronic Kidney Disea se: Estimated GFR < 60 mL/min/1.21s9Gpauvp Kidney Disease: Estimated GFR < 15 mL/min/1.73m2 Glucose 223(H) 60 - 115 mg/dL [facility] Calcium 9.6 8.4 - 10.2 mg/dL [facility] 05/08/2024 12:2 3 PM EST 05/08/2024 12:28 PM EST us Generic External Data Provider LAB BLOOD ORDERAB LES Final Result Performing Organization Address [facility]/ZIP Co de Phone Number [facility] [address] [place] [phone] * (ABNORMAL) Hepatic Function Panel (05/08/2024 12:23 PM EST) Bilirubin, Total 0.8 0.0 - 1.0 mg/dL [facility] Bilirubin, Direct 0.2 0.0 - 0.5 mg/dL [facility] Aspartate Amino Transferase 53(H) 5 - 31 U/L [facility] Alanine Aminotransferase 64(H) 0 - 31 U/L [facility] Total Protein 7.6 6.5 - 8.0 g/dL [facility] Albumin Level 4.1 3.5 - 5.0 g/dL [facility] Alkaline Phosphatase 79 39 - 117 U/L [facility] 05/08/2024 12:2 3 PM EST 05/08/2024 12:28 PM EST us Generic External Data Provider LAB BLOOD ORDERAB LES Final Result Performing Organization Address [facility] Co de Phone Number [facility] [address] [place] [phone] * High Sensitivity Troponin I (05/08/2024 12:23 PM EST) Pathologist [facility] TROPONIN I HIGH SENSITIVITY 2.7 <3.5 - 17.0 ng/L [facility] Comment:The Magdaleno high sens itivity Troponin-I results should beused in conjunction with other diagnostic information suchas ECG, clinical observations and information, and patientsymptoms to aid in the diagnosis of [place]. 05/08/2024 12:2 3 PM EST 05/08/2024 12:28 PM EST us Generic External Data Provider LAB BLOOD ORDERAB LES Final Result Performing Organization Address City/[facility]/ZIP Co de Phone Number [facility] [address] [place] [phone] * Prothrombin Time-INR (05/08/2024 12:23 PM EST) Prothrombin Time 11.1 10.9 - 12.4 SEC [facility] INTERNATIONAL NORM RATIO 1.0 0.9 - 1.1 [facility] Comment:INTERNATIONAL NORMAL IZED RATIO [...] Provider LAB BLOOD ORDERAB LES Final Result [facility] [address] [place] [phone] * (ABNORMAL) Hemoglobin A1c (05/08/2024 12:23 PM EST) Hemoglobin A1c 7.2(H) <6.0 % [facility] Comment:Hemoglobin A1C Refer ence Range Adults: 4.8 - 6.0 % Non diabetic: < 6.0 % Goal: < 7.0 %Additional Action Suggested: > 8.0 %Note: Hemoglobin A1c results are invalid for patients with abnormal amounts of HbF. Blood transfusions may impact the HbA1c concentration in the patient sample. Estimated Average Glucose 160 mg/dL [facility] Comment:eAG = Estimated ave rage glucose which is %A1C expressed asaverage glucose, using the formula of the E2F-JigscxwYnasekl Glucose study (ADAG), Diabetes Care, Vol.31,#8,2007 05/08/2024 12:2 3 PM EST 05/08/2024 12:28 PM EST us Generic External Data Provider LAB BLOOD ORDERAB LES Final Result [facility] [address] [place] [phone] * CBC auto differential (05/08/2024 12:23 PM EST) White Blood Count 7.1 4.8 - 10.8 X10*3/uL [facility] Red Blood Count 5.12 4.20 - 5.50 X10*6/uL [facility] Hemoglobin 14.0 12.0 - 16.0 g/dl [facility] Hematocrit 43.6 37.0 - 47.0 % [facility] Mean Corpuscular Volume 85.2 80.0 - 98.0 fL [facility] Mean Corpuscular Hemoglobin 27.3 27.0 - 33.0 pg [facility] Mean Corpuscular HGB Conc 32.1 31.0 - 35.0 g/dl [facility] Red Cell Distribution Width 14.4 11.0 - 16.0 % [facility] Platelet Count 161 160 - 400 X10*3/uL [facility] Mean Platelet Volume 9.7 9.4 - 12.3 fL [facility] Neutrophils Percent Auto 67.1 45 - 73 % [facility] Imm Gran Pct Auto 0.4 0.0 - 0.4 % [facility] Lymphocytes Percent Auto 23.9 20 - 40 % [facility] Monocytes Percent Auto 7.2 2 - 11 % [facility] Eosinophils Percent Auto 1.0 0 - 4 % [facility] Basophils Percent Auto 0.4 0 - 2 % [facility] NRBC Pct Auto 0.0 0.0 - 0.2 /100WBC [facility] Neutrophils Absolute Auto 4.8 2.0 - 8.3 x10*3/uL [facility] Imm Gran Abs Auto 0.03 0.00 - 0.03 X10*3/uL [facility] Lymphocytes Absolute Auto 1.7 1.2 - 4.9 X10*3/uL [facility] Monocytes Absolute Auto 0.5 0.1 - 1.2 X10*3/uL [facility] Eosinophils Absolute Auto 0.1 0.0 - 0.4 X10*3/uL [facility] Basophils Absolute Auto 0.0 0.0 - 0.2 X10*3/uL [facility] NRBC Abs Auto 0.000 0.0 - 0.012 X10*3/uL [facility] 05/08/2024 12:2 3 PM EST 05/08/2024 12:28 PM EST Generic External Data Provider LAB BLOOD ORDERAB LES Final Result Performing Organization Address [facility] de Phone Number [facility] [address] [place] [phone] * Hold Green Gel (05/08/2024 12:23 PM EST) Hold Green Gel See Note [facility] Comment:Specimen held untest ed for 24 hours; Call to requestChemistry testing. 05/08/2024 12:2 3 PM EST 05/08/2024 12:28 PM EST Generic External Data Provider HISTORICAL/NON OR DERABLE LABS Final Result Performing Organization Address [facility] Co de Phone Number [facility] [address] [place] [phone] * PROTHROMBIN TIME WHOLE BLD POC (05/08/2024 12:19 PM EST) Protime 12.2 11.1 - 13.5 sec [facility] 05/08/2024 12:1 9 PM EST 05/08/2024 12:27 PM EST Generic External Data Provider LAB BLOOD ORDERAB LES Final Result Performing Organization Address [facility] Co de Phone Number [facility] [address] [place] [phone] * ~PT, ~INR - ANTI COAG CLINIC (05/08/2024 12:19 PM EST) Prothrombin Time INR 1.0 0.9 - 1.1 [facility] Comment:METER #: [id number] TERNATIONAL NORMALIZED RATIO (INR) REFERENCE RANGES Reference [...] ORDERAB LES Final Result Performing Organization Address City/[facility]/ZIP Co de Phone Number [facility] [address] [place] [phone] * (ABNORMAL) Glucose, Whole Blood (05/08/2024 12:17 PM EST) Glucose, Whole Blood 217(H) 60 - 115 mg/dL [facility] Comment:METER #: [id number] 05/08/2024 12:1 7 PM EST 05/08/2024 12:28 PM EST us Generic External Data Provider LAB BLOOD ORDERAB LES Final Result Performing Organization Address City/[facility]/ZIP Co de Phone Number [facility] [address] [place] [phone] documented in this encounter Visit Diagnoses Not on filedocumented in this encounter Additional Health Concerns Assessment Noted Time PHQ-9 Depression Total Score: 1 04/28/19 25 9:28 AM EST documented as of this encounter Care Teams Supervisor Forming Department Relationship Specialty Start Date End Date Monse Medina MD [address] [place] [phone] PCP - General Family Medicine 04/28/24 documented as of this encounter
--- OUTSIDE RECORDS SUMMARY | 2025-03-07 19:50 | XMS_ITS | Encounter Summary ---
Author Organization [employer] Address [address] [facility] 7t [place] [address] Care Team Providers Care Sample Cutter Name Role Phone Monse Medina MD Primary Care Provider [phone] Encounter Details Date Type Department Care Team (Late st Contact Info) Description 03/07/2025 Orders Only GENERIC EXTERNAL DATA DEPARTMENT Provider, [...] Weekly blood pressure task No Oscar, Malena, PILL PACKER Weekly blood pressure task Care Plan Weekly blood pressure task No Oscar, Malena, PILL PACKER Weekly blood pressure task Care Plan Weekly blood pressure task No Oscar, Malena, PILL PACKER Patient has chronic kidney disease Care Plan Patient has chronic kidney disease No Oscar, Malena, PILL PACKER Patient has chronic kidney disease Care Plan Patient has chronic kidney disease No Oscar, Malena, PILL PACKER Patient has chronic kidney disease Care Plan Patient has chronic kidney disease No Oscar, Malena, PILL PACKER Patient has diabetic neuropathy Care Plan Patient has diabetic neuropathy No Oscar, Malena, PILL PACKER Patient has diabetic neuropathy Care Plan Patient has diabetic neuropathy No Oscar, Malena, PILL PACKER Patient has diabetic neuropathy Care Plan Patient has diabetic neuropathy No Oscar, Malena, PILL PACKER Weekly blood pressure task Care Plan Weekly [...] Comments PROTHROMBIN TIME WHOLE BLD POC Routine 03/07/2025 3:53 PM EST ~PT, ~INR - ANTI COAG CLINIC Routine 03/07/2025 3:53 PM EST documented in this encounter Results * (ABNORMAL) PROTHROMBIN TIME WHOLE BLD POC (03/07/2025 3:53 PM EST) Protime 22.1(H) 11.1 - 13.5 sec [facility] 03/07/2025 3:53 PM EST 03/07/2025 3:54 PM EST us Generic External Data Provider LAB BLOOD ORDERAB LES Final Result [facility] [address] [place] [phone] * (ABNORMAL) ~PT, ~INR - ANTI COAG CLINIC (03/07/2025 3:53 PM EST) Prothrombin Time INR 1.8(H) 0.9 - 1.1 [facility] Comment:METER #: [id number] TERNATIONAL NORMALIZED RATIO (INR) REFERENCE RANGES Reference RangeFor patients not on anticoagulant therapy: 0.9 - 1.1INR ranges for oral anticoagulanttherapy:For prevention and treatment of venous thrombosis and pulmonary embolism: 2.0 - 3.0For acute myocardial infarction with aspirin therapy: 2.0 - 3.0For acute myocardial infarction without aspirin therapy: 3.0 - 4.0For patients with mechanical prosthetic heart valves: 2.5 - 3.5 03/07/2025 3:53 PM EST 03/07/2025 3:54 PM EST us Generic External Data Provider LAB BLOOD ORDERAB LES Final Result Performing Organization Address City/State/[facility] de Phone Number [facility] [address] [place] [phone] documented in this encounter Visit Diagnoses [...] documented as of this encounter Care Teams Sample Cutter Relationship Specialty Start Date End Date Monse Medina MD [address] [place] [phone] PCP - General Family Medicine 04/28/24 documented as of this encounter
--- OUTSIDE RECORDS SUMMARY | 2025-03-07 19:50 | XMS_ITS | Encounter Summary ---
Author Organization [employer] Address [address] [facility] 7t [place] [address] Care Team Providers Care Pool Cleaner Name Role Phone Monse Medina MD Primary Care Provider [phone] Encounter Details Date Type Department Care Team ([facility] st Contact Info) Description 01/26/2025 Orders Only [facility] [address] [place], [place] [phone] Monse Medina MD [address] [place], [place] [phone] Social History Tobacco Use Types Packs/Day Years [...] documented as of this encounter Care Teams Pool Cleaner Relationship Specialty Start Date End Date Monse Medina MD [address] [place] [phone] PCP - General Family Medicine 04/28/24 documented as of this encounter
--- OUTSIDE RECORDS SUMMARY | 2025-03-07 19:50 | XMS_ITS | Encounter Summary ---
Author Organization [employer] Address [address] [facility] 7t [place] [address] Care Team Providers Care Classification Control Clerk Name Role Phone Monse Medina MD Primary Care Provider [phone] Encounter Details Date Type Department Care Team ([facility] st Contact Info) Description 02/15/[address] [facility] [address] [place], [place] [phone] Monse Medina MD [address] [place], [place] [phone] Diarrhea, unspecified type (Primary Dx) Social History [...] Plan Patient has chronic kidney disease No yJoti Barnhart RN Patient has chronic kidney disease [...] Weekly blood pressure task No Oscar, Malena, BALL MILL MIXER Weekly blood pressure task Care Plan Weekly blood pressure task No Oscar, Malena, BALL MILL MIXER Weekly blood pressure task Care Plan Weekly blood pressure task No Oscar, Malena, BALL MILL MIXER Patient has chronic kidney disease Care Plan Patient has chronic kidney disease No Oscar, Malena, BALL MILL MIXER Patient has chronic kidney disease Care Plan Patient has chronic kidney disease No Ocsar, Malena, BALL MILL MIXER Patient has chronic kidney disease Care Plan Patient has chronic kidney disease No Oscar, Malena, BALL MILL MIXER Patient has diabetic neuropathy Care Plan Patient has diabetic neuropathy No Oscar, Malena, BALL MILL MIXER Patient has diabetic neuropathy Care Plan Patient has diabetic neuropathy No Oscar, Malena, BALL MILL MIXER Patient has diabetic neuropathy Care Plan Patient has diabetic neuropathy No Oscar, Malena, BALL MILL MIXER Weekly blood pressure task Care Plan Weekly [...] documented as of this encounter Care Teams Classification Control Clerk Relationship Specialty Start Date End Date Monse Medina MD [address] [place] [phone] PCP - General Family Medicine 04/28/24 documented as of this encounter
--- OUTSIDE RECORDS SUMMARY | 2025-03-07 19:50 | XMS_ITS | Clinical Summary ---
Author Organization [employer] Address [address] [facility] [address] [place] [address] Care Team Providers Care Short Haul Driver Name Role Phone Monse Medina MD Primary Care Provider [phone] Allergies No known active allergies Medications FREESTYLE [...] (TWELVE) HOURS. 7 mL 1 02/22/20 Active apixaban (Eliquis) 5 MG tablet Take 1 tablet (5 mg) by mouth 2 times daily. 180 tablet 3 01/27/20 25 025 Discontinued(Si de effects) Enoxaparin Sodium 80 MG/0.8ML solution prefilled syringe Inject 0.7 mL (70 mg) as directed every 12 (twelve) hours. 7 mL 1 02/08/20 25 025 Discontinued Enoxaparin Sodium 80 MG/0.8ML solution prefilled syringe INJECT 0.7 ML (70 MG) DIRECTED EVERY 12 (TWELVE) HOURS. 7 mL 1 02/15/20 25 025 Discontinued Active Problems Problem Noted Date Diagnosed Date Transaminitis 06/06/2024 Assessment & Plan (06/06/2024 12:08 PM EDT): -Pt is currently taking atorvastatin and niacin -Will check lab today History of TIA (transient ischemic attack) 06/06 Assessment & Plan (06/06/2024 4:20 PM EDT): - on 05/08/24, left UE and LE weakness and numbness - received tenecteplase in ED, admitted to [facility] for further evaluation and management - Head [...] no hypercoagulable work-up - will consult with recycler if patient needs hypercoagulable work-up (likely unnecessary since patient has not had recurrence) Assessment & Plan (04/29/2024 5:08 PM EST): - suggestive of unprovoked DVT - patient states she took a medication for few months - no hypercoagulable work-up - will consult with recycler if patient needs hypercoagulable work-up (likely unnecessary [...] Encounters Date Type Department Care Team Description 03/07/2025 Orders Only GENERIC EXTERNAL DATA DEPARTMENT Provider, Generic External Data 02/28/2025 Orders Only GENERIC EXTERNAL DATA DEPARTMENT Provider, Generic External Data 02/22/2025 Orders Only GENERIC EXTERNAL DATA DEPARTMENT Provider, Generic External Data 02/21/2025 Orders Only [facility] [place] [address] Ladonna Reynoso ANP 02/20/2025 Refill [facility] [place] [address] Monse Medina MD 02/20/2025 Orders Only GENERIC EXTERNAL DATA DEPARTMENT Provider, Generic External Data 02/15/2025 Orders Only [facility] [place] [address] Monse Medina MD Diarrhea, unspecified type (Primary Dx) 02/15/2025 Orders Only [facility] [address] [facility] [place] [address] Monse Medina MD 02/15/2025 Orders Only GENERIC EXTERNAL DATA DEPARTMENT Provider, Generic External Data 02/14/2025 Refill [facility] [address] [facility] [place] [address] Monse Medina MD 02/14/2025 Telephone [facility] [address] [facility] [place] [address] Monse Medina MD CRITICAL LAB 02/14/2025 Orders Only GENERIC EXTERNAL DATA DEPARTMENT Provider, Generic External Data 02/13/2025 Orders Only [address] [address] Monse Medina MD 02/07/2025 Orders Only [facility] [address] [place] [address] Monse Medina MD Single subsegmental pulmonary embolism without acute cor pulmonale (CMS/HCC) (HCC) (Primary Dx); History of DVT (deep vein thrombosis) 01/26/2025 Orders Only [facility] [address] [place] [address] Monse Medina MD 01/24/[address] [place] [address] Monse Medina MD ER Follow-up 12/29/2024 Orders Only GENERIC EXTERNAL DATA DEPARTMENT Provider, Generic External Data 12/26/2024 Patient Outreach [facility] [address] [place], [place] [phone] Monse Medina MD Transition Of Care (Tcm) (HDF unscheduled) 12/22/2024 Orders Only [address] [address] Monse Medina MD Pulmonary embolism without acute cor pulmonale, unspecified chronicity, unspecified pulmonary embolism type (CMS/HCC) (HCC) (Primary Dx); History of DVT (deep vein thrombosis); History of TIA (transient ischemic attack) 12/20/2024 Orders Only [facility] External Provider, [facility] from Last 3 Months Immunizations Immunization Administration [...] 2) 04/07/2024 Diabetes: Hemoglobin A1C 08/05/2024 05/08/2024, 02/08/2024 COVID-19 Vaccine ( season) 2024 02/01/2024 Alcohol/Substance [...] Weekly blood pressure task No Oscar, Malena, CENTRAL OFFICE MECHANIC Weekly blood pressure task Care Plan Weekly blood pressure task No Oscar Malena, CENTRAL OFFICE MECHANIC Patient has chronic kidney disease Care Plan Patient has chronic kidney disease No Oscar Malena, CENTRAL OFFICE MECHANIC Patient has chronic kidney disease Care Plan Patient has chronic kidney disease No Oscar Malena, CENTRAL OFFICE MECHANIC Patient has chronic kidney disease Care Plan Patient has chronic kidney disease No Oscar Malena, CENTRAL OFFICE MECHANIC Patient has diabetic neuropathy Care Plan Patient has diabetic neuropathy No OscarSusana muñoznifer, CENTRAL OFFICE MECHANIC Patient has diabetic neuropathy Care Plan Patient has diabetic neuropathy No Oscar, Malena, CENTRAL OFFICE MECHANIC Patient has diabetic neuropathy Care Plan Patient has diabetic neuropathy No Cyndi Moorefer, CENTRAL OFFICE MECHANIC Weekly blood pressure task Care Plan Weekly [...] Care Plan Weekly blood pressure task No aLdonna Reynoso ANP Weekly blood pressure task Care [...] [facility] Routine 03/07/2025 3:53 PM EST PROTHROMBIN TIME WHOLE BLD POC Routine 02/28/2025 9:57 AM EST ~PT, ~INR - ANTI [facility]INIC Routine 02/28/2025 9:57 AM EST PROTHROMBIN TIME WHOLE BLD POC Routine 02/22/2025 [...] 2 diabetes mellitus without complication, unspecified whether halfway insulin use ([facility]) HEMOGLOBIN A1C Routine 05/08/2024 12:23 PM EST from Last 3 Months or Most Recently Relevant to Health Maintenance Results * (ABNORMAL) PROTHROMBIN TIME WHOLE BLD POC (03/07/2025 3:53 PM EST) Only the most recent of6 resultswithin the time period is included. Protime 22.1(H) 11.1 - 13.5 sec [facility] 03/07/2025 3:53 PM EST 03/07/2025 3:54 PM EST us Generic External Data Provider LAB BLOOD ORDERAB LES Final Result [facility] [address] [place] [address] [phone] * (ABNORMAL) ~PT, ~INR - ANTI [facility] CLINIC (03/07/2025 3:53 PM EST) Only the most recent of6 resultswithin the time period is included. Prothrombin Time INR 1.8(H) 0.9 - 1.1 [facility] Comment:METER #: [id number] TERNATIONAL NORMALIZED RATIO (INR) REFERENCE RANGES Reference [...] ORDERAB LES Final Result Performing Organization Address [facility] de Phone Number [facility] [address] [place] [phone] * (ABNORMAL) Lipid Panel with Reflex to Direct LDL (02/13/2025 3:19 PM EST) Triglycerides 392(H) <150 mg/dL [facility] Comment:Desirable Triglyceri de: less than 150 mg/dLBorderline High Triglyceride 150-199 mg/dLHigh Triglyceride: 200-499 mg/dLVery High Triglyceride: greater than or equal to 5OO mg/dL Cholesterol 228(H) <200 mg/dL [facility] Comment:Desirable Cholestero l: less than 200 mg/dLBorderline High Cholesterol: 200-239 mg/dLHigh Cholesterol: greater than 239 mg/dL LDL Cholesterol Calculated 105(H) <100 mg/dL [facility] Comment:Desirable LDL: less than 100 mg/dLNear Optimal/Above Optimal LDL: 110- 129 mg/dLBorderline High LDL: 130-159 mg/dLHigh LDL: 160-189 mg/dLVery High LDL: greater than or equal to 190 mg/dL HDL Cholesterol 45 >40 mg/dL [facility] Comment:Desirable HDL: great er than 40 mg/dL Note: This HDL assay may give artificially low results in patients with liver disease. 02/13/2025 3:19 PM EST 02/13/2025 3:19 PM EST us Monse Medina MD LAB BLOOD ORDERABLES Final Resul t Performing Organization Address City/[facility]/ZIP Co de Phone Number [facility] [address] [place] [phone] * (ABNORMAL) Basic Metabolic Panel (02/13/2025 3:19 PM EST) Only the most recent of2 resultswithin the time period is included. Sodium 141 135 - 145 mmol/L [facility] Potassium 4.3 3.3 - 5.1 mmol/L [facility] Chloride 106 96 - 108 mmol/L [facility] Carbon Dioxide 29 22 - 29 mmol/L [facility] Anion Gap 10(L) 12 - 20 [facility] Urea Nitrogen (BUN) 15 9 - 16 mg/dL [facility] Creatinine, Serum 0.57 0.5 - 1.4 mg/dL [facility] Estimated Glomerular Filt Rate >60 [facility] Comment:Chronic Kidney Disea se: Estimated GFR < 60 mL/min/1.73g8Fytjjh Kidney Disease: Estimated GFR < 15 mL/min/1.73m2 Glucose 156(H) 60 - 115 mg/dL [facility] Calcium 9.9 8.4 - 10.2 mg/dL [facility] 02/13/2025 3:19 PM EST 02/13/2025 3:19 PM EST us Monse Medina MD LAB BLOOD ORDERABLES Final Resul t [facility] [address] [place] [phone] * (ABNORMAL) CBC auto differential (12/29/2024 8:07 AM EDT) Only the most recent of2 resultswithin the time period is included. White Blood Count 9.9 4.8 - 10.8 X10*3/uL [facility] Red Blood Count 4.62 4.20 - 5.50 X10*6/uL [facility] Hemoglobin 12.7 12.0 - 16.0 g/dl [facility] Hematocrit 39.0 37.0 - 47.0 % [facility] Mean Corpuscular Volume 84.4 80.0 - 98.0 fL [facility] Mean Corpuscular Hemoglobin 27.5 27.0 - 33.0 pg [facility] Mean Corpuscular HGB Conc 32.6 31.0 - 35.0 g/dl [facility] Red Cell Distribution Width 14.6 11.0 - 16.0 % [facility] Platelet Count 208 160 - 400 X10*3/uL [facility] Mean Platelet Volume 9.7 9.4 - 12.3 fL [facility] Neutrophils Percent Auto 65.6 45 - 73 % [facility] Imm Gran Pct Auto 2.2(H) 0.0 - 0.4 % [facility] Lymphocytes Percent Auto 23.5 20 - 40 % [facility] Monocytes Percent Auto 7.8 2 - 11 % [facility] Eosinophils Percent Auto 0.6 0 - 4 % [facility] Basophils Percent Auto 0.3 0 - 2 % [facility] NRBC Pct Auto 0.0 0.0 - 0.2 /100WBC [facility] Neutrophils Absolute Auto 6.5 2.0 - 8.3 x10*3/uL [facility] Imm Gran Abs Auto 0.22(H) 0.00 - 0.03 X10*3/uL [facility] Lymphocytes Absolute Auto 2.3 1.2 - 4.9 X10*3/uL [facility] Monocytes Absolute Auto 0.8 0.1 - 1.2 X10*3/uL [facility] Eosinophils Absolute Auto 0.1 0.0 - 0.4 X10*3/uL [facility] Basophils Absolute Auto 0.0 0.0 - 0.2 X10*3/uL [facility] NRBC Abs Auto 0.000 0.0 - 0.012 X10*3/uL [facility] 12/29/2024 8:07 AM EDT 12/29/2024 8:09 AM EDT us Generic External Data Provider LAB BLOOD ORDERAB LES Final Result Performing Organization Address [facility] [[email or web address]] Co de Phone Number [facility] [address] [place] [phone] * (ABNORMAL) Prothrombin Time-INR (12/29/2024 8:07 AM EDT) Prothrombin Time 13.2(H) 10.9 - 12.4 SEC [facility] INTERNATIONAL NORM RATIO 1.2(H) 0.9 - 1.1 [facility] Comment:INTERNATIONAL NORMAL IZED [...] ORDERAB LES Final Result Performing Organization Address [facility] [[email or web address]] Co de Phone Number [facility] [address] [place] [phone] * (ABNORMAL) Comprehensive Metabolic Panel (12/29/2024 8:07 AM EDT) Sodium 141 135 - 145 mmol/L [facility] Potassium 4.2 3.3 - 5.1 mmol/L [facility] Chloride 106 96 - 108 mmol/L [facility] Carbon Dioxide 29 22 - 29 mmol/L [facility] Anion Gap 10(L) 12 - 20 [facility] Urea Nitrogen (BUN) 13 9 - 16 mg/dL [facility] Creatinine, Serum 0.56 0.5 - 1.4 mg/dL [facility] Creatinine Clr Calc Pharmacy 69.2 [facility] Comment:Provided height and weight: 157.48 cm,79.832 kg.eGFR (calculated from the MDRD study equation) and eCrCl(calculated from the Cockcroft-Gault equation) are based ondifferent parameters and may not yield comparable results.If eCrCl result is absurd, please check patient'sheight/weight. Estimated Glomerular Filt Rate >60 [facility] Comment:Chronic Kidney Disea se: Estimated GFR < 60 mL/min/1.59q0Hicirn Kidney Disease: Estimated GFR < 15 mL/min/1.73m2 Glucose 220(H) 60 - 115 mg/dL [facility] Calcium 9.2 8.4 - 10.2 mg/dL [facility] Bilirubin, Total 0.4 0.0 - 1.0 mg/dL [facility] Aspartate Amino Transferase 17 5 - 31 U/L [facility] Alanine Aminotransferase 24 0 - 31 U/L [facility] Total Protein 6.7 6.5 - 8.0 g/dL [facility] Albumin Level 3.9 3.5 - 5.0 g/dL [facility] Alkaline Phosphatase 62 39 - 117 U/L [facility] 12/29/2024 8:07 AM EDT 12/29/2024 8:09 AM EDT us Generic External Data Provider LAB BLOOD ORDERAB LES Final Result [facility] [address] [place] [phone] * [facility] US Lower Extremity Venous Duplex Bilateral (12/21/2024 7:29 PM EDT) 12/21/2024 7:29 PM EDT Narrative [facility] - 12/21/2024 7:31 PM EDT [address] [address] Ultrasound Report Signed Patient: Maryellen Acosta MR#: [id number] 1351 : 1935 Acct:[id number] Age/Sex: 89 / F ADM Date: 12/20/24 Loc: [facility] 475-[address]: Lincoln Cohen MD Ordering Physician: Jerrica Oropeza MD Date of Service: 12/21/24 Procedure(s): US venous duplex LE BI Accession Number(s): [id number] cc: Monse Medina MD; Jerrica Oropeza MD [...] MD on 12/21/2024 19:29:44 Dictated By: Santana Dogde MD Signed By: <Electronically signed by Santana Dodge MD in OV> 12/21/241930 DD/ 28 TD/TT: 12/21/241928 In Process Inspector: Procedure Note Donotuseinterpreter, Image - 12/21/[address] [address] Ultrasound Report Signed Patient: Maryellen AcostaMR#: [id number] 1351 : 1935cct:[id number] Age/Sex: 89 / FADM Date: 12/20/24 Loc: [facility] 475-[address]: Lincoln Cohen MD Ordering Physician: Jerrica Oropeza MD Date of Service: 12/21/24 Procedure(s): US venous duplex LE BI Accession Number(s): [id number] cc: Monse Medina MD; Jerrica Oropeza MD [...] This document has been electronically signed by: Santaan Dodge MD on 12/21/2024 19:29:44 Dictated By: Santana Dodge MD Signed By: <Electronically signed by Santana Dodge MD in OV> 12/21/241930 DD/ 28 TD/TT: 12/21/241928 In Process Inspector: [facility] External Provider CV VASC ULAR PROCEDURES Final Result [facility] [address] [place] [phone] * XR KUB and Upright 2 Views (12/21/2024 1:32 PM EDT) Anatomical Region Laterality Modality Radiographic Che ging 12/21/2024 1:32 PM EDT Narrative 12/21/2024 2:03 PM EDT [address] [address] XRay Report Signed Patient: Maryellen Acosta MR#: [id number] 1351 : 1935 Acct:[id number] Age/Sex: 89 / F ADM Date: 12/20/24 Loc: [facility] 475-[address]: Lincoln Cohen MD Ordering Physician: Lincoln Cohen MD Date of Service: 12/21/24 Procedure(s): XR KUB Accession Number(s): [id number] cc: Lincoln Cohen MD; Monse Medina MD [...] 12/21/24 1400 DD/ 1332 TD/TT: 12/21/24 1356 In Process Inspector: Procedure Note Donotuseinterpreter, Image - 12/21/2024 [place] [address] XRay Report Signed Patient: Carlin Acosta#: [id number] 1351 : 8Acct:[id number] Age/Sex: 89 / FADM Date: 12/20/24 Loc: [facility] 475-[address]: Lincoln Cohen MD Ordering Physician: Lincoln Cohen MD Date of Service: 12/21/24 Procedure(s): XR KUB Accession Number(s): [id number] cc: Lincoln Cohen MD; Monse Medina MD [...] 12/21/24 1400 DD/ 1332 TD/TT: 12/21/24 1356 In Process Inspector: us [facility] External Provider IMG XR PROCEDURES Final Result * FL SMALL BOWEL FOLLOW THROUGH (12/21/2024 7:56 AM EDT) Anatomical Region Laterality Modality Radiographic Che ging 12/21/2024 7:56 AM EDT Narrative 12/21/2024 12:48 PM EDT [address] [address] Fluoroscopy Report Signed Patient: Maryellen Acosta MR#: [id number] 1351 : 1935 Acct:[id number] Age/Sex: 89 / F ADM Date: 12/20/24 Loc: [facility] 475-[address]: Lincoln Cohen MD Ordering Physician: Lincoln Cohen MD Date of Service: 12/21/24 Procedure(s): FL small bowel follow through Accession Number(s): [id number] cc: Lincoln Cohen MD; Monse Medina MD Reason for Exam: SBO EXAMINATION: FL SMALL BOWEL SERIES CLINICAL INFORMATION: SBO COMPARISON: None available. TECHNIQUE: Following a kiln cleaner image of the abdomen, 50/50 diluted 400 mL of Gastrografin contrast was administered orally, and interval abdominal radiographs were performed to assess for contrast progression through the small bowel. However patient complained of significant abdominal pain and patient was aspirated by the floor nurse. The exam was then discontinued. FINDINGS: Barrel Ribs Solderer image of the abdomen demonstrates scattered stool [...] 12/21/24 1245 DD/ 0756 TD/TT: 12/21/24 1106 In Process Inspector: [facility] Procedure Note Donotuseinterpreter, Image - 12/21/2024 [place] [address] Fluoroscopy Report Signed Patient: Carlin Acosta#: [id number] 1351 : 8Acct:[id number] Age/Sex: 89 / FADM Date: 12/20/24 Loc: [facility] 475-[address]: Lincoln Cohen MD Ordering Physician: Lincoln Cohen MD Date of Service: 12/21/24 Procedure(s): FL small bowel follow through Accession Number(s): [id number] cc: Lincoln Cohen MD; Monse Medina MD Reason for Exam: SBO EXAMINATION: FL SMALL BOWEL SERIES CLINICAL INFORMATION: SBO COMPARISON: None available. TECHNIQUE: Following a kiln cleaner image of the abdomen, 50/50 diluted 400 mL of Gastrografin contrast was administered orally, and interval abdominal radiographs were performed to assess for contrast progression through the small bowel. However patient complained of significant abdominal pain and patient was aspirated by the floor nurse. The exam was then discontinued. FINDINGS: Barrel Ribs Solderer image of the abdomen demonstrates scattered stool [...] 12/21/24 1245 DD/ 0756 TD/TT: 12/21/24 1106 In Process Inspector: [facility] External Provider IMG FLU OROSCOPY PROCEDURES Final Result * CBC (12/20/2024 3:51 PM EDT) White Blood Count 8.6 4.8 - 10.8 X10*3/uL [facility] Red Blood Count 5.27 4.20 - 5.50 X10*6/uL [facility] Hemoglobin 14.6 12.0 - 16.0 g/dl [facility] Hematocrit 44.1 37.0 - 47.0 % [facility] Mean Corpuscular Volume 83.7 80.0 - 98.0 fL [facility] Mean Corpuscular Hemoglobin 27.7 27.0 - 33.0 pg [facility] Mean Corpuscular HGB Conc 33.1 31.0 - 35.0 g/dl [facility] Red Cell Distribution Width 14.6 11.0 - 16.0 % [facility] Platelet Count 171 160 - 400 X10*3/uL [facility] Mean Platelet Volume 9.4 9.4 - 12.3 fL [facility] NRBC Pct Auto 0.0 0.0 - 0.2 /100WBC [facility] NRBC Abs Auto 0.000 0.0 - 0.012 X10*3/uL [facility] 12/20/2024 3:51 PM EDT 12/20/2024 3:55 PM EDT Generic External Data Provider LAB BLOOD ORDERAB LES Final Result [facility] [address] [place] [phone] * XR Chest 1 View (12/20/2024 3:30 PM EDT) Only the most recent of2 resultswithin the time period is included. Anatomical Region Laterality Modality Chest Radiographic Che ging 12/20/2024 3:30 PM EDT Narrative 12/20/2024 3:45 PM EDT [address] [address] XRay Report Signed Patient: Maryellen Acosta MR#: [id number] 1351 : 1935 Acct:[id number] Age/Sex: 89 / F ADM Date: 12/20/24 Loc: HO.ED Attending Dr: Ordering Physician: Eusebio Juarez MD Date of Service: 12/20/24 Procedure(s): XR chest 1V Accession Number(s): [id number] cc: Eusebio Juarez MD; Monse Medina MD [...] 12/20/24 1542 DD/ 1530 TD/TT: 12/20/24 1538 In Process Inspector: Procedure Note Donotuseinterpreter, Image - 12/20/[address] [address] XRay Report Signed Patient: Carlin Acosta#: [id number] 1351 : 8Acct:[id number] Age/Sex: 89 / FADM Date: 12/20/24 Loc: HO.ED Attending Dr: Ordering Physician: Eusebio Juarez MD Date of Service: 12/20/24 Procedure(s): XR chest 1V Accession Number(s): [id number] cc: Eusebio Juarez MD; Monse Medina MD [...] 12/20/24 1542 DD/ 1530 TD/TT: 12/20/24 1538 In Process Inspector: us [facility] External Provider IMG XR PROCEDURES Final Result * CTA Chest PE Protocal (12/20/2024 1:45 PM EDT) Anatomical Region Laterality Modality Body, Chest Computed Tomogra phy 12/20/2024 1:45 PM EDT Narrative 12/20/2024 2:37 PM EDT [address] [address] [address] Scan Report Signed Patient: Maryellen Acosta MR#: [id number] 1351 : 1935 Acct:[id number] Age/Sex: 89 / F ADM Date: 12/20/24 Loc: .ED Attending Dr: Ordering Physician: Eusebio Juarez MD Date of Service: 12/20/24 Procedure(s): CT angio chest PE protocol Accession Number(s): [id number] cc: Eusebio Juarez MD; Monse Medina MD Report Number: [id number]: Total DLP = 280.00 mGy-cm Reason for [...] 12/20/24 1434 DD/ 1345 TD/TT: 12/20/24 1410 In Process Inspector: Procedure Note Donotuseinterpreter, Image - 12/20/[address] [address] [address] Scan Report Signed Patient: Carlin Acosta#: [id number] 1351 : 8Acct:[id number] Age/Sex: 89 / FADM Date: 12/20/24 Loc: .ED Attending Dr: Ordering Physician: Eusebio Juarez MD Date of Service: 12/20/24 Procedure(s): CT angio chest PE protocol Accession Number(s): [id number] cc: Eusebio Juarez MD; Monse Medina MD Report Number: [id number]: Total DLP = 280.00 mGy-cm Reason for [...] 12/20/24 1434 DD/ 1345 TD/TT: 12/20/24 1410 In Process Inspector: [facility] External Provider IMG CT PROCEDURES Final Result * CT Abdomen Pelvis w/o Contrast (12/20/2024 12:25 PM EDT) Anatomical Region Laterality Modality Body, Pelvis, Abdomen Computed T omography 12/20/2024 12:2 5 PM EDT Narrative 12/20/2024 1:04 PM EDT [place] [address] CT Scan Report Signed Patient: Maryellen Acosta MR#: [id number] 1351 : 1935 Acct:[id number] Age/Sex: 89 / F ADM Date: 12/20/24 Loc: HO.ED Attending Dr: Ordering Physician: Eusebio Juarez MD Date of Service: 12/20/24 Procedure(s): CT abdomen pelvis wo IV con Accession Number(s): [id number] cc: Eusebio Juarez MD; Monse Medina MD Report Number: [id number]: Total DLP = 627.00 mGy-cm Reason for [...] 12/20/24 1301 DD/ 1225 TD/TT: 12/20/24 1242 In Process Inspector: Procedure Note Donotuseinterpreter, Image - 12/20/[address] [place] [address] [address] Scan Report Signed Patient: Maryellen AcostaMR#: [id number] 1351 : 8Acct:[id number] Age/Sex: 89 / FADM Date: 12/20/24 Loc: HO.ED Attending Dr: Ordering Physician: Eusebio Juarez MD Date of Service: 12/20/24 Procedure(s): CT abdomen pelvis wo IV con Accession Number(s): [id number] cc: Eusebio Juarez MD; Monse Medina MD Report Number: [id number]: Total DLP = 627.00 mGy-cm Reason for [...] 12/20/24 1301 DD/ 1225 TD/TT: 12/20/24 1242 In Process Inspector: [facility] External Provider IMG CT PROCEDURES Final Result * D Dimer High Sensitivity (12/20/2024 12:01 PM EDT) D Dimer High Sensitivity 529 NG/ML [facility] Comment:D-DIMER HS REFERENCE RANGENote: Our [...] Provider LAB BLOOD ORDERAB LES Final Result [facility] [address] [place] [phone] * US Abdomen Limited (12/20/2024 11:29 AM EDT) Anatomical Region Laterality Modality Abdomen Ultrasound 12/20/2024 11:2 9 AM EDT Narrative 12/20/2024 12:22 PM EDT [address] [address] Ultrasound Report Signed Patient: Maryellen Acosta MR#: [id number] : 1935 Acct:[id number] Age/Sex: 89 / F ADM Date: 12/20/24 Loc: HO.ED Attending Dr: Ordering Physician: Eusebio Juarez MD Date of Service: 12/20/24 Procedure(s): US abdomen limited Accession Number(s): [id number] cc: Eusebio Juarez MD; Monse Medina MD [...] 12/20/24 1219 DD/ 1129 TD/TT: 12/20/24 1153 In Process Inspector: Procedure Note Donotuseinterpreter, Image - 12/20/2024 [place] [address] Ultrasound Report Signed Patient: Carlin Acosta#: [id number] : 8Acct:[id number] Age/Sex: 89 / FADM Date: 12/20/24 Loc: HO.ED Attending Dr: Ordering Physician: Eusebio Juarez MD Date of Service: 12/20/24 Procedure(s): US abdomen limited Accession Number(s): [id number] cc: Eusebio Juarez MD; Monse Medina MD [...] 12/20/24 1219 DD/ 1129 TD/TT: 12/20/24 1153 In Process Inspector: us [facility] External Provider IMG US PROCEDURES Edited Result - Final * (ABNORMAL) VENOUS BLOOD GAS (12/20/2024 11:22 AM EDT) VBG pH 7.42 7.32 - 7.43 [facility] Comment:METER #: [id number] additional_comment: CbAlbanom VBG PCO2 48 mmHg [facility] Comment:METER #: [id number] additional_comment: [employer]ban[employer] VBG PO2 72 mmHg [facility] Comment:METER #: [id number] additional_comment: Cb[employer]banom VBG Base Excess 6.3 mmol/L [facility] Comment:METER #: [id number] additional_comment: [employer]ban[employer] VBG HCO3 32(H) 22 - 26 mmol/L [facility] Comment:METER #: [id number] additional_comment: CbAlbanom O2 Sat, Hebert 95.0 % [facility] Comment:METER #: [id number] additional_comment: CbAlbanom 12/20/2024 11:2 2 AM EDT 12/20/2024 11:25 AM EDT us Generic External Data Provider LAB BLOOD ORDERAB LES Final Result Performing Organization Address City/[facility] [[email or web address]] Co de Phone Number [facility] [address] [place] [phone] * Influenza A B2 ID NOW (Leon) (12/20/2024 10:52 AM EDT) IDNOW SERIAL# [id number] [facility] Influenza A Negative Negative [facility] Influenza B2 Negative Negative [facility] Influenza A B2 Note See Note [facility] Comment:The Leon ID NOW In [...] GENERAL ORDERABLES Final Result Performing Organization Address [facility] [[email or web address]] Co de Phone Number [facility] [address] [place] [phone] * COVID-19 ID NOW (LEON) (12/20/2024 10:52 AM EDT) IDNOW SERIAL# [id number] [facility] COVID-19 TEST Negative Negative [facility] COVID-19 NOTE See Note [facility] Comment: Results are for the identification of SARS-CoV2 RNA. TheSARS-CoV2 RNA is generally detectable in respiratory samplesduring the acute phase of infection. Positive results areindicative of the presence of SARS-CoV-2 RNA; clinicalcorrelation with patient history and other diagnosticinformation is necessary to determine patient infectionstatus. Positive results do not rule out bacterial infectionor co- infection with other viruses.Testing facilities within the [facility] and [facility] are required to report all positive [...] use by authorized laboratories.Testing performed on the [employer] ID NOW utilizing NAAT. 12/20/2024 10:5 2 AM EDT 12/20/2024 11:01 AM EDT Generic External Data Provider LAB MOLECULAR CAYETANO GNOSTICS ORDERABLES Final Result Performing Organization Address [facility] [[email or web address]] Co de Phone Number [facility] [address] [place] [phone] * High Sensitivity Troponin I (12/20/2024 10:52 AM EDT) [facility] TROPONIN I HIGH SENSITIVITY 4.5 <3.5 - 17.0 ng/L [facility] Comment:The Leon high sens itivity Troponin-I results should beused in conjunction with other diagnostic information suchas ECG, clinical observations and information, and patientsymptoms to aid in the diagnosis of ME. 12/20/2024 10:5 2 AM EDT 12/20/2024 11:00 AM EDT Generic External Data Provider LAB BLOOD ORDERAB LES Final Result Performing Organization Address [facility] [[email or web address]] Co de Phone Number [facility] [address] [place] [phone] * NT-proBNP (12/20/2024 10:52 AM EDT) Pathologist [facility] NT-proBNP 158.5 <300 pg/mL [facility] Comment:Reference Range:Age Group (years) NT-proBNP (pg/ml) InterpretationAll <300 Negative: HF unlikelyFor patients presenting to the ED with clinical suspicion ofnew onset or worsening HF, see below:18 to <50 >299.9 to <450.0 Grayzone: Hltiorgl06 to 75 >299.9 to <900.0 other causes of>75 >299.9 to <1800.0 NT-proBNP [id number] to <50 >449.9 Positive: HF -51 >899.9>75 >1799.9Note: Elevated NT-proBNP levels should be interpreted inthe context of other clinical information. 12/20/2024 10:5 2 AM EDT 12/20/2024 11:00 AM EDT us Generic External Data Provider LAB BLOOD ORDERAB LES Final Result Performing Organization Address City/[facility]/ZIP Co de Phone Number [facility] [address] [place] [phone] * Magnesium (12/20/2024 10:52 AM EDT) Magnesium 1.9 1.6 - 2.6 mg/dL [facility] 12/20/2024 10:5 2 AM EDT 12/20/2024 11:00 AM EDT us Generic External Data Provider LAB BLOOD ORDERAB LES Final Result Performing Organization Address City/[facility]/ZIP Co de Phone Number [facility] [address] [place] [phone] * Lactic Acid (12/20/2024 10:52 AM EDT) Lactic Acid 1.9 0.5 - 2.0 mmol/L [facility] 12/20/2024 10:5 2 AM EDT 12/20/2024 10:59 AM EDT us Generic External Data Provider LAB BLOOD ORDERAB LES Final Result Performing Organization Address [facility] de Phone Number [facility] [address] [place] [phone] * Hepatic Function Panel (12/20/2024 10:52 AM EDT) Bilirubin, Total 1.0 0.0 - 1.0 mg/dL [facility] Bilirubin, Direct 0.3 0.0 - 0.5 mg/dL [facility] Aspartate Amino Transferase 26 5 - 31 U/L [facility] Alanine Aminotransferase 27 0 - 31 U/L [facility] Total Protein 7.2 6.5 - 8.0 g/dL [facility] Albumin Level 4.3 3.5 - 5.0 g/dL [facility] Alkaline Phosphatase 68 39 - 117 U/L [facility] 12/20/2024 10:5 2 AM EDT 12/20/2024 11:00 AM EDT us Generic External Data Provider LAB BLOOD ORDERAB LES Final Result Performing Organization Address [facility] de Phone Number [facility] [address] [place] [phone] * Albumin, Random Urine W/Creatinine (06/06/2024 11:36 AM EDT) Creatinine, Urine 63.85 mg/dL [facility] Microalbumin Urine 12.0 mg/L [facility] Microalbum Creatinine Ratio Ur 18.7 <30 ug/mg cr [facility] Comment:Albumin/Creatinine R atio Reference Ranges: Normal: < 30 ug/mg creatinine Microalbuminuria: 30 - 300 ug/mg creatinineClinical Albuminuria: > 300 ug/mg creatinine Urine 06/06/2024 11:3 6 AM EDT 06/06/2024 1:06 PM EDT us Monse Medina MD LAB URINE ORDERABLES Final Resul t Performing Organization Address [facility] [[email or web address]] Co de Phone Number [facility] [address] [place] [phone] * (ABNORMAL) Hemoglobin A1c (05/08/2024 12:23 PM EST) Hemoglobin A1c 7.2(H) <6.0 % [facility] Comment:Hemoglobin A1C Refer ence Range Adults: 4.8 - 6.0 % Non diabetic: < 6.0 % Goal: < 7.0 %Additional Action Suggested: > 8.0 %Note: Hemoglobin A1c results are invalid for patients with abnormal amounts of HbF. Blood transfusions may impact the HbA1c concentration in the patient sample. Estimated Average Glucose 160 mg/dL [facility] Comment:eAG = Estimated ave rage glucose which is %A1C expressed asaverage glucose, using the formula of the O9M-UkpkcynLodsxlt Glucose study (ADAG), Diabetes Care, Vol.31,#8,Oct. 2007 05/08/2024 12:2 3 PM EST 05/08/2024 12:28 PM EST us Generic External Data Provider LAB BLOOD ORDERAB LES Final Result Performing Organization Address [facility] de Phone Number [facility] [address] [place] [phone] from Last 3 Months or Most [...] 02/21/2025 Patient has diabetic neuropathy 02/21/2025 Insurance [employer] HSN FULL Care Teams Short Haul Driver Relationship Specialty Start Date End Date Monse Medina MD [address] [place] [phone] PCP - General Family Medicine 04/28/24
--- OUTSIDE RECORDS SUMMARY | 2025-03-07 19:50 | XMS_ITS | Encounter Summary ---
Author Organization [employer] Address [address] [facility] [address] [place] [address] Care Team Providers Care Clinical Sales Consultant Name Role Phone Monse Medina MD Primary Care Provider [phone] Encounter Details Date Type Department Care Team ([facility] st Contact Info) Description 09/29/2024 Orders Only [facility] [address] [place], [place] [phone] Monse Medina MD [address] [place], [place] [phone] Social History Tobacco Use Types Packs/Day Years [...] documented as of this encounter Care Teams Clinical Sales Consultant Relationship Specialty Start Date End Date Monse Medina MD [address] [place] [phone] PCP - General Family Medicine 04/28/24 documented as of this encounter
--- OUTSIDE RECORDS SUMMARY | 2025-03-07 19:50 | XMS_ITS | Encounter Summary ---
Author Organization [employer] Address [address] [facility] [address]t [place] [address] Care Team Providers Care Insurance Commissioner Name Role Phone Monse Medina MD Primary Care Provider [phone] Encounter Details Date Type Department Care Team ([facility] st Contact Info) Description 02/15/[address] [facility] [address] [place], [place] [phone] Monse Medina MD [address] [place], [place] [phone] Social History Tobacco Use Types Packs/Day Years [...] Patient has chronic kidney disease No Jyoti Barnhrat RN Patient has chronic kidney disease Care [...] Weekly blood pressure task No Oscar, Malena, HOSPITAL COORDINATOR Weekly blood pressure task Care Plan Weekly blood pressure task No Oscar, Malena, HOSPITAL COORDINATOR Weekly blood pressure task Care Plan Weekly blood pressure task No Oscar, Malena, HOSPITAL COORDINATOR Patient has chronic kidney disease Care Plan Patient has chronic kidney disease No Oscar, Malena, HOSPITAL COORDINATOR Patient has chronic kidney disease Care Plan Patient has chronic kidney disease No Oscar, Malena, HOSPITAL COORDINATOR Patient has chronic kidney disease Care Plan Patient has chronic kidney disease No Oscar, Malena, HOSPITAL COORDINATOR Patient has diabetic neuropathy Care Plan Patient has diabetic neuropathy No Oscar, Malena, HOSPITAL COORDINATOR Patient has diabetic neuropathy Care Plan Patient has diabetic neuropathy No Oscar, Malena, HOSPITAL COORDINATOR Patient has diabetic neuropathy Care Plan Patient has diabetic neuropathy No Oscar, Malena, HOSPITAL COORDINATOR Weekly blood pressure task Care Plan Weekly [...] as of this encounter Care Teams Insurance Commissioner Relationship Specialty Start Date End Date Monse Medina MD [address] [place] [phone] PCP - General Family Medicine 04/28/24 documented as of this encounter
--- OUTSIDE RECORDS SUMMARY | 2025-03-07 19:50 | XMS_ITS | Encounter Summary ---
Author Organization [employer] Address [address] [place] [address] [address] [place] [address] Care Team Providers Care Trim Setter Helper Name Role Phone Monse Medina MD Primary Care Provider [phone] Reason for Referral * Consultation (Routine) - Closed Specialty Diagnoses / Procedures Referred By Contmadison miranda Referred To Contact Hematology and Oncology Diagnoses Pulmonary embolism without acute cor pulmonale, unspecified chronicity, unspecified pulmonary embolism type (CMS/HCC) (HCC) History of DVT (deep vein thrombosis) History of TIA (transient ischemic attack) Monse Medina MD [address] [place] [address] Phone: tel: fax: Referral ID Status Reason Start Date Expiration Date V isits Requested Visits Authorized [id number] Closed Specialty Services Required 12/22/2024 12/22/2025 1 1 Encounter Details Date Type Department Care Team (Late st Contact Info) Description 12/22/2024 Orders Only [facility] [address] [place] [address] Monse Medina MD [address] [place] [address] Pulmonary embolism without acute cor pulmonale, unspecified [...] documented as of this encounter Care Teams Trim Setter Helper Relationship Specialty Start Date End Date Monse Medina MD [address] [place] [address] PCP - General Family Medicine 04/28/24 documented as of this encounter
== END 2025-03-07 16:20 | disposition home or self-care (01) ==
LOC: HO.ACS 15:43
PROVIDERS: PCP Family Medicine; Visit Provider Internal Medicine Medical Oncology
DX: Z79.01 Long term (current) use of anticoagulants (principal)

== ENCOUNTER → 2025-03-07 15:43 | Outpatient (BNVA) | payer MEDICAID, OTHER, SELFPAY | PROVIDERS: PCP Family Medicine; Visit Provider Internal Medicine Medical Oncology | DX: Z86.718 Personal history of other venous thrombosis and embolism (principal); Z79.01 Long term (current) use of anticoagulants; Z51.81 Encounter for therapeutic drug level monitoring | CPT/HCPCS: 85610; 99211 ==

== ENCOUNTER → 2025-03-07 16:10 | Outpatient (BNV) | payer MEDICAID, SELFPAY | PROVIDERS: PCP Family Medicine; Referring Provider Family Medicine; Visit Provider Internal Medicine | DX: R79.89 Other specified abnormal findings of blood chemistry (principal); Z86.718 Personal history of other venous thrombosis and embolism; Z86.711 Personal history of pulmonary embolism | CPT/HCPCS: 99204 ==